=== PATIENT | male | born 1960 | race Caucasian/White ===

== ENCOUNTER 2021-02-18 05:58 | Day surgery (SDC) | payer OTHER, SELFPAY ==
--- NOTE | 2021-02-17 08:54 | P.CONAN_ITS ---
Documented by User: Veronica Mcclelland NP 02/17/21 08:55 HPI - Anesthesia Eval Consult details Narrative: 60yo M for Colonoscopy [facility] Past Medical History Medical History GERD (gastroesophageal reflux disease) HTN (hypertension) Hyperlipidemia Hypothyroidism Insulin dependent type 2 diabetes mellitus On beta abhishek at home MI on CPAP Personal history of COVID-19 Surgical History Surgical History History of arthroscopy of left knee History of bilateral carpal tunnel release History of esophagogastroduodenoscopy (EGD) History of surgery History of total left knee replacement Hx of colonoscopy Hx of eye surgery Hx of sinus surgery Social History Social History Patient Tobacco Use Status: Never used Tobacco Second Hand Smoke Exposure: No Use of substances other than those prescribed or required for medical reasons: No Are you DNR?: No Advance Directives: No Advance Directives Information Provided: Yes Advance Directives on File: No Meds Allergies Allergy/AdvReac Type Severity Reaction Status Date / Time No Known Allergies Allergy Unverified 02/11/21 15:45 Home Medications Medication Instructions Recorded Confirmed Last Taken Type Humalog U-100 Insulin 02/11/21 02/11/21 Unknown History aspirin 81 mg tablet,delayed 81 mg PO DAILY 02/11/21 02/11/21 02/11/21 History release felodipine 02/11/21 02/18/21 History fluoxetine 10 mg tablet 10 mg PO DAILY 02/11/21 02/11/21 Unknown History furosemide 20 mg tablet 20 mg PO DAILY 02/11/21 02/11/21 Unknown History levothyroxine 02/11/21 Unknown History meloxicam 02/11/21 02/11/21 02/11/21 History metoprolol succinate 25 mg 25 mg PO DAILY 02/11/21 02/11/21 02/18/21 History tablet,extended release 24 hr pantoprazole 40 mg tablet,delayed 40 mg PO DAILY 02/11/21 02/11/21 02/18/21 History release simvastatin 02/11/21 Unknown History Exam Exam Date and Time: February 17, 2021 0854 Assessment and Plan Assessment Anesthesia Assessment: Chart Reviewed Documented by User: Michelle Sosa MD 02/18/21 08:09 [facility] Past Medical History Medical History GERD (gastroesophageal reflux disease) HTN (hypertension) Hyperlipidemia Hypothyroidism Insulin dependent type 2 diabetes mellitus On beta abhishek at home MI on CPAP Personal history of COVID-19 Family History Family history of problems with anesthesia: Yes Surgical History Surgical History History of arthroscopy of left knee History of bilateral carpal tunnel release History of esophagogastroduodenoscopy (EGD) History of surgery History of total left knee replacement Hx of colonoscopy Hx of eye surgery Hx of sinus surgery History of Problems with Anesthesia: No Social History Social History Patient Tobacco Use Status: Never used Tobacco Second Hand Smoke Exposure: No Use of substances other than those prescribed or required for medical reasons: No Are you DNR?: No Advance Directives: No Advance Directives Information Provided: Yes Advance Directives on File: No Meds Allergies Allergy/AdvReac Type Severity Reaction Status Date / Time No Known Allergies Allergy Unverified 02/11/21 15:45 Home Medications Medication Instructions Recorded Confirmed Last Taken Type Humalog U-100 Insulin 02/11/21 02/11/21 Unknown History aspirin 81 mg tablet,delayed 81 mg PO DAILY 02/11/21 02/11/21 02/11/21 History release felodipine 02/11/21 02/18/21 History fluoxetine 10 mg tablet 10 mg PO DAILY 02/11/21 02/11/21 Unknown History furosemide 20 mg tablet 20 mg PO DAILY 02/11/21 02/11/21 Unknown History levothyroxine 02/11/21 Unknown History meloxicam 02/11/21 02/11/21 02/11/21 History metoprolol succinate 25 mg 25 mg PO DAILY 02/11/21 02/11/21 02/18/21 History tablet,extended release 24 hr pantoprazole 40 mg tablet,delayed 40 mg PO DAILY 02/11/21 02/11/21 02/18/21 History release simvastatin 02/11/21 Unknown History Exam Airway Mallampati Class: III TM Dist: >3cm Neck ROM: Full Loose/Missing/Broken Teeth: No Heart: RRR Lungs: CTA Assessment and Plan Assessment Anesthesia Assessment: Anesthesia Plan Discussed Final Anesthetic Review Family History of Problems with Anesthesia: Yes History of Problems with Anesthesia: No NPO: Yes ASA Class: III Final Preanesthetic Review: Meds/Allgs Chart Reviewed, Consent Obtained/Reviewed and Anes Risks/Benef Reviewed Patient Risk: Intermediate Procedure Risk: Low Anesthetic Plan Anesthetic Plan: MAC: Disposition: Standard PACU
[2021-02-18 06:10] VITALS: BMI 44.4
[2021-02-18] MEDS: Lactated Ringers 1,000 ML 100 ML IVCONT (06:35)
[2021-02-18] MEDS: Gentamicin Sulfate/NaCl 80 MG/100 ML PIGGYBACK 100 MG IV (06:36)
[2021-02-18 06:37] VITALS: BP 178/76; PULSE 79; RESP 18; TEMP 37.1; O2SAT 97
[2021-02-18 06:53] LABS: Glucose, Whole Blood 68 mg/dL (60-115)
[2021-02-18] MEDS: Ampicillin Sodium 2 GM in 0.9 % Sodium Chloride 100 ML IV (06:58)
[2021-02-18 08:43] VITALS: BP 133/56; PULSE 77; RESP 18; TEMP 36.6; O2SAT 99
--- NOTE | 2021-02-18 08:50 | P.BOP_ITS ---
Brief Operative Note Date of Service: 02/18/21 Pre-op diagnosis: Screening Post-op diagnosis: other (Colon polyp) Procedure: Colonoscopy to the cecum with hot snare polypectomy Surgeon: Dean Brown Anesthesia: MAC Was an Utility Worker Production used for this Procedure?: No Estimated blood loss (mL): 0 Pathology: other (A. Hepatic flexure polyp) Condition: stable Disposition: PACU
[2021-02-18 08:58] VITALS: BP 146/60; PULSE 78; RESP 18; TEMP 36.6; O2SAT 98
--- NOTE | 2021-02-18 10:18 | OP_ITS ---
SURGEON: Dean Brown MD INDICATIONS: The patient presents for evaluation of colorectal cancer screening and personal history of tubular adenoma of the colon. Full consent has been obtained from him for this, including risks of bleeding and perforation. PREOPERATIVE DIAGNOSIS: Colorectal cancer screening. POSTOPERATIVE DIAGNOSIS: PROCEDURE PERFORMED: Colonoscopy to the cecum with snare polypectomy. ESTIMATED BLOOD LOSS: COMPLICATIONS: ANESTHESIA: Monitored anesthesia care. ASSISTANTS: SPECIMENS: POSTOPERATIVE DIAGNOSES: Colorectal cancer screening, colon polyp, diverticulosis and internal hemorrhoids. DESCRIPTION OF PROCEDURE: The patient was placed in the left lateral decubitus position. The digital rectal exam revealed no abnormalities. The Olympus video pediatric colonoscope was entered into the rectum and advanced to the cecum. Once in the cecum, I did identify normal-appearing cecal pouch with appendiceal orifice and a normal-appearing ileocecal valve. The entire cecum was well visualized and appeared normal. Scope was slowly withdrawn assessing all mucosal surfaces carefully. Preparation was excellent. In the area of the hepatic flexure, was an approximately 12 mm relatively flat, but raised grossly adenomatous polyp, which was removed with the hot snare polypectomy and then recovered by suction. The polypectomy site appeared clean, without any sign of residual polyp nor bleeding. I did not visualize any other polyps, colitis, nor angiodysplasia. There was a mild amount of sigmoid diverticulosis. In the rectum, scope was retroflexed visualizing small internal hemorrhoids, but no other pathology. The rectal mucosa appeared normal. The scope was straightened out and withdrawn from the patient. He tolerated the procedure well and was returned to the recovery area in stable condition. IMPRESSION: 1. Colon polyp, status post hot snare polypectomy. 2. Diverticulosis. 3. Internal hemorrhoids. PLAN: The results of the pathology will be checked. I would recommend a repeat colonoscopy in 5 years for further screening. He was advised not to use any aspirin nor NSAIDs for 1 week. He did receive preprocedure antibiotics for prophylaxis in regard to his knee replacement and was given a prescription to use amoxicillin later today. He will see me on a p.r.n. basis. This has been discussed with his . MD TRES Neal/JEREMY / [id number]
== END 2021-02-18 09:20 | disposition home or self-care (01) ==
PROVIDERS: PCP Internal Medicine; Visit Provider Internal Medicine
PROC: 0DJD8ZZ Inspection of Lower Intestinal Tract, Via Natural or Artificial Opening Endoscopic (ICD-10-PCS; CPT 45378; principal; 2021-02-18 07:30)
DX: Z12.11 Encounter for screening for malignant neoplasm of colon (principal); Z86.010 Personal history of colon polyps; K63.5 Polyp of colon; K57.30 Diverticulosis of large intestine without perforation or abscess without bleeding; K64.8 Other hemorrhoids; K21.9 Gastro-esophageal reflux disease without esophagitis; I10 Essential (primary) hypertension; G47.33 Obstructive sleep apnea (adult) (pediatric); E11.9 Type 2 diabetes mellitus without complications; Z79.4 Long term (current) use of insulin; Z79.899 Other long term (current) drug therapy; Z79.82 Long term (current) use of aspirin; Z86.16 Personal history of COVID-19
CPT/HCPCS: 45385; 82947; 88305; J0290; J1580; J2250; J2405; J2765

== ENCOUNTER → 2022-03-30 07:59 | Outpatient (BNVA) | payer OTHER, SELFPAY | PROVIDERS: PCP Internal Medicine; Visit Provider Internal Medicine Endocrinology, Diabetes & Metabolism | DX: E10.65 Type 1 diabetes mellitus with hyperglycemia (principal); Z79.4 Long term (current) use of insulin | CPT/HCPCS: 82947 ==

== ENCOUNTER → 2022-08-31 09:01 | Outpatient (BNVA) | payer OTHER, SELFPAY | PROVIDERS: PCP Internal Medicine; Visit Provider Internal Medicine Endocrinology, Diabetes & Metabolism | DX: E10.65 Type 1 diabetes mellitus with hyperglycemia (principal) | CPT/HCPCS: 82947; 83036 ==

== ENCOUNTER 2022-12-21 08:45 | Outpatient (AMB) | payer OTHER, SELFPAY ==
[2022-12-21 08:47] VITALS: BP 170/90; PULSE 76; BMI 51.7
--- NOTE | 2022-12-21 08:47 | MHC.OFFVIS ---
Intake Vital Signs 12/21/22 08:47 Height 5 ft 8.78 in Weight 347 lb 14.231 oz BMI 51.7 BP 170/90 H Blood Pressure Location Rt brachial Position Sitting Pulse 76 Pulse Source Pulse Oximeter Intake Visit Reasons: f/u Type 1 DM/ Confirmed Intake Note: Patient present today to follow up on Type 1 Diabetes Mellitus. Patient receives DME supplies through: [facility] Last Diabetic Eye exam: Has upcoming appt on 12/26 Last Podiatry Visit: 11/2022 Random Glucose: 129 mg/dl HgA1C: 5.4% Wiener Packer Required: No Accompanied by: Self / Same As Patient Allergies No Known Allergies Allergy (Verified 12/21/22 08:55) Medication List - Last Reconciled 12/21/22 by Dean Diaz MD aspirin 81 mg PO DAILY cholecalciferol (vitamin D3) 25 mcg PO DAILY [felodipine ] fluoxetine 10 mg PO DAILY furosemide 20 mg PO DAILY glucagon 3 mg/actuation (Baqsimi) 3 mg intranasal ONCE insulin glargine (Lantus U-100 Insulin) 50 units subcut QPM insulin lispro (Humalog U-100 Insulin) 30 - 100 sliding scale doses subcutaneously 5 TIMES A DAY; levothyroxine 250 mcg PO DAILY lisinopril-hydrochlorothiazide 20-12.5 mg 1 tab PO DAILY [meloxicam ] metoprolol succinate ER 50 mg PO DAILY pantoprazole 40 mg PO DAILY pyridoxine (vitamin B6) 200 mg PO BID simvastatin 80 mg PO DAILY HPI HPI Comments History of Present Illness Details 61 YO M with is seen in consultation for T1DM at the request of PCP. Initially diagnosed with T1DM in 11 yrs ago when presented with polyuria .Saw Dr. Evan MD. Saw Dr. Marcano Was initially started on treatment with insulin . Current regimen: Lantus 50 units Humalog 6-8 units Per the CGM Dexcom CGMS is active 93 % of time . Avg glucose is 128 . Variability of 35 GMI of 6.4 The patient's blood sugars were in target 89% of the time, above target 8% of the time, and below target 3% of the time. Pattern shows hypoglycemia occurring late afternoon. Sensitive shows some hypoglycemia occurring predominantly late morning late afternoon Reports low sugars infrequently . Generally having after meals in afternoon Treats lows with sugar cANDIES OR oj . Does not Checks sugar after to ensure it is rising. Family history of autoimmunity in aunts and uncles Type 1 DM Has eyes checked yearly, last eye exam has appt next wk , has retinopathy. Has neuropathy, ses podiatry. Has nephropathy, on SEANIT/ARB. Has HLD, on statin. . Denies history of CAD. Had diabetes education but not recently . Diet/Carb counting: No Denies prior episodes of DKA. Denies prior severe episodes of hypoglycemia requiring help or hospitalization. Not recently Labs: [facility] Medical History (Updated 03/30/22 @ 08:11 by Dean Diaz MD) Uncontrolled type 1 diabetes mellitus with hyperglycemia, with long-term current use of insulin On beta abhishek at home Personal history of COVID-19 GERD (gastroesophageal reflux disease) Hypothyroidism Hyperlipidemia MI on CPAP HTN (hypertension) Insulin dependent type 2 diabetes mellitus Surgical History History of arthroscopy of left knee Hx of sinus surgery Hx of eye surgery History of surgery History of total left knee replacement History of bilateral carpal tunnel release History of esophagogastroduodenoscopy (EGD) Hx of colonoscopy Family History Father Congestive heart failure Diabetes Mother Lung cancer Social History Household Members: Spouse and Children Household Members Other:: , daughter Patient Tobacco Use Status: Never used Tobacco Second Hand Smoke Exposure: No Physical Exam Vital Signs: Last Vital Signs Pulse 76 12/21/22 08:47 BP 170/90 H 12/21/22 08:47 BMI result Body Mass Index 51.7 Absence of Cushingoid features. Absence of acromegalic features. Neck exam reveals nl size thyroid about 15 gms. No thyroid nodules palpable. No carotid bruits present. Lungs CTA. Heart S1 S2, Reg R/R. No M/R/ G. Skin exam reveals absence of vitiligo or acanthosis nigricans. Abdominal exam reveals Soft NT/ND with NA BS. No organomegaly present. Extrem Other: Visual exam of foot performed. No ulcerations or open lesions. No onchomycosis, no callouses.Pulses 2 + distally. Sensation intact to monofilament exam. Vibratory sensation sensed decreased bilaterally with 128 Hz tuning fork. There is 3+ edema present around the ankle Results AMB Hemoglobin A1c AMB Hemoglobin A1c 5.4 % Last Edit by Cari Gamble on 12/21/22 10:25 Results Reviewed Results Reviewed: 12/21/22 08:59 Glucose, Whole Blood Routine Laboratory Last Values Glucose (Clinic) 129 mg/dL (60-115) H 12/21/22 08:59 Assessment & Plan Assessment & Plan (1) Uncontrolled type 1 diabetes mellitus with hyperglycemia, with long-term current use of insulin: Code(s): E10.65 - Type 1 diabetes mellitus with hyperglycemia Plan: This is a 61-year-old white male with a history of type 1 diabetes with excellent glycemic control but afternoon hypoglycemia and 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 Plan is to send the patient to our concrete vibrator operator and health and safety technician. With decrease the Humalog by 1-2 units before l breakfast and lunch We did talk about carbohydrate counting he will meet with the health and safety technician discuss this. We also talked about potential use the Omnipod 5 pump but he somewhat reluctant to go on any pump. Orders: Orders AMB Hemoglobin A1c Today E10.65 - Type 1 diabetes mellitus with hyperglycemia Medications: Refilled glucagon 3 mg/actuation (Baqsimi) 3 mg intranasal ONCE 2 ea 5RF Coding Level of Care Code Est Pt Level 4 (76142) Diagnoses Uncontrolled type 1 diabetes mellitus with hyperglycemia, with long-term current use of insulin E10.65
[2022-12-21 09:04] LABS: Glucose, Whole Blood 129 mg/dL (60-115)
== END 2022-12-21 09:21 | disposition home or self-care (01) ==
PROVIDERS: PCP Internal Medicine; Visit Provider Internal Medicine Endocrinology, Diabetes & Metabolism
DX: E10.65 Type 1 diabetes mellitus with hyperglycemia (principal)
CPT/HCPCS: 99214

== ENCOUNTER → 2022-12-21 08:45 | Outpatient (BNVA) | payer OTHER, SELFPAY | PROVIDERS: Visit Provider Internal Medicine Endocrinology, Diabetes & Metabolism | DX: E10.65 Type 1 diabetes mellitus with hyperglycemia (principal); E10.40 Type 1 diabetes mellitus with diabetic neuropathy, unspecified; E10.319 Type 1 diabetes mellitus with unspecified diabetic retinopathy without macular edema | CPT/HCPCS: 82947; 83036 ==

== ENCOUNTER 2023-05-18 13:13 | Inpatient (IN) | payer OTHER, SELFPAY ==
--- NOTE | ~2023-05-18 | XR_ITS ---
EXAMINATION: XR CHEST CLINICAL INFORMATION: Shortness of breath COMPARISON: Chest radiograph from 12/05/2018 TECHNIQUE: 2 views of the chest were obtained. FINDINGS: Bilateral low lung volumes. Accentuation of pulmonary vasculature. Bibasilar atelectasis. No pneumothorax. Cardiac mediastinal silhouette is borderline enlarged. No large pleural effusion. Degenerative changes of the thoracolumbar spine. Soft tissues are unremarkable. XR/XR chest 2V IMPRESSION: 1. Bilateral low lung volumes. 2. Accentuation of pulmonary vasculature. 3. Bibasilar atelectasis.
--- NOTE | ~2023-05-18 | US_ITS ---
EXAMINATION: US VENOUS ULTRASOUND WITH DOPPLER LOWER EXTREMITY, LEFT CLINICAL INFORMATION: Pain COMPARISON: None available. TECHNIQUE: Ultrasound of the deep veins is performed from the hip to the calf with compression sonography and color and pulse Doppler assessment. Spectral analysis with color-flow imaging is performed. FINDINGS: There is normal venous compression and respiratory variation and augmented flow. The visualized common femoral vein, superficial femoral vein, profunda femoral vein, and popliteal vein shows no evidence of deep venous thrombosis. Calf veins not well visualized. There is no significant popliteal fossa cyst. If the patient's symptoms persist, followup ultrasound in 5 days 7 days might be of value to exclude proximal propagation from a non-visualized calf vein. US/US venous duplex LE LT IMPRESSION: No DVT demonstrated in the left lower extremity. Calf veins not well visualized.
--- NOTE | ~2023-05-18 | CT_ITS ---
EXAMINATION: CT cervical spine wo IV con, CT head/brain wo IV con INDICATION INFORMATION: Reason for Exam fall COMPARISON: None TECHNIQUE: Separate noncontrast CT examinations of the head and cervical spine were performed. Coronal and sagittal images were created for each examination at the technologist workstation. This CT examination was performed using dose optimization techniques as appropriate, variously including the following: *Automated exposure control *Adjustment of mA and/or kV according to patient size (this includes techniques or standardized protocols for targeted exams where dose is matched to indication/reason for exam; i.e. extremities or head) *Use of iterative reconstruction technique DLP: 1472 mGy-cm FINDINGS: Somewhat motion degraded examination. Evaluation of the cervical spine is also somewhat limited due to artifact related to patient body habitus. Head: No acute osseous or soft tissue abnormality. The mastoid air cells are clear. Mild ethmoid sinus mucosal thickening. There is no evidence of acute intracranial hemorrhage or territorial infarction. No abnormal mass effect or midline shift is seen. Butler to white matter differentiation is well preserved. No extra-axial fluid collections are identified. No hydrocephalus. Proportional prominence of the ventricles and sulcal spaces is consistent with mild volume loss. Patchy periventricular and deep white matter hypoattenuation is consistent with mild small vessel ischemic changes. Cervical spine: There is no evidence of acute cervical spine fracture. Vertebral bodies remain normal in height. Cervical straightening. No significant spondylolisthesis. Mild multilevel spondylosis. No pre- or paravertebral soft tissue abnormality is identified. Visualized portions of the lung apices are unremarkable. The thyroid gland is unremarkable. CT/CT cervical spine wo IV con IMPRESSION: 1. No acute intracranial abnormality. 2. No cervical spine fracture or traumatic malalignment.
[2023-05-18 13:34] VITALS: BP 168/50; PULSE 88; RESP 18; TEMP 37.2; O2SAT 94; BMI 48.8
--- NOTE | 2023-05-18 13:39 | ED_ITS ---
HPI - General Adult General Chief complaint: ETOH/Substance Use Stated complaint: Seeking Detox Falling Time Seen by Provider: 05/18/23 16:52 Source: patient, family and RN notes reviewed Mode of arrival: ambulatory Limitations: no limitations History of Present Illness HPI narrative: This is a 62-year-old male, with a history of alcohol abuse, diabetes, hypertension, hypothyroidism, GERD, hyperlipidemia, and MI on CPAP presenting to the emergency department seeking alcohol detox. Patient states that for the last 30-40 years he has been drinking 4 handles of vodka per week. He states that he is increased his intake, states that he has drank for handles of vodka since Tuesday. He has never been to detox or attempted to discontinue alcohol in the past and would like to pursue detox. He reports that he has had alcohol withdrawal tremors, denies hx of withdrawal seizures. He states that over the last week he has had 2 falls. He states that they have been mechanical, denies hitting his head or loss of consciousness. Denies any physical complaints after these falls. He states that over the last 2 weeks he has been unable to fully cleanse himself after using the restroom due to his weight. He states that he has had intermittent chest pain episodes which last several seconds and resolved on its own. He denies any current chest pain or shortness of breath. He denies any current headache, dizziness, chest pain, shortness of breath, abdominal pain, nausea, vomiting or diarrhea. He expresses increased depression and anxiety, denies SI or HI. He reports increased sleepiness throughout the week which is atypical of him. He admits to having a slight cough for the last 8 months. Denies any other complaints or concerns at this time. complaint: Etoh abuse Onset (ago): day(s) Radiation: non-radiation Relieving factors: none Exacerbating factors: none Associated symptoms: denies other symptoms Treatments prior to arrival: none Related Data Home Medications Medication Instructions Recorded Confirmed amlodipine 5 mg tablet 5 mg PO ONCE 05/18/23 05/18/23 aspirin 81 mg chewable tablet 81 mg PO ONCE 05/18/23 05/18/23 fluoxetine 10 mg tablet 10 mg PO DAILY 05/18/23 05/18/23 levothyroxine 25 mcg tablet 25 mcg PO ONCE 05/18/23 05/18/23 levothyroxine 300 mcg tablet 300 mcg PO ONCE 05/18/23 05/18/23 losartan 100 1 tab PO ONCE 05/18/23 05/18/23 mg-hydrochlorothiazide 25 mg tablet meloxicam 15 mg tablet 15 mg PO ONCE PRN Pain 05/18/23 05/18/23 metoprolol succinate 50 mg 50 mg PO ONCE 05/18/23 05/18/23 tablet,extended release 24 hr pantoprazole 40 mg tablet,delayed 40 mg PO ONCE 05/18/23 05/18/23 release simvastatin 80 mg tablet 80 mg PO BEDTIME 05/18/23 05/18/23 vitamin B6-vitamin E-magnesium 1 tab PO ONCE 05/18/23 05/18/23 Allergies Allergy/AdvReac Type Severity Reaction Status Date / Time No Known Allergies Allergy Verified 05/18/23 13:34 Review of Systems 2 Review of Systems: Yes all other systems are reviewed and are negative Constitutional: Constitutional: Reports as per [facility] Past Medical History Medical History (Updated 05/18/23 @ 19:53 by NICK Wick) Uncontrolled type 1 diabetes mellitus with hyperglycemia, with long-term current use of insulin On beta abhishek at home Personal history of COVID-19 GERD (gastroesophageal reflux disease) Hypothyroidism Hyperlipidemia MI on CPAP HTN (hypertension) Insulin dependent type 2 diabetes mellitus Surgical History History of arthroscopy of left knee Hx of sinus surgery Hx of eye surgery History of surgery History of total left knee replacement History of bilateral carpal tunnel release History of esophagogastroduodenoscopy (EGD) Hx of colonoscopy Family History Family History Father Congestive heart failure Diabetes Mother Lung cancer Social History Social History Household Members: Spouse and Children Household Members Other:: , daughter Alcohol intake: current Alcohol intake frequency: 3 or more drinks per day Patient Tobacco Use Status: Never used Tobacco Second Hand Smoke Exposure: No Advance Directives: No Advance Directives Information Provided: No Physical Exam ED Vital Signs: Vital Signs - 24 hr 05/18/23 13:34 05/18/23 17:04 Temperature 98.9 F Pulse Rate 88 84 Respiratory Rate 18 18 Blood Pressure 168/50 H 165/77 H Pulse Oximetry 94 95 Oxygen Delivery Method Room Air Room Air BMI result Body Mass Index 48.8 Const General: cooperative, comfortable and no acute distress Orientation/consciousness: patient oriented x3 Limitations: no limitations HENMT Head: Yes normal to inspection, Yes normocephalic and Yes atraumatic Ears: hearing grossly normal bilaterally General nose exam: Normal external nose present Face and sinus: Yes normal facial exam Mouth: Normal oral and palatal mucosa present, oropharynx normal and moist mucous membranes Throat: Yes posterior oropharynx normal Eyes General: appearance normal, both eyes and all related structures Eyelids: Yes eyelids normal Conjunctivae: conjunctivae normal Sclerae: sclerae normal Pupils: Equal, round and reactive pupils present EOM: EOMs intact bilaterally Neck Neck: Yes normal visual inspection, Yes full ROM and Yes no lymphadenopathy Lymphatic: no lymphadenopathy noted Chest Chest palpation & inspection: normal inspection of the chest Resp Effort & Inspection: normal respiratory effort and able to speak in complete sentences Auscultation: clear to auscultation bilaterally, no crackles, no rales, no rhonchi and no wheezes Cardio Rate: regular rate Rhythm: regular rhythm Heart sounds: S1 normal heart sound present and S2 normal heart sound present GI Other: Obese abdomen,, nontender. Inspection: Yes normal to inspection Skin General skin exam: no rashes or lesions noted Trauma: no lacerations or abrasions Wounds: no wounds Neuro General: patient oriented x3 and moves all extremities Cranial nerves: Yes Equal, round and reactive pupils present Extrem Other: Left calf is mildly edematous, tender to palpation along the calf General: Yes normal to inspection Right upper extremity: normal to inspection Left upper extremity: normal to inspection Right lower extremity: normal to inspection Left lower extremity: normal to inspection Course Course Course Narrative: Alcohol dependent patient is seeking detox, last drink was this morning Labs are ordered This is rapid medical exam in triage pending full evaluation and dispo by ER provider Reevaluation(s) Reevaluation #1: Chest x-ray shows bilateral low lung volumes, accentuation of pulmonary vasculature and by basilar atelectasis. Head CT unremarkable, C-spine unremarkable, no evidence of DVT. Time: 19:07 Reevaluation #2: Hypoglycemic at 48. Patient given D 50 as well as thiamine. Transfer of care initiated, accepted by Dr. White for etoh withdrawal. Time: 19:52 Medications Administered Generic Name Dose Route Start Last Admin Trade Name Bean PRN Reason Stop Dose Admin Thiamine HCl 200 mg/ Sodium 102 mls @ 204 mls/hr 05/18/23 19:35 05/18/23 19:45 Chloride IV 05/18/23 20:04 204 mls/hr ONCE ONE Administration Discontinued Medications Generic Name Dose Route Start Last Admin Trade Name Panfiloq PRN Reason Stop Dose Admin Diazepam 10 mg 05/18/23 16:42 05/18/23 16:53 Diazepam 2 Mg Tablet PO 05/18/23 16:43 10 mg ONCE ONE Administration Medical Decision Making Medical Decision Making [facility] Narrative: This is a 62-year-old male, with a history of alcohol abuse, diabetes, hypertension, hypothyroidism, GERD, hyperlipidemia, and MI on CPAP presenting to the emergency department seeking alcohol detox. On arrival, BP elevated at 168/50, all other vital signs within normal limits. Patient with mechanical fall as well as increased fatigue over the last week. He does have calf tenderness, and did have an episode of chest pain earlier today. Valium 10 mg p.o. was ordered prior to my assessment. He is alert and oriented x4. Plan: Labs, EKG, chest x-ray, CT head, CT neck, EKG, ultrasound LLE Differential Diagnosis Differential Diagnoses: The differential diagnosis associated with the presentation includes ETOH abuse, alcohol withdrawal, depression, anxiety, ACS, SDH Admission/Observation Consideration of admission/observation: Escalation of care including admission/observation considered Consult Healthcare Provider Management of the patient was discussed with: Hospitalist Lab Data [facility] Lab Attestation statement: I reviewed the patient's lab results. No leukocytosis, stable H&H, slight hyperkalemia at 5.4, BUN 38. AST/ALT elevated at 315/145. 05/18/23 16:08 05/18/23 16:08 Labs: Lab Results 05/18/23 05/18/23 05/18/23 Range/Units 16:08 19:19 19:29 WBC 5.7 (4.8-10.8) X10*3/uL RBC 4.18 L (4.60-5.80) X10*6/uL Hgb 14.3 (14.0-18.0) g/dl Hct 41.2 L (42.0-52.0) % MCV 98.6 H (80.0-98.0) fL MCH 34.2 H (27.0-33.0) pg MCHC 34.7 (31.0-36.0) g/dl RDW 13.4 (11.0-16.0) % Plt Count 242 (160-400) X10*3/uL MPV 9.0 L (9.4-12.4) fL Immature Gran % (Auto) 0.2 (0.0-0.4) % Neut % (Auto) 60.5 (45-73) % Lymph % (Auto) 30.1 (20-40) % [place] % (Auto) 5.8 (2-11) % Eos % (Auto) 2.3 (0-4) % Baso % (Auto) 1.1 (0-2) % Lymph # (Auto) 1.7 (1.2-4.9) X10*3/uL [place] # (Auto) 0.3 (0.1-1.2) X10*3/uL Eos # (Auto) 0.1 (0.0-0.4) X10*3/uL Baso # (Auto) 0.1 (0.0-0.2) X10*3/uL Abs Immat Gran (auto) 0.01 (0.00-0.03) X10*3/uL Absolute Neuts (auto) 3.4 (2.0-8.3) x10*3/uL Absolute Nucleated RBC 0.000 (0.0-0.012) X10*3/uL Nucleated RBC % (auto) 0.0 (0.0-0.2) /100WBC Sodium 141 (135-145) mmol/L Potassium 5.4 H (3.3-5.1) mmol/L Chloride 107 (96-108) mmol/L Carbon Dioxide 24 (22-29) mmol/L Anion Gap 15 (12-20) BUN 38 H (9-16) mg/dL Creatinine 1.15 (0.5-1.4) mg/dL Estim Creat Clear Calc 101.9 Estimated GFR > 60 POC Glucose 48 L* (60-115) mg/dL Random Glucose 90 (60-115) mg/dL Calcium 9.3 (8.4-10.2) mg/dL Magnesium 2.2 (1.6-2.6) mg/dL Total Bilirubin 0.6 (0.0-1.0) mg/dL Direct Bilirubin 0.1 (0.0-0.5) mg/dL AST 315 H (5-37) U/L ALT 145 H (0-40) U/L Alkaline Phosphatase 113 (39-117) U/L Troponin I High Sens < 2.7 (<3.5-35.0) ng/L B-Natriuretic Peptide 30 (<100) pg/mL Total Protein 7.6 (6.5-8.0) g/dL Albumin 3.9 (3.5-5.0) g/dL Lipase 27 (8-78) U/L Ethyl Alcohol 264 mg/dL COVID-19 ([facility]BERTINA) Negative (Negative) COVID-19 Clin Com See Note Influenza Type A ([facility]) Negative (Negative) Influenza Type B ([facility]HI) Negative (Negative) Influenza A & B Note See Note Independent Interpretation I performed an independent interpretation of an: EKG Interpretation: EKG normal sinus rhythm at a ventricular rate of 83 beats per minute, OK interval 184, QTC 444, no ST elevation or depression. Radiology Impression Discussion of test interpretation with radiology: I have reviewed the radiologist's reading. Radiologist Impression: EXAMINATION: US VENOUS ULTRASOUND WITH DOPPLER LOWER EXTREMITY, LEFT CLINICAL INFORMATION: Pain COMPARISON: None available. TECHNIQUE: Ultrasound of the deep veins is performed from the hip to the calf with compression sonography and color and pulse Doppler assessment. Spectral analysis with color-flow imaging is performed. FINDINGS: There is normal venous compression and respiratory variation and augmented flow. The visualized common femoral vein, superficial femoral vein, profunda femoral vein, and popliteal vein shows no evidence of deep venous thrombosis. Calf veins not well visualized. There is no significant popliteal fossa cyst. If the patient's symptoms persist, followup ultrasound in 5 days 7 days might be of value to exclude proximal propagation from a non-visualized calf vein. US/US venous duplex LE IMPRESSION: No DVT demonstrated in the left lower extremity. Calf veins not well visualized. Dictated By: Michelle Aguilar MD EXAMINATION: CT cervical spine wo IV con, CT head/brain wo IV con INDICATION INFORMATION: Reason for Exam fall COMPARISON: None TECHNIQUE: Separate noncontrast CT examinations of the head and cervical spine were performed. Coronal and sagittal images were created for each examination at the technologist workstation. This CT examination was performed using dose optimization techniques as appropriate, variously including the following: *Automated exposure control *Adjustment of mA and/or kV according to patient size (this includes techniques or standardized protocols for targeted exams where dose is matched to indication/reason for exam; i.e. extremities or head) *Use of iterative reconstruction technique DLP: 1472 mGy-cm FINDINGS: Somewhat motion degraded examination. Evaluation of the cervical spine is also somewhat limited due to artifact related to patient body habitus. Head: No acute osseous or soft tissue abnormality. The mastoid air cells are clear. Mild ethmoid sinus mucosal thickening. There is no evidence of acute intracranial hemorrhage or territorial infarction. No abnormal mass effect or midline shift is seen. Butler to white matter differentiation is well preserved. No extra-axial fluid collections are identified. No hydrocephalus. Proportional prominence of the ventricles and sulcal spaces is consistent with mild volume loss. Patchy periventricular and deep white matter hypoattenuation is consistent with mild small vessel ischemic changes. Cervical spine: There is no evidence of acute cervical spine fracture. Vertebral bodies remain normal in height. Cervical straightening. No significant spondylolisthesis. Mild multilevel spondylosis. No pre- or paravertebral soft tissue abnormality is identified. Visualized portions of the lung apices are unremarkable. The thyroid gland is unremarkable. CT/CT head/brain wo IV con IMPRESSION: 1. No acute intracranial abnormality. 2. No cervical spine fracture or traumatic malalignment. Dictated By: Matthew Cisneros Independent Historian Clinical information obtained from an independent historian. History obtained from or confirmed by: Spouse Social Determinants Patient?s care significantly limited by Social Determinants of Health including: Alcoholism and drug addiction in family Critical Care Time Critical Care Time Critical Care Time: Yes Total Critical Care Time: 45 Attestation: I have personally provided critical care time exclusive of time spent on separately billable procedures. Time includes review of lab data, radiology results, discussion with consultants, and monitoring for potential decompensation. Intervention performed as documented. Discharge Plan Discharge Clinical Impression: Alcohol withdrawal Patient Disposition: Admitted As Inpatient
[2023-05-18 16:12] LABS: MANUAL DIFF FLAG NO
[2023-05-18 16:15] LABS: Basophils Absolute Auto 0.1 X10*3/uL (0.0-0.2); Basophils Percent Auto 1.1 % (0-2); Eosinophils Absolute Auto 0.1 X10*3/uL (0.0-0.4); Eosinophils Percent Auto 2.3 % (0-4); Hematocrit 41.2 % (42.0-52.0); Hemoglobin 14.3 g/dl (14.0-18.0); Imm Gran Abs Auto 0.01 X10*3/uL (0.00-0.03); Imm Gran Pct Auto 0.2 % (0.0-0.4); Lymphocytes Absolute Auto 1.7 X10*3/uL (1.2-4.9); Lymphocytes Percent Auto 30.1 % (20-40); Mean Corpuscular HGB Conc 34.7 g/dl (31.0-36.0); Mean Corpuscular Hemoglobin 34.2 pg (27.0-33.0); Mean Corpuscular Volume 98.6 fL (80.0-98.0); Monocytes Absolute Auto 0.3 X10*3/uL (0.1-1.2); Monocytes Percent Auto 5.8 % (2-11); Neutrophils Absolute Auto 3.4 x10*3/uL (2.0-8.3); Neutrophils Percent Auto 60.5 % (45-73); Platelet Count 242 X10*3/uL (160-400); Red Blood Count 4.18 X10*6/uL (4.60-5.80); Red Cell Distribution Width 13.4 % (11.0-16.0); White Blood Count 5.7 X10*3/uL (4.8-10.8)
[2023-05-18 16:37] LABS: Alanine Aminotransferase 145 U/L (0-40); Albumin Level 3.9 g/dL (3.5-5.0); Alkaline Phosphatase 113 U/L (39-117); Anion Gap 15 (12-20); Aspartate Amino Transferase 315 U/L (5-37); Bilirubin Direct 0.1 mg/dL (0.0-0.5); Bilirubin Total 0.6 mg/dL (0.0-1.0); Blood Urea Nitrogen 38 mg/dL (9-16); Calcium 9.3 mg/dL (8.4-10.2); Carbon Dioxide 24 mmol/L (22-29); Chloride 107 mmol/L (96-108); Creatinine Clr Calc Pharmacy 101.9; Estimated Glomerular Filt Rate > 60; Ethanol 264 mg/dL; Glucose Random 90 mg/dL (60-115); Lipase 27 U/L (8-78); Potassium 5.4 mmol/L (3.3-5.1); Sodium 141 mmol/L (135-145); Total Protein 7.6 g/dL (6.5-8.0)
[2023-05-18] MEDS: diazePAM 2 MG TABLET 10 MG PO (16:53)
[2023-05-18 17:04] VITALS: BP 165/77; PULSE 84; RESP 18; O2SAT 95
[2023-05-18 17:09] LABS: Magnesium 2.2 mg/dL (1.6-2.6)
--- NOTE | 2023-05-18 17:13 | ECG_ITS ---
Test Reason : ETOH/SUBSTANCE Blood Pressure : / mmHG Vent. Rate : 083 BPM Atrial Rate : 083 BPM P-R Int : 184 ms QRS Dur : 092 ms QT Int : 378 ms P-R-T Axes : 052 -24 042 degrees QTc Int : 444 ms Normal sinus rhythm Septal infarct (cited on or before 05-OCT-2001) Abnormal ECG When compared with ECG of 05-DEC-2018 08:44, No significant change was found Referred By: Queenie Guerra Electronically Signed By:Omi Ramos
[2023-05-18 17:46] LABS: Troponin-I High Sensitivity < 2.7 ng/L (<3.5-35.0)
[2023-05-18 17:50] LABS: B Type Natriuretic Peptide 30 pg/mL (<100)
[2023-05-18 19:33] LABS: Glucose, Whole Blood 48 mg/dL (60-115)
[2023-05-18 19:41] LABS: COVID-19 Test Negative (Negative); IDNOW Serial# 08D9AD1C
[2023-05-18 19:42] LABS: IDNOW Serial# 9DB6401D; Influenza A Negative (Negative); Influenza B2 Negative (Negative)
--- NOTE | 2023-05-18 19:43 | P.HPHOSP_ITS ---
History of Present Illness Date of Service: 05/18/23 Chief Complaint: Alcohol withdrawal This is a 62-year-old male with pertinent history of type 1 diabetes mellitus, essential hypertension, hypothyroidism, MI on CPAP, alcohol use disorder, gastroesophageal reflux disease, mixed hyperlipidemia who presents to the emergency department for concerns of alcohol withdrawal. Patient does have a history of alcohol withdrawal and states his last drink was on the day of presentation. He did not eat or drink anything throughout the day. He has been having anxiety, tremors, nausea and nonbloody emesis. No history of alcohol withdrawal seizures or DTs. Does want to quit. He is compliant with his insulin regimen and states his A1c is 6. Patient took Lantus last night but did not eat anything throughout the day. No fever, chills, chest discomfort, palpitations, shortness of breath, abdominal pain, changes in urinary or bowel habits. In the emergency department, patient was initiated on phenobarb protocol. Blood glucose was found to be low. Review of Systems 2 Constitutional: Constitutional: Reports no additional constitutional complaints Cardiovascular: Cardiovascular: Reports no additional cardiovascular complaints Respiratory: Respiratory: Reports no additional respiratory complaints Gastrointestinal: Gastrointestinal: Reports nausea and Reports vomiting Neurologic: Reports tremor(s) Psychiatric: Psychiatric: Reports anxiety PMFSH Medical History Uncontrolled type 1 diabetes mellitus with hyperglycemia, with long-term current use of insulin On beta abhishek at home Personal history of COVID-19 GERD (gastroesophageal reflux disease) Hypothyroidism Hyperlipidemia MI on CPAP HTN (hypertension) Insulin dependent type 2 diabetes mellitus Family History Father Congestive heart failure Diabetes Mother Lung cancer Surgical History History of arthroscopy of left knee Hx of sinus surgery Hx of eye surgery History of surgery History of total left knee replacement History of bilateral carpal tunnel release History of esophagogastroduodenoscopy (EGD) Hx of colonoscopy Social History Household Members: Spouse and Children Household Members Other:: , daughter Alcohol intake: current Alcohol intake frequency: 3 or more drinks per day Patient Tobacco Use Status: Never used Tobacco Second Hand Smoke Exposure: No Advance Directives: No Advance Directives Information Provided: No Meds Allergies Allergy/AdvReac Type Severity Reaction Status Date / Time No Known Allergies Allergy Verified 05/18/23 13:34 Active Medications: Current Medications Thiamine HCl 200 mg/ Sodium (Chloride) 102 mls @ 204 mls/hr IV ONCE ONE Stop: 05/18/23 20:04 Pharmacy Consult (Consult Rx Etoh Phenob Im/Po) 1 each MISCELLANE ONCE PRN; Protocol PRN Reason: Consult order Phenobarbital (Phenobarbital 15 Mg Tablet) 45 mg PO BID ESTUARDO; Protocol Stop: 05/20/23 21:01 Phenobarbital (Phenobarbital 30 Mg Tablet) 30 mg PO BID ESTUARDO; Protocol Stop: 05/22/23 21:01 Phenobarbital (Phenobarbital 15 Mg Tablet) 15 mg PO DAILY [facility]; Protocol Stop: 05/24/23 09:01 Phenobarbital Sodium (Phenobarbital Sodium 130 Mg/Ml Im Once) 351 mg IM ONCE ONE; Protocol Stop: 05/18/23 20:01 Phenobarbital Sodium (Phenobarbital Sodium 130 Mg/Ml Vial Im Q3hx2) 260 mg IM Q3H ESTUARDO; Protocol Stop: 05/19/23 02:01 Home Medications Medication Instructions Recorded Confirmed Last Taken Type amlodipine 5 mg tablet 5 mg PO DAILY 05/18/23 05/18/23 05/18/23 08:00 History aspirin 81 mg chewable tablet 81 mg PO DAILY 05/18/23 05/18/23 05/18/23 08:00 History cholecalciferol (vitamin D3) 25 25 mcg PO DAILY 05/18/23 05/18/23 05/18/23 History mcg (1,000 unit) tablet cyanocobalamin (vitamin B-12) 1,000 mcg PO DAILY 05/18/23 05/18/23 05/18/23 History 1,000 mcg tablet fluoxetine 10 mg tablet 10 mg PO DAILY 05/18/23 05/18/23 05/18/23 08:00 History levothyroxine 25 mcg tablet 25 mcg PO DAILY 05/18/23 05/18/23 05/18/23 08:00 History levothyroxine 300 mcg tablet 300 mcg PO DAILY 05/18/23 05/18/23 05/18/23 08:00 History losartan 100 1 tab PO DAILY 05/18/23 05/18/23 05/18/23 08:00 History mg-hydrochlorothiazide 25 mg tablet meloxicam 15 mg tablet 15 mg PO DAILY Pain 05/18/23 05/18/23 05/18/23 08:00 History metoprolol succinate 50 mg 50 mg PO DAILY 05/18/23 05/18/23 05/18/23 08:00 History tablet,extended release 24 hr pantoprazole 40 mg tablet,delayed 40 mg PO DAILY 05/18/23 05/18/23 05/18/23 08:00 History release simvastatin 80 mg tablet 80 mg PO BEDTIME 05/18/23 05/18/23 05/17/23 History thiamine HCl (vitamin B1) 100 mg 200 mg PO DAILY 05/18/23 05/18/23 05/18/23 History tablet Physical Exam 2 Vital Signs and Narrative: Vital Signs: Last Vital Signs Temp 98.9 F 05/18/23 13:34 Pulse 84 05/18/23 17:04 Resp 18 05/18/23 17:04 BP 165/77 H 05/18/23 17:04 Pulse Ox 95 05/18/23 17:04 O2 Del Method Room Air 05/18/23 17:04 BMI result Body Mass Index 48.8 Middle-aged male lying in bed in no distress Neck supple, no JVD Regular rate and rhythm, S1-S2 heard Regular breath sounds bilaterally, no wheezing or crackles appreciated Abdomen soft nontender, no guarding, no rigidity Patient is awake, alert and oriented to self, place, time and person ; no focal motor deficit Psych: Normal mood bilateral nonpitting edema Results Labs 05/18/23 16:08 05/18/23 16:08 Labs: Laboratory Results - last 24 hr 05/18/23 05/18/23 05/18/23 16:08 19:19 19:29 MCV 98.6 H MCH 34.2 H MCHC 34.7 RDW 13.4 Plt Count 242 MPV 9.0 L Immature Gran % (Auto) 0.2 Neut % (Auto) 60.5 Lymph % (Auto) 30.1 [place] % (Auto) 5.8 Eos % (Auto) 2.3 Baso % (Auto) 1.1 Lymph # (Auto) 1.7 [place] # (Auto) 0.3 Eos # (Auto) 0.1 Baso # (Auto) 0.1 Abs Immat Gran (auto) 0.01 Absolute Neuts (auto) 3.4 Absolute Nucleated RBC 0.000 Nucleated RBC % (auto) 0.0 Anion Gap 15 Estim Creat Clear Calc 101.9 Estimated GFR > 60 POC Glucose 48 L* Random Glucose 90 Calcium 9.3 Magnesium 2.2 Total Bilirubin 0.6 Direct Bilirubin 0.1 AST 315 H ALT 145 H Alkaline Phosphatase 113 Troponin I High Sens < 2.7 B-Natriuretic Peptide 30 Total Protein 7.6 Albumin 3.9 Lipase 27 Ethyl Alcohol 264 COVID-19 ([facility]) Negative COVID-19 Clin Com See Note Influenza Type A ([facility]) Negative Influenza Type B ([facility]) Negative Influenza A & B Note See Note Imaging Radiologist's Impressions: Impressions Cervical Spine CT 05/18/23 17:44 IMPRESSION: 1. No acute intracranial abnormality. 2. No cervical spine fracture or traumatic malalignment. Head CT 05/18/23 17:44 IMPRESSION: 1. No acute intracranial abnormality. 2. No cervical spine fracture or traumatic malalignment. Chest X-Ray 05/18/23 18:02 IMPRESSION: 1. Bilateral low lung volumes. 2. Accentuation of pulmonary vasculature. 3. Bibasilar atelectasis. Venous Duplex 05/18/23 18:23 IMPRESSION: No DVT demonstrated in the left lower extremity. Calf veins not well visualized. Assessment and Plan (1) Alcohol withdrawal: Status: Acute (2) Hypoglycemia: Status: Acute Plan This is a 62-year-old male with pertinent history of type 1 diabetes mellitus, essential hypertension, hypothyroidism, MI on CPAP, alcohol use disorder, gastroesophageal reflux disease, mixed hyperlipidemia who presents to the emergency department for concerns of alcohol withdrawal. #. Alcohol use disorder: Initiated on phenobarb protocol in the ER. On thiamine. Consulted Addiction Medicine, appreciate assistance #. Hyperglycemia in a patient with type 1 diabetes: Patient states he did not eat all day and took his Lantus last night. D25 IV push and close monitoring of glucose. May need dextrose fluids if continues to be hypoglycemic #. Mood disorder: Continue home mood stabilizers #. Hypothyroidism: On Synthroid #. Essential hypertension: Continue home antihypertensives #. MI: Continue CPAP at bedtime DVT prophylaxis: Lovenox Full code Quality Stroke Does the patient have a stroke diagnosis?: No VTE Prior VTE?: No VTE Risk Level:: Medical - moderate - high VTE Device Contraindication: Treatment Not Indicated VTE Drug Contraindication: N/A - Med Ordered
[2023-05-18] MEDS: Thiamine HCL 200 MG in 0.9 % Sodium Chloride 100 ML 204 MG IV (19:45)
--- NOTE | 2023-05-18 20:09 | PHA.MEDREC ---
Pharmacy Consult ? Medication Reconciliation Pharmacy has completed the medication reconciliation. Patient had all AM pills in pill box. I was able to identify. Patient reports a cholesterol medications at night, said it was simvastatin but patient reports it was switch to another medications at a lower dose that was strong. I left has simvastatin as medication will be P&T to atorvastatin on admission. Ashtyn Sim, PharmD
[2023-05-18] MEDS: Sodium Zirconium Cyclosilicate 5 GM POWD.PACK PO (21:11)
[2023-05-18] MEDS: Enoxaparin Sodium 40 MG/0.4 ML SYRINGE SUBCUT (21:11)
[2023-05-18] MEDS: PHENobarbitaL sodium 130 MG/ML IM ONCE 351 MG IM (21:12)
[2023-05-18 21:21] LABS: Amphetamine Screen Urine Not Detected (Not Detect); Barbiturates, Urine Not Detected (Not Detect); Benzodiazepines Screen Urine Not Detected (Not Detect); Cannabinoid Screen Urine Not Detected (Not Detect); Cocaine Screen Urine Not Detected (Not Detect); Fentanyl, urine Not Detected (Not Detect); Opiate Screen Urine Not Detected (Not Detect); Phencyclidine Screen Urine Not Detected (Not Detect)
[2023-05-18 21:31] LABS: Glucose, Whole Blood 104 mg/dL (60-115)
[2023-05-18 22:00] VITALS: BP 166/70; PULSE 86; RESP 18; TEMP 36.7; O2SAT 94
[2023-05-18 23:24] LABS: Glucose, Whole Blood 222 mg/dL (60-115)
[2023-05-18] MEDS: ondansetron HCL 4 MG/2 ML VIAL IVPUSH (23:32)
[2023-05-19] VITALS (7 sets, daily range): BP systolic 140–176; BP diastolic 70–82; PULSE 80–97; RESP 16–20; TEMP 36–37.2; O2SAT 94–98
[2023-05-19] MEDS: PHENobarbitaL sodium 130 MG/ML VIAL IM Q3Hx2 260 MG IM ×2 (00:20→04:05)
[2023-05-19 01:31] LABS: Glucose, Whole Blood 213 mg/dL (60-115)
[2023-05-19] MEDS: Levothyroxine Sodium 150 MCG TABLET 300 MCG PO (05:42)
[2023-05-19] MEDS: Levothyroxine Sodium 25 MCG TABLET PO (05:42)
[2023-05-19] MEDS: ondansetron HCL 4 MG/2 ML VIAL IVPUSH (05:42)
[2023-05-19] MEDS: Omeprazole 20 MG CAPSULE.DR PO (05:42)
[2023-05-19 07:19] LABS: Glucose, Whole Blood 246 mg/dL (60-115)
[2023-05-19 07:26] LABS: MANUAL DIFF FLAG NO
[2023-05-19 07:35] LABS: Basophils Percent Auto 0.6 % (0-2); Eosinophils Absolute Auto 0.1 X10*3/uL (0.0-0.4); Eosinophils Percent Auto 0.7 % (0-4); Hematocrit 35.9 % (42.0-52.0); Hemoglobin 12.4 g/dl (14.0-18.0); Imm Gran Abs Auto 0.02 X10*3/uL (0.00-0.03); Imm Gran Pct Auto 0.3 % (0.0-0.4); Lymphocytes Absolute Auto 0.8 X10*3/uL (1.2-4.9); Lymphocytes Percent Auto 12.5 % (20-40); Mean Corpuscular HGB Conc 34.5 g/dl (31.0-36.0); Mean Corpuscular Hemoglobin 33.4 pg (27.0-33.0); Mean Corpuscular Volume 96.8 fL (80.0-98.0); Mean Platelet Volume 9.1 fL (9.4-12.4); Monocytes Absolute Auto 0.5 X10*3/uL (0.1-1.2); Neutrophils Absolute Auto 5.3 x10*3/uL (2.0-8.3); Neutrophils Percent Auto 78.9 % (45-73); Platelet Count 213 X10*3/uL (160-400); Red Blood Count 3.71 X10*6/uL (4.60-5.80); Red Cell Distribution Width 13.2 % (11.0-16.0); White Blood Count 6.7 X10*3/uL (4.8-10.8)
[2023-05-19 07:58] LABS: Sodium 135 mmol/L (135-145)
[2023-05-19 07:59] LABS: Anion Gap 14 (12-20); Blood Urea Nitrogen 34 mg/dL (9-16); Calcium 8.5 mg/dL (8.4-10.2); Carbon Dioxide 25 mmol/L (22-29); Chloride 100 mmol/L (96-108); Creatinine Clr Calc Pharmacy 107.5; Estimated Glomerular Filt Rate > 60; Glucose Random 247 mg/dL (60-115); Potassium 4.2 mmol/L (3.3-5.1)
[2023-05-19] MEDS: Insulin Lispro 100 UNIT/ML 3 ML VIAL SUBCUT ×5 (08:14→20:44)
[2023-05-19] MEDS: PHENobarbitaL 15 MG TABLET 45 MG PO ×2 (08:15→20:45)
[2023-05-19] MEDS: NaPROXEN 500 MG TABLET PO ×2 (08:15→20:46)
[2023-05-19] MEDS: FLUoxetine HCl 10 MG CAPSULE PO (08:15)
[2023-05-19] MEDS: Metoprolol Succinate ER 50 MG TAB.ER.24H PO (08:15)
[2023-05-19] MEDS: Cholecalciferol (Vitamin D3) 25 MCG TABLET PO (08:15)
[2023-05-19] MEDS: Thiamine HCL 100 MG TABLET 200 MG PO (08:15)
[2023-05-19] MEDS: Cyanocobalamin (Vitamin B-12) 1,000 MCG TABLET 1000 MCG PO (08:16)
[2023-05-19] MEDS: amLODIPine Besylate 5 MG TABLET PO (08:16)
[2023-05-19] MEDS: Atorvastatin Calcium 40 MG TABLET PO (08:16)
[2023-05-19] MEDS: Aspirin 81 MG TAB.CHEW PO (08:16)
[2023-05-19] MEDS: hydroCHLOROthiazide 25 MG TABLET PO (08:16)
[2023-05-19] MEDS: 0.9 % Sodium Chloride Flush 3 ML SYRINGE IVFLUSH ×3 (08:20→20:48)
[2023-05-19] MEDS: Losartan Potassium 50 MG TABLET 100 MG PO (08:20)
[2023-05-19] MEDS: Insulin Glargine,Hum.rec.anlog 100 UNIT/ML 10 ML VIAL 20 UNIT SUBCUT ×2 (09:26→21:04)
--- NOTE | 2023-05-19 09:36 | MHC.CM.PN ---
Patient from home w/ . At [facility] for ETOH W/D. Funtionally independent at baseline. Now using a walker for assistance. CPAP through [facility]. Has a Dexcom. PCP: Cam Pickett MD HCP: Patient completed HCP naming agents 1) Leni [phone], 2) daughter Marie [phone] DP: home self care vs recovery team intervention for ETOH. can transport. CM will continue to follow.
--- NOTE | 2023-05-19 10:43 | P.PNIM_ITS ---
Subjective Subjective Date of Service: 05/19/23 Interval History: f/u on alcohol withdrawal symptoms are much better today Physical Exam 2 Vital Signs: Vital Signs: Last Vital Signs Temp 97.2 F 05/19/23 07:28 Pulse 97 05/19/23 07:28 Resp 20 05/19/23 07:28 BP 157/80 H 05/19/23 07:28 Pulse Ox 94 05/19/23 07:28 O2 Del Method Room Air 05/19/23 07:28 BMI result Body Mass Index 48.8 Const: Other: General: AO X 3, no acute distress Resp: CTA bilateral CVS: S1,S2,RRR GI: +BS, NT, no distention Skin: No rash Neuro: motor grossly intact Psych: appropriate affect Objective Data Active Medications Acetaminophen (Acetaminophen 325 Mg Tablet) 650 mg PO Q6H PRN PRN Reason: Pain, Mild (Pain Scale 1-3) Amlodipine Besylate (Amlodipine Besylate 5 Mg Tablet) 5 mg PO DAILY [facility]; Protocol Last Admin: 05/19/23 08:16 Dose: 5 mg Documented By: KAYLYNN Aspirin (Aspirin 81 Mg Tab.Chew) 81 mg PO DAILY [facility] Last Admin: 05/19/23 08:16 Dose: 81 mg Documented By: KAYLYNN Atorvastatin Calcium (Atorvastatin Calcium 40 Mg Tablet) 40 mg PO DAILY [facility] Last Admin: 05/19/23 08:16 Dose: 40 mg Documented By: KAYLYNN Cyanocobalamin (Cyanocobalamin (Vitamin B-12) 1,000 Mcg Tablet) 1,000 mcg PO DAILY [facility] Last Admin: 05/19/23 08:16 Dose: 1,000 mcg Documented By: KAYLYNN Dextrose (Dextrose 50 % 25 Gm/50 Ml Syringe) 25 gm IVPUSH Q15M PRN; Protocol PRN Reason: per Hypoglycemia Standing Ord. Dextrose (Dextrose 50 % 25 Gm/50 Ml Syringe) 25 gm IVPUSH Q15M PRN; Protocol PRN Reason: per Hypoglycemia Standing Ord. Enoxaparin Sodium (Enoxaparin Sodium 40 Mg/0.4 Ml Syringe) 40 mg SUBCUT Q24H [facility] Last Admin: 05/18/23 21:11 Dose: 40 mg Documented By: KURT Fluoxetine HCl (Fluoxetine Hcl 10 Mg Capsule) 10 mg PO DAILY [facility] Last Admin: 05/19/23 08:15 Dose: 10 mg Documented By: KAYLYNN Glucose (Glucose Gel 15 Gm Gel..Gram.) 15 gm PO Q15M PRN; Protocol PRN Reason: per Hypoglycemia Standing Ord. Glucose (Glucose Gel 15 Gm Gel..Gram.) 15 gm PO Q15M PRN; Protocol PRN Reason: per Hypoglycemia Standing Ord. Hydrochlorothiazide (Hydrochlorothiazide 25 Mg Tablet) 25 mg PO DAILY [facility] Last Admin: 05/19/23 08:16 Dose: 25 mg Documented By: KAYLYNN Insulin Human Lispro (Insulin Lispro 100 Unit/Ml 3 Ml Vial) 0 unit SUBCUT QIDACHS [facility]; Protocol Last Admin: 05/19/23 08:14 Dose: 4 unit Documented By: KAYLYNN Levothyroxine Sodium (Levothyroxine Sodium 25 Mcg Tablet) 25 mcg PO DAILY@0600 [facility] Last Admin: 05/19/23 05:42 Dose: 25 mcg Documented By: JUAREZ Levothyroxine Sodium (Levothyroxine Sodium 150 Mcg Tablet) 300 mcg PO DAILY@0600 [facility] Last Admin: 05/19/23 05:42 Dose: 300 mcg Documented By: JUAREZ Losartan Potassium (Losartan Potassium 50 Mg Tablet) 100 mg PO DAILY [facility] Last Admin: 05/19/23 08:20 Dose: 100 mg Documented By: KAYLYNN Melatonin (Melatonin 3 Mg Tablet) 6 mg PO BEDTIME PRN PRN Reason: Insomnia Metoprolol Succinate (Metoprolol Succinate Er 50 Mg Tab.Er.24h) 50 mg PO DAILY [facility]; Protocol Last Admin: 05/19/23 08:15 Dose: 50 mg Documented By: KAYLYNN Naproxen (Naproxen 500 Mg Tablet) 500 mg PO BID [facility] Last Admin: 05/19/23 08:15 Dose: 500 mg Documented By: KAYLYNN Omeprazole (Omeprazole 20 Mg Luis Armando.) 20 mg PO DAILY@0630 [facility] Last Admin: 05/19/23 05:42 Dose: 20 mg Documented By: JUAREZ Ondansetron HCl (Ondansetron Hcl 4 Mg/2 Ml Vial) 4 mg IVPUSH Q8H PRN PRN Reason: Nausea and Vomiting Last Admin: 05/19/23 05:42 Dose: 4 mg Documented By: JUAREZ Comments: Dr. Christopher OK'd to give early Pharmacy Consult (Consult Rx Etoh Phenob Im/Po) 1 each MISCELLANE ONCE PRN; Protocol PRN Reason: Consult order Phenobarbital (Phenobarbital 15 Mg Tablet) 45 mg PO BID [facility]; Protocol Stop: 05/20/23 21:01 Last Admin: 05/19/23 08:15 Dose: 45 mg Documented By: KAYLYNN Phenobarbital (Phenobarbital 30 Mg Tablet) 30 mg PO BID [facility]; Protocol Stop: 05/22/23 21:01 Phenobarbital (Phenobarbital 15 Mg Tablet) 15 mg PO DAILY [facility]; Protocol Stop: 05/24/23 09:01 Sodium Chloride (0.9 % Sodium Chloride Flush 3 Ml Syringe) 3 ml IVFLUSH QSHIFT [facility] Last Admin: 05/19/23 08:20 Dose: 3 ml Documented By: KAYLYNN Thiamine HCl (Thiamine Hcl 100 Mg Tablet) 200 mg PO DAILY [facility] Last Admin: 05/19/23 08:15 Dose: 200 mg Documented By: KAYLYNN Vitamin D (Cholecalciferol (Vitamin D3) 25 Mcg Tablet) 25 mcg PO DAILY [facility] Last Admin: 05/19/23 08:15 Dose: 25 mcg Documented By: KAYLYNN Labs 05/19/23 07:05 05/19/23 07:05 Labs: Laboratory Results - last 24 hr 05/18/23 05/18/23 05/18/23 16:08 19:19 19:29 MCV 98.6 H MCH 34.2 H MCHC 34.7 RDW 13.4 Plt Count 242 MPV 9.0 L Immature Gran % (Auto) 0.2 Neut % (Auto) 60.5 Lymph % (Auto) 30.1 Chester % (Auto) 5.8 Eos % (Auto) 2.3 Baso % (Auto) 1.1 Lymph # (Auto) 1.7 Chester # (Auto) 0.3 Eos # (Auto) 0.1 Baso # (Auto) 0.1 Abs Immat Gran (auto) 0.01 Absolute Neuts (auto) 3.4 Absolute Nucleated RBC 0.000 Nucleated RBC % (auto) 0.0 Anion Gap 15 Estim Creat Clear Calc 101.9 Estimated GFR > 60 POC Glucose 48 L* Random Glucose 90 Calcium 9.3 Magnesium 2.2 Total Bilirubin 0.6 Direct Bilirubin 0.1 AST 315 H ALT 145 H Alkaline Phosphatase 113 Troponin I High Sens < 2.7 B-Natriuretic Peptide 30 Total Protein 7.6 Albumin 3.9 Lipase 27 Urine Opiates Screen Urine Fentanyl Screen Ur Barbiturates Screen Ur Phencyclidine Scrn Ur Amphetamines Screen U Benzodiazepines Scrn Urine Cocaine Screen U Marijuana (THC) Screen Ethyl Alcohol 264 COVID-19 (ALBERTINA) Negative COVID-19 Clin Com See Note Influenza Type A (RICHI) Negative Influenza Type B (RICHI) Negative Influenza A & B Note See Note 05/18/23 05/18/23 05/18/23 21:05 21:27 23:16 MCV MCH MCHC RDW Plt Count MPV Immature Gran % (Auto) Neut % (Auto) Lymph % (Auto) Chester % (Auto) Eos % (Auto) Baso % (Auto) Lymph # (Auto) Chester # (Auto) Eos # (Auto) Baso # (Auto) Abs Immat Gran (auto) Absolute Neuts (auto) Absolute Nucleated RBC Nucleated RBC % (auto) Anion Gap Estim Creat Clear Calc Estimated GFR POC Glucose 104 222 H Random Glucose Calcium Magnesium Total Bilirubin Direct Bilirubin AST ALT Alkaline Phosphatase Troponin I High Sens B-Natriuretic Peptide Total Protein Albumin Lipase Urine Opiates Screen Not Detected Urine Fentanyl Screen Not Detected Ur Barbiturates Screen Not Detected Ur Phencyclidine Scrn Not Detected Ur Amphetamines Screen Not Detected U Benzodiazepines Scrn Not Detected Urine Cocaine Screen Not Detected U Marijuana (THC) Screen Not Detected Ethyl Alcohol COVID-19 (ALBERTINA) COVID-19 Clin Com Influenza Type A (RICHI) Influenza Type B (RICHI) Influenza A & B Note 05/19/23 05/19/23 05/19/23 01:27 07:05 07:14 MCV 96.8 MCH 33.4 H MCHC 34.5 RDW 13.2 Plt Count 213 MPV 9.1 L Immature Gran % (Auto) 0.3 Neut % (Auto) 78.9 H Lymph % (Auto) 12.5 L Chester % (Auto) 7.0 Eos % (Auto) 0.7 Baso % (Auto) 0.6 Lymph # (Auto) 0.8 L Chester # (Auto) 0.5 Eos # (Auto) 0.1 Baso # (Auto) 0.0 Abs Immat Gran (auto) 0.02 Absolute Neuts (auto) 5.3 Absolute Nucleated RBC 0.000 Nucleated RBC % (auto) 0.0 Anion Gap 14 Estim Creat Clear Calc 107.5 Estimated GFR > 60 POC Glucose 213 H 246 H Random Glucose 247 H Calcium 8.5 D Magnesium Total Bilirubin Direct Bilirubin AST ALT Alkaline Phosphatase Troponin I High Sens B-Natriuretic Peptide Total Protein Albumin Lipase Urine Opiates Screen Urine Fentanyl Screen Ur Barbiturates Screen Ur Phencyclidine Scrn Ur Amphetamines Screen U Benzodiazepines Scrn Urine Cocaine Screen U Marijuana (THC) Screen Ethyl Alcohol COVID-19 (ALBERTINA) COVID-19 Clin Com Influenza Type A (RICHI) Influenza Type B (RICHI) Influenza A & B Note Assessment and Plan (1) Hypoglycemia: Status: Acute (2) Alcohol withdrawal: Status: Acute (3) Type 1 diabetes: Status: Acute Plan 62-year-old male with pertinent history of type 1 diabetes mellitus, essential hypertension, hypothyroidism, MI on CPAP, alcohol use disorder, gastroesophageal reflux disease, mixed hyperlipidemia who presents to the emergency department for concerns of alcohol withdrawal. Alcohol use disorder: Initiated on phenobarb protocol in the ER. symptoms controlled on phenobarb -continue phenobarb, folic and thiamine replacement, advised on abstinence, addition med consult T1 DM, take Lantus 50 at HS, didn't get it last night (not on med rec) Lantus 20 this morning and 20 to 30 at night depending range Sliding scale per his home scale, monitor glucose Mood disorder - fluoxetine Hypothyroidism -Synthroid HTN --BP high -Losartan, metoprolol, HCTZ, Norvasc and adjsut PRN morbid obesity--weight advised MI: Continue CPAP at bedtime DVT prophylaxis: Lovenox Full code at least 2 midnights stay for management of alcohol withdrawal with tappering dose of phenobarb and frequent symptoms Quality Stroke Does the patient have a stroke diagnosis?: No VTE Prior VTE?: No VTE Risk Level:: Medical - moderate - high VTE Device Contraindication: Treatment Not Indicated VTE Drug Contraindication: N/A - Med Ordered
[2023-05-19 11:28] LABS: Glucose, Whole Blood 165 mg/dL (60-115)
[2023-05-19] MEDS: hydrOXYzine HCL 25 MG TABLET PO ×2 (12:31→20:46)
[2023-05-19] MEDS: Acetaminophen 325 MG TABLET 650 MG PO ×2 (13:47→20:46)
--- NOTE | 2023-05-19 15:13 | MHC.RECOVRN ---
Met with pt in 372 after consult placed to Addiction Medicine for alcohol use. Pt had presented to the ED reporting alcohol use, increased falls, weakness, coughing, seeking ATS. Upon evaluation, pt admitted for treatment of alcohol withdrawal. Pt sitting in bed, awake, alert, easily engages in conversation, appears diaphoretic and anxious, reports feeling awful. Pts , Leni, present with pts permission. Pt reports alcohol use, 4-6 1.75 liter bottles vodka per week x 8 months. Pt reports alcohol use x 20 years, however, amount has increased over the past 8 months. Leni reports pt has had increased depression as well over the past 8 months. Pt reports one year in recovery in 1984. Pt reports hx cocaine use, IN and INH, has not used in years. 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 Pt reports having been prescribed acamprosate in the past but finds it difficult to manage 2 tabs TID. Pt reports he is unable to take naltrexone due to taking prn opioid pain medication for his knee. Pt unsure if campral has been helpful. Pts goal is abstinence, states I'm not drinking after this. I'm not going through this again. Leni would like pt to complete an inpatient program, pt unsure at this time. Discussed different resources/options, including inpatient and outpatient treatment. Provided pt with written resources as well. Pt to look over resources and t/w will follow up to further discuss. Pt and deny questions or concerns at this time. Discussed with Jolie Farrell APRN.
[2023-05-19 16:14] LABS: Glucose, Whole Blood 203 mg/dL (60-115)
--- NOTE | 2023-05-19 18:10 | PC.NURSE ---
1130 pt complained of extreme anxiety , noticeable tremors , sweating , irritable, pt having diarrhea . MD made aware , new order for 25mg PO atarax . 1500 md at bedside to see pt , pt still cont to be anxious , states atarax did not help much . 1800 new order for IM phenobarbital .
[2023-05-19] MEDS: PHENobarbitaL sodium 65 MG/ML VIAL 30 MG IM (18:21)
[2023-05-19 20:28] LABS: Glucose, Whole Blood 206 mg/dL (60-115)
[2023-05-19] MEDS: Melatonin 3 MG TABLET 6 MG PO (20:45)
[2023-05-20 03:45] VITALS: BP 168/70; PULSE 80; RESP 18; TEMP 36.1; O2SAT 97
--- NOTE | 2023-05-20 03:55 | PC.NURSE ---
pt refusing bed alarm, but has been ringing appropriately to use the bathroom.
[2023-05-20] MEDS: Omeprazole 20 MG CAPSULE.DR PO (06:30)
[2023-05-20] MEDS: Levothyroxine Sodium 150 MCG TABLET 300 MCG PO (06:30)
[2023-05-20] MEDS: Levothyroxine Sodium 25 MCG TABLET PO (06:30)
[2023-05-20 07:19] VITALS: BP 160/80; PULSE 69; RESP 18; TEMP 36.1; O2SAT 98
[2023-05-20 08:02] LABS: Glucose, Whole Blood 235 mg/dL (60-115)
[2023-05-20] MEDS: Insulin Lispro 100 UNIT/ML 3 ML VIAL SUBCUT ×4 (08:14→20:52)
[2023-05-20] MEDS: 0.9 % Sodium Chloride Flush 3 ML SYRINGE IVFLUSH ×3 (08:14→20:01)
[2023-05-20] MEDS: PHENobarbitaL 15 MG TABLET 45 MG PO ×2 (08:47→20:52)
[2023-05-20] MEDS: Aspirin 81 MG TAB.CHEW PO (08:48)
[2023-05-20] MEDS: NaPROXEN 500 MG TABLET PO (08:48)
[2023-05-20] MEDS: Atorvastatin Calcium 40 MG TABLET PO (08:48)
[2023-05-20] MEDS: amLODIPine Besylate 5 MG TABLET PO (08:48)
[2023-05-20] MEDS: Losartan Potassium 50 MG TABLET 100 MG PO (08:48)
[2023-05-20] MEDS: Thiamine HCL 100 MG TABLET 200 MG PO (08:48)
[2023-05-20] MEDS: Cholecalciferol (Vitamin D3) 25 MCG TABLET PO (08:48)
[2023-05-20] MEDS: hydroCHLOROthiazide 25 MG TABLET PO (08:48)
[2023-05-20] MEDS: FLUoxetine HCl 10 MG CAPSULE PO (08:49)
[2023-05-20] MEDS: Metoprolol Succinate ER 50 MG TAB.ER.24H PO (08:49)
[2023-05-20] MEDS: Cyanocobalamin (Vitamin B-12) 1,000 MCG TABLET 1000 MCG PO (08:49)
[2023-05-20] MEDS: ondansetron HCL 4 MG/2 ML VIAL IVPUSH ×2 (08:52→19:20)
--- NOTE | 2023-05-20 11:22 | MHC.CM.PN ---
EMR reviewed. Per MD rounds patient is not medically cleared at this time. CM will continue to follow.
[2023-05-20 11:49] LABS: Glucose, Whole Blood 245 mg/dL (60-115)
[2023-05-20] MEDS: hydrOXYzine HCL 25 MG TABLET PO ×2 (12:10→15:47)
--- NOTE | 2023-05-20 12:34 | HO.PM.IMPN ---
Subjective Subjective Date of Service: 05/20/23 Interval History: Complaining of persistent anxiety, to sleeping 8 last night, also noted to have elevated blood sugars, denies nausea vomiting, tolerating diet no other acute issues overnight. Review of Systems All other system reviewed and negative. Physical Exam Vital Signs: Vital Signs: Last Vital Signs Temp 97 F 05/20/23 07:19 Pulse 69 05/20/23 07:19 Resp 18 05/20/23 07:19 BP 160/80 H 05/20/23 07:19 Pulse Ox 98 05/20/23 07:19 O2 Del Method CPAP 05/20/23 07:19 BMI result Body Mass Index 48.8 Const: Other: General resting comfortably in no acute distress. Neck is supple no JVD. CVS regular rate rhythm, Respiratory lungs clear to auscultation, no respiratory distress, no wheeze, no rhonchi. Gastrointestinal abdomen soft, non tender, bowel sounds audible, no guarding , no rigidity. Extremities no edema. Neuro nonfocal , mild tremors Skin no rash Appropriate affect Objective Data Active Medications Acetaminophen (Acetaminophen 325 Mg Tablet) 650 mg PO Q6H PRN PRN Reason: Pain, Mild (Pain Scale 1-3) Last Admin: 05/19/23 20:46 Dose: 650 mg Documented By: JUAREZ Amlodipine Besylate (Amlodipine Besylate 5 Mg Tablet) 5 mg PO DAILY [facility]; Protocol Last Admin: 05/20/23 08:48 Dose: 5 mg Documented By: ANNIE Aspirin (Aspirin 81 Mg Tab.Chew) 81 mg PO DAILY [facility] Last Admin: 05/20/23 08:48 Dose: 81 mg Documented By: ANNIE Atorvastatin Calcium (Atorvastatin Calcium 40 Mg Tablet) 40 mg PO DAILY [facility] Last Admin: 05/20/23 08:48 Dose: 40 mg Documented By: ANNIE Cyanocobalamin (Cyanocobalamin (Vitamin B-12) 1,000 Mcg Tablet) 1,000 mcg PO DAILY [facility] Last Admin: 05/20/23 08:49 Dose: 1,000 mcg Documented By: ANNIE Dextrose (Dextrose 50 % 25 Gm/50 Ml Syringe) 25 gm IVPUSH Q15M PRN; Protocol PRN Reason: per Hypoglycemia Standing Ord. Dextrose (Dextrose 50 % 25 Gm/50 Ml Syringe) 25 gm IVPUSH Q15M PRN; Protocol PRN Reason: per Hypoglycemia Standing Ord. Enoxaparin Sodium (Enoxaparin Sodium 40 Mg/0.4 Ml Syringe) 40 mg SUBCUT Q24H [facility] Last Admin: 05/19/23 20:45 Dose: Not Given Documented By: JUAREZ Non-Admin Reason: Patient Refused Fluoxetine HCl (Fluoxetine Hcl 10 Mg Capsule) 10 mg PO DAILY [facility] Last Admin: 05/20/23 08:49 Dose: 10 mg Documented By: ANNIE Glucose (Glucose Gel 15 Gm Gel..Gram.) 15 gm PO Q15M PRN; Protocol PRN Reason: per Hypoglycemia Standing Ord. Glucose (Glucose Gel 15 Gm Gel..Gram.) 15 gm PO Q15M PRN; Protocol PRN Reason: per Hypoglycemia Standing Ord. Hydrochlorothiazide (Hydrochlorothiazide 25 Mg Tablet) 25 mg PO DAILY [facility] Last Admin: 05/20/23 08:48 Dose: 25 mg Documented By: ANNIE Hydroxyzine HCl (Hydroxyzine Hcl 25 Mg Tablet) 25 mg PO Q8H PRN PRN Reason: anxiety/restlessness Last Admin: 05/20/23 12:10 Dose: 25 mg Documented By: ANNIE Insulin Human Lispro (Insulin Lispro 100 Unit/Ml 3 Ml Vial) 0 unit SUBCUT QIDACHS [facility]; Protocol Last Admin: 05/20/23 11:59 Dose: 4 unit Documented By: ANNIE Levothyroxine Sodium (Levothyroxine Sodium 25 Mcg Tablet) 25 mcg PO DAILY@0600 [facility] Last Admin: 05/20/23 06:30 Dose: 25 mcg Documented By: JUAREZ Levothyroxine Sodium (Levothyroxine Sodium 150 Mcg Tablet) 300 mcg PO DAILY@0600 [facility] Last Admin: 05/20/23 06:30 Dose: 300 mcg Documented By: JUAREZ Losartan Potassium (Losartan Potassium 50 Mg Tablet) 100 mg PO DAILY [facility] Last Admin: 05/20/23 08:48 Dose: 100 mg Documented By: ANNIE Melatonin (Melatonin 3 Mg Tablet) 6 mg PO BEDTIME PRN PRN Reason: Insomnia Last Admin: 05/19/23 20:45 Dose: 6 mg Documented By: JUAREZ Metoprolol Succinate (Metoprolol Succinate Er 50 Mg Tab.Er.24h) 50 mg PO DAILY [facility]; Protocol Last Admin: 05/20/23 08:49 Dose: 50 mg Documented By: ANNIE Naproxen (Naproxen 500 Mg Tablet) 500 mg PO BID [facility] Last Admin: 05/20/23 08:48 Dose: 500 mg Documented By: ANNIE Omeprazole (Omeprazole 20 Mg Capsule.Dr) 20 mg PO DAILY@0630 [facility] Last Admin: 05/20/23 06:30 Dose: 20 mg Documented By: JUAREZ Ondansetron HCl (Ondansetron Hcl 4 Mg/2 Ml Vial) 4 mg IVPUSH Q8H PRN PRN Reason: Nausea and Vomiting Last Admin: 05/20/23 08:52 Dose: 4 mg Documented By: ANNIE Pharmacy Consult (Consult Rx Etoh Phenob Im/Po) 1 each MISCELLANE ONCE PRN; Protocol PRN Reason: Consult order Phenobarbital (Phenobarbital 15 Mg Tablet) 45 mg PO BID [facility]; Protocol Stop: 05/20/23 21:01 Last Admin: 05/20/23 08:47 Dose: 45 mg Documented By: ANNIE Phenobarbital (Phenobarbital 30 Mg Tablet) 30 mg PO BID [facility]; Protocol Stop: 05/22/23 21:01 Phenobarbital (Phenobarbital 15 Mg Tablet) 15 mg PO DAILY [facility]; Protocol Stop: 05/24/23 09:01 Sodium Chloride (0.9 % Sodium Chloride Flush 3 Ml Syringe) 3 ml IVFLUSH [facility] Last Admin: 05/20/23 08:14 Dose: 3 ml Documented By: DANIEL Thiamine HCl (Thiamine Hcl 100 Mg Tablet) 200 mg PO DAILY [facility] Last Admin: 05/20/23 08:48 Dose: 200 mg Documented By: ANNIE Vitamin D (Cholecalciferol (Vitamin D3) 25 Mcg Tablet) 25 mcg PO DAILY [facility] Last Admin: 05/20/23 08:48 Dose: 25 mcg Documented By: ANNIE Labs 05/19/23 07:05 05/19/23 07:05 Labs: Laboratory Results - last 24 hr 05/19/23 05/19/23 05/20/23 16:06 20:15 07:53 POC Glucose 203 H 206 H 235 H 05/20/23 11:38 POC Glucose 245 H Assessment and Plan (1) Hypoglycemia: Status: Acute (2) Alcohol withdrawal: Status: Acute (3) Type 1 diabetes: Status: Acute Plan 62-year-old male with pertinent history of type 1 diabetes mellitus, essential hypertension, hypothyroidism, MI on CPAP, alcohol use disorder, gastroesophageal reflux disease, mixed hyperlipidemia who presents to the emergency department for concerns of alcohol withdrawal. Alcohol use disorder: Initiated on phenobarb protocol in the ER. Persistent symptoms of anxiety and tremors Continue phenobarb, folic and thiamine replacement, advised on abstinence, will add hydroxyzine 50 mg as needed T1 DM, take Lantus 50 at HS, Elevated blood sugars Will give Lantus 20 units b.i.d. starting tonight, will give Lantus 15 units this morning Will adjust insulin sliding scale , monitor glucose Mood disorder -continue fluoxetine Hypothyroidism -on high-dose Synthroid, will check TSH HTN --BP high -Losartan, metoprolol, HCTZ, Norvasc and follow BP morbid obesity--weight loss advised MI: Continue CPAP at bedtime DVT prophylaxis: Lovenox Full code Patient need continued inpatient hospitalization for management of alcohol withdrawal with tapering dose of phenobarb and close clinical monitoring . Quality Stroke Does the patient have a stroke diagnosis?: No VTE Prior VTE?: No VTE Risk Level:: Medical - moderate - high VTE Device Contraindication: Treatment Not Indicated VTE Drug Contraindication: N/A - Med Ordered
[2023-05-20] MEDS: Insulin Glargine,Hum.rec.anlog 100 UNIT/ML 10 ML VIAL 15 UNIT SUBCUT (12:57)
[2023-05-20 14:58] VITALS: BP 184/81; PULSE 80; RESP 18; TEMP 36.6; O2SAT 99
[2023-05-20 16:36] LABS: Glucose, Whole Blood 323 mg/dL (60-115)
[2023-05-20 19:51] VITALS: BP 165/70; PULSE 71; RESP 19; TEMP 36.5; O2SAT 95
[2023-05-20] MEDS: hydrOXYzine HCL 50 MG TABLET PO (20:00)
[2023-05-20 20:34] LABS: Glucose, Whole Blood 251 mg/dL (60-115)
[2023-05-20] MEDS: Melatonin 3 MG TABLET 6 MG PO (20:52)
[2023-05-20] MEDS: Insulin Glargine,Hum.rec.anlog 100 UNIT/ML 10 ML VIAL 20 UNIT SUBCUT (20:53)
[2023-05-21 04:00] VITALS: BP 150/80; PULSE 66; RESP 20; TEMP 35.8; O2SAT 99
[2023-05-21] MEDS: Levothyroxine Sodium 150 MCG TABLET 300 MCG PO (05:53)
[2023-05-21] MEDS: Omeprazole 20 MG CAPSULE.DR PO (05:53)
[2023-05-21] MEDS: Levothyroxine Sodium 25 MCG TABLET PO (05:53)
[2023-05-21 07:06] VITALS: BP 140/65; PULSE 72; RESP 18; TEMP 35.7; O2SAT 98
[2023-05-21] MEDS: ondansetron HCL 4 MG/2 ML VIAL IVPUSH (07:21)
[2023-05-21 07:28] LABS: Glucose, Whole Blood 142 mg/dL (60-115)
[2023-05-21] MEDS: Insulin Glargine,Hum.rec.anlog 100 UNIT/ML 10 ML VIAL 20 UNIT SUBCUT ×2 (07:43→20:50)
[2023-05-21] MEDS: PHENobarbitaL 30 MG TABLET PO ×2 (07:43→20:48)
[2023-05-21] MEDS: Losartan Potassium 50 MG TABLET 100 MG PO (07:44)
[2023-05-21] MEDS: Aspirin 81 MG TAB.CHEW PO (07:44)
[2023-05-21] MEDS: Thiamine HCL 100 MG TABLET 200 MG PO (07:44)
[2023-05-21] MEDS: Loperamide HCl 2 MG CAPSULE 4 MG PO (07:44)
[2023-05-21] MEDS: Atorvastatin Calcium 40 MG TABLET PO (07:44)
[2023-05-21] MEDS: amLODIPine Besylate 5 MG TABLET PO (07:45)
[2023-05-21] MEDS: FLUoxetine HCl 10 MG CAPSULE PO (07:45)
[2023-05-21] MEDS: hydroCHLOROthiazide 25 MG TABLET PO (07:45)
[2023-05-21] MEDS: Cyanocobalamin (Vitamin B-12) 1,000 MCG TABLET 1000 MCG PO (07:45)
[2023-05-21] MEDS: Cholecalciferol (Vitamin D3) 25 MCG TABLET PO (07:45)
[2023-05-21] MEDS: Metoprolol Succinate ER 100 MG TAB.ER.24H PO (07:45)
[2023-05-21] MEDS: hydrOXYzine HCL 50 MG TABLET PO ×2 (07:45→16:53)
[2023-05-21] MEDS: 0.9 % Sodium Chloride Flush 3 ML SYRINGE IVFLUSH ×3 (07:48→21:37)
[2023-05-21 09:54] LABS: Thyroid Stimulating Hormone 1.15 uIU/mL (0.32-4.0)
[2023-05-21 11:17] LABS: Glucose, Whole Blood 216 mg/dL (60-115)
--- NOTE | 2023-05-21 11:22 | MHC.RECOVRN ---
Late entry: Met with pt to check in yesterday and discuss recovery plan after discharge. Pt is not interested in inpatient treatment, is interested in PHP/IOP. T/w spoke with [facility] as well as [facility], neither take pts insurance. [facility] take patients insurance. Pt continues to have anxiety, however, reports feeling better than the day prior. Pt to continue thinking/discussing with plans after dc. Will continue to follow.
[2023-05-21] MEDS: Insulin Lispro 100 UNIT/ML 3 ML VIAL SUBCUT ×3 (11:40→16:53)
--- NOTE | 2023-05-21 12:18 | P.PNIM_ITS ---
Subjective Subjective Date of Service: 05/21/23 Interval History: Being followed for alcohol withdrawal, still feel anxious, noted to have elevated blood pressure denies hand tremors, blood sugar better controlled this morning tolerating diet no nausea no vomiting no abdominal pain, no other acute issues overnight. Review of Systems All other system reviewed and negative. Physical Exam 2 Vital Signs: Vital Signs: Last Vital Signs Temp 96.3 F L 05/21/23 07:06 Pulse 72 05/21/23 07:06 Resp 18 05/21/23 07:06 BP 140/65 H 05/21/23 07:06 Pulse Ox 98 05/21/23 07:06 O2 Del Method Room Air 05/21/23 07:06 BMI result Body Mass Index 48.8 Const: Other: General resting comfortably in no acute distress. Neck supple, no JVD. CVS regular rate rhythm, Respiratory lungs clear to auscultation, no respiratory distress, no wheeze, no rhonchi. Gastrointestinal abdomen soft, non tender, bowel sounds audible, no guarding , no rigidity. Extremities no edema. Neuro nonfocal , no tremors Skin no rash Appropriate affect Objective Data Active Medications Acetaminophen (Acetaminophen 325 Mg Tablet) 650 mg PO Q6H PRN PRN Reason: Pain, Mild (Pain Scale 1-3) Last Admin: 05/19/23 20:46 Dose: 650 mg Documented By: JUAREZ Amlodipine Besylate (Amlodipine Besylate 5 Mg Tablet) 5 mg PO DAILY [facility]; Protocol Last Admin: 05/21/23 07:45 Dose: 5 mg Documented By: DIOMEDES Aspirin (Aspirin 81 Mg Tab.Chew) 81 mg PO DAILY [facility] Last Admin: 05/21/23 07:44 Dose: 81 mg Documented By: DIOMEDES Atorvastatin Calcium (Atorvastatin Calcium 40 Mg Tablet) 40 mg PO DAILY [facility] Last Admin: 05/21/23 07:44 Dose: 40 mg Documented By: DIOMEDES Cyanocobalamin (Cyanocobalamin (Vitamin B-12) 1,000 Mcg Tablet) 1,000 mcg PO DAILY [facility] Last Admin: 05/21/23 07:45 Dose: 1,000 mcg Documented By: DIOMEDES Dextrose (Dextrose 50 % 25 Gm/50 Ml Syringe) 25 gm IVPUSH Q15M PRN; Protocol PRN Reason: per Hypoglycemia Standing Ord. Dextrose (Dextrose 50 % 25 Gm/50 Ml Syringe) 25 gm IVPUSH Q15M PRN; Protocol PRN Reason: per Hypoglycemia Standing Ord. Enoxaparin Sodium (Enoxaparin Sodium 40 Mg/0.4 Ml Syringe) 40 mg SUBCUT Q24H [facility] Last Admin: 05/20/23 20:24 Dose: Not Given Documented By: PAULA Non-Admin Reason: Patient Refused Fluoxetine HCl (Fluoxetine Hcl 10 Mg Capsule) 10 mg PO DAILY [facility] Last Admin: 05/21/23 07:45 Dose: 10 mg Documented By: DIOMEDES Glucose (Glucose Gel 15 Gm Gel..Gram.) 15 gm PO Q15M PRN; Protocol PRN Reason: per Hypoglycemia Standing Ord. Glucose (Glucose Gel 15 Gm Gel..Gram.) 15 gm PO Q15M PRN; Protocol PRN Reason: per Hypoglycemia Standing Ord. Hydrochlorothiazide (Hydrochlorothiazide 25 Mg Tablet) 25 mg PO DAILY [facility] Last Admin: 05/21/23 07:45 Dose: 25 mg Documented By: DIOMEDES Hydroxyzine HCl (Hydroxyzine Hcl 50 Mg Tablet) 50 mg PO Q8H PRN PRN Reason: anxiety/restlessness Last Admin: 05/21/23 07:45 Dose: 50 mg Documented By: DIOMEDES Insulin Glargine (Insulin Glargine,Hum.Rec.Anlog 100 Unit/Ml 10 Ml Vial) 20 unit SUBCUT BEDTIME [facility] Insulin Glargine (Insulin Glargine,Hum.Rec.Anlog 100 Unit/Ml 10 Ml Vial) 20 unit SUBCUT DAILY [facility] Last Admin: 05/21/23 07:43 Dose: 20 unit Documented By: DIOMEDES Insulin Human Lispro (Insulin Lispro 100 Unit/Ml 3 Ml Vial) 0 unit SUBCUT QIDACHS [facility]; Protocol Last Admin: 05/21/23 11:40 Dose: 8 unit Documented By: DIOMEDES Levothyroxine Sodium (Levothyroxine Sodium 25 Mcg Tablet) 25 mcg PO DAILY@0600 [facility] Last Admin: 05/21/23 05:53 Dose: 25 mcg Documented By: PAULA Levothyroxine Sodium (Levothyroxine Sodium 150 Mcg Tablet) 300 mcg PO DAILY@0600 [facility] Last Admin: 05/21/23 05:53 Dose: 300 mcg Documented By: PAULA Losartan Potassium (Losartan Potassium 50 Mg Tablet) 100 mg PO DAILY [facility] Last Admin: 05/21/23 07:44 Dose: 100 mg Documented By: DIOMEDES Melatonin (Melatonin 3 Mg Tablet) 6 mg PO BEDTIME PRN PRN Reason: Insomnia Last Admin: 05/20/23 20:52 Dose: 6 mg Documented By: PAULA Metoprolol Succinate (Metoprolol Succinate Er 100 Mg Tab.Er.24h) 100 mg PO DAILY [facility]; Protocol Last Admin: 05/21/23 07:45 Dose: 100 mg Documented By: DIOMEDES Omeprazole (Omeprazole 20 Mg Capsule.Dr) 20 mg PO DAILY@0630 [facility] Last Admin: 05/21/23 05:53 Dose: 20 mg Documented By: PAULA Ondansetron HCl (Ondansetron Hcl 4 Mg/2 Ml Vial) 4 mg IVPUSH Q8H PRN PRN Reason: Nausea and Vomiting Last Admin: 05/21/23 07:21 Dose: 4 mg Documented By: DIOMEDES Pharmacy Consult (Consult Rx Etoh Phenob Im/Po) 1 each MISCELLANE ONCE PRN; Protocol PRN Reason: Consult order Phenobarbital (Phenobarbital 30 Mg Tablet) 30 mg PO BID [facility]; Protocol Stop: 05/22/23 21:01 Last Admin: 05/21/23 07:43 Dose: 30 mg Documented By: DIOMEDES Phenobarbital (Phenobarbital 15 Mg Tablet) 15 mg PO DAILY [facility]; Protocol Stop: 05/24/23 09:01 Sodium Chloride (0.9 % Sodium Chloride Flush 3 Ml Syringe) [facility] Last Admin: 05/21/23 07:48 Dose: 3 ml Documented By: DIOMEDES Thiamine HCl (Thiamine Hcl 100 Mg Tablet) 200 mg PO DAILY [facility] Last Admin: 05/21/23 07:44 Dose: 200 mg Documented By: DIOMEDES Vitamin D (Cholecalciferol (Vitamin D3) 25 Mcg Tablet) 25 mcg PO DAILY [facility] Last Admin: 05/21/23 07:45 Dose: 25 mcg Documented By: DIOMEDES Labs 05/19/23 07:05 05/19/23 07:05 Labs: Laboratory Results - last 24 hr 05/20/23 05/20/23 05/21/23 16:17 20:28 07:05 POC Glucose 323 H 251 H 142 H TSH 05/21/23 05/21/23 08:57 11:06 POC Glucose 216 H TSH 1.15 Assessment and Plan (1) Hypoglycemia: Status: Acute (2) Alcohol withdrawal: Status: Acute (3) Type 1 diabetes: Status: Acute Plan 62-year-old male with pertinent history of type 1 diabetes mellitus, essential hypertension, hypothyroidism, MI on CPAP, alcohol use disorder, gastroesophageal reflux disease, mixed hyperlipidemia who presents to the emergency department for concerns of alcohol withdrawal. Alcohol use disorder: Continue phenobarb protocol Persistent anxiety but improving, tremors resolved Continue phenobarb, folic and thiamine replacement, advised on abstinence, continue hydroxyzine 50 mg as needed for anxiety Seen by Addiction Team willing to quit alcohol T1 DM, take Lantus 50 at HS, blood sugars better controlled Continue Lantus 20 units b.i.d. diabetic diet Continue insulin sliding scale , monitor glucose Mood disorder -continue fluoxetine Hypothyroidism -on high-dose Synthroid, TSH normal HTN --BP high -on Losartan, metoprolol, HCTZ, Norvasc , will increase dose of metoprolol and follow BP morbid obesity--weight loss advised MI: Continue CPAP at bedtime DVT prophylaxis: Lovenox Full code Patient need continued inpatient hospitalization for management of alcohol withdrawal with tapering dose of phenobarb and close clinical monitoring . Quality Stroke Does the patient have a stroke diagnosis?: No VTE Prior VTE?: No VTE Risk Level:: Medical - moderate - high VTE Device Contraindication: Treatment Not Indicated VTE Drug Contraindication: N/A - Med Ordered
[2023-05-21 14:50] LABS: Glucose, Whole Blood 316 mg/dL (60-115)
[2023-05-21 15:03] VITALS: BP 158/78; PULSE 68; RESP 18; TEMP 36.1; O2SAT 98
[2023-05-21 16:14] LABS: Glucose, Whole Blood 294 mg/dL (60-115)
[2023-05-21 19:18] VITALS: BP 148/58; PULSE 64; RESP 18; TEMP 36.3; O2SAT 97
[2023-05-21 20:18] VITALS: RESP 18; O2SAT 97
[2023-05-21 20:23] LABS: Glucose, Whole Blood 94 mg/dL (60-115)
[2023-05-21] MEDS: Melatonin 3 MG TABLET 6 MG PO (20:49)
[2023-05-22 03:14] VITALS: BP 156/72; PULSE 75; RESP 18; TEMP 36.1; O2SAT 98
[2023-05-22] MEDS: ondansetron HCL 4 MG/2 ML VIAL IVPUSH (06:34)
[2023-05-22] MEDS: Levothyroxine Sodium 150 MCG TABLET 300 MCG PO (06:34)
[2023-05-22] MEDS: Levothyroxine Sodium 25 MCG TABLET PO (06:34)
[2023-05-22] MEDS: hydrOXYzine HCL 50 MG TABLET PO (06:34)
[2023-05-22] MEDS: Omeprazole 20 MG CAPSULE.DR PO (06:34)
[2023-05-22 07:26] VITALS: BP 154/80; PULSE 68; RESP 18; TEMP 36; O2SAT 99
[2023-05-22 07:50] LABS: Glucose, Whole Blood 222 mg/dL (60-115)
[2023-05-22] MEDS: Insulin Glargine,Hum.rec.anlog 100 UNIT/ML 10 ML VIAL 20 UNIT SUBCUT (08:12)
[2023-05-22] MEDS: Insulin Lispro 100 UNIT/ML 3 ML VIAL SUBCUT ×2 (08:12→11:50)
[2023-05-22] MEDS: Thiamine HCL 100 MG TABLET 200 MG PO (08:13)
[2023-05-22] MEDS: Losartan Potassium 50 MG TABLET 100 MG PO (08:13)
[2023-05-22] MEDS: Cholecalciferol (Vitamin D3) 25 MCG TABLET PO (08:13)
[2023-05-22] MEDS: amLODIPine Besylate 5 MG TABLET PO (08:13)
[2023-05-22] MEDS: Metoprolol Succinate ER 100 MG TAB.ER.24H PO (08:13)
[2023-05-22] MEDS: hydroCHLOROthiazide 25 MG TABLET PO (08:13)
[2023-05-22] MEDS: PHENobarbitaL 30 MG TABLET PO (08:13)
[2023-05-22] MEDS: Atorvastatin Calcium 40 MG TABLET PO (08:13)
[2023-05-22] MEDS: FLUoxetine HCl 10 MG CAPSULE PO (08:14)
[2023-05-22] MEDS: Aspirin 81 MG TAB.CHEW PO (08:14)
[2023-05-22] MEDS: 0.9 % Sodium Chloride Flush 3 ML SYRINGE IVFLUSH (08:18)
[2023-05-22] MEDS: Cyanocobalamin (Vitamin B-12) 1,000 MCG TABLET 1000 MCG PO (08:20)
--- NOTE | 2023-05-22 11:09 | MHC.RECOVRN ---
Met with pt to follow up and provide support, plan to dc today. Pt sitting in bed, awake, alert, easily engages in conversation, appears comfortable. Pt would like to follow up with [facility] on Tuesday (Tuesday holiday), provided with contact information. Pt would like to complete outpatient program as well as individual counseling. Pt denies questions or concerns for t/w. Provided with t/w contact information if needed.
[2023-05-22 11:15] LABS: Glucose, Whole Blood 235 mg/dL (60-115)
--- NOTE | 2023-05-22 12:08 | P.DS_ITS ---
DS: Providers Provider Date of Service: 05/22/23 Date of admission: 05/18/23 19:41 Primary care physician: Cam Pickett MD Consults: 05/18/23 19:45 Addiction Medicine Routine Consulting Provider: Phani Caal Reason for consultation: alcohol use disorder DS: Diagnosis Discharge Diagnosis (1) Hypoglycemia: Status: Acute (2) Alcohol withdrawal: Status: Acute (3) Type 1 diabetes: Status: Acute DS: Summary Hospital Course Hospital Course: History of presenting illness: Date of Service: 05/18/23 Chief Complaint: Alcohol withdrawal This is a 62-year-old male with pertinent history of type 1 diabetes mellitus, essential hypertension, hypothyroidism, MI on CPAP, alcohol use disorder, gastroesophageal reflux disease, mixed hyperlipidemia who presents to the emergency department for concerns of alcohol withdrawal. Patient does have a history of alcohol withdrawal and states his last drink was on the day of presentation. He did not eat or drink anything throughout the day. He has been having anxiety, tremors, nausea and nonbloody emesis. No history of alcohol withdrawal seizures or DTs. Does want to quit. He is compliant with his insulin regimen and states his A1c is 6. Patient took Lantus last night but did not eat anything throughout the day. No fever, chills, chest discomfort, palpi tations, shortness of breath, abdominal pain, changes in urinary or bowel habits. In the emergency department, patient was initiated on phenobarb protocol. Blood glucose was found to be low. Hospital course: Alcohol use disorder and withdrawal 62-year-old male with pertinent history of type 1 diabetes mellitus, essential hypertension, hypothyroidism, MI on CPAP, alcohol use disorder, gastroes ophageal reflux disease, mixed hyperlipidemia who presents to the emergency department for concerns of alcohol withdrawal, admitted to medical floor treated with phenobarb protocol, folic acid and thiamine, and hydroxyzine as needed for breakthrough anxiety, he was evaluated by Addiction Team , patient agreed to follow-up with [facility] outpatient services, patient agreed to complete outpatient program as well as individual counseling, since patient is feeling significantly better, is hemodynamically stable and ambulating unsteady gait therefore he is being discharged home today with strong recommendation for abstain from alcohol use. In regard to type 1 diabetes mellitus patient initially was noted to have hypoglycemia likely due to skipping meal subsequently noted to have elevated blo od sugars therefore treated with Lantus diabetic diet and insulin sliding scale recommend to continue home dose of Lantus 50 units at bedtime and follow low- calorie diabetic diet. Mood disorder -continue fluoxetine Hypothyroidism -on high-dose Synthroid, TSH normal HTN -recommend to continue all home medications including losartan, metoprolol, hydrochlorothiazide and Norvasc noted to have few high blood pressure readings likely due to alcohol withdrawal recommend close outpatient blood pressure monitoring with PCP. morbid obesity--weight loss advised. MI: Continue CPAP at bedtime. Time Attestation Discharge coordination time: Greater than 30 minutes Quality: Safe Use of Opioids Does Pt have an Active Cancer Diagnosis on the Problem List?: No Quality: Stroke Does the patient have a stroke diagnosis?: No Physical Exam Vital Signs: Vital Signs: Last Vital Signs Temp 96.8 F 05/22/23 07:26 Pulse 68 05/22/23 07:26 Resp 18 05/22/23 07:26 BP 154/80 H 05/22/23 07:26 Pulse Ox 99 05/22/23 07:26 O2 Del Method CPAP 05/22/23 07:26 BMI result Body Mass Index 48.8 Const: Other: General resting comfortably in no acute distress. Neck supple, no JVD. CVS regular rate rhythm, Respiratory lungs clear to auscultation, no respiratory distress, no wheeze, no rhonchi. Gastrointestinal abdomen soft, non tender, bowel sounds audible, no guarding , no rigidity. Extremities no edema. Neuro non focal , no tremors, awake alert x3, moving all 4 extremities Skin no rash Appropriate affect DS: Data Data Completed and Pending Labs on day of discharge: Laboratory Results - last 24 hr 05/21/23 05/21/23 05/21/23 14:46 16:08 20:19 POC Glucose 316 H 294 H 94 05/22/23 05/22/23 07:24 11:10 POC Glucose 222 H 235 H Discharge Plan Discharge Anticipated Discharge Date/Time: 05/22/23 11:53 Patient Disposition: Home, Self-Care Discharge Diagnosis: Alcohol use disorder/withdrawal Referrals: Cam Pickett MD [Primary Care Provider] - 1 Week Discharge Medications: New hydroxyzine HCl 50 mg Tablet 50 mg PO Q8H PRN (Reason: Anxiety/Restlessness) Qty: 30 0RF Continued levothyroxine 300 mcg Tablet 300 mcg PO DAILY metoprolol succinate 50 mg Tablet Extended Release 24 Hr 50 mg PO DAILY meloxicam 15 mg Tablet 15 mg PO DAILY fluoxetine 10 mg Tablet 10 mg PO DAILY amlodipine 5 mg Tablet 5 mg PO DAILY levothyroxine 25 mcg Tablet 25 mcg PO DAILY losartan-hydrochlorothiazide 100-25 mg Tablet 1 tab PO DAILY pantoprazole 40 mg Tablet,Delayed Release (Dr/Ec) 40 mg PO DAILY aspirin 81 mg Tablet,Chewable 81 mg PO DAILY cyanocobalamin (vitamin B-12) 1,000 mcg Tablet 1,000 mcg PO DAILY thiamine HCl (vitamin B1) 100 mg Tablet 200 mg PO DAILY cholecalciferol (vitamin D3) 25 mcg (1,000 unit) Tablet 25 mcg PO DAILY simvastatin 80 mg Tablet 80 mg PO BEDTIME Discharge Orders: Discharge Order (Routine); Ordered 05/22/23 Ordered By: Heena Pruett Diet: Diabetic diet Activity on Discharge: As tolerated Stand Alone Forms: Patient Portal Discharge page Care Plan Goals: Alcohol use disorder/withdrawal strongly recommend to abstain from alcohol Followed Maryvista/take hydroxyzine 1 tablet as needed for anxiety and restlessness every 8 hours Continue home dose of Lantus and follow diabetic diet Strongly recommend low-calorie diet/low-carbohydrate Health Concerns: Diabetes mellitus Hypertension Plan of Treatment: Outpatient follow-up with primary care physician call for appointment Assessment: As above
--- NOTE | 2023-05-22 12:43 | MHC.CM.PN ---
PT WILL DC HOME TODAY WITH NO SERVICES VIA PRIVATE TRANSPORT
== END 2023-05-22 12:57 | disposition home or self-care (01) | DRG 775 ==
LOC: HO.ED 19:53 → HO.S3 05-19 04:31 → HO.EDOVER 05-19 08:56
PROVIDERS: Internal Medicine; Physician Assistant Medical; Admitting Provider Student in an Organized Health Care Education/Training Program; Emergency Provider Emergency Medicine; PCP Internal Medicine; Visit Provider Hospitalist
DX: F10.139 Alcohol abuse with withdrawal, unspecified (principal); E10.649 Type 1 diabetes mellitus with hypoglycemia without coma; E03.9 Hypothyroidism, unspecified; E10.65 Type 1 diabetes mellitus with hyperglycemia; E66.01 Morbid (severe) obesity due to excess calories; K21.9 Gastro-esophageal reflux disease without esophagitis; I10 Essential (primary) hypertension; F39 Unspecified mood [affective] disorder; Y90.8 Blood alcohol level of 240 mg/100 ml or more; E78.2 Mixed hyperlipidemia; G47.33 Obstructive sleep apnea (adult) (pediatric); Z20.822 Contact with and (suspected) exposure to COVID-19; Z68.42 Body mass index [BMI] 45.0-49.9, adult; Z71.3 Dietary counseling and surveillance; Z71.41 Alcohol abuse counseling and surveillance of alcoholic; Z79.82 Long term (current) use of aspirin; Z79.890 Hormone replacement therapy; Z79.899 Other long term (current) drug therapy
CPT/HCPCS: 36415; 70450; 71046; 72125; 80048; 80076; 80307; 82947; 83690; 83735; 83880; 84443; 84484; 85025; 87502; 87635; 93005; 93971; 99285; J1650; J2405; J2560; J2704; J3010; J3411

== ENCOUNTER → 2023-05-18 16:03 | Outpatient (BNV) | payer OTHER, SELFPAY | PROVIDERS: Emergency Provider Emergency Medicine; PCP Internal Medicine; Visit Provider Student in an Organized Health Care Education/Training Program | DX: F10.939 Alcohol use, unspecified with withdrawal, unspecified (principal); E10.65 Type 1 diabetes mellitus with hyperglycemia | CPT/HCPCS: 99222; 99232; 99233; 99238 ==

== ENCOUNTER → 2023-05-18 17:13 | Outpatient (BNV) | payer OTHER, SELFPAY | PROVIDERS: Admitting Provider Student in an Organized Health Care Education/Training Program; Emergency Provider Emergency Medicine; PCP Internal Medicine; Visit Provider Internal Medicine Cardiovascular Disease | DX: R94.31 Abnormal electrocardiogram [ECG] [EKG] (principal) | CPT/HCPCS: 93010 ==

== ENCOUNTER 2023-08-22 08:14 | Outpatient (REF) | payer OTHER, SELFPAY ==
[2023-08-22 11:00] LABS: Creatinine Urine 89.31 mg/dL; Microalbum/Creatinine Ratio Ur 192.5 ug/mg cr (<30)
[2023-08-22 11:16] LABS: Cholesterol 163 mg/dL (<200); HDL Cholesterol 42 mg/dL (>40); Triglycerides 570 mg/dL (<150)
== END 2023-08-22 08:15 | disposition home or self-care (01) ==
LOC: HO.HMGCLDS 08:14
PROVIDERS: PCP Internal Medicine; Visit Provider Internal Medicine Endocrinology, Diabetes & Metabolism
DX: E10.65 Type 1 diabetes mellitus with hyperglycemia (principal); Z13.9 Encounter for screening, unspecified
CPT/HCPCS: 36415; 80061; 82043; 82570; 82947; 83036

== ENCOUNTER 2023-08-22 09:12 | Outpatient (AMB) | payer OTHER, SELFPAY ==
[2023-08-22 09:15] VITALS: BP 144/70; PULSE 87; BMI 49.4
--- NOTE | 2023-08-22 09:15 | A.OFFVIS_ITS ---
Vital Signs 08/22/23 09:15 Height 5 ft 10 in Weight 344 lb 4.029 oz BMI 49.4 BP 144/70 H Blood Pressure Location Lt brachial Position Sitting Pulse 87 Pulse Source Pulse Oximeter Intake Visit Reasons: f/u Type 1 DM/LVM Intake Note: Patient present today to follow up on Type 1 Diabetes Mellitus. Last Diabetic Eye exam: 09/2022 Last Podiatry Visit: 07/2023 Random Glucose: 148 mg/dl HgA1C: 5.5% Manufacturing Specialist Required: No Accompanied by: Self / Same As Patient Allergies No Known Allergies Allergy (Verified 08/22/23 09:20) Medication List - Last Reconciled 08/22/23 by Dean Diaz MD amlodipine 5 mg PO DAILY aspirin 81 mg PO DAILY cholecalciferol (vitamin D3) 25 mcg PO DAILY cyanocobalamin (vitamin B-12) 1,000 mcg PO DAILY fluoxetine 10 mg PO DAILY hydroxyzine HCl 50 mg PO Q8H PRN levothyroxine 300 mcg PO DAILY levothyroxine 25 mcg PO DAILY losartan-hydrochlorothiazide 100-25 mg 1 tab PO DAILY meloxicam 15 mg PO DAILY metoprolol succinate ER 50 mg PO DAILY pantoprazole 40 mg PO DAILY simvastatin 80 mg PO BEDTIME thiamine HCl (vitamin B1) 200 mg PO DAILY HPI Comments Details: 62 YO M with is seen in consultation for T1DM at the request of PCP. Initially diagnosed with T1DM in 11 yrs ago when presented with polyuria .Saw Dr. Evan MD. Saw Dr. Marcano Was initially started on treatment with insulin . Current regimen: Lantus 50 units Humalog 10-20 units Per the CGM Dexcom CGMS is active 93 % of time . Avg glucose is 130 . Variability of 44 GMI of 6.4 The patient's blood sugars were in target 81% of the time, above target 15% of the time, and below target 3% of the time. Pattern shows hypoglycemia occurring late afternoon. Sensitive shows some hypoglycemia occurring predominantly late morning late afternoon Reports low sugars infrequently . Generally having after meals in afternoon Treats lows with sugar cANDIES OR oj . Does not Checks sugar after to ensure it is rising. Family history of autoimmunity in aunts and uncles Type 1 DM Has eyes checked yearly, last eye exam needs to make appt , has retinop athy. Has neuropathy, ses podiatry. Has nephropathy, on SENAIT/ARB. Has HLD, on statin. . Denies history of CAD. Had diabetes education but not recently . Diet/Carb counting: No Denies prior episodes of DKA. Denies prior severe episodes of hypoglycemia requiring help or hospitalization. Not recently Labs: [facility] Medical History Uncontrolled type 1 diabetes mellitus with hyperglycemia, with long-term current use of insulin On beta abhishek at home Personal history of COVID-19 GERD (gastroesophageal reflux disease) Hypothyroidism Hyperlipidemia MI on CPAP HTN (hypertension) Insulin dependent type 2 diabetes mellitus Surgical History History of arthroscopy of left knee Hx of sinus surgery Hx of eye surgery History of surgery History of total left knee replacement History of bilateral carpal tunnel release History of esophagogastroduodenoscopy (EGD) Hx of colonoscopy Family History Father Congestive heart failure Diabetes Mother Lung cancer Social History Household Members: Family Household Members Other:: , daughter Housing: House Do you presently have visiting nurse or other home services: No Alcohol intake: current Alcohol intake frequency: 3 or more drinks per day Comment: refused alarm Patient Tobacco Use Status: Never used Tobacco Second Hand Smoke Exposure: No service: No Physical Exam Vital Signs: Last Vital Signs Pulse 87 08/22/23 09:15 BP 144/70 H 08/22/23 09:15 BMI result Body Mass Index 49.4 Absence of Cushingoid features. Absence of acromegalic features. Neck exam reveals nl size thyroid about 15 gms. No thyroid nodules palpable. No carotid bruits present. Lungs CTA. Heart S1 S2, Reg R/R. No M/R/ G. Skin exam reveals absence of vitiligo or acanthosis nigricans. Abdominal exam reveals Soft NT/ND with NA BS. No organomegaly present. Extrem Other: Visual exam of foot performed. No ulcerations or open lesions. No onchomycosis, no callouses.Pulses 2 + distally. Sensation intact to monofilament exam. Vibratory sensation sensed decreased bilaterally with 128 Hz tuning fork. There is 3+ edema present around the ankle Results AMB Hemoglobin A1c AMB Hemoglobin A1c 5.5 % Last Edit by SHREYA Liang on 08/22/23 09:41 Results Reviewed Results Reviewed: Laboratory Last Values Glucose (Clinic) 149 mg/dL (60-115) H 08/22/23 09:23 Assessment & Plan Assessment & Plan (1) Uncontrolled type 1 diabetes mellitus with hyperglycemia, with long-term current use of insulin: Code(s): E10.65 - Type 1 diabetes mellitus with hyperglycemia Category: Medical Plan: This is a 62-year-old white male with a history of type 1 diabetes with excellent glycemic control but afternoon hypoglycemia and 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 Plan is to send the patient to our nutrition educator and roastmaster. We did talk about carbohydrate counting he will meet with the roastmaster discuss this. We also talked about potential use the pump but he somewhat reluctant to go on any pump. For now, told him to reduce the amount of Humalog before dinner by 2 or 3 units Orders: Orders AMB Hemoglobin A1c Today E10.65 - Type 1 diabetes mellitus with hyperglycemia, Z13.9 - Encounter for screening, unspecified Medications: New insulin glargine (Lantus U-100 Insulin) 50 units (0.5 mL) subcut DAILY 30 mL 0RF Coding Level of Care Code Est Pt Level 4 (72131) Diagnoses Uncontrolled type 1 diabetes mellitus with hyperglycemia, with long-term current use of insulin E10.65
[2023-08-22 09:27] LABS: Glucose, Whole Blood 149 mg/dL (60-115)
== END 2023-08-22 09:43 | disposition home or self-care (01) ==
PROVIDERS: PCP Internal Medicine; Visit Provider Internal Medicine Endocrinology, Diabetes & Metabolism
DX: Z13.9 Encounter for screening, unspecified (principal); E10.65 Type 1 diabetes mellitus with hyperglycemia
CPT/HCPCS: 99214

== ENCOUNTER 2023-08-23 07:58 | Outpatient (REF) | payer OTHER, SELFPAY ==
[2023-08-23 11:00] LABS: Cholesterol 185 mg/dL (<200); HDL Cholesterol 33 mg/dL (>40); Triglycerides 780 mg/dL (<150)
== END 2023-08-23 07:59 | disposition home or self-care (01) ==
LOC: HO.HMGCLDS 07:58
PROVIDERS: Visit Provider Internal Medicine Endocrinology, Diabetes & Metabolism
DX: E10.65 Type 1 diabetes mellitus with hyperglycemia (principal)
CPT/HCPCS: 36415; 80061

== ENCOUNTER 2023-09-28 18:05 | Inpatient (IN) | payer OTHER, SELFPAY ==
--- NOTE | ~2023-09-28 | US_ITS ---
EXAMINATION: US ABDOMEN LIMITED CLINICAL INFORMATION: Elevated LFTs. COMPARISON: None available. TECHNIQUE: Real-time imaging of the right upper quadrant abdominal viscera. FINDINGS: PANCREAS: Normal. LIVER: Liver is enlarged measuring over 20 cm in greatest length and demonstrates increased echogenicity of hepatic steatosis. The liver contour is normal. No focal hepatic lesion. There is no intrahepatic biliary duct dilatation seen. GALLBLADDER: The gallbladder is physiologically distended without evidence of stones, sludge, polyps, wall thickening or pericholecystic fluid. COMMON BILE DUCT: Normal in caliber measuring 0.5 cm in diameter. RIGHT KIDNEY: No hydronephrosis. No renal calculi or focal parenchymal lesions. The kidney measures 10.7 cm in maximum dimension. FREE FLUID: None. US/US abdomen limited IMPRESSION: Enlarged fatty liver.
[2023-09-28 18:08] VITALS: BP 205/105; PULSE 73
--- NOTE | 2023-09-28 18:12 | ED_ITS ---
HPI - General Adult General Chief complaint: General Medical Stated complaint: DIZZINESS HTN Time Seen by Provider: 09/28/23 18:11 Source: patient Mode of arrival: ambulatory Limitations: no limitations History of Present Illness ED Provider: oneal HO narrative: 62-year-old male, with a history of alcohol abuse, diabetes, hypertension, hypothyroidism, GERD, hyperlipidemia, and MI on CPAP presenting to the emergency department for dizziness last drink was last midnight patient's feeling dizzy nauseated vomited several times feeling dizzy and weak last time patient was here was 05/28 admitted for alcohol withdrawal stayed sober for 60 days would like to go for inpatient phenobarb again Related Data Home Medications ?Medication ?Instructions ?Recorded ?Confirmed amlodipine 5 mg tablet 5 mg PO DAILY 05/18/23 09/28/23 aspirin 81 mg chewable tablet 81 mg PO DAILY 05/18/23 09/28/23 cholecalciferol (vitamin D3) 25 25 mcg PO DAILY 05/18/23 09/28/23 mcg (1,000 unit) tablet cyanocobalamin (vitamin B-12) 1,000 mcg PO DAILY PRN as needed 05/18/23 09/28/23 1,000 mcg tablet levothyroxine 25 mcg tablet 25 mcg PO DAILY@30 05/18/23 09/28/23 levothyroxine 300 mcg tablet 300 mcg PO DAILY@30 05/18/23 09/28/23 losartan 100 1 tab PO DAILY 05/18/23 09/28/23 mg-hydrochlorothiazide 25 mg tablet meloxicam 15 mg tablet 15 mg PO DAILY Pain 05/18/23 09/28/23 metoprolol succinate 50 mg 50 mg PO DAILY 05/18/23 09/28/23 tablet,extended release 24 hr pantoprazole 40 mg tablet,delayed 40 mg PO DAILY 05/18/23 09/28/23 release simvastatin 80 mg tablet 80 mg PO BEDTIME 05/18/23 09/28/23 thiamine HCl (vitamin B1) 100 mg 200 mg PO DAILY PRN as needed 05/18/23 09/28/23 tablet insulin glargine 100 unit/mL 60 unit subcut BEDTIME 09/28/23 09/28/23 subcutaneous solution (Lantus U-100 Insulin) insulin lispro 100 unit/mL 1 sliding scale dose subcut 09/28/23 09/28/23 subcutaneous pen (Humalog KwikPen USEASDIRECTD (U-100) Insulin) Previous Rx's ?Medication ?Instructions ?Recorded hydroxyzine HCl 50 mg tablet 50 mg PO Q8H PRN 05/22/23 Anxiety/Restlessness #30 tabs Allergies Allergy/AdvReac Type Severity Reaction Status Date / Time No Known Allergies Allergy Verified 09/28/23 18:19 Review of Systems 2 Review of Systems: Yes all other systems are reviewed and are negative [facility] Past Medical History Medical History Type 1 diabetes Hypoglycemia Uncontrolled type 1 diabetes mellitus with hyperglycemia, with long-term current use of insulin On beta abhishek at home Personal history of COVID-19 GERD (gastroesophageal reflux disease) Hypothyroidism Hyperlipidemia MI on CPAP HTN (hypertension) Insulin dependent type 2 diabetes mellitus Surgical History History of arthroscopy of left knee Hx of sinus surgery Hx of eye surgery History of surgery History of total left knee replacement History of bilateral carpal tunnel release History of esophagogastroduodenoscopy (EGD) Hx of colonoscopy Family History Family History Father Congestive heart failure Diabetes Mother Lung cancer Social History Social History Household Members: Spouse Household Members Other:: , daughter Housing: House Do you presently have visiting nurse or other home services: No Alcohol intake: current Alcohol intake frequency: 3 or more drinks per day Comment: refused alarm Patient Tobacco Use Status: Former Tobacco user Tobacco use type: Cigarette Smoked in Last 30 Days: No Patient Interested in Nicotine Replacement: No Patient Given Instructions on How to Stop Smoking: No Second Hand Smoke Exposure: No Use of substances other than those prescribed or required for medical reasons: No Currently Displaying Signs/Symptoms of Drug Intoxication Withdrawal: No Any prior treatment program specific to substance use: No Have you been hit, kicked, punched, or otherwise hurt by someone within the past year? If so, by whom?: No Do you feel safe in your current relationship?: Yes Is there a partner from a previous relationship who is making you feel unsafe now?: No Are you made to feel afraid or neglected: No Advance Directives: Yes Advance Directives on File: Yes Advance Directives Date on File: 05/24/23 Do you have a plan to hurt others: No Plan Recently lost weight without trying: No Eating poorly because of decreased appetite: No Nutrition Risks: No Nutritional Risk Poor oral hygiene: No service: No Physical Exam ED Vital Signs: Vital Signs - 24 hr 09/28/23 18:15 Pulse Rate 66 Respiratory Rate 18 Blood Pressure 175/64 H Pulse Oximetry 98 Oxygen Delivery Method Room Air BMI result Body Mass Index 49.1 Appearance: Alert. Oriented X3. No acute distress. Obese Eyes: PERRLA, No Nystagmus ENT: Pharynx normal. Oral Mucosa moist Neck: Normal inspection. Neck supple. CVS: Normal heart rate and rhythm. Pulses normal. Respiratory: No respiratory distress. Equal air entry bilateral, no wheezing/rales/rhonchi Abdomen: Soft and nontender. Bowel sounds are present, no mass palpable, no CVA tenderness Skin: Skin warm and dry. Normal skin color. Normal skin turgor. Extremities: No lower extremity edema. No calf tenderness Neuro: Oriented X 3. No motor deficit. No sensory deficit.No cerebellar signs , cranial nerves II-XII intact Medications Administered Generic Name Dose Route Start Last Admin Trade Name Freq PRN Reason Stop Dose Admin Enoxaparin Sodium 40 mg 09/28/23 21:00 09/28/23 22:03 Enoxaparin Sodium 40 Mg/0.4 Ml Syringe SUBCUT 40 mg Q24H ESTUARDO Administration Thiamine HCl 100 mg/ Sodium 101 mls @ 202 mls/hr 09/28/23 21:05 09/28/23 22:03 Chloride IV 202 mls/hr BID ESTUARDO Administration Insulin Glargine 45 unit 09/28/23 22:15 09/28/23 22:37 Insulin Glargine,Hum.Rec.Anlog 100 Unit/Ml 10 Ml Vial SUBCUT 45 unit BEDTIME ESTUARDO Administration Melatonin 6 mg 09/28/23 20:56 09/29/23 00:23 Melatonin 3 Mg Tablet PO 6 mg BEDTIME PRN Administration Insomnia Discontinued Medications Generic Name Dose Route Start Last Admin Trade Name Freq PRN Reason Stop Dose Admin Famotidine 20 mg 09/28/23 18:45 09/28/23 18:55 Famotidine/Pf 20 Mg/2 Ml Vial IVPUSH 09/28/23 18:46 20 mg ONCE ONE Administration Sodium Chloride 1,000 mls @ 999 mls/hr 09/28/23 18:38 09/28/23 19:03 Ns IV 09/28/23 19:38 999 mls/hr .Q1H1M ONE Administration Magnesium Sulfate 2 gm in 50 mls @ 25 mls/hr 09/28/23 21:22 09/29/23 00:03 Magnesium Sulfate/H2o IV 09/28/23 23:21 Infused ONCE ONE Infusion Lorazepam 2 mg 09/28/23 18:45 09/28/23 18:57 Lorazepam 2 Mg/Ml Vial IVPUSH 09/28/23 18:46 2 mg ONCE ONE Administration Ondansetron HCl 4 mg 09/28/23 18:45 09/28/23 18:55 Ondansetron Hcl 4 Mg/2 Ml Vial IVPUSH 09/28/23 18:46 4 mg ONCE ONE Administration Phenobarbital Sodium 175 mg 09/28/23 21:30 09/28/23 22:03 Phenobarbital Sodium 130 Mg/Ml Im Once IM 09/28/23 21:31 175 mg ONCE ONE Administration Medical Decision Making Medical Decision Making [facility] Narrative: Patient alcoholic workup showed elevated LFTs significantly higher than last time AST was 786 with ALT 544 will not be giving phenobarb because of abnormal liver functions will give Ativan every 4 hours as needed for withdrawal Differential Diagnosis Differential Diagnoses: The differential diagnosis associated with the presentation includes Alcohol withdrawal/depression/alcoholic hepatitis Admission/Observation Consideration of admission/observation: Escalation of care including admission/observation considered Consult Healthcare Provider Management of the patient was discussed with: Hospitalist Lab Data [facility] Lab Attestation statement: I reviewed the patient's lab results. 09/28/23 18:51 09/28/23 18:51 Labs: Lab Results 09/28/23 09/28/23 Range/Units 18:51 20:51 WBC 4.7 L (4.8-10.8) X10*3/uL RBC 4.27 L (4.60-5.80) X10*6/uL Hgb 13.7 L (14.0-18.0) g/dl Hct 39.8 L (42.0-52.0) % MCV 93.2 (80.0-98.0) fL MCH 32.1 (27.0-33.0) pg MCHC 34.4 (31.0-36.0) g/dl RDW 14.2 (11.0-16.0) % Plt Count 219 (160-400) X10*3/uL MPV 9.6 (9.4-12.4) fL Immature Gran % (Auto) 0.2 (0.0-0.4) % Neut % (Auto) 57.2 (45-73) % Lymph % (Auto) 29.7 (20-40) % [place] % (Auto) 10.7 (2-11) % Eos % (Auto) 1.3 (0-4) % Baso % (Auto) 0.9 (0-2) % Lymph # (Auto) 1.4 (1.2-4.9) X10*3/uL [place] # (Auto) 0.5 (0.1-1.2) X10*3/uL Eos # (Auto) 0.1 (0.0-0.4) X10*3/uL Baso # (Auto) 0.0 (0.0-0.2) X10*3/uL Abs Immat Gran (auto) 0.01 (0.00-0.03) X10*3/uL Absolute Neuts (auto) 2.7 (2.0-8.3) x10*3/uL Absolute Nucleated RBC 0.000 (0.0-0.012) X10*3/uL Nucleated RBC % (auto) 0.0 (0.0-0.2) /100WBC PT 11.6 (11.1-13.3) SEC INR 1.0 (0.9-1.1) Sodium 139 (135-145) mmol/L Potassium 4.1 (3.3-5.1) mmol/L Chloride 109 H (96-108) mmol/L Carbon Dioxide 22 (22-29) mmol/L Anion Gap 12 (12-20) BUN 39 H (9-16) mg/dL Creatinine 0.95 (0.5-1.4) mg/dL Estim Creat Clear Calc 123.8 Estimated GFR > 60 Random Glucose 117 H (60-115) mg/dL Calcium 8.0 L (8.4-10.2) mg/dL Magnesium 1.5 L (1.6-2.6) mg/dL Total Bilirubin 1.3 H (0.0-1.0) mg/dL AST 786 H (5-37) U/L ALT 544 H (0-40) U/L Alkaline Phosphatase 187 H (39-117) U/L Total Protein 5.6 L (6.5-8.0) g/dL Albumin 3.0 L (3.5-5.0) g/dL Lipase 9 (8-78) U/L Ethyl Alcohol < 10 mg/dL Independent Interpretation I performed an independent interpretation of an: Ultrasound Radiology Impression Discussion of test interpretation with radiology: I have reviewed the radiologist's reading. Radiologist Impression: Fatty liver Critical Care Time Critical Care Time Critical Care Time: Yes Total Critical Care Time: 40 Attestation: The patient was critically ill with a high probability of imminent or life threatening deterioration. I spent greater than ?45??minutes of discontinuous time evaluating the patient,delivering critical care at the bedside, discussing and evaluating pertinent data with consultants. Critical care time does not include time spent performing separately billable procedures or teaching. Total time spent performing critical care was 40???minutes. Discharge Plan Discharge Clinical Impression: Alcohol dependence, Acute on chronic alcoholic liver disease Patient Disposition: Admitted As Inpatient Interventions: Admission Worksheet (ED) Last Done: 09/28/23 22:55
[2023-09-28 18:15] VITALS: BP 175/64; PULSE 66; RESP 18; O2SAT 98; BMI 49.1
[2023-09-28] MEDS: ondansetron HCL 4 MG/2 ML VIAL IVPUSH (18:55)
[2023-09-28] MEDS: Famotidine/PF 20 MG/2 ML VIAL IVPUSH (18:55)
[2023-09-28] MEDS: LORazepam 2 MG/ML VIAL IVPUSH (18:57)
[2023-09-28] MEDS: 0.9 % Sodium Chloride 1,000 ML 999 ML IV (19:03)
[2023-09-28 19:08] LABS: MANUAL DIFF FLAG NO
[2023-09-28 19:09] LABS: Basophils Percent Auto 0.9 % (0-2); Eosinophils Absolute Auto 0.1 X10*3/uL (0.0-0.4); Eosinophils Percent Auto 1.3 % (0-4); Hematocrit 39.8 % (42.0-52.0); Hemoglobin 13.7 g/dl (14.0-18.0); Imm Gran Abs Auto 0.01 X10*3/uL (0.00-0.03); Imm Gran Pct Auto 0.2 % (0.0-0.4); Lymphocytes Absolute Auto 1.4 X10*3/uL (1.2-4.9); Lymphocytes Percent Auto 29.7 % (20-40); Mean Corpuscular HGB Conc 34.4 g/dl (31.0-36.0); Mean Corpuscular Hemoglobin 32.1 pg (27.0-33.0); Mean Corpuscular Volume 93.2 fL (80.0-98.0); Mean Platelet Volume 9.6 fL (9.4-12.4); Monocytes Absolute Auto 0.5 X10*3/uL (0.1-1.2); Monocytes Percent Auto 10.7 % (2-11); Neutrophils Absolute Auto 2.7 x10*3/uL (2.0-8.3); Neutrophils Percent Auto 57.2 % (45-73); Platelet Count 219 X10*3/uL (160-400); Red Blood Count 4.27 X10*6/uL (4.60-5.80); Red Cell Distribution Width 14.2 % (11.0-16.0); White Blood Count 4.7 X10*3/uL (4.8-10.8)
[2023-09-28 19:28] LABS: Alanine Aminotransferase 544 U/L (0-40); Alkaline Phosphatase 187 U/L (39-117); Anion Gap 12 (12-20); Aspartate Amino Transferase 786 U/L (5-37); Bilirubin Total 1.3 mg/dL (0.0-1.0); Blood Urea Nitrogen 39 mg/dL (9-16); Carbon Dioxide 22 mmol/L (22-29); Chloride 109 mmol/L (96-108); Creatinine Clr Calc Pharmacy 123.8; Estimated Glomerular Filt Rate > 60; Ethanol < 10 mg/dL; Glucose Random 117 mg/dL (60-115); Lipase 9 U/L (8-78); Magnesium 1.5 mg/dL (1.6-2.6); Potassium 4.1 mmol/L (3.3-5.1); Sodium 139 mmol/L (135-145); Total Protein 5.6 g/dL (6.5-8.0)
--- NOTE | 2023-09-28 21:07 | PM.IMHP ---
History of Present Illness Date of Service: 09/28/23 Attending physician on admission: Lyn Medley Chief Complaint: Dizziness, N/V Pt is a 62-year-old male with a PMH significant for?HTN, HLD, hypothyroidism, type 1 diabetes mellitus, MI on CPAP, alcohol use disorder with hx of withdrawal, and GERD who presents to the ED with?dizziness, lightheadedness, nausea, and vomiting since this morning. Patient history of heavy alcohol use. Previously admitted to the hospital on 05/18-05/22 for alcohol withdrawal. Patient states initially after discharge was sober 60 days before he started drinking again thinking that he could keep it under control with only drinking on the weekends. However has been drinking 7 days a week for the past 6 days, though states he has been drinking significantly less than before as he now by his pt rather than handles of vodka. States normally drinks 1.5 pints daily, though yesterday had less around a half pint. Last drink around midnight last night. This morning patient experienced lightheadedness and dizziness upon waking, stating it felt like the room was spinning. Has subsequently unable to walk in a straight line and been using crutches for ambulation. Also experienced nausea and vomiting x5 times, as well as increased anxiety. No history of withdrawal seizures. Denies auditory or visual hallucinations. No chest pain/pressure, palpitations. Denies abdominal pain. In the ED pt was hypertensive to 175/64, vitals otherwise stable and WNL. Labs were significant for BUN 39, calcium 8.0, magnesium 1.5, bilirubin 1.3, AST 786, ALT 544, alk-phos 187, total protein 5.6, and albumin 3.0. Ethyl alcohol levels undetectable. Pt was treated with IVF, ondansetron, famotidine, and lorazepam. Pt will be admitted to the hospital for treatment and further evaluation of acute alcohol withdrawal. Review of Systems Review of Systems: Dizziness Ataxia Nausea, vomiting Increased anxiety Denies abdominal pain No fever, chills Denies chest pain/pressure, palpitations No shortness a breath [facility] Medical History Type 1 diabetes Hypoglycemia Uncontrolled type 1 diabetes mellitus with hyperglycemia, with long-term current use of insulin On beta abhishek at home Personal history of COVID-19 GERD (gastroesophageal reflux disease) Hypothyroidism Hyperlipidemia MI on CPAP HTN (hypertension) Insulin dependent type 2 diabetes mellitus Family History Father Congestive heart failure Diabetes Mother Lung cancer Surgical History History of arthroscopy of left knee Hx of sinus surgery Hx of eye surgery History of surgery History of total left knee replacement History of bilateral carpal tunnel release History of esophagogastroduodenoscopy (EGD) Hx of colonoscopy Social History Household Members: Family Household Members Other:: , daughter Housing: House Do you presently have visiting nurse or other home services: No Alcohol intake: current Alcohol intake frequency: 3 or more drinks per day Comment: refused alarm Patient Tobacco Use Status: Never used Tobacco Smoked in Last 30 Days: No Second Hand Smoke Exposure: No Use of substances other than those prescribed or required for medical reasons: No Advance Directives: Yes Advance Directives on File: Yes Advance Directives Date on File: 05/24/23 service: No Meds Allergies Allergy/AdvReac Type Severity Reaction Status Date / Time No Known Allergies Allergy Verified 09/28/23 18:19 Active Medications: Current Medications Acetaminophen (Acetaminophen 325 Mg Tablet) 650 mg PO Q6H PRN PRN Reason: Pain, Mild (Pain Scale 1-3), fever or headache Benzonatate (Benzonatate 100 Mg Capsule) 100 mg PO TID PRN PRN Reason: Cough Calcium Carbonate (Calcium Carbonate 750 Mg Tab.Chew) 750 mg PO Q4H PRN PRN Reason: Heartburn Enoxaparin Sodium (Enoxaparin Sodium 40 Mg/0.4 Ml Syringe) 40 mg SUBCUT Q24H ESTUARDO Folic Acid (Folic Acid 1 Mg Tablet) 1 mg PO DAILY ESTUARDO Stop: 10/02/23 08:59 Thiamine HCl 100 mg/ Sodium (Chloride) 101 mls @ 202 mls/hr IV BID ESTUARDO Lorazepam (Lorazepam 1 Mg Tablet) 2 mg PO RQ4H WHILE AWAKE PRN PRN Reason: Alcohol Withdrawal Melatonin (Melatonin 3 Mg Tablet) 6 mg PO BEDTIME PRN PRN Reason: Insomnia Multivitamins/Vitamin C (Multivitamin Tablet) 1 tab PO DAILY ESTUARDO Stop: 10/02/23 08:59 Ondansetron HCl (Ondansetron Hcl 4 Mg/2 Ml Vial) 4 mg IVPUSH Q8H PRN PRN Reason: Nausea and Vomiting Polyethylene Glycol (Polyethylene Glycol 3350 17 Gm Powd.Pack) 17 gm PO DAILY PRN PRN Reason: Constipation Sodium Chloride (0.9 % Sodium Chloride Flush 3 Ml Syringe) 3 ml IVFLUSH QSHIFT [facility] Home Medications ?Medication ?Instructions ?Recorded ?Confirmed ?Last Taken ?Type amlodipine 5 mg tablet 5 mg PO DAILY 05/18/23 08/22/23 05/18/23 08:00 History aspirin 81 mg chewable tablet 81 mg PO DAILY 05/18/23 08/22/23 05/18/23 08:00 History cholecalciferol (vitamin D3) 25 25 mcg PO DAILY 05/18/23 08/22/23 05/18/23 History mcg (1,000 unit) tablet cyanocobalamin (vitamin B-12) 1,000 mcg PO DAILY 05/18/23 08/22/23 05/18/23 History 1,000 mcg tablet fluoxetine 10 mg tablet 10 mg PO DAILY 05/18/23 08/22/23 05/18/23 08:00 History levothyroxine 25 mcg tablet 25 mcg PO DAILY 05/18/23 08/22/23 05/18/23 08:00 History levothyroxine 300 mcg tablet 300 mcg PO DAILY 05/18/23 08/22/23 05/18/23 08:00 History losartan 100 1 tab PO DAILY 05/18/23 08/22/23 05/18/23 08:00 History mg-hydrochlorothiazide 25 mg tablet meloxicam 15 mg tablet 15 mg PO DAILY Pain 05/18/23 08/22/23 05/18/23 08:00 History metoprolol succinate 50 mg 50 mg PO DAILY 05/18/23 08/22/23 05/18/23 08:00 History tablet,extended release 24 hr pantoprazole 40 mg tablet,delayed 40 mg PO DAILY 05/18/23 08/22/23 05/18/23 08:00 History release simvastatin 80 mg tablet 80 mg PO BEDTIME 05/18/23 08/22/23 05/17/23 History thiamine HCl (vitamin B1) 100 mg 200 mg PO DAILY 05/18/23 08/22/23 05/18/23 History tablet Physical Exam Vital Signs and Narrative: Vital Signs: Last Vital Signs Pulse 66 09/28/23 18:15 Resp 18 09/28/23 18:15 BP 175/64 H 09/28/23 18:15 Pulse Ox 98 09/28/23 18:15 O2 Del Method Room Air 09/28/23 18:15 BMI result Body Mass Index 49.1 Constitutional: Alert, in no acute distress. Mental Status: Oriented to person, place and time. Eyes: Pupils are equal, round, and reactive to light. Ear, Nose, and Throat: Oropharynx clear, mucous membranes moist. Ears and nose without deformities. Trachea midline. Respiratory: Clear to auscultation bilaterally. No wheezing, rales, or rhonchi. Cardiovascular: S1, S2 regular. No murmurs, rubs, or gallops. Gastrointestinal: Abdomen soft, non-tender, obese. Normal bowel sounds. Neurologic: Cranial nerves II-XII are grossly intact bilaterally. No focal neurological deficits. Moves all extremities spontaneously. No tremors noted. Skin: Warm, dry. Extremities: No edema. Psychiatric: Normal mood and affect. Results Labs 09/28/23 18:51 09/28/23 18:51 Labs: Laboratory Results - last 24 hr 09/28/23 18:51 MCV 93.2 MCH 32.1 MCHC 34.4 RDW 14.2 Plt Count 219 MPV 9.6 Immature Gran % (Auto) 0.2 Neut % (Auto) 57.2 Lymph % (Auto) 29.7 [place] % (Auto) 10.7 Eos % (Auto) 1.3 Baso % (Auto) 0.9 Lymph # (Auto) 1.4 [place] # (Auto) 0.5 Eos # (Auto) 0.1 Baso # (Auto) 0.0 Abs Immat Gran (auto) 0.01 Absolute Neuts (auto) 2.7 Absolute Nucleated RBC 0.000 Nucleated RBC % (auto) 0.0 Anion Gap 12 Estim Creat Clear Calc 123.8 Estimated GFR > 60 Random Glucose 117 H Calcium 8.0 L Magnesium 1.5 L Total Bilirubin 1.3 H AST 786 H ALT 544 H Alkaline Phosphatase 187 H Total Protein 5.6 L Albumin 3.0 L Lipase 9 Ethyl Alcohol < 10 Assessment and Plan (1) Alcohol withdrawal: Status: Resolved Plan Pt is a 62-year-old male with a PMH significant for?HTN, HLD, hypothyroidism, type 1 diabetes mellitus, MI on CPAP, alcohol use disorder with hx of withdrawal, and GERD who presents to the ED with?dizziness, lightheadedness, nausea, and vomiting since this morning. Pt will be admitted to the hospital for treatment and further evaluation of acute alcohol withdrawal. Acute alcohol withdrawal Pt with lightheadedness/dizziness, increased anxiety, nausea and vomiting Patient has been drinking 1.5 pts x6 weeks, less yesterday; ethyl alcohol levels undetectable in the ED The patient given Ativan in the ED Will start phenobarb protocol at reduced rate of 6 mg/kg due to elevated LFTs Daily multivitamin, folic acid, thiamine Continue PPI Follow lytes, Mag, BNP CIWA scale Addiction medicine consult Monitor on telemetry Hypomagnesemia Magnesium 1.5 at time of presentation Will give magnesium 2 g IV Follow Mag, supplement as necessary Elevated LFTs AST 786, ALT 544, alk-phos 187, significantly elevated over previous Bilirubin 1.3, PT and INR WNL Patient asymptomatic: Denies abdominal pain Check abdominal ultrasound Type 1 diabetes mellitus Sliding-scale insulin, Lantus Diabetic diet HTN Continue amlodipine, losartan hydrochlorothiazide, metoprolol HLD Continue statin Hypothyroidism Continue levothyroxine Mood disorder Continue fluoxetine, hydroxyzine Full Code Attending:?Dr. Christianson DVT Prophylaxis: Lovenox Pt will require a hospitalization of at least two nights for treatment of?acute alcohol withdrawal with phenobarb protocol as well as close monitoring of labs and cardiac function. Quality Stroke Does the patient have a stroke diagnosis?: No VTE Prior VTE?: No VTE Risk Level:: Medical - moderate - high VTE Device Contraindication: Treatment Not Indicated VTE Drug Contraindication: N/A - Med Ordered
[2023-09-28 21:08] VITALS: BP 160/46; PULSE 62; RESP 16; TEMP 36.8; O2SAT 98
[2023-09-28 21:15] LABS: Prothrombin Time 11.6 SEC (11.1-13.3)
[2023-09-28] MEDS: Thiamine HCL 100 MG in 0.9 % Sodium Chloride 100 ML 202 MG IV (22:03)
[2023-09-28] MEDS: Magnesium Sulfate/H2O 2 GM/50 ML PIGGYBACK IV (22:03)
[2023-09-28] MEDS: PHENobarbitaL sodium 130 MG/ML IM ONCE 175 MG IM (22:03)
[2023-09-28] MEDS: Enoxaparin Sodium 40 MG/0.4 ML SYRINGE SUBCUT (22:03)
--- NOTE | 2023-09-28 22:04 | PHA.MEDREC ---
Pharmacy Consult ? Medication Reconciliation Pharmacy has completed the medication reconciliation. Confirmed medications with patient and list he had provided. He states he is taking Humalog on a sliding scale three times a day before meals and he last took that this morning. Patient also taking Lantus and he does 60 units at night and he took took his last dose last night.
[2023-09-28 22:21] LABS: Glucose, Whole Blood 185 mg/dL (60-115)
[2023-09-28] MEDS: Insulin Glargine,Hum.rec.anlog 100 UNIT/ML 10 ML VIAL 45 UNIT SUBCUT (22:37)
[2023-09-29] VITALS (10 sets, daily range): BP systolic 140–183; BP diastolic 66–80; PULSE 57–72; RESP 16–20; TEMP 35.8–36.7; O2SAT 96–98
[2023-09-29] MEDS: Melatonin 3 MG TABLET 6 MG PO ×2 (00:23→23:33)
[2023-09-29] MEDS: PHENobarbitaL sodium 130 MG/ML VIAL IM Q3Hx2 IM ×2 (00:56→06:08)
[2023-09-29] MEDS: Levothyroxine Sodium 25 MCG TABLET PO (06:06)
[2023-09-29] MEDS: Omeprazole 20 MG CAPSULE.DR PO (06:06)
[2023-09-29] MEDS: Levothyroxine Sodium 150 MCG TABLET 300 MCG PO (06:06)
[2023-09-29 07:30] LABS: Anion Gap 15 (12-20); Blood Urea Nitrogen 35 mg/dL (9-16); Calcium 8.6 mg/dL (8.4-10.2); Carbon Dioxide 24 mmol/L (22-29); Chloride 104 mmol/L (96-108); Creatinine Clr Calc Pharmacy 107.9; Estimated Glomerular Filt Rate > 60; Glucose Random 261 mg/dL (60-115); Magnesium 1.8 mg/dL (1.6-2.6); Potassium 4.2 mmol/L (3.3-5.1); Sodium 139 mmol/L (135-145)
[2023-09-29] MEDS: PHENobarbitaL 15 MG TABLET 45 MG PO ×2 (07:49→20:51)
[2023-09-29] MEDS: Insulin Lispro 100 UNIT/ML 3 ML VIAL SUBCUT ×4 (07:49→20:50)
[2023-09-29] MEDS: Losartan Potassium 50 MG TABLET 100 MG PO (07:50)
[2023-09-29] MEDS: hydroCHLOROthiazide 25 MG TABLET PO (07:51)
[2023-09-29] MEDS: Folic Acid 1 MG TABLET PO (07:51)
[2023-09-29] MEDS: Aspirin 81 MG TAB.CHEW PO (07:51)
[2023-09-29] MEDS: Metoprolol Succinate ER 50 MG TAB.ER.24H PO (07:52)
[2023-09-29] MEDS: amLODIPine Besylate 5 MG TABLET PO (07:52)
[2023-09-29] MEDS: 0.9 % Sodium Chloride Flush 3 ML SYRINGE IVFLUSH ×3 (07:53→23:36)
[2023-09-29] MEDS: Thiamine HCL 100 MG in 0.9 % Sodium Chloride 100 ML 202 MG IV ×2 (07:53→20:52)
[2023-09-29] MEDS: Multivitamin TABLET 1 TAB PO (07:53)
[2023-09-29] MEDS: Cholecalciferol (Vitamin D3) 25 MCG TABLET PO (07:53)
--- NOTE | 2023-09-29 07:55 | P.PNIM_ITS ---
Subjective Subjective Date of Service: 09/29/23 Interval History: Being followed for alcohol withdrawal Feeling better this morning denies tremors but continued to have unsteady gait,, denies nausea, no vomiting, no abdominal pain, no acute issues overnight tolerated CPAP at night. Review of Systems All other system reviewed and are negative. Physical Exam 2 Vital Signs: Vital Signs: Last Vital Signs Temp 96.8 F 09/29/23 04:00 Pulse 62 09/29/23 04:00 Resp 16 09/29/23 04:00 BP 150/66 H 09/29/23 04:00 Pulse Ox 98 09/29/23 04:00 O2 Del Method Room Air 09/29/23 04:00 BMI result Body Mass Index 49.1 Const: Other: General awake alert x3, sitting comfortably in no acute distress. Neck supple, no JVD. CVS regular rate rhythm, Respiratory lungs clear to auscultation, no respiratory distress, no wheeze, no rhonchi. Gastrointestinal abdomen soft, non tender, bowel sounds audible, no guarding , no rigidity. Extremities no edema. Neuro non focal , no tremors Skin no rash Appropriate affect Objective Data Active Medications Amlodipine Besylate (Amlodipine Besylate 5 Mg Tablet) 5 mg PO DAILY [facility]; Protocol Aspirin (Aspirin 81 Mg Tab.Chew) 81 mg PO DAILY [facility] Atorvastatin Calcium (Atorvastatin Calcium 40 Mg Tablet) 40 mg PO BEDTIME [facility] Benzonatate (Benzonatate 100 Mg Capsule) 100 mg PO TID PRN PRN Reason: Cough Calcium Carbonate (Calcium Carbonate 750 Mg Tab.Chew) 750 mg PO Q4H PRN PRN Reason: Heartburn Cyanocobalamin (Cyanocobalamin (Vitamin B-12) 1,000 Mcg Tablet) 1,000 mcg PO DAILY PRN PRN Reason: as needed Enoxaparin Sodium (Enoxaparin Sodium 40 Mg/0.4 Ml Syringe) 40 mg SUBCUT Q24H [facility] Last Admin: 09/28/23 22:03 Dose: 40 mg Documented By: JUANA Folic Acid (Folic Acid 1 Mg Tablet) 1 mg PO DAILY [facility] Stop: 10/02/23 08:59 Glucose (Glucose Gel 15 Gm Gel..Gram.) 15 gm PO Q15M PRN; Protocol PRN Reason: per Hypoglycemia Standing Ord. Hydrochlorothiazide (Hydrochlorothiazide 25 Mg Tablet) 25 mg PO DAILY [facility] Hydroxyzine HCl (Hydroxyzine Hcl 50 Mg Tablet) 50 mg PO Q8H PRN PRN Reason: Anxiety/Restlessness Thiamine HCl 100 mg/ Sodium (Chloride) 101 mls @ 202 mls/hr IV BID [facility] Last Admin: 09/28/23 22:03 Dose: 202 mls/hr Documented By: JUANA Dextrose (D10) 250 mls @ 750 mls/hr IV Q15M PRN; Protocol PRN Reason: per Hypoglycemia Standing Ord. Insulin Glargine (Insulin Glargine,Hum.Rec.Anlog 100 Unit/Ml 10 Ml Vial) 45 unit SUBCUT BEDTIME [facility] Last Admin: 09/28/23 22:37 Dose: 45 unit Documented By: JUANA Insulin Human Lispro (Insulin Lispro 100 Unit/Ml 3 Ml Vial) 0 unit SUBCUT QIDACHS [facility]; Protocol Levothyroxine Sodium (Levothyroxine Sodium 150 Mcg Tablet) 300 mcg PO DAILY@629 [facility] Last Admin: 09/29/23 06:06 Dose: 300 mcg Documented By: LUCAS Levothyroxine Sodium (Levothyroxine Sodium 25 Mcg Tablet) 25 mcg PO DAILY@629 [facility] Last Admin: 09/29/23 06:06 Dose: 25 mcg Documented By: LUCAS Losartan Potassium (Losartan Potassium 50 Mg Tablet) 100 mg PO DAILY [facility] Melatonin (Melatonin 3 Mg Tablet) 6 mg PO BEDTIME PRN PRN Reason: Insomnia Last Admin: 09/29/23 00:23 Dose: 6 mg Documented By: LUCAS Metoprolol Succinate (Metoprolol Succinate Er 50 Mg Tab.Er.24h) 50 mg PO DAILY [facility]; Protocol Multivitamins/Vitamin C (Multivitamin Tablet) 1 tab PO DAILY [facility] Stop: 10/02/23 08:59 Omeprazole (Omeprazole 20 Mg Capsule.Dr) 20 mg PO DAILY@629 [facility] Last Admin: 09/29/23 06:06 Dose: 20 mg Documented By: LUCAS Ondansetron HCl (Ondansetron Hcl 4 Mg/2 Ml Vial) 4 mg IVPUSH Q8H PRN PRN Reason: Nausea and Vomiting Pharmacy Consult (Consult Rx Etoh Phenob Im/Po) 1 each MISCELLANE ONCE PRN; Protocol PRN Reason: Consult order Phenobarbital (Phenobarbital 15 Mg Tablet) 45 mg PO BID [facility] Stop: 09/30/23 21:01 Phenobarbital (Phenobarbital 30 Mg Tablet) 30 mg PO BID [facility] Stop: 10/02/23 21:01 Phenobarbital (Phenobarbital 15 Mg Tablet) 15 mg PO DAILY [facility] Stop: 10/04/23 09:01 Polyethylene Glycol (Polyethylene Glycol 3350 17 Gm Powd.Pack) 17 gm PO DAILY PRN PRN Reason: Constipation Sodium Chloride (0.9 % Sodium Chloride Flush 3 Ml Syringe) 3 ml IVFLUSH QSHIFT [facility] Last Admin: 09/29/23 06:10 Dose: Not Given Documented By: LUCAS Non-Admin Reason: Patient Asleep Vitamin D (Cholecalciferol (Vitamin D3) 25 Mcg Tablet) 25 mcg PO DAILY [facility] Labs 09/28/23 18:51 09/29/23 06:38 Labs: Laboratory Results - last 24 hr 09/28/23 09/28/23 09/28/23 18:51 20:51 22:17 MCV 93.2 MCH 32.1 MCHC 34.4 RDW 14.2 Plt Count 219 MPV 9.6 Immature Gran % (Auto) 0.2 Neut % (Auto) 57.2 Lymph % (Auto) 29.7 [place] % (Auto) 10.7 Eos % (Auto) 1.3 Baso % (Auto) 0.9 Lymph # (Auto) 1.4 [place] # (Auto) 0.5 Eos # (Auto) 0.1 Baso # (Auto) 0.0 Abs Immat Gran (auto) 0.01 Absolute Neuts (auto) 2.7 Absolute Nucleated RBC 0.000 Nucleated RBC % (auto) 0.0 PT 11.6 INR 1.0 Anion Gap 12 Estim Creat Clear Calc 123.8 Estimated GFR > 60 POC Glucose 185 H Random Glucose 117 H Calcium 8.0 L Magnesium 1.5 L Total Bilirubin 1.3 H AST 786 H ALT 544 H Alkaline Phosphatase 187 H Total Protein 5.6 L Albumin 3.0 L Lipase 9 Ethyl Alcohol < 10 09/29/23 06:38 MCV MCH MCHC RDW Plt Count MPV Immature Gran % (Auto) Neut % (Auto) Lymph % (Auto) [place] % (Auto) Eos % (Auto) Baso % (Auto) Lymph # (Auto) [place] # (Auto) Eos # (Auto) Baso # (Auto) Abs Immat Gran (auto) Absolute Neuts (auto) Absolute Nucleated RBC Nucleated RBC % (auto) PT INR Anion Gap 15 Estim Creat Clear Calc 107.9 Estimated GFR > 60 POC Glucose Random Glucose 261 H Calcium 8.6 D Magnesium 1.8 Total Bilirubin AST ALT Alkaline Phosphatase Total Protein Albumin Lipase Ethyl Alcohol Assessment and Plan (1) Acute on chronic alcoholic liver disease: Status: Acute (2) Alcohol dependence: Status: Acute (3) Uncontrolled type 1 diabetes mellitus with hyperglycemia, with long-term current use of insulin: Status: Acute Plan 62-year-old male with a PMH significant for?HTN, HLD, hypothyroidism, type 1 diabetes mellitus, MI on CPAP, alcohol use disorder with hx of withdrawal, and GERD who presents to the ED with?dizziness, lightheadedness, nausea, and vomiting since this morning. Pt will be admitted to the hospital for treatment and further evaluation of acute alcohol withdrawal. Acute alcohol withdrawal No further episodes of nausea vomiting, feels lightheaded and unsteady with ambulation Patient has been drinking 1.5 pts x6 weeks, less yesterday; ethyl alcohol levels undetectable in the ED Continue phenobarb protocol at reduced rate of 6 mg/kg due to elevated LFTs Continue multivitamin, folic acid, thiamine Continue PPI Follow lytes, Mag, BNP CIWA scale Addiction medicine consult Acute Hypomagnesemia Magnesium 1.5 at time of presentation, treated with 2 g of IV magnesium repeat magnesium 1.[address] on by mouth magnesium supplements Will give magnesium 2 g IV Follow Mag, supplement as necessary Elevated LFTs likely due to fatty liver/alcohol AST 786, ALT 544, alk-phos 187, significantly elevated over previous Bilirubin 1.3, PT and INR WNL no abdominal pain, follow LFTs abdominal ultrasound showed enlarged fatty liver Type 1 diabetes mellitus with hyperglycemia Elevated blood sugars will adjust Sliding-scale insulin, continue Lantus, hemoglobin A1c 5.5 Diabetic diet HTN Elevated blood pressure likely due to alcohol withdrawal, continue amlodipine, losartan hydrochlorothiazide, metoprolol and follow BP HLD Hold statin due to elevated LFTs Hypothyroidism Continue levothyroxine Mood disorder Continue fluoxetine, hydroxyzine Class 3 obesity recommend low-calorie diet, and weight loss for better blood sugar, blood pressure and heart disease prevention Full Code DVT Prophylaxis: Lovenox Pt will require continued inpatient hospitalization for treatment of?acute alcohol withdrawal with phenobarb protocol as well as close monitoring of labs and electrolyte monitoring. Quality Stroke Does the patient have a stroke diagnosis?: No VTE Prior VTE?: No VTE Risk Level:: Medical - moderate - high VTE Device Contraindication: Treatment Not Indicated VTE Drug Contraindication: N/A - Med Ordered
--- NOTE | 2023-09-29 08:51 | MHC.CM.PN ---
CM met with Patient at bedside. Patient lives in a house with his /HCP/Leni and his adult Daughter. Patient uses crutches at times, if he feels unsteady and he had no in home services [employer]. Home/self care is the goal and CM has initiated and will follow for dc planning. PCP is Dr. Cam Pickett.
[2023-09-29 08:56] LABS: Glucose, Whole Blood 261 mg/dL (60-115)
[2023-09-29 11:18] LABS: Glucose, Whole Blood 371 mg/dL (60-115)
[2023-09-29 16:23] LABS: Glucose, Whole Blood 348 mg/dL (60-115)
[2023-09-29] MEDS: Magnesium Oxide 400 MG TABLET PO (16:30)
[2023-09-29] MEDS: hydrOXYzine HCL 50 MG TABLET PO (16:40)
[2023-09-29] MEDS: Butalb/Acetamin/Caff 50/325/40 TABLET 1 TAB PO (17:29)
[2023-09-29 20:34] LABS: Glucose, Whole Blood 438 mg/dL (60-115)
[2023-09-29] MEDS: Insulin Glargine,Hum.rec.anlog 100 UNIT/ML 10 ML VIAL 55 UNIT SUBCUT (20:49)
[2023-09-29] MEDS: Enoxaparin Sodium 40 MG/0.4 ML SYRINGE SUBCUT (20:51)
[2023-09-29 22:47] LABS: Glucose, Whole Blood 418 mg/dL (60-115)
[2023-09-29] MEDS: Insulin Lispro 100 UNIT/ML 3 ML VIAL 10 UNIT SUBCUT (23:35)
[2023-09-30] VITALS (9 sets, daily range): BP systolic 124–169; BP diastolic 63–79; PULSE 58–62; RESP 18; TEMP 36.1–36.8; O2SAT 96–100
[2023-09-30] MEDS: Levothyroxine Sodium 25 MCG TABLET PO (05:37)
[2023-09-30] MEDS: Omeprazole 20 MG CAPSULE.DR PO (05:37)
[2023-09-30] MEDS: Levothyroxine Sodium 150 MCG TABLET 300 MCG PO (05:37)
[2023-09-30 07:52] LABS: Glucose, Whole Blood 154 mg/dL (60-115)
[2023-09-30] MEDS: Insulin Lispro 100 UNIT/ML 3 ML VIAL SUBCUT ×4 (08:06→20:55)
[2023-09-30] MEDS: 0.9 % Sodium Chloride Flush 3 ML SYRINGE IVFLUSH ×3 (08:07→20:25)
[2023-09-30] MEDS: Thiamine HCL 100 MG in 0.9 % Sodium Chloride 100 ML 202 MG IV (08:07)
[2023-09-30] MEDS: Losartan Potassium 50 MG TABLET 100 MG PO (08:08)
[2023-09-30] MEDS: Magnesium Oxide 400 MG TABLET PO ×2 (08:08→17:24)
[2023-09-30] MEDS: Multivitamin TABLET 1 TAB PO (08:08)
[2023-09-30] MEDS: Folic Acid 1 MG TABLET PO (08:08)
[2023-09-30] MEDS: PHENobarbitaL 15 MG TABLET 45 MG PO ×2 (08:08→20:25)
[2023-09-30] MEDS: Aspirin 81 MG TAB.CHEW PO (08:09)
[2023-09-30] MEDS: Metoprolol Succinate ER 50 MG TAB.ER.24H PO (08:09)
[2023-09-30] MEDS: hydroCHLOROthiazide 25 MG TABLET PO (08:09)
[2023-09-30] MEDS: Cholecalciferol (Vitamin D3) 25 MCG TABLET PO (08:10)
[2023-09-30] MEDS: amLODIPine Besylate 5 MG TABLET PO (08:10)
[2023-09-30 10:57] LABS: Alanine Aminotransferase 328 U/L (0-40); Albumin Level 3.2 g/dL (3.5-5.0); Alkaline Phosphatase 179 U/L (39-117); Anion Gap 13 (12-20); Aspartate Amino Transferase 215 U/L (5-37); Bilirubin Direct 1.2 mg/dL (0.0-0.5); Bilirubin Total 2.2 mg/dL (0.0-1.0); Blood Urea Nitrogen 30 mg/dL (9-16); Calcium 8.8 mg/dL (8.4-10.2); Carbon Dioxide 26 mmol/L (22-29); Chloride 102 mmol/L (96-108); Creatinine Clr Calc Pharmacy 85.8; Estimated Glomerular Filt Rate 53; Glucose Random 294 mg/dL (60-115); Potassium 4.8 mmol/L (3.3-5.1); Sodium 136 mmol/L (135-145); Total Protein 5.9 g/dL (6.5-8.0)
--- NOTE | 2023-09-30 11:04 | MHC.RECOVRN ---
Addendum entered by Edith Dominique 09/30/23 13:21: Pt has [facility] intake appt 10/31/23 at 2:30PM. Original Note: Met with pt in 467 after consult placed to Addiction Medicine for alcohol use. Pt had presented to the ED reporting dizziness and alcohol use. Upon evaluation, pt admitted for treatment of alcohol withdrawal. Currently on phenobarbital protocol. Pt sitting in bed, awake, alert, easily engages in conversation. Pt reports after last admission he was in recovery x 63 days. He did attend [facility] x 6 days but did not find it helpful. Pt also initiated naltrexone with [facility] outpatient but did not take it daily after returning to use. Pt reports naltrexone did not decrease cravings like anticipated. Pt reports he has been drinking approx 1-1.5 pints vodka daily x 2 weeks. 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 Pt reports he does not think he will return to that job. Pt reports his continues to be supportive. In regards to recovery resources/supports, pt would like to initiate care with the [facility] and begin disulfiram. Briefly educated pt on medication. Pt provided with written resources as well as t/w contact information if needed. Pt denies questions or concerns at this time. Plan to make [facility] appt prior to dc. Discussed with Jolie Farrell APRN.
[2023-09-30 11:44] LABS: Glucose, Whole Blood 325 mg/dL (60-115)
--- NOTE | 2023-09-30 13:04 | P.PNIM_ITS ---
Subjective Subjective Date of Service: 09/30/23 Interval History: Admitted for nausea vomiting dizziness diagnosed with alcohol withdrawal. Patient complaining of persistent unsteady gait, x1 month duration, nausea vomiting resolved, intermittent lightheadedness, as per patient has been drinking significantly less than before, denies tremors or shakiness. Tolerating diet, no other acute issues overnight. Review of Systems All other system reviewed and are negative Physical Exam 2 Vital Signs: Vital Signs: Last Vital Signs Temp 97.2 F 09/30/23 11:01 Pulse 62 09/30/23 11:01 Resp 18 09/30/23 11:01 BP 169/77 H 09/30/23 11:01 Pulse Ox 99 09/30/23 11:01 O2 Del Method Room Air 09/30/23 11:01 BMI result Body Mass Index 49.1 Const: Other: General awake alert x3, sitting comfortably in no acute distress. No nystagmus Neck supple, no JVD. CVS regular rate rhythm, Respiratory lungs clear to auscultation, no respiratory distress, no wheeze, no rhonchi. Gastrointestinal abdomen soft, non tender, bowel sounds audible, no guarding , no rigidity. Extremities no edema. Neuro non focal , normal finger-nose, speech clear, normal sensations both lower extremities, no tremors Skin no rash Appropriate affect Objective Data Active Medications Acetaminophen/Butalbital/Caffeine (Butalb/Acetamin/Caff 50/325/40 Tablet) 1 tab PO Q6H PRN PRN Reason: headache Last Admin: 09/29/23 17:29 Dose: 1 tab Documented By: MELISSA Amlodipine Besylate (Amlodipine Besylate 5 Mg Tablet) 5 mg PO DAILY [facility]; Protocol Last Admin: 09/30/23 08:10 Dose: 5 mg Documented By: TRACY Aspirin (Aspirin 81 Mg Tab.Chew) 81 mg PO DAILY [facility] Last Admin: 09/30/23 08:09 Dose: 81 mg Documented By: TRACY Benzonatate (Benzonatate 100 Mg Capsule) 100 mg PO TID PRN PRN Reason: Cough Calcium Carbonate (Calcium Carbonate 750 Mg Tab.Chew) 750 mg PO Q4H PRN PRN Reason: Heartburn Cyanocobalamin (Cyanocobalamin (Vitamin B-12) 1,000 Mcg Tablet) 1,000 mcg PO DAILY PRN PRN Reason: as needed Enoxaparin Sodium (Enoxaparin Sodium 40 Mg/0.4 Ml Syringe) 40 mg SUBCUT Q24H [facility] Last Admin: 09/29/23 20:51 Dose: 40 mg Documented By: MELISSA Folic Acid (Folic Acid 1 Mg Tablet) 1 mg PO DAILY [facility] Stop: 10/02/23 08:59 Last Admin: 09/30/23 08:08 Dose: 1 mg Documented By: TRACY Glucose (Glucose Gel 15 Gm Gel..Gram.) 15 gm PO Q15M PRN; Protocol PRN Reason: per Hypoglycemia Standing Ord. Hydrochlorothiazide (Hydrochlorothiazide 25 Mg Tablet) 25 mg PO DAILY [facility] Last Admin: 09/30/23 08:09 Dose: 25 mg Documented By: TRACY Hydroxyzine HCl (Hydroxyzine Hcl 50 Mg Tablet) 50 mg PO Q8H PRN PRN Reason: Anxiety/Restlessness Last Admin: 09/29/23 16:40 Dose: 50 mg Documented By: MELISSA Thiamine HCl 100 mg/ Sodium (Chloride) 101 mls @ 202 mls/hr IV BID [facility] Last Infusion: 09/30/23 09:46 Dose: Infused Documented By: TRACY Dextrose (D10) 250 mls @ 750 mls/hr IV Q15M PRN; Protocol PRN Reason: per Hypoglycemia Standing Ord. Insulin Glargine (Insulin Glargine,Hum.Rec.Anlog 100 Unit/Ml 10 Ml Vial) 55 unit SUBCUT BEDTIME [facility] Last Admin: 09/29/23 20:49 Dose: 55 unit Documented By: MELISSA Insulin Human Lispro (Insulin Lispro 100 Unit/Ml 3 Ml Vial) 0 unit SUBCUT QIDACHS [facility]; Protocol Last Admin: 09/30/23 12:03 Dose: 14 unit Documented By: TRACY Levothyroxine Sodium (Levothyroxine Sodium 150 Mcg Tablet) 300 mcg PO DAILY@629 [facility] Last Admin: 09/30/23 05:37 Dose: 300 mcg Documented By: KRISTIAN Levothyroxine Sodium (Levothyroxine Sodium 25 Mcg Tablet) 25 mcg PO DAILY@629 [facility] Last Admin: 09/30/23 05:37 Dose: 25 mcg Documented By: KRISTIAN Losartan Potassium (Losartan Potassium 50 Mg Tablet) 100 mg PO DAILY [facility] Last Admin: 09/30/23 08:08 Dose: 100 mg Documented By: TRACY Magnesium Oxide (Magnesium Oxide 400 Mg Tablet) 400 mg PO BIDPC [facility] Last Admin: 09/30/23 08:08 Dose: 400 mg Documented By: TRACY Melatonin (Melatonin 3 Mg Tablet) 6 mg PO BEDTIME PRN PRN Reason: Insomnia Last Admin: 09/29/23 23:33 Dose: 6 mg Documented By: KRISTIAN Metoprolol Succinate (Metoprolol Succinate Er 50 Mg Tab.Er.24h) 50 mg PO DAILY [facility]; Protocol Last Admin: 09/30/23 08:09 Dose: 50 mg Documented By: TRACY Multivitamins/Vitamin C (Multivitamin Tablet) 1 tab PO DAILY [facility] Stop: 10/02/23 08:59 Last Admin: 09/30/23 08:08 Dose: 1 tab Documented By: TRACY Omeprazole (Omeprazole 20 Mg Capsule.Dr) 20 mg PO DAILY@0630 [facility] Last Admin: 09/30/23 05:37 Dose: 20 mg Documented By: KRISTIAN Ondansetron HCl (Ondansetron Hcl 4 Mg/2 Ml Vial) 4 mg IVPUSH Q8H PRN PRN Reason: Nausea and Vomiting Pharmacy Consult (Consult Rx Etoh Phenob Im/Po) 1 each MISCELLANE ONCE PRN; Protocol PRN Reason: Consult order Phenobarbital (Phenobarbital 15 Mg Tablet) 45 mg PO BID [facility] Stop: 09/30/23 21:01 Last Admin: 09/30/23 08:08 Dose: 45 mg Documented By: TRACY Phenobarbital (Phenobarbital 30 Mg Tablet) 30 mg PO BID [facility] Stop: 10/02/23 21:01 Phenobarbital (Phenobarbital 15 Mg Tablet) 15 mg PO DAILY [facility] Stop: 10/04/23 09:01 Polyethylene Glycol (Polyethylene Glycol 3350 17 Gm Powd.Pack) 17 gm PO DAILY PRN PRN Reason: Constipation Sodium Chloride (0.9 % Sodium Chloride Flush 3 Ml Syringe) 3 ml IVFLUSH QSHIFT [facility] Last Admin: 09/30/23 08:07 Dose: 3 ml Documented By: TRACY Vitamin D (Cholecalciferol (Vitamin D3) 25 Mcg Tablet) 25 mcg PO DAILY [facility] Last Admin: 09/30/23 08:10 Dose: 25 mcg Documented By: TRACY Labs 09/28/23 18:51 09/30/23 10:11 Labs: Laboratory Results - last 24 hr 09/29/23 09/29/23 09/29/23 16:20 20:29 22:43 Hold Purple Top Anion Gap Estim Creat Clear Calc Estimated GFR POC Glucose 348 H 438 H* 418 H* Random Glucose Calcium Total Bilirubin Direct Bilirubin AST ALT Alkaline Phosphatase Total Protein Albumin 09/30/23 09/30/23 09/30/23 07:43 10:11 11:35 Hold Purple Top SEE NOTE Anion Gap 13 Estim Creat Clear Calc 85.8 Estimated GFR 53 POC Glucose 154 H 325 H Random Glucose 294 H Calcium 8.8 Total Bilirubin 2.2 H Direct Bilirubin 1.2 H AST 215 H ALT 328 H Alkaline Phosphatase 179 H Total Protein 5.9 L Albumin 3.2 L Assessment and Plan (1) Acute on chronic alcoholic liver disease: Status: Acute (2) Alcohol dependence: Status: Acute (3) Uncontrolled type 1 diabetes mellitus with hyperglycemia, with long-term current use of insulin: Status: Acute Plan 62-year-old male with a PMH significant for?HTN, HLD, hypothyroidism, type 1 diabetes mellitus, MI on CPAP, alcohol use disorder with hx of withdrawal, and GERD who presents to the ED with?dizziness, lightheadedness, nausea, and vomiting since this morning. Pt will be admitted to the hospital for treatment and further evaluation of acute alcohol withdrawal. Acute alcohol withdrawal No tremors, shakiness Persistent unsteady gait and intermittent lightheadedness . Continue phenobarb protocol , multivitamin, folic acid, thiamine Continue PPI Seen by Addiction Team recovery resources and support provided patient would like to initiate care with [facility] and begin disulfiram, appointment to be made prior to discharge by Addiction Team Unsteady gait/intermittent lightheadedness Likely due to alcohol, diabetic neuropathy, will check B12 folate and TSH/doubt posterior CVA, normal cerebellar testing. Patient unable to tolerate MRI without anesthesia due to severe claustrophobia Will obtain PT eval, neuro consult Acute Hypomagnesemia Magnesium 1.5 at time of presentation, treated with 2 g of IV magnesium repeat magnesium 1.8 , continue by mouth magnesium supplements Follow Mag, supplement as necessary Elevated LFTs likely due to fatty liver/alcohol LFTs trending down elevated bili likely due to cholestasis, normal INR, abdominal ultrasound showed enlarged fatty liver , strongly recommend to avoid alcohol. Type 1 diabetes mellitus with hyperglycemia Elevated blood sugars , adjusted Sliding-scale insulin, continue Lantus, hemoglobin A1c 5.5 Diabetic diet HTN Elevated blood pressure likely due to alcohol withdrawal, continue amlodipine, losartan hydrochlorothiazide, metoprolol and follow BP HLD Hold statin due to elevated LFTs Hypothyroidism Continue levothyroxine Mood disorder Continue fluoxetine, hydroxyzine Class 3 obesity recommend low-calorie diet, and weight loss for better blood sugar, blood pressure and heart disease prevention. Full Code DVT Prophylaxis: Lovenox Pt will require continued inpatient hospitalization for treatment of?acute alcohol withdrawal with phenobarb protocol as well further workup for unsteady gait dizziness expert consultation and close monitoring of labs and electrolyte monitoring. Quality Stroke Does the patient have a stroke diagnosis?: No VTE Prior VTE?: No VTE Risk Level:: Medical - moderate - high VTE Device Contraindication: Treatment Not Indicated VTE Drug Contraindication: N/A - Med Ordered
--- NOTE | 2023-09-30 13:08 | MHC.CM.PN ---
Patient is not yet medically cleared for dc (ETOH Withdrawal); home is the goal with Recovery Team intervention. CM will follow.
--- NOTE | 2023-09-30 13:35 | HO.ADDICT_ITS ---
History of Present Illness Date of Service: 09/30/2023 Chief Complaint: Alcohol withdrawal Reason for Consult: AUD Sources of Information: patient interviewed and chart reviewed HPI Narrative: Patient is a 62 year old male medically admitted with alcohol withdrawal. Seen by conche loader and unloader earlier in admission and expressed strong desire to start Disulfiram. Substance use history obtained by conche loader and unloader--notes reviewed. Patient seen in room 467. Awake, alert, engaged in interview. Long history of alcohol use. 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 Discussed Disulfiram at length. Provided written and verbal explanation of how medication works and serious reactions that may occur if he chooses to drink while taking the medication. Reviewed risks associated with current comorbid conditions. Patient verbalized understanding and states he feels he needs to do this to change his drinking. He is also inquiring about additional recovery supports that are not AA. Discussed another addiction focused IOP in the community and provided patient with information. At time of interview he did not appear to be displaying any s/s of withdrawal and reported feeling great compared to when I got here . He is concerned about his gait as this is a newer development. Review of Systems Constitutional: Reports as per HPI Diagnostics Vital Signs (24Hr): Vital Signs - 24 hr 09/29/23 16:00 09/29/23 18:06 09/29/23 19:43 Temperature 96.4 F L 97.3 F 97.1 F Pulse Rate 57 62 Respiratory Rate 18 20 Blood Pressure 183/76 H 175/77 H Pulse Oximetry 98 98 Oxygen Delivery Method Room Air Room Air 09/30/23 00:00 09/30/23 04:00 09/30/23 07:57 Temperature 97.0 F 97.8 F Pulse Rate 58 Respiratory Rate 18 18 18 Blood Pressure 156/70 H 124/66 166/79 H Pulse Oximetry 96 100 99 Oxygen Delivery Method Room Air Room Air CPAP 09/30/23 08:08 09/30/23 08:09 09/30/23 11:01 Temperature 97.2 F Pulse Rate 62 Respiratory Rate 18 Blood Pressure 166/79 H 166/79 H 169/77 H Pulse Oximetry 99 Oxygen Delivery Method Room Air BMI result Body Mass Index 49.1 Labs 09/28/23 18:51 10/01/23 06:36 Labs: Laboratory Results - last 48 hr 09/28/23 09/28/23 09/28/23 18:51 20:51 22:17 WBC 4.7 L RBC 4.27 L Hgb 13.7 L Hct 39.8 L MCV 93.2 MCH 32.1 MCHC 34.4 RDW 14.2 Plt Count 219 MPV 9.6 Immature Gran % (Auto) 0.2 Neut % (Auto) 57.2 Lymph % (Auto) 29.7 [place] % (Auto) 10.7 Eos % (Auto) 1.3 Baso % (Auto) 0.9 Lymph # (Auto) 1.4 [place] # (Auto) 0.5 Eos # (Auto) 0.1 Baso # (Auto) 0.0 Abs Immat Gran (auto) 0.01 Absolute Neuts (auto) 2.7 Absolute Nucleated RBC 0.000 Nucleated RBC % (auto) 0.0 Hold Purple Top PT 11.6 INR 1.0 Sodium 139 Potassium 4.1 Chloride 109 H Carbon Dioxide 22 Anion Gap 12 BUN 39 H Creatinine 0.95 Estim Creat Clear Calc 123.8 Estimated GFR > 60 POC Glucose 185 H Random Glucose 117 H Calcium 8.0 L Magnesium 1.5 L Total Bilirubin 1.3 H Direct Bilirubin AST 786 H ALT 544 H Alkaline Phosphatase 187 H Total Protein 5.6 L Albumin 3.0 L Lipase 9 Ethyl Alcohol < 10 09/29/23 09/29/23 09/29/23 06:38 07:06 11:10 WBC RBC Hgb Hct MCV MCH MCHC RDW Plt Count MPV Immature Gran % (Auto) Neut % (Auto) Lymph % (Auto) [place] % (Auto) Eos % (Auto) Baso % (Auto) Lymph # (Auto) [place] # (Auto) Eos # (Auto) Baso # (Auto) Abs Immat Gran (auto) Absolute Neuts (auto) Absolute Nucleated RBC Nucleated RBC % (auto) Hold Purple Top PT INR Sodium 139 Potassium 4.2 Chloride 104 Carbon Dioxide 24 Anion Gap 15 BUN 35 H Creatinine 1.09 Estim Creat Clear Calc 107.9 Estimated GFR > 60 POC Glucose 261 H 371 H* Random Glucose 261 H Calcium 8.6 D Magnesium 1.8 Total Bilirubin Direct Bilirubin AST ALT Alkaline Phosphatase Total Protein Albumin Lipase Ethyl Alcohol 09/29/23 09/29/23 09/29/23 16:20 20:29 22:43 WBC RBC Hgb Hct MCV MCH MCHC RDW Plt Count MPV Immature Gran % (Auto) Neut % (Auto) Lymph % (Auto) [place] % (Auto) Eos % (Auto) Baso % (Auto) Lymph # (Auto) [place] # (Auto) Eos # (Auto) Baso # (Auto) Abs Immat Gran (auto) Absolute Neuts (auto) Absolute Nucleated RBC Nucleated RBC % (auto) Hold Purple Top PT INR Sodium Potassium Chloride Carbon Dioxide Anion Gap BUN Creatinine Estim Creat Clear Calc Estimated GFR POC Glucose 348 H 438 H* 418 H* Random Glucose Calcium Magnesium Total Bilirubin Direct Bilirubin AST ALT Alkaline Phosphatase Total Protein Albumin Lipase Ethyl Alcohol 09/30/23 09/30/23 09/30/23 07:43 10:11 11:35 WBC RBC Hgb Hct MCV MCH MCHC RDW Plt Count MPV Immature Gran % (Auto) Neut % (Auto) Lymph % (Auto) [place] % (Auto) Eos % (Auto) Baso % (Auto) Lymph # (Auto) [place] # (Auto) Eos # (Auto) Baso # (Auto) Abs Immat Gran (auto) Absolute Neuts (auto) Absolute Nucleated RBC Nucleated RBC % (auto) Hold Purple Top SEE NOTE PT INR Sodium 136 Potassium 4.8 Chloride 102 Carbon Dioxide 26 Anion Gap 13 BUN 30 H Creatinine 1.37 Estim Creat Clear Calc 85.8 Estimated GFR 53 POC Glucose 154 H 325 H Random Glucose 294 H Calcium 8.8 Magnesium Total Bilirubin 2.2 H Direct Bilirubin 1.2 H AST 215 H ALT 328 H Alkaline Phosphatase 179 H Total Protein 5.9 L Albumin 3.2 L Lipase Ethyl Alcohol Imaging Radiology Impressions: ITS Impressions Abdomen Ultrasound 09/28/23 21:12 IMPRESSION: Enlarged fatty liver. Mental Status Exam Mental Status Exam Patient Appearance: Appropriate Level of Consciousness: Awake, Appropriate and Alert Patient Behavior: Appropriate and Talkative Mood Description: Calm Affect Description: Calm Speech Pattern: Clear Medications Medications Current Medications Acetaminophen/Butalbital/Caffeine (Butalb/Acetamin/Caff 50/325/40 Tablet) 1 tab PO Q6H PRN PRN Reason: headache Last Admin: 09/29/23 17:29 Dose: 1 tab Amlodipine Besylate (Amlodipine Besylate 5 Mg Tablet) 5 mg PO DAILY [facility]; Protocol Last Admin: 09/30/23 08:10 Dose: 5 mg Aspirin (Aspirin 81 Mg Tab.Chew) 81 mg PO DAILY [facility] Last Admin: 09/30/23 08:09 Dose: 81 mg Benzonatate (Benzonatate 100 Mg Capsule) 100 mg PO TID PRN PRN Reason: Cough Calcium Carbonate (Calcium Carbonate 750 Mg Tab.Chew) 750 mg PO Q4H PRN PRN Reason: Heartburn Cyanocobalamin (Cyanocobalamin (Vitamin B-12) 1,000 Mcg Tablet) 1,000 mcg PO DAILY PRN PRN Reason: as needed Enoxaparin Sodium (Enoxaparin Sodium 40 Mg/0.4 Ml Syringe) 40 mg SUBCUT Q24H [facility] Last Admin: 09/29/23 20:51 Dose: 40 mg Folic Acid (Folic Acid 1 Mg Tablet) 1 mg PO DAILY [facility] Stop: 10/02/23 08:59 Last Admin: 09/30/23 08:08 Dose: 1 mg Glucose (Glucose Gel 15 Gm Gel..Gram.) 15 gm PO Q15M PRN; Protocol PRN Reason: per Hypoglycemia Standing Ord. Hydrochlorothiazide (Hydrochlorothiazide 25 Mg Tablet) 25 mg PO DAILY [facility] Last Admin: 09/30/23 08:09 Dose: 25 mg Hydroxyzine HCl (Hydroxyzine Hcl 50 Mg Tablet) 50 mg PO Q8H PRN PRN Reason: Anxiety/Restlessness Last Admin: 09/29/23 16:40 Dose: 50 mg Dextrose (D10) 250 mls @ 750 mls/hr IV Q15M PRN; Protocol PRN Reason: per Hypoglycemia Standing Ord. Insulin Glargine (Insulin Glargine,Hum.Rec.Anlog 100 Unit/Ml 10 Ml Vial) 55 unit SUBCUT BEDTIME [facility] Last Admin: 09/29/23 20:49 Dose: 55 unit Insulin Human Lispro (Insulin Lispro 100 Unit/Ml 3 Ml Vial) 0 unit SUBCUT QIDACHS [facility]; Protocol Last Admin: 09/30/23 12:03 Dose: 14 unit Levothyroxine Sodium (Levothyroxine Sodium 150 Mcg Tablet) 300 mcg PO DAILY@0630 [facility] Last Admin: 09/30/23 05:37 Dose: 300 mcg Levothyroxine Sodium (Levothyroxine Sodium 25 Mcg Tablet) 25 mcg PO DAILY@629 [facility] Last Admin: 09/30/23 05:37 Dose: 25 mcg Losartan Potassium (Losartan Potassium 50 Mg Tablet) 100 mg PO DAILY [facility] Last Admin: 09/30/23 08:08 Dose: 100 mg Magnesium Oxide (Magnesium Oxide 400 Mg Tablet) 400 mg PO BIDPC [facility] Last Admin: 09/30/23 08:08 Dose: 400 mg Melatonin (Melatonin 3 Mg Tablet) 6 mg PO BEDTIME PRN PRN Reason: Insomnia Last Admin: 09/29/23 23:33 Dose: 6 mg Metoprolol Succinate (Metoprolol Succinate Er 50 Mg Tab.Er.24h) 50 mg PO DAILY [facility]; Protocol Last Admin: 09/30/23 08:09 Dose: 50 mg Multivitamins/Vitamin C (Multivitamin Tablet) 1 tab PO DAILY [facility] Stop: 10/02/23 08:59 Last Admin: 09/30/23 08:08 Dose: 1 tab Omeprazole (Omeprazole 20 Mg Capsule.Dr) 20 mg PO DAILY@629 [facility] Last Admin: 09/30/23 05:37 Dose: 20 mg Ondansetron HCl (Ondansetron Hcl 4 Mg/2 Ml Vial) 4 mg IVPUSH Q8H PRN PRN Reason: Nausea and Vomiting Pharmacy Consult (Consult Rx Etoh Phenob Im/Po) 1 each MISCELLANE ONCE PRN; Protocol PRN Reason: Consult order Phenobarbital (Phenobarbital 15 Mg Tablet) 45 mg PO BID [facility] Stop: 09/30/23 21:01 Last Admin: 09/30/23 08:08 Dose: 45 mg Phenobarbital (Phenobarbital 30 Mg Tablet) 30 mg PO BID [facility] Stop: 10/02/23 21:01 Phenobarbital (Phenobarbital 15 Mg Tablet) 15 mg PO DAILY [facility] Stop: 10/04/23 09:01 Polyethylene Glycol (Polyethylene Glycol 3350 17 Gm Powd.Pack) 17 gm PO DAILY PRN PRN Reason: Constipation Sodium Chloride (0.9 % Sodium Chloride Flush 3 Ml Syringe) 3 ml IVFLUSH QSHIFT [facility] Last Admin: 09/30/23 08:07 Dose: 3 ml Thiamine HCl (Thiamine Hcl 100 Mg Tablet) 100 mg PO DAILY [facility] Vitamin D (Cholecalciferol (Vitamin D3) 25 Mcg Tablet) 25 mcg PO DAILY [facility] Last Admin: 09/30/23 08:10 Dose: 25 mcg Allergies Allergies Allergy/AdvReac Type Severity Reaction Status Date / Time No Known Allergies Allergy Verified 09/28/23 18:19 Assessment & Plan Assessment & Plan (1) Alcohol use disorder, severe, dependence: Status: Acute Code(s): F10.20 - Alcohol dependence, uncomplicated Assessment and Plan: * would like to restart Naltrexone PO, with goal of transitioning to AGUILERA * discussed Disulfiram (antabuse) -indications, potential and serious side effects, dosing. At discharge would like to move forward with this medication as well. present for medication education as well and aware of risks * provided information on IOP to support recovery once home * [facility] intake appt scheduled for 10/30 @2:30pm --patient aware of appt Total time managing care of this patient today __45__ minutes. PMFSH Past Medical History Medical History Type 1 diabetes Hypoglycemia Uncontrolled type 1 diabetes mellitus with hyperglycemia, with long-term current use of insulin On beta abhishek at home Personal history of COVID-19 GERD (gastroesophageal reflux disease) Hypothyroidism Hyperlipidemia MI on CPAP HTN (hypertension) Insulin dependent type 2 diabetes mellitus Family History Family History Father Congestive heart failure Diabetes Mother Lung cancer Surgical History Surgical History History of arthroscopy of left knee Hx of sinus surgery Hx of eye surgery History of surgery History of total left knee replacement History of bilateral carpal tunnel release History of esophagogastroduodenoscopy (EGD) Hx of colonoscopy Social History Social History Household Members: Spouse Household Members Other:: , daughter Housing: House Do you presently have visiting nurse or other home services: No Alcohol intake: current Alcohol intake frequency: 3 or more drinks per day Comment: patient refuses all alarms Patient Tobacco Use Status: Former Tobacco user Tobacco use type: Cigarette Second Hand Smoke Exposure: No Advance Directives Date on File: 05/24/23 service: No
[2023-09-30 13:59] LABS: Thyroid Stimulating Hormone 0.03 uIU/mL (0.32-4.0)
[2023-09-30 16:14] LABS: Glucose, Whole Blood 406 mg/dL (60-115)
[2023-09-30] MEDS: Insulin Glargine,Hum.rec.anlog 100 UNIT/ML 10 ML VIAL 55 UNIT SUBCUT (20:25)
[2023-09-30] MEDS: Enoxaparin Sodium 40 MG/0.4 ML SYRINGE SUBCUT (20:26)
[2023-09-30] MEDS: Melatonin 3 MG TABLET 6 MG PO (20:37)
[2023-09-30 20:50] LABS: Glucose, Whole Blood 286 mg/dL (60-115)
[2023-10-01] VITALS: BP 129/59; PULSE 59; RESP 18; TEMP 36.3; O2SAT 99
[2023-10-01 04:00] VITALS: BP 171/75; PULSE 55; RESP 18; TEMP 36.3; O2SAT 99
--- NOTE | 2023-10-01 04:57 | PC.NURSE ---
Pt AOx3, able to make his needs known, uses walker in room to ambulate to bathroom. Pt has declined bed and chair alarms and camera in room. He does use the call goodwin at times. He is pleasant and cooperative. He has had no c/o pain but did c/o feeling lightheaded at beginning of this RNs shift. Pt using his CPAP at HS. Pt has been NSR to izzy zuniga on tele. Call goodwin within reach. Safety maintained throughout shift.
[2023-10-01] MEDS: Levothyroxine Sodium 150 MCG TABLET 300 MCG PO (05:51)
[2023-10-01] MEDS: Levothyroxine Sodium 25 MCG TABLET PO (05:51)
[2023-10-01] MEDS: Omeprazole 20 MG CAPSULE.DR PO (05:51)
[2023-10-01 07:22] LABS: Glucose, Whole Blood 99 mg/dL (60-115)
[2023-10-01 07:45] LABS: Alanine Aminotransferase 241 U/L (0-40); Albumin Level 3.1 g/dL (3.5-5.0); Alkaline Phosphatase 148 U/L (39-117); Anion Gap 13 (12-20); Aspartate Amino Transferase 109 U/L (5-37); Bilirubin Direct 0.7 mg/dL (0.0-0.5); Bilirubin Total 1.5 mg/dL (0.0-1.0); Blood Urea Nitrogen 35 mg/dL (9-16); Calcium 8.7 mg/dL (8.4-10.2); Carbon Dioxide 24 mmol/L (22-29); Chloride 102 mmol/L (96-108); Creatinine Clr Calc Pharmacy 94.8; Estimated Glomerular Filt Rate 59; Glucose Random 103 mg/dL (60-115); Potassium 4.3 mmol/L (3.3-5.1); Sodium 135 mmol/L (135-145); Total Protein 5.9 g/dL (6.5-8.0)
[2023-10-01 08:00] VITALS: BP 165/75; PULSE 59; RESP 20; TEMP 36.8; O2SAT 99
[2023-10-01] MEDS: Aspirin 81 MG TAB.CHEW PO (09:07)
[2023-10-01] MEDS: amLODIPine Besylate 5 MG TABLET PO (09:07)
[2023-10-01] MEDS: Metoprolol Succinate ER 50 MG TAB.ER.24H PO (09:07)
[2023-10-01] MEDS: Folic Acid 1 MG TABLET PO (09:07)
[2023-10-01] MEDS: hydroCHLOROthiazide 25 MG TABLET PO (09:07)
[2023-10-01] MEDS: Losartan Potassium 50 MG TABLET 100 MG PO (09:07)
[2023-10-01] MEDS: Magnesium Oxide 400 MG TABLET PO (09:07)
[2023-10-01] MEDS: Cholecalciferol (Vitamin D3) 25 MCG TABLET PO (09:08)
[2023-10-01] MEDS: 0.9 % Sodium Chloride Flush 3 ML SYRINGE IVFLUSH (09:08)
[2023-10-01] MEDS: PHENobarbitaL 30 MG TABLET PO (09:08)
[2023-10-01] MEDS: Multivitamin TABLET 1 TAB PO (09:08)
[2023-10-01] MEDS: Thiamine HCL 100 MG TABLET PO (09:08)
[2023-10-01 10:31] LABS: Free T4 (Free Thyroxine) 1.67 ng/dL (0.71-1.85)
[2023-10-01 10:42] LABS: Folate 8.6 ng/mL (> or = 4.0); Vitamin B12 1953 pg/mL (200-900)
--- NOTE | 2023-10-01 11:12 | W.MHC.F2F ---
Service Date Service Date: 10/01/23 Encounter Date of encounter: 10/01/23 Reasons for Services Signs and symptoms assessed: LH /unsteady gait Reason for intermediate: diabetic teaching and medication management Reason for physical therapy: home safety and mobility and gait/transfer training Homebound: Leaving the home is medically contraindicated at this time without the asist of a device and/or another person due th the listed conditions above and below. Reason homebound: poor balance / fall risk Certification: Based on the above findings, I certify that this patient is confined to the home and needs intermittent intermediate care, physical therapy and/or speech therapy, or continues to need occupational therapy. The patient is under my care, and I have initiated the establishment of the plan of care. The patient will be followed by a physician who will periodically review the plan of care. Time Spent With Patient Time: Total time managing care of this patient today ____ minutes.
--- NOTE | 2023-10-01 11:13 | PM.DS ---
DS: Providers Provider Date of Service: 10/01/23 Date of admission: 09/28/23 20:56 Primary care physician: Cam Pickett MD Consults: 09/28/23 21:05 Addiction Medicine Routine Consulting Provider: Addiction Covering Reason for consultation: Alcohol withdrawal DS: Diagnosis Discharge Diagnosis (1) Alcohol use disorder, severe, dependence: Status: Acute DS: Summary Hospital Course Hospital Course: History of present illness: Date of Service: 09/28/23 Attending physician on admission: Lyn Medley Chief Complaint: Dizziness, N/V Pt is a 62-year-old male with a PMH significant for?HTN, HLD, hypothyroidism, type 1 diabetes mellitus, MI on CPAP, alcohol use disorder with hx of withdrawal, and GERD who presents to the ED with?dizziness, lightheadedness, nausea, and vomiting since this morning. Patient history of heavy alcohol use. Previously admitted to the hospital on 05/18-05/22 for alcohol withdrawal. Patient states initially after discharge was sober 60 days before he started drinking again thinking that he could keep it under control with only drinking on the weekends. However has been drinking 7 days a week for the past 6 days, though states he has been drinking significantly less than before as he now by his pt rather than handles of vodka. States normally drinks 1.5 pints daily, though yesterday had less around a half pint. Last drink around midnight last night. This morning patient experienced lightheadedness and dizziness upon waking, stating it felt like the room was spinning. Has subsequently unable to walk in a straight line and been using crutches for ambulation. Also experienced nausea and vomiting x5 times, as well as increased anxiety. No history of withdrawal seizures. Denies auditory or visual hallucinations. No chest pain/pressure, palpitations. Denies abdominal pain. In the ED pt was hypertensive to 175/64, vitals otherwise stable and WNL. Labs were significant for BUN 39, calcium 8.0, magnesium 1.5, bilirubin 1.3, AST 786, ALT 544, alk-phos 187, total protein 5.6, and albumin 3.0. Ethyl alcohol levels undetectable. Pt was treated with IVF, ondansetron, famotidine, and lorazepam. Pt will be admitted to the hospital for treatment and further evaluation of acute alcohol withdrawal. Hospital course: 62-year-old male with a PMH significant for?HTN, HLD, hypothyroidism, type 1 diabetes mellitus, MI on CPAP, alcohol use disorder with hx of withdrawal, and GERD presented to emergency room with?dizziness, lightheadedness, nausea, and vomiting , Pt . admitted to the hospital for treatment and further evaluation of acute alcohol withdrawal, placed on phenobarb protocol, multivitamin, thiamine, folic acid and Prilosec ,patient responded to above treatment, tremors, lightheadedness and dizziness resolved ,patient continued to have unsteady gait likely due to alcohol, he was evaluated by Physical therapy and they recommend home PT and wheeled walker, B12 and folic acid are within normal range, TSH was noted to be low at 0.03 therefore dose of Synthroid has been reduced to 300 mcg, patient was evaluated by Addiction Team and outpatient follow-up for for [facility] has been given, patient has been strongly advised to abstain from alcohol. Patient has been advised to follow up with primary care physician if noted to have persistent unsteady gait, patient declined MRI study due to severe claustrophobia. Acute Hypomagnesemia repleted In regard to hyperlipidemia recommend to hold statins due to elevated LFTs recommend repeat LFTs in 4-6 weeks Hypothyroidism noted to have low TSH 0.03 recommend to reduce dose and repeat TSH Alcoholic hepatitis LFTs are trending down abdominal ultrasound showed fatty liver strongly recommend to abstain from alcohol. Type 1 diabetes mellitus with hyperglycemia continue home medications and diabetic diet Mood disorder Continue fluoxetine, hydroxyzine Class 3 obesity recommend low-calorie diet, and weight loss for better blood sugar, blood pressure and heart disease prevention. Time Attestation Discharge Coordination Time (in mins): 38 Quality: Safe Use of Opioids Does Pt have an Active Cancer Diagnosis on the Problem List?: No Quality: Stroke Does the patient have a stroke diagnosis?: No Physical Exam Vital Signs: Vital Signs: Last Vital Signs Temp 98.3 F 10/01/23 08:00 Pulse 59 10/01/23 08:00 Resp 20 10/01/23 08:00 BP 165/75 H 10/01/23 08:00 Pulse Ox 99 10/01/23 08:00 O2 Del Method CPAP 10/01/23 08:00 BMI result Body Mass Index 49.1 Const: Other: General awake alert x3, sitting comfortably in no acute distress. No nystagmus Neck supple, no JVD. CVS regular rate rhythm, Respiratory lungs clear to auscultation, no respiratory distress, no wheeze, no rhonchi. Gastrointestinal abdomen soft, non tender, bowel sounds audible, no guarding , no rigidity. Extremities no edema. Neuro non focal , normal finger-nose, speech clear, normal sensations both lower extremities, no tremors, unsteady gait Skin no rash Appropriate affect DS: Data Data Completed and Pending Completed studies during hospitalization [Text1]: Procedures Detoxification Services for Substance Abuse Treatment (05/18/23) Labs on day of discharge: Laboratory Results - last 24 hr 09/30/23 09/30/23 09/30/23 10:11 11:35 16:06 Sodium Potassium Chloride Carbon Dioxide Anion Gap BUN Creatinine Estim Creat Clear Calc Estimated GFR POC Glucose 325 H 406 H* Random Glucose Calcium Magnesium Total Bilirubin Direct Bilirubin AST ALT Alkaline Phosphatase Total Protein Albumin Vitamin B12 Folate TSH 0.03 L Free T4 09/30/23 10/01/23 10/01/23 20:45 06:36 07:16 Sodium 135 Potassium 4.3 Chloride 102 Carbon Dioxide 24 Anion Gap 13 BUN 35 H Creatinine 1.24 Estim Creat Clear Calc 94.8 Estimated GFR 59 POC Glucose 286 H 99 Random Glucose 103 Calcium 8.7 Magnesium 2.0 Total Bilirubin 1.5 H Direct Bilirubin 0.7 H AST 109 H ALT 241 H Alkaline Phosphatase 148 H Total Protein 5.9 L Albumin 3.1 L Vitamin B12 Folate TSH Free T4 10/01/23 09:08 Sodium Potassium Chloride Carbon Dioxide Anion Gap BUN Creatinine Estim Creat Clear Calc Estimated GFR POC Glucose Random Glucose Calcium Magnesium Total Bilirubin Direct Bilirubin AST ALT Alkaline Phosphatase Total Protein Albumin Vitamin B12 1953 H Folate 8.6 TSH Free T4 1.67 Discharge Plan Discharge Anticipated Discharge Date/Time: 10/01/23 11:02 Patient Disposition: Home Health Service Discharge Diagnosis: Acute alcohol withdrawal and dependence Unsteady gait Acute hypo magnesemia Alcoholic hepatitis Type 1 diabetes with hyperglycemia Referrals: Cam Pickett MD [Primary Care Provider] - 1 Week Discharge Medications: Continued levothyroxine 300 mcg Tablet 300 mcg PO DAILY@0630 metoprolol succinate 50 mg Tablet Extended Release 24 Hr 50 mg PO DAILY meloxicam 15 mg Tablet 15 mg PO DAILY amlodipine 5 mg Tablet 5 mg PO DAILY losartan-hydrochlorothiazide 100-25 mg Tablet 1 tab PO DAILY pantoprazole 40 mg Tablet,Delayed Release (Dr/Ec) 40 mg PO DAILY aspirin 81 mg Tablet,Chewable 81 mg PO DAILY cyanocobalamin (vitamin B-12) 1,000 mcg Tablet 1,000 mcg PO DAILY PRN (Reason: as needed) thiamine HCl (vitamin B1) 100 mg Tablet 200 mg PO DAILY PRN (Reason: as needed) cholecalciferol (vitamin D3) 25 mcg (1,000 unit) Tablet 25 mcg PO DAILY hydroxyzine HCl 50 mg Tablet 50 mg PO Q8H PRN (Reason: Anxiety/Restlessness) Qty: 30 0RF insulin lispro [Humalog KwikPen Insulin] 100 unit/mL Insulin Pen 1 sliding scale dose SUBCUT USEASDIRECTD Rx Instructions: Per sliding scale, TID Before Meals insulin glargine [Lantus U-100 Insulin] 100 unit/mL solution 60 unit subcut BEDTIME Discontinued levothyroxine 25 mcg Tablet 25 mcg PO DAILY@0630 simvastatin 80 mg Tablet 80 mg PO BEDTIME Discharge Orders: Discharge Order (Routine); Ordered 10/01/23 Ordered By: Heena Pruett Diet: Diabetic diet Activity on Discharge: Use cane or walker Stand Alone Forms: Patient Portal Discharge page Print Language: Mauritian Care Plan Goals: Appointment at [facility] on October 30 at 14:30 Strongly recommend to abstain from alcohol Ambulate with wheeled walker Home PT Dose of Synthroid reduced to 300 mcg daily repeat TSH in 6 weeks Hold statins due to elevated LFTs resumes once LFTs improved Health Concerns: Diabetes mellitus recommend to follow diabetic diet Plan of Treatment: Outpatient follow-up with primary care physician. Assessment: As above
--- NOTE | 2023-10-01 12:30 | MHC.CM.PN ---
Pt is medically cleared for discharge home with [facility] services, pt has arranged his own transport home.
[2023-10-02 09:14] LABS: Triiodothyronine T3 Free 2.3 pg/mL (2.3-4.2)
== END 2023-10-01 12:00 | disposition home health service (06) | DRG 775 ==
LOC: HO.ED 18:27 → HO.EDOVER 21:12 → HO.IMC 22:25
PROVIDERS: Internal Medicine; Admitting Provider Student in an Organized Health Care Education/Training Program; Emergency Provider Internal Medicine; PCP Internal Medicine; Visit Provider Hospitalist
DX: F10.239 Alcohol dependence with withdrawal, unspecified (principal); K70.10 Alcoholic hepatitis without ascites; F39 Unspecified mood [affective] disorder; K70.0 Alcoholic fatty liver; E03.9 Hypothyroidism, unspecified; E83.42 Hypomagnesemia; I10 Essential (primary) hypertension; E66.01 Morbid (severe) obesity due to excess calories; E10.65 Type 1 diabetes mellitus with hyperglycemia; E78.5 Hyperlipidemia, unspecified; K21.9 Gastro-esophageal reflux disease without esophagitis; G47.33 Obstructive sleep apnea (adult) (pediatric); Z68.42 Body mass index [BMI] 45.0-49.9, adult; Z79.82 Long term (current) use of aspirin; Z87.891 Personal history of nicotine dependence; Z79.890 Hormone replacement therapy; Z79.899 Other long term (current) drug therapy
CPT/HCPCS: 36415; 76705; 80048; 80053; 80076; 80307; 82607; 82746; 82947; 83690; 83735; 84439; 84443; 84481; 85025; 85610; 97162; 99285; J1650; J2060; J2405; J2560; J3411; J3475

== ENCOUNTER → 2023-09-28 20:56 | Outpatient (BNV) | payer OTHER, SELFPAY | PROVIDERS: Admitting Provider Student in an Organized Health Care Education/Training Program; Emergency Provider Internal Medicine; PCP Internal Medicine; Visit Provider Nurse Practitioner Psychiatric/Mental Health | DX: F10.20 Alcohol dependence, uncomplicated (principal) | CPT/HCPCS: 99232 ==

== ENCOUNTER → 2023-09-28 20:56 | Outpatient (BNV) | payer OTHER, SELFPAY | PROVIDERS: Admitting Provider Student in an Organized Health Care Education/Training Program; Emergency Provider Internal Medicine; PCP Internal Medicine; Visit Provider Hospitalist | DX: F10.239 Alcohol dependence with withdrawal, unspecified (principal); K70.9 Alcoholic liver disease, unspecified; E10.65 Type 1 diabetes mellitus with hyperglycemia; E83.42 Hypomagnesemia; R26.81 Unsteadiness on feet | CPT/HCPCS: 99223; 99233; 99239; G0180 ==

== ENCOUNTER 2023-10-31 14:16 | Outpatient (AMB) | payer OTHER, SELFPAY ==
[2023-10-31 14:42] VITALS: BP 174/74; O2SAT 97
--- NOTE | 2023-10-31 14:42 | MHC.AM.SUB ---
Vital Signs 10/31/23 14:42 BP 174/74 H Blood Pressure Location Lt brachial Position Sitting Pulse Source Pulse Oximeter Pulse Oximetry (%) 97 Oxygen Delivery Method Room Air Intake Visit Reasons: Intake Allergies No Known Allergies Allergy (Verified 09/28/23 18:19) HPI HPI Intake: Details: Patient presents for AUD intake and evaluation Seen by this consumer loan underwriter during medical admission for falls and alcohol withdrawal Full history reviewed in that note Disulfiram ordered at that time, patient has notben taking it Reports he has been taking naltrexone and Hydroxyzine at 6pm -and it helps with irritability and anxiety as this is the time he would usually start drinking 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 Has been at home since hospital discharge issues with ambulation--does not wish to use cane or walker melanoma removal - next week follow up [facility] Medical History Type 1 diabetes Hypoglycemia Uncontrolled type 1 diabetes mellitus with hyperglycemia, with long-term current use of insulin On beta abhishek at home Personal history of COVID-19 GERD (gastroesophageal reflux disease) Hypothyroidism Hyperlipidemia MI on CPAP HTN (hypertension) Insulin dependent type 2 diabetes mellitus Surgical History History of arthroscopy of left knee Hx of sinus surgery Hx of eye surgery History of surgery History of total left knee replacement History of bilateral carpal tunnel release History of esophagogastroduodenoscopy (EGD) Hx of colonoscopy Family History Father Congestive heart failure Diabetes Mother Lung cancer Social History Household Members: Spouse Household Members Other:: , daughter Housing: House Do you presently have visiting nurse or other home services: No Alcohol intake: current Alcohol intake frequency: 3 or more drinks per day Comment: patient refuses all alarms Patient Tobacco Use Status: Former Tobacco user Tobacco use type: Cigarette Second Hand Smoke Exposure: No Advance Directives Date on File: 05/24/23 service: No Review of Systems Const Reports as per HPI Physical Exam Vital Signs: Last Vital Signs BP 174/74 H 10/31/23 14:42 Pulse Ox 97 10/31/23 14:42 Oxygen Delivery Method Room Air 10/31/23 14:42 Const General: cooperative and well groomed Nutritional Appearance: overweight Orientation/consciousness: patient oriented x3 Limitations: physical limitations (unsteady gait) Neuro General: patient oriented x3 Assessment & Plan Assessment & Plan (1) Alcohol use disorder, severe, dependence: Code(s): F10.20 - Alcohol dependence, uncomplicated Category: Medical Plan: relapse prevention discussion agreeable to following up in a few weeks with RN --copay for visits is high Medications: New naltrexone 50 mg PO DAILY 30 tabs 3RF Discontinued disulfiram Discontinued Reason: Patient no longer taking 125 mg (1/2 x 250 mg) PO DAILY 30 tabs 0RF
== END 2023-10-31 15:41 | disposition home or self-care (01) ==
PROVIDERS: PCP Internal Medicine; Visit Provider Nurse Practitioner Psychiatric/Mental Health
DX: F10.20 Alcohol dependence, uncomplicated (principal)
CPT/HCPCS: 99214

== ENCOUNTER → 2023-10-31 14:16 | Outpatient (BNVA) | payer OTHER, SELFPAY | PROVIDERS: PCP Internal Medicine; Visit Provider Nurse Practitioner Psychiatric/Mental Health ==

== ENCOUNTER → 2023-11-22 09:25 | Outpatient (BNVA) | payer OTHER, SELFPAY | PROVIDERS: PCP Internal Medicine ==

== ENCOUNTER 2023-12-02 13:18 | Outpatient (AMB) | payer OTHER, SELFPAY ==
--- NOTE | 2023-12-02 13:28 | A.OFFVIS_ITS ---
Vital Signs 12/02/23 13:32 Height 5 ft 10 in Weight 346 lb 12.594 oz BMI 49.8 BP 148/68 H Blood Pressure Location Rt radial Position Sitting Pulse 60 Pulse Source Pulse Oximeter Intake Visit Reasons: T1DM/LVM Intake Note: Patient presents today to re-establish treatment for Type 1 Diabetes Mellitus: Patient receives DME supplies through: [email or web address] Last Diabetic eye exam was on: DUE Last Podiatry exam was on: Does not see a Tire And Tube Repairer Most recent HbA1c: 6.3% Random Glucose- 66 mg/dL 1:32 pm, RE-CHECK 59 mg/dL 14:10 pm, RE-CHECK 75 mg/dL 14:28 pm Special Needs Nanny Required: No Accompanied by: Self / Same As Patient Allergies No Known Allergies Allergy (Verified 12/02/23 13:36) HPI Comments Details: 62 YO M with with type 1 diabetes since age 32 presents for follow up. He was last seen by Dr. Diaz 08/25. His most recent hemoglobin A1c was 6.3% today in the office. Current regimen: Lantus 50 units Humalog 10-20 units Dexcom : 10 day continous glucose sensor report reviewed Glucose Management indicator [7%] TIme in range: Four % very high (above 250) 24 % high (181-250) 70 % in range (70-180] 2 % low (69-55) 1 % very low (below 54) 50 Standard Deviation details [well controlled pattern ] Reports low sugars infrequently, he does have hypoglycemia awareness. In the office today his blood sugar was 56 in 60 and was treated with 3 glucose tablets in his small can of urbano ellie. Treats lows with sugar candies or juice. Family history of autoimmunity in aunts and uncles Type 1 DM Has eyes checked yearly, he needs to make an appt, h/o retinopathy. Has neuropathy, sees podiatry. Has nephropathy, on SENAIT-inhibitor Has HLD, on statin. Denies history of CAD. Fibrosis-4 (Fib-4) Index for liver fibrosis (calculated on most recent lab work done: 09/25) [ 1.96] points Advanced fibrosis [ ] Approximate Fibrosis stage Stacey [2-3 ] *Use with caution in patients <35 or >65 years old, as the score has been shown to be less reliable in these patients. Had diabetes education but not recently . Patient: Mickey Ward 64 Date of Service: 09/28/23 Procedure(s): US abdomen limited EXAMINATION: US ABDOMEN LIMITED CLINICAL INFORMATION: Elevated LFTs. COMPARISON: None available. TECHNIQUE: Real-time imaging of the right upper quadrant abdominal viscera. FINDINGS: PANCREAS: Normal. LIVER: Liver is enlarged measuring over 20 cm in greatest length and demonstrates increased echogenicity of hepatic steatosis. The liver contour is normal. No focal hepatic lesion. There is no intrahepatic biliary duct dilatation seen. GALLBLADDER: The gallbladder is physiologically distended without evidence of stones, sludge, polyps, wall thickening or pericholecystic fluid. COMMON BILE DUCT: Normal in caliber measuring 0.5 cm in diameter. RIGHT KIDNEY: No hydronephrosis. No renal calculi or focal parenchymal lesions. The kidney measures 10.7 cm in maximum dimension. FREE FLUID: None. IMPRESSION: Enlarged fatty liver. Diet/Carb counting: No Denies prior episodes of DKA. Denies prior severe episodes of hypoglycemia requiring help or hospitalization. Not recently [facility] Medical History Type 1 diabetes Hypoglycemia Uncontrolled type 1 diabetes mellitus with hyperglycemia, with long-term current use of insulin On beta abhishek at home Personal history of COVID-19 GERD (gastroesophageal reflux disease) Hypothyroidism Hyperlipidemia MI on CPAP HTN (hypertension) Insulin dependent type 2 diabetes mellitus Surgical History History of arthroscopy of left knee Hx of sinus surgery Hx of eye surgery History of surgery History of total left knee replacement History of bilateral carpal tunnel release History of esophagogastroduodenoscopy (EGD) Hx of colonoscopy Family History Father Congestive heart failure Diabetes Mother Lung cancer Social History Household Members: Spouse Household Members Other:: , daughter Housing: House Do you presently have visiting nurse or other home services: No Alcohol intake: current Alcohol intake frequency: 3 or more drinks per day Comment: patient refuses all alarms Patient Tobacco Use Status: Former Tobacco user Tobacco use type: Cigarette Second Hand Smoke Exposure: No Advance Directives Date on File: 05/24/23 service: No Physical Exam Vital Signs: Last Vital Signs Pulse 60 12/02/23 13:32 BP 148/68 H 12/02/23 13:32 BMI result Body Mass Index 49.8 Const Other: Absence of Cushingoid features. Absence of acromegalic features. Neck exam reveals nl size thyroid about 15 gms. No thyroid nodules palpable. Lungs CTA. Heart S1 S2, Reg R/R. No M/R G. Skin exam reveals absence of vitiligo or acanthosis nigricans. Visual exam of foot performed. No ulcerations or open lesions. No onchomycosis, no callouses.Pulses 2 + distally. Sensation intact to monofilament exam. Vibratory sensation sensed decreased bilaterally with 128 Hz tuning fork. There is 1+ edema present around the ankle Results AMB Hemoglobin A1c AMB Hemoglobin A1c 6.3 % Last Edit by SHREYA Romero on 12/02/23 13:54 Results Reviewed Results Reviewed: Laboratory Last Values Glucose (Clinic) 75 mg/dL (60-115) 12/02/23 14:28 Hgb A1c (Clinic) 6.3 % (4.0-6.0) H 12/02/23 13:53 Laboratory Tests 09/28/23 10/01/23 10/01/23 18:51 06:36 09:08 Plt Count 219 Potassium 4.3 Creatinine 1.24 Estim Creat Clear Calc 94.8 Estimated GFR 59 Hgb A1c (Clinic) AST 109 H ALT 241 H Alkaline Phosphatase 148 H Free T4 1.67 Free T3 2.3 12/02/23 13:53 Plt Count Potassium Creatinine Estim Creat Clear Calc Estimated GFR Hgb A1c (Clinic) 6.3 H AST ALT Alkaline Phosphatase Free T4 Free T3 Assessment & Plan Assessment & Plan (1) Uncontrolled type 1 diabetes mellitus with hyperglycemia, with long-term current use of insulin: Code(s): E10.65 - Type 1 diabetes mellitus with hyperglycemia Category: Medical Plan: Type 1 diabetic on basal bolus insulin well-controlled. He has complications of nephropathy, hypoglycemia unawareness and retinopathy currently followed by specialist annually. No changes were made in insulin therapy today. Continue glucose sensing. We will refer to GI medicine for hepatic steatosis. Has had ultrasound previously ordered and fib 4 screen Stacey Stage 2-3 Orders: Orders AMB Hemoglobin A1c Today E10.65 - Type 1 diabetes mellitus with hyperglycemia Referrals Gastroenterology Referral K76.0 - Fatty (change of) liver, not elsewhere classified Patient Instructions: The patient was counseled to always carry a source of sugar and on the rule of 15's: Take 3 glucose tablets and repeat again in 15 minutes if blood sugar is not in normal range. Continue to repeat every 15 minutes until blood sugar is normal. The patient was counseled to achieve a target A1C of 7% (154 avg). Fasting blood sugars should be 90-130 in the morning and less than 180 two hours after meals. Reviewed the relationship between poor diabetic control and the developement of complications Coding Level of Care Code Tele Est Pt Level 4 (90448) Complex EM visit Add On G2211 Diagnoses Uncontrolled type 1 diabetes mellitus with hyperglycemia, with long-term current use of insulin E10.65 Time Spent (min) 30 Comment Time spent reviewing labs/provider notes, glucose,sensor reports, face to face, chart doc
[2023-12-02 13:32] VITALS: BP 148/68; PULSE 60; BMI 49.8
[2023-12-02 13:47] LABS: Glucose, Whole Blood 66 mg/dL (60-115)
[2023-12-02 14:14] LABS: Glucose, Whole Blood 59 mg/dL (60-115)
[2023-12-02 14:31] LABS: Glucose, Whole Blood 75 mg/dL (60-115)
== END 2023-12-02 14:29 | disposition home or self-care (01) ==
PROVIDERS: PCP Internal Medicine; Visit Provider Nurse Practitioner Adult Health
DX: E10.65 Type 1 diabetes mellitus with hyperglycemia (principal)
CPT/HCPCS: 99214

== ENCOUNTER → 2023-12-02 13:18 | Outpatient (BNVA) | payer OTHER, SELFPAY | PROVIDERS: PCP Internal Medicine; Visit Provider Nurse Practitioner Adult Health | DX: E10.65 Type 1 diabetes mellitus with hyperglycemia (principal); E10.21 Type 1 diabetes mellitus with diabetic nephropathy; E10.319 Type 1 diabetes mellitus with unspecified diabetic retinopathy without macular edema | CPT/HCPCS: 82947; 83036 ==

== ENCOUNTER 2023-12-14 11:53 | Outpatient (AMB) | payer OTHER, SELFPAY ==
--- NOTE | 2023-12-14 09:17 | A.OFFVISCC_ITS ---
Intake Visit Reasons: MAT Tele Allergies No Known Allergies Allergy (Verified 12/02/23 13:36) [facility] MAT Tele: Details: Patient presents for follow up via telehealth Reports no alcohol since September 24 Has been keeping busy and still taking hydroxyzone in the evenings not taking naltrexone --feels he is taking so many medications Denies any cravings PT for vertigo Does not have any concerns related to AUD at this time [facility] Medical History (Updated 12/02/23 @ 16:13 by Maryanne Phillips NP) Fatty liver Type 1 diabetes Hypoglycemia Uncontrolled type 1 diabetes mellitus with hyperglycemia, with long-term current use of insulin On beta abhishek at home Personal history of COVID-19 GERD (gastroesophageal reflux disease) Hypothyroidism Hyperlipidemia MI on CPAP HTN (hypertension) Insulin dependent type 2 diabetes mellitus Surgical History History of arthroscopy of left knee Hx of sinus surgery Hx of eye surgery History of surgery History of total left knee replacement History of bilateral carpal tunnel release History of esophagogastroduodenoscopy (EGD) Hx of colonoscopy Family History Father Congestive heart failure Diabetes Mother Lung cancer Social History Household Members: Spouse Household Members Other:: , daughter Housing: House Do you presently have visiting nurse or other home services: No Alcohol intake: current Alcohol intake frequency: 3 or more drinks per day Comment: patient refuses all alarms Patient Tobacco Use Status: Former Tobacco user Tobacco use type: Cigarette Second Hand Smoke Exposure: No Advance Directives Date on File: 05/24/23 service: No Review of Systems Const Reports as per [facility] Telehealth Telehealth Telehealth Platform: Telephone Location of provider rendering services: practice address Location of patient: address on file Patient Identification confirmed using: Name, : Yes Telehealth method: voice only Patient verbally consented to treatment: Yes Patient verbally consented to billing insurance company: Yes Minutes spent on Phone/Video with Pt.: 15 Assessment & Plan Assessment & Plan (1) Alcohol use disorder, severe, dependence: Code(s): F10.20 - Alcohol dependence, uncomplicated Category: Medical Plan: * continue hydroxyzine in the afternoon as it is helping with anxiety * follow up 3 months
== END 2023-12-14 13:14 | disposition home or self-care (01) ==
LOC: HO.HCC 11:53
PROVIDERS: PCP Internal Medicine; Visit Provider Nurse Practitioner Psychiatric/Mental Health
DX: F10.20 Alcohol dependence, uncomplicated (principal)
CPT/HCPCS: 99213

== ENCOUNTER → 2023-12-14 11:53 | Outpatient (BNVA) | payer OTHER, SELFPAY | PROVIDERS: PCP Internal Medicine; Visit Provider Nurse Practitioner Psychiatric/Mental Health ==

== ENCOUNTER 2024-02-29 21:33 | Emergency (ER) | payer OTHER, SELFPAY ==
[2024-02-29 21:35] VITALS: BP 127/80; BP 138/48; PULSE 70; PULSE 74; RESP 18; TEMP 36.6; O2SAT 96; O2SAT 99; BMI 49.9
--- NOTE | 2024-02-29 21:48 | PC.NURSE ---
pt biba from home for fall in bathroom, pt denies loc and head strike, denies pain at this time. pt noted to have laceration to middle toe, bleeding controlled. pt reports etoh use since this am, reports drinking vodka. pt is a&ox4, respirations even and unlabored, no acute distress noted at this time. pt changed into hospital gown at this time.
--- NOTE | 2024-02-29 22:11 | MHC.EDTECH ---
Patient BIBA,changed into hospital attire,EKG taken per order and signed by provider,vital taken,labs drawn and sent to lab.
[2024-02-29 22:13] LABS: MANUAL DIFF FLAG NO
[2024-02-29 22:15] LABS: Basophils Absolute Auto 0.1 X10*3/uL (0.0-0.2); Basophils Percent Auto 0.9 % (0-2); Eosinophils Absolute Auto 0.1 X10*3/uL (0.0-0.4); Eosinophils Percent Auto 0.6 % (0-4); Hematocrit 43.1 % (42.0-52.0); Hemoglobin 14.6 g/dl (14.0-18.0); Imm Gran Abs Auto 0.01 X10*3/uL (0.00-0.03); Imm Gran Pct Auto 0.1 % (0.0-0.4); Lymphocytes Absolute Auto 2.4 X10*3/uL (1.2-4.9); Lymphocytes Percent Auto 30.8 % (20-40); Mean Corpuscular HGB Conc 33.9 g/dl (31.0-36.0); Mean Corpuscular Hemoglobin 30.6 pg (27.0-33.0); Mean Corpuscular Volume 90.4 fL (80.0-98.0); Mean Platelet Volume 9.7 fL (9.4-12.4); Monocytes Absolute Auto 0.6 X10*3/uL (0.1-1.2); Monocytes Percent Auto 7.1 % (2-11); Neutrophils Absolute Auto 4.8 x10*3/uL (2.0-8.3); Neutrophils Percent Auto 60.5 % (45-73); Platelet Count 292 X10*3/uL (160-400); Red Blood Count 4.77 X10*6/uL (4.60-5.80); Red Cell Distribution Width 14.9 % (11.0-16.0); White Blood Count 7.9 X10*3/uL (4.8-10.8)
[2024-02-29 22:31] LABS: Alanine Aminotransferase 559 U/L (0-40); Albumin Level 3.4 g/dL (3.5-5.0); Alkaline Phosphatase 285 U/L (39-117); Anion Gap 23 (12-20); Aspartate Amino Transferase 376 U/L (5-37); Bilirubin Total 1.6 mg/dL (0.0-1.0); Blood Urea Nitrogen 62 mg/dL (9-16); Carbon Dioxide 20 mmol/L (22-29); Chloride 102 mmol/L (96-108); Creatinine Clr Calc Pharmacy 53.3; Estimated Glomerular Filt Rate 31; Ethanol 336 mg/dL; Glucose Random 222 mg/dL (60-115); Potassium 5.3 mmol/L (3.3-5.1); Sodium 140 mmol/L (135-145); Total Protein 6.2 g/dL (6.5-8.0)
[2024-02-29 22:37] LABS: Troponin-I High Sensitivity < 2.7 ng/L (<3.5-35.0)
[2024-02-29] MEDS: Insulin Lispro 100 UNIT/ML 3 ML VIAL SUBCUT (23:08)
[2024-02-29] MEDS: 0.9 % Sodium Chloride 1,000 ML 999 ML IV (23:09)
[2024-02-29 23:14] LABS: Magnesium 2.4 mg/dL (1.6-2.6)
--- NOTE | 2024-03-01 00:26 | ED_ITS ---
HPI - Fall General Chief Complaint: Fall Stated Complaint: ETOH, fall w/ HS. neck and back pain, collared Time Seen by Provider: 02/29/24 22:52 Source: patient Mode of arrival: ambulatory Limitations: no limitations History of Present Illness ED Provider: oneal HO Narrative: Patient alcoholic , diabetes, apparently had few drinks earlier today was going to bathroom and slumped down without hitting his head no significant injuries on baby aspirin no loss of consciousness Related Data Home Medications ?Medication ?Instructions ?Recorded ?Confirmed amlodipine 5 mg tablet 5 mg PO DAILY 05/18/23 09/28/23 aspirin 81 mg chewable tablet 81 mg PO DAILY 05/18/23 09/28/23 cholecalciferol (vitamin D3) 25 25 mcg PO DAILY 05/18/23 09/28/23 mcg (1,000 unit) tablet cyanocobalamin (vitamin B-12) 1,000 mcg PO DAILY PRN as needed 05/18/23 09/28/23 1,000 mcg tablet levothyroxine 300 mcg tablet 300 mcg PO DAILY@0630 05/18/23 09/28/23 losartan 100 1 tab PO DAILY 05/18/23 09/28/23 mg-hydrochlorothiazide 25 mg tablet meloxicam 15 mg tablet 15 mg PO DAILY Pain 05/18/23 09/28/23 metoprolol succinate 50 mg 50 mg PO DAILY 05/18/23 09/28/23 tablet,extended release 24 hr pantoprazole 40 mg tablet,delayed 40 mg PO DAILY 05/18/23 09/28/23 release thiamine HCl (vitamin B1) 100 mg 200 mg PO DAILY PRN as needed 05/18/23 09/28/23 tablet insulin lispro 100 unit/mL 1 sliding scale dose subcut 09/28/23 09/28/23 subcutaneous pen (Humalog KwikPen USEASDIRECTD (U-100) Insulin) allopurinol 200 mg tablet 200 mg PO DAILY 10/31/23 10/31/23 atorvastatin 40 mg tablet 40 mg PO BEDTIME 10/31/23 10/31/23 fluoxetine 10 mg capsule 10 mg PO DAILY 10/31/23 10/31/23 insulin glargine 100 unit/mL 50 unit subcut BEDTIME 12/02/23 subcutaneous solution (Lantus U-100 Insulin) Previous Rx's ?Medication ?Instructions ?Recorded naltrexone 50 mg tablet 50 mg PO DAILY #30 tabs 10/31/23 hydroxyzine HCl 50 mg tablet 50 mg PO DAILY PRN 02/16/24 Anxiety/Restlessness #90 tabs Allergies Allergy/AdvReac Type Severity Reaction Status Date / Time No Known Allergies Allergy Verified 02/29/24 21:42 Review of Systems 2 Review of Systems: Yes all other systems are reviewed and are negative PMFSH Past Medical History Medical History Fatty liver Type 1 diabetes Hypoglycemia Uncontrolled type 1 diabetes mellitus with hyperglycemia, with long-term current use of insulin On beta abhishek at home Personal history of COVID-19 GERD (gastroesophageal reflux disease) Hypothyroidism Hyperlipidemia MI on CPAP HTN (hypertension) Insulin dependent type 2 diabetes mellitus Surgical History History of arthroscopy of left knee Hx of sinus surgery Hx of eye surgery History of surgery History of total left knee replacement History of bilateral carpal tunnel release History of esophagogastroduodenoscopy (EGD) Hx of colonoscopy Family History Family History Father Congestive heart failure Diabetes Mother Lung cancer Social History Social History Household Members: Spouse Household Members Other:: , daughter Housing: House Do you presently have visiting nurse or other home services: No Alcohol intake: current Alcohol intake frequency: 3 or more drinks per day Comment: patient refuses all alarms Patient Tobacco Use Status: Former Tobacco user Tobacco use type: Cigarette Smoked in Last 30 Days: No Second Hand Smoke Exposure: No Use of substances other than those prescribed or required for medical reasons: No Advance Directives: Yes Advance Directives on File: Yes Advance Directives Date on File: 05/24/23 Do you have a plan to hurt others: No Plan service: No Physical Exam 2 Vital Signs: Vital Signs: Last Vital Signs Temp 98.5 F 03/01/24 05:53 Pulse 90 03/01/24 05:53 Resp 18 03/01/24 05:53 BP 114/56 L 03/01/24 05:53 Pulse Ox 95 03/01/24 05:53 O2 Del Method Room Air 03/01/24 05:53 BMI result Body Mass Index 49.9 Appearance: Alert. Oriented X3. No acute distress. Obese ETOH++ Eyes: PERRLA, No Nystagmus ENT: Pharynx normal. Oral Mucosa moist atraumatic normocephalic Neck: Normal inspection. Neck supple. No midline tenderness CVS: Normal heart rate and rhythm. Pulses normal. Respiratory: No respiratory distress. Equal air entry bilateral, no wheezing/rales/rhonchi Abdomen: Soft and nontender. Bowel sounds are present, no mass palpable, no CVA tenderness Skin: Skin warm and dry. Normal skin color. Normal skin turgor. Extremities: No lower extremity edema. No calf tenderness Neuro: Oriented X 3. No motor deficit. No sensory deficit.No cerebellar signs , cranial nerves II-XII intact Medications Administered Discontinued Medications Generic Name Dose Route Start Last Admin Trade Name Freq PRN Reason Stop Dose Admin Sodium Chloride 1,000 mls @ 999 mls/hr 02/29/24 22:54 02/29/24 23:59 Ns IV 02/29/24 23:54 Infused .Q1H1M ONE Infusion Sodium Chloride 1,000 mls @ 999 mls/hr 03/01/24 00:32 03/01/24 02:14 Ns IV 03/01/24 01:32 Infused .Q1H1M ONE Infusion Lactated Ringer's 1,000 mls @ 999 mls/hr 03/01/24 05:15 03/01/24 06:18 Lr IV 03/01/24 06:15 Infused .Q1H1M ESTUARDO Infusion Insulin Human Lispro 4 unit 02/29/24 22:54 02/29/24 23:08 Insulin Lispro 100 Unit/Ml 3 Ml Vial SUBCUT 02/29/24 22:55 4 unit ONCE ONE Administration Lorazepam 2 mg 03/01/24 05:00 03/01/24 05:14 Lorazepam 2 Mg/Ml Vial IVPUSH 03/01/24 05:01 2 mg ONCE ONE Administration Ondansetron HCl 4 mg 03/01/24 03:01 03/01/24 03:02 Ondansetron Hcl 4 Mg/2 Ml Vial IVPUSH 03/01/24 03:02 4 mg ONCE ONE Administration Ondansetron HCl 4 mg 03/01/24 05:00 03/01/24 05:14 Ondansetron Hcl 4 Mg/2 Ml Vial IVPUSH 03/01/24 05:01 4 mg ONCE ONE Administration Medical Decision Making Medical Decision Making [facility] Narrative: Patient is diabetic intoxicated with WOODY creatinine of 2.2 from baseline of 1.2 will give p.o. and IV fluids likely prerenal patient does not want to go to detox at this time Lab Data [facility] Lab Attestation statement: I reviewed the patient's lab results. 02/29/24 22:10 03/01/24 02:41 Labs: Lab Results 02/29/24 03/01/24 Range/Units 22:10 02:41 WBC 7.9 (4.8-10.8) X10*3/uL RBC 4.77 (4.60-5.80) X10*6/uL Hgb 14.6 (14.0-18.0) g/dl Hct 43.1 (42.0-52.0) % MCV 90.4 (80.0-98.0) fL MCH 30.6 (27.0-33.0) pg MCHC 33.9 (31.0-36.0) g/dl RDW 14.9 (11.0-16.0) % Plt Count 292 D (160-400) X10*3/uL MPV 9.7 (9.4-12.4) fL Immature Gran % (Auto) 0.1 (0.0-0.4) % Neut % (Auto) 60.5 (45-73) % Lymph % (Auto) 30.8 (20-40) % [place] % (Auto) 7.1 (2-11) % Eos % (Auto) 0.6 (0-4) % Baso % (Auto) 0.9 (0-2) % Lymph # (Auto) 2.4 (1.2-4.9) X10*3/uL [place] # (Auto) 0.6 (0.1-1.2) X10*3/uL Eos # (Auto) 0.1 (0.0-0.4) X10*3/uL Baso # (Auto) 0.1 (0.0-0.2) X10*3/uL Abs Immat Gran (auto) 0.01 (0.00-0.03) X10*3/uL Absolute Neuts (auto) 4.8 (2.0-8.3) x10*3/uL Absolute Nucleated RBC 0.000 (0.0-0.012) X10*3/uL Nucleated RBC % (auto) 0.0 (0.0-0.2) /100WBC Sodium 140 139 (135-145) mmol/L Potassium 5.3 H D 5.1 (3.3-5.1) mmol/L Chloride 102 108 (96-108) mmol/L Carbon Dioxide 20 L 20 L (22-29) mmol/L Anion Gap 23 H 16 (12-20) BUN 62 H 64 H (9-16) mg/dL Creatinine 2.20 H 2.11 H (0.5-1.4) mg/dL Estim Creat Clear Calc 53.3 55.5 Estimated GFR 31 32 Random Glucose 222 H 161 H (60-115) mg/dL Calcium 8.0 L D 7.6 L (8.4-10.2) mg/dL Magnesium 2.4 (1.6-2.6) mg/dL Total Bilirubin 1.6 H 1.4 H (0.0-1.0) mg/dL AST 376 H 337 H (5-37) U/L ALT 559 H 472 H (0-40) U/L Alkaline Phosphatase 285 H 253 H (39-117) U/L Troponin I High Sens < 2.7 (<3.5-35.0) ng/L Total Protein 6.2 L 5.2 L (6.5-8.0) g/dL Albumin 3.4 L 2.9 L (3.5-5.0) g/dL Ethyl Alcohol 336 H* mg/dL Discharge Plan Discharge Clinical Impression: Alcohol dependence, CKD (chronic kidney disease) Patient Disposition: Home, Self-Care Instructions: Chronic Kidney Disease (ED), Abuse of Alcohol (ED) Additional Instructions: Stop drinking alcohol Drink plenty of fluids Follow up with your horticultural services supervisor as your creatinine level is slightly elevated than before Prescriptions: No Action hydroxyzine HCl 50 mg tablet 50 mg PO DAILY PRN (Reason: Anxiety/Restlessness) Qty: 90 0RF levothyroxine 300 mcg Tablet 300 mcg PO DAILY@0630 metoprolol succinate 50 mg Tablet Extended Release 24 Hr 50 mg PO DAILY meloxicam 15 mg Tablet 15 mg PO DAILY amlodipine 5 mg Tablet 5 mg PO DAILY losartan-hydrochlorothiazide 100-25 mg Tablet 1 tab PO DAILY pantoprazole 40 mg Tablet,Delayed Release (Dr/Ec) 40 mg PO DAILY aspirin 81 mg Tablet,Chewable 81 mg PO DAILY cyanocobalamin (vitamin B-12) 1,000 mcg Tablet 1,000 mcg PO DAILY PRN (Reason: as needed) thiamine HCl (vitamin B1) 100 mg Tablet 200 mg PO DAILY PRN (Reason: as needed) cholecalciferol (vitamin D3) 25 mcg (1,000 unit) Tablet 25 mcg PO DAILY insulin lispro [Humalog KwikPen Insulin] 100 unit/mL Insulin Pen 1 sliding scale dose SUBCUT USEASDIRECTD Rx Instructions: Per sliding scale, TID Before Meals insulin glargine [Lantus U-100 Insulin] 100 unit/mL solution 50 unit subcut BEDTIME fluoxetine 10 mg capsule 10 mg PO DAILY atorvastatin 40 mg tablet 40 mg PO BEDTIME allopurinol 200 mg tablet 200 mg PO DAILY naltrexone 50 mg tablet 50 mg PO DAILY Qty: 30 3RF Print Language: Swedish
[2024-03-01] MEDS: 0.9 % Sodium Chloride 1,000 ML 999 ML IV (00:45)
[2024-03-01 00:48] VITALS: BP 113/51; PULSE 78; RESP 18; TEMP 36.6; O2SAT 97
--- NOTE | 2024-03-01 01:56 | MHC.EDTECH ---
Patient ambulated with a 2/assist to the bathroom patient was unsteady on his feet
--- NOTE | 2024-03-01 02:42 | MHC.EDTECH ---
Repeat labs drawn and sent to lab
--- NOTE | 2024-03-01 02:55 | PC.NURSE ---
pt sitting up at edge of bed at this time, pt reports being light headed and nauseous. provider aware.
[2024-03-01 02:58] LABS: Alanine Aminotransferase 472 U/L (0-40); Albumin Level 2.9 g/dL (3.5-5.0); Alkaline Phosphatase 253 U/L (39-117); Anion Gap 16 (12-20); Aspartate Amino Transferase 337 U/L (5-37); Bilirubin Total 1.4 mg/dL (0.0-1.0); Blood Urea Nitrogen 64 mg/dL (9-16); Calcium 7.6 mg/dL (8.4-10.2); Carbon Dioxide 20 mmol/L (22-29); Chloride 108 mmol/L (96-108); Creatinine Clr Calc Pharmacy 55.5; Estimated Glomerular Filt Rate 32; Glucose Random 161 mg/dL (60-115); Potassium 5.1 mmol/L (3.3-5.1); Sodium 139 mmol/L (135-145); Total Protein 5.2 g/dL (6.5-8.0)
[2024-03-01] MEDS: ondansetron HCL 4 MG/2 ML VIAL IVPUSH ×2 (03:02→05:14)
--- NOTE | 2024-03-01 04:28 | PC.NURSE ---
pt assisted to bathroom with wheelchair at this time, pt 1A at this time.
[2024-03-01] MEDS: Lactated Ringers 1,000 ML 999 ML IV (05:14)
[2024-03-01] MEDS: LORazepam 2 MG/ML VIAL IVPUSH (05:14)
[2024-03-01 05:53] VITALS: BP 114/56; PULSE 90; RESP 18; TEMP 36.9; O2SAT 95
--- NOTE | 2024-03-01 06:21 | PC.NURSE ---
pt health care proxy called at this time, Leni coming to black pickler pt at this time.
[2024-03-01 07:32] VITALS: BP 114/56; PULSE 90; RESP 18; TEMP 36.9; O2SAT 95
== END 2024-03-01 07:37 | disposition home or self-care (01) ==
PROVIDERS: Emergency Provider Internal Medicine; PCP Internal Medicine
DX: F10.20 Alcohol dependence, uncomplicated (principal); Y90.8 Blood alcohol level of 240 mg/100 ml or more; E10.22 Type 1 diabetes mellitus with diabetic chronic kidney disease; I12.9 Hypertensive chronic kidney disease with stage 1 through stage 4 chronic kidney disease, or unspecified chronic kidney disease; N18.9 Chronic kidney disease, unspecified; Z79.4 Long term (current) use of insulin; Z79.82 Long term (current) use of aspirin; Z79.02 Long term (current) use of antithrombotics/antiplatelets
CPT/HCPCS: 36415; 80053; 80307; 83735; 84484; 85025; 96361; 96374; 96375; 96376; 99285; J2060; J2405; J7120

== ENCOUNTER 2024-03-07 09:07 | Outpatient (AMB) | payer OTHER, SELFPAY ==
--- NOTE | 2024-03-07 09:08 | A.OFFVISCC_ITS ---
Intake Visit Reasons: MAT Tele Allergies No Known Allergies Allergy (Verified 02/29/24 21:42) HPI HPI MAT Tele: Details: Patient presents for follow up via telehealth Reports he went to rehab the day after Thanksgiving for 4 days RCA and left treatment Got home yesterday (03/07/24) States he had been drinking for a couple of months--started off gradually then increased daily Reports last drink was on Thanksgiving --he presented to ED after a fall while intoxicated Contemplative stage regarding additional recovery supports Discussed naltrexone--open to restarting that Review of Systems Const Reports as per HPI, Reports difficulty sleeping, Reports lethargy and Reports weakness Neuro Reports weakness Psych Reports anxiety and Reports depression Telehealth Telehealth Telehealth Platform: Telephone Location of provider rendering services: practice address Location of patient: address on file Patient Identification confirmed using: Name, : Yes Telehealth method: voice only Patient verbally consented to treatment: Yes Patient verbally consented to billing insurance company: Yes Minutes spent on Phone/Video with Pt.: 15 Assessment & Plan Assessment & Plan (1) Alcohol use disorder, severe, dependence: Code(s): F10.20 - Alcohol dependence, uncomplicated Category: Medical Plan: * naltrexone 50mg QD * encouraged to consider additional recovery supports * follow up 4 weeks telehealth Medications: Refilled naltrexone 50 mg PO DAILY 90 tabs 3RF PFSH Medical History Fatty liver Type 1 diabetes Hypoglycemia Uncontrolled type 1 diabetes mellitus with hyperglycemia, with long-term current use of insulin On beta abhishek at home Personal history of COVID-19 GERD (gastroesophageal reflux disease) Hypothyroidism Hyperlipidemia MI on CPAP HTN (hypertension) Insulin dependent type 2 diabetes mellitus Surgical History History of arthroscopy of left knee Hx of sinus surgery Hx of eye surgery History of surgery History of total left knee replacement History of bilateral carpal tunnel release History of esophagogastroduodenoscopy (EGD) Hx of colonoscopy Family History Father Congestive heart failure Diabetes Mother Lung cancer Social History Household Members: Spouse Household Members Other:: , daughter Housing: House Do you presently have visiting nurse or other home services: No Alcohol intake: current Alcohol intake frequency: 3 or more drinks per day Comment: patient refuses all alarms Patient Tobacco Use Status: Former Tobacco user Tobacco use type: Cigarette Second Hand Smoke Exposure: No Advance Directives Date on File: 05/24/23 service: No
== END 2024-03-07 09:47 | disposition home or self-care (01) ==
PROVIDERS: PCP Internal Medicine; Visit Provider Nurse Practitioner Psychiatric/Mental Health
DX: F10.20 Alcohol dependence, uncomplicated (principal)
CPT/HCPCS: 99214

== ENCOUNTER → 2024-03-07 09:07 | Outpatient (BNVA) | payer OTHER, SELFPAY | PROVIDERS: PCP Internal Medicine; Visit Provider Nurse Practitioner Psychiatric/Mental Health ==

== ENCOUNTER 2024-03-08 15:27 | Outpatient (AMB) | payer OTHER, SELFPAY ==
--- NOTE | 2024-03-08 15:43 | AM.OFFWIN_ITS ---
Intake Vital Signs 03/08/24 15:45 Height 5 ft 10 in Weight 348 lb BMI 49.9 BP 118/78 Blood Pressure Location Lt brachial Position Sitting Pulse 67 Pulse Source Pulse Oximeter Pulse Oximetry (%) 98 Oxygen Delivery Method Room Air Intake Visit Reasons: EP fall, severe RT arm,elblow, rib, back pain Intake Note: Patient here because on Tuesday he fell into the basement and fell and landed on right side and is now having right sided rib area pain and lower right side back pain. Patient Tobacco Use Status: Former Tobacco user Allergies No Known Allergies Allergy (Verified 03/08/24 15:46) Do you need a note to return to daycare/school/sports/work: No HPI HPI Comments History of Present Illness Details History - The patient is a 63-year-old male pres enting with possible rib fracture following a fall. - The fall occurred on a concrete stoop 5 days ago, catching his right pant leg and landing on his right side. - He experiences significant pain when g etting out of a chair and when attempting to lift his right arm, indicating possible rib fracture. - The patient denies any loss of conscio usness or significant head injury; only a minor scrape was sustained on the head. The patient is on daily baby aspirin for thromboprophylaxis but denies being on a blood thinner. - The patient reported pain primarily on the right side of his ribcage, exacerbated by deep breathing. - He reported experiencing severe pain w hen attempting certain movements of the right shoulder, although rotator cuff injury was ruled out. - He has a history of extreme vertigo fo r which he underwent physical therapy, reporting resolution of dizziness prior to the fall. - He has previously taken NSAIDs, despit e a recommendation against them due to renal considerations, without notable relief from current pain. - Type 1 Diabetes Mellitus is well-contr olled with an HbA1c of 6.0. - The patient reports difficulty with sl eep related to rib pain when moving or attempting to get out of bed, yet no issues remaining asleep otherwise. Physical Exam General: Cooperative, healthy appearing, comfortable, no acute distress and well developed Orientation: Patient oriented x3 Limitations: Limited movement, using cane Head: Normal to inspection, no significant injury noted Ears: Hearing grossly normal bilaterally Nose: Normal external nose present Face and sinus: Normal facial exam Eyes: Appearance normal, both eyes and all related structures Neck: Normal visual inspection and Yes full ROM Chest: TTP on right side 5-7 ribs Respiratory: Normal respiratory effort, slight pain on deep breath, able to speak in complete sentences. Clear to auscultation bilaterally Cardiovascular: Regular rate and rhythm. Normal S1 and S2 Skin: No rashes or lesions noted Neuro: Patient oriented x3 Extremities: Normal to inspection, cannot abduct or flex right shoulder fully, positive belly test, positive lift off test and external rotation. Negative empty can test; wrist and hand have full ROM, [facility] Medical History Fatty liver Type 1 diabetes Hypoglycemia Uncontrolled type 1 diabetes mellitus with hyperglycemia, with long-term current use of insulin On beta abhishek at home Personal history of COVID-19 GERD (gastroesophageal reflux disease) Hypothyroidism Hyperlipidemia MI on CPAP HTN (hypertension) Insulin dependent type 2 diabetes mellitus Surgical History History of arthroscopy of left knee Hx of sinus surgery Hx of eye surgery History of surgery History of total left knee replacement History of bilateral carpal tunnel release History of esophagogastroduodenoscopy (EGD) Hx of colonoscopy Family History Father Congestive heart failure Diabetes Mother Lung cancer Social History Household Members: Spouse Household Members Other:: , daughter Housing: House Do you presently have visiting nurse or other home services: No Alcohol intake: current Alcohol intake frequency: 3 or more drinks per day Comment: patient refuses all alarms Patient Tobacco Use Status: Former Tobacco user Tobacco use type: Cigarette Second Hand Smoke Exposure: No Advance Directives Date on File: 05/24/23 service: No Review of Systems Const All systems reviewed & are unremarkable except as noted in HPI and below Physical Exam Vital Signs: Last Vital Signs Pulse 67 03/08/24 15:45 BP 118/78 03/08/24 15:45 Pulse Ox 98 03/08/24 15:45 Oxygen Delivery Method Room Air 03/08/24 15:45 BMI result Body Mass Index 49.9 Assessment & Plan Assessment & Plan (1) Fall: Code(s): W19.XXXA - Unspecified fall, initial encounter Qualifiers: Encounter type: initial encounter Qualified Code(s): W19.XXXA - Unspecified fall, initial encounter Plan: Plan - Order rib and chest X-ray to confirm suspected rib fracture and confirm no lung involvement. Upon my view on xrays, appears to be rib fx around 5-6, no lung involvement. Will wait for final rads read to call pt. - If rib fracture is confirmed, recommend conservative treatment, as rib fractures typically self-resolve. [id number] options discussed included acetaminophen Tylenol due to renal concerns with NSAIDs. NSAIDs, such as Aleve, to be avoided considering patient?s renal status. - Will prescribe short-term prednisone burst if inflammation significantly impairs breathing or daily function; patient advised of potential effects on blood glucose. - Patient advised on the use of lidocaine patches or heating pads for symptomatic relief. Advised use of his walker while recovering from this injury, then going back to his cane once feeling back to baseline. - Review Type 1 Diabetes management, acknowledging good control and A1c levels. He is aware the prednisone will increase his blood sugars so he will need to adjust his regimen. - Continue ongoing management of vertigo through physical therapy as previously prescribed. - Follow up with immediate care for any new symptoms or if rib fracture symptoms significantly worsen. Patient was informed and verbally consented to the use of an ambient scribe for clinic note documentation during this visit. (2) Rib pain on right side: Code(s): R07.81 - Pleurodynia Plan: as above (3) Shoulder pain, right: Code(s): M25.511 - Pain in right shoulder Qualifiers: Chronicity: acute Qualified Code(s): M25.511 - Pain in right shoulder Plan: Possible rotator cuff injury, recommended rest, ice and pred taper. Follow up wiht PCP if no improvement in pain. Orders: Orders XR ribs RT min 3V w CXR1V Today R07.81 - Pleurodynia, W19.XXXA - Unspecified fall, initial encounter Medications: New prednisone On days 1-3, take 2 tablets with breakfast. On days 4-6 take 1 tablet with breakfast, on days 7-10 take 0.5 tablet with breakfast 20 mg PO DAILY 11 tabs 0RF Coding Level of Care Code Est Pt Level 4 (80289) Diagnoses Fall, initial encounter W19.XXXA Encounter type: initial encounter Rib pain on right side R07.81 Acute pain of right shoulder M25.511 Chronicity: acute
[2024-03-08 15:45] VITALS: BP 118/78; PULSE 67; O2SAT 98; BMI 49.9
== END 2024-03-08 16:18 | disposition home or self-care (01) ==
PROVIDERS: PCP Internal Medicine; Visit Provider Physician Assistant
DX: M25.511 Pain in right shoulder (principal); W19.XXXA Unspecified fall, initial encounter; R07.81 Pleurodynia

== ENCOUNTER 2024-03-08 15:27 | Outpatient (REF) | payer OTHER, SELFPAY ==
--- NOTE | ~2024-03-08 | XR_ITS ---
EXAMINATION: XR RIBS, RIGHT CLINICAL INFORMATION: Fall. COMPARISON: Chest radiograph dated 05/18/2023. TECHNIQUE: PA view of the chest as well as 3 views of the right ribs. FINDINGS: Lungs are clear. No consolidation, pneumothorax, or pleural effusion. The cardiomediastinal silhouette and pulmonary vasculature are normal. Osseous structures are unremarkable. Ribs are intact. No fractures are identified. XR/XR ribs RT min 3V w CXR1V IMPRESSION: No displaced fracture. Electronically signed by: Waldemar Duran MD 03/09/2024 11:12 AM [facility]
== END 2024-03-08 15:28 | disposition home or self-care (01) ==
LOC: HO.HMGCX 15:27
PROVIDERS: PCP Internal Medicine; Visit Provider Physician Assistant
DX: R07.81 Pleurodynia (principal); Z91.81 History of falling
CPT/HCPCS: 71101

== ENCOUNTER 2024-04-03 08:44 | Outpatient (AMB) | payer OTHER, SELFPAY ==
--- NOTE | 2024-04-03 08:48 | MHC.OFFVIS ---
Vital Signs 04/03/24 08:52 Height 5 ft 10 in Weight 339 lb 8.19 oz BMI 48.7 BP 146/72 H Blood Pressure Location Rt brachial Position Sitting Pulse 65 Pulse Source Pulse Oximeter Intake Visit Reasons: T1DM Intake Note: Patient present today to follow up on Type 1 Diabetes Mellitus. Last Diabetic Eye exam: Dec 2023 Last Podiatry Visit: 2-3 weeks ago Random Glucose: 170 mg/dl HgA1C: 6.6% 04/03/2024 Director Of Preclinical Research Required: No Accompanied by: Self / Same As Patient Allergies No Known Allergies Allergy (Verified 04/03/24 08:53) HPI Comments Details: 63 YO M with is seen in consultation for T1DM at the request of PCP. Initially diagnosed with T1DM in 11 yrs ago when presented with polyuria .Saw Dr. Evan MD. Saw Dr. Marcano Was initially started on treatment with insulin . Current regimen: Lantus 50 units Humalog 10-20 units, 2-3 units before dinner Per the CGM Dexcom CGMS is active % of time . Avg glucose is 149 . Variability of 39.3 GMI of 6.9 The patient's blood sugars were in target 66 % of the time, above target 29 % of the time, and below target 5% of the time. Pattern shows hypoglycemia occurring late afternoon. Sensitive shows some hypoglycemia occurring predominantly late morning late afternoon States that he has hyperglycemia overnight after eating a snack and dinner and then corrects the hyperglycemia for taking Humalog but then developed hypoglycemia Treats lows with sugar cANDIES OR oj . Does not Checks sugar after to ensure it is rising. Family history of autoimmunity in aunts and uncles Type 1 DM Has eyes checked yearly, last eye exam 12/2023 , has retinopathy. Has neuropathy, ses podiatry. Has nephropathy, on SENAIT/ARB. Has HLD, on statin. . Denies history of CAD. Had diabetes education but not recently . Diet/Carb counting: No Denies prior episodes of DKA. Denies prior severe episodes of hypoglycemia requiring help or hospitalization. Not recently Labs: [facility] Medical History (Updated 03/08/24 @ 16:19 by Cherie Macdonald PA-C) Fatty liver Type 1 diabetes Hypoglycemia Uncontrolled type 1 diabetes mellitus with hyperglycemia, with long-term current use of insulin On beta abhishek at home Personal history of COVID-19 GERD (gastroesophageal reflux disease) Hypothyroidism Hyperlipidemia MI on CPAP HTN (hypertension) Insulin dependent type 2 diabetes mellitus Surgical History History of arthroscopy of left knee Hx of sinus surgery Hx of eye surgery History of surgery History of total left knee replacement History of bilateral carpal tunnel release History of esophagogastroduodenoscopy (EGD) Hx of colonoscopy Family History Father Congestive heart failure Diabetes Mother Lung cancer Social History Household Members: Spouse Household Members Other:: , daughter Housing: House Do you presently have visiting nurse or other home services: No Alcohol intake: current Alcohol intake frequency: 3 or more drinks per day Comment: patient refuses all alarms Patient Tobacco Use Status: Former Tobacco user Tobacco use type: Cigarette Second Hand Smoke Exposure: No Advance Directives Date on File: 05/24/23 service: No Physical Exam Vital Signs: Last Vital Signs Pulse 65 04/03/24 08:52 BP 146/72 H 04/03/24 08:52 BMI result Body Mass Index 48.7 Absence of Cushingoid features. Absence of acromegalic features. Neck exam reveals nl size thyroid about 15 gms. No thyroid nodules palpable. No carotid bruits present. Lungs CTA. Heart S1 S2, Reg R/R. No M/R/ G. Skin exam reveals absence of vitiligo or acanthosis nigricans. Abdominal exam reveals Soft NT/ND with NA BS. No organomegaly present. Extrem Other: Visual exam of foot performed. No ulcerations or open lesions. No onchomycosis, no callouses.Pulses 2 + distally. Sensation intact to monofilament exam. Vibratory sensation sensed decreased bilaterally with 128 Hz tuning fork. There is 3+ edema present around the ankle Results AMB Hemoglobin A1c AMB Hemoglobin A1c 6.6 % Last Edit by SHREYA Romero on 04/03/24 09:11 Results Reviewed Results Reviewed: Laboratory Last Values Glucose (Clinic) 170 mg/dL (60-115) H 04/03/24 09:02 Assessment & Plan Assessment & Plan (1) Uncontrolled type 1 diabetes mellitus with hyperglycemia, with long-term current use of insulin: Code(s): E10.65 - Type 1 diabetes mellitus with hyperglycemia Category: Medical Plan: This is a 62-year-old white male with a history of type 1 diabetes with excellent glycemic control but afternoon hypoglycemia and 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 Plan is to have the patient take 2-3 units extra of Humalog insulin before supper to avoid overnight hyperglycemia. Hopefully by avoiding the hyperglycemia overnight and the correction, this will avoid the morning hypoglycemia. If this does not work, consideration could be given to switching the patient from Lantus to Tresiba which might have a flatter affect. Lastly, we talked about possible use of iLet pump which the patient seems to be a little more receptive to currently. He will follow up with Maryanne Shi NP in 4 weeks to further discuss. He also has a lipid profile ordered by his primary care provider which she will go for. We also spent some time talking about avoidance of alcohol relation to his chronic liver and kidney disease Orders: Orders AMB Hemoglobin A1c Today E10.65 - Type 1 diabetes mellitus with hyperglycemia Coding Level of Care Code Est Pt Level 4 (72274) Complex EM visit Add On G2211 Diagnoses Uncontrolled type 1 diabetes mellitus with hyperglycemia, with long-term current use of insulin E10.65
[2024-04-03 08:52] VITALS: BP 146/72; PULSE 65; BMI 48.7
[2024-04-03 09:06] LABS: Glucose, Whole Blood 170 mg/dL (60-115)
== END 2024-04-03 09:28 | disposition home or self-care (01) ==
PROVIDERS: PCP Internal Medicine; Visit Provider Internal Medicine Endocrinology, Diabetes & Metabolism
DX: E10.65 Type 1 diabetes mellitus with hyperglycemia (principal)
CPT/HCPCS: 99214

== ENCOUNTER → 2024-04-03 08:44 | Outpatient (BNVA) | payer OTHER, SELFPAY | PROVIDERS: PCP Internal Medicine; Visit Provider Internal Medicine Endocrinology, Diabetes & Metabolism | DX: E10.65 Type 1 diabetes mellitus with hyperglycemia (principal); E10.319 Type 1 diabetes mellitus with unspecified diabetic retinopathy without macular edema; E10.40 Type 1 diabetes mellitus with diabetic neuropathy, unspecified; E10.21 Type 1 diabetes mellitus with diabetic nephropathy; E78.5 Hyperlipidemia, unspecified; Z79.4 Long term (current) use of insulin | CPT/HCPCS: 82947; 83036 ==

== ENCOUNTER 2024-04-06 09:02 | Outpatient (AMB) | payer OTHER, SELFPAY ==
--- NOTE | 2024-04-06 09:03 | MHC.AM.SUB ---
Intake Visit Reasons: MAT Tele Allergies No Known Allergies Allergy (Verified 04/03/24 08:53) [facility] HPI MAT Tele: Details: Patient presents for follow up via teleheath for AUD No alcohol since 02/27 Reports he has been tolerating naltrexone, finds it helpful with cravings for alcohol Has also been taking hydroxyzne PRN for anxiety Reporting that he ready to take the next step adn seek additional supports --- I can't do this alone Reviewed [facility] contact information Discussed how patient has been practicing relapse prevention at home and he states that he has been leaving his ID and and money at home as a way to decrease the chances he will stop and buy alcohol when he goes out. Review of Systems Const Reports as per [facility] Telehealth Telehealth Telehealth Platform: Telephone Location of provider rendering services: practice address Location of patient: address on file Patient Identification confirmed using: Name, : Yes Telehealth method: voice only Patient verbally consented to treatment: Yes Patient verbally consented to billing insurance company: Yes Minutes spent on Phone/Video with Pt.: 20 Assessment & Plan Assessment & Plan (1) Alcohol use disorder, severe, dependence: Code(s): F10.20 - Alcohol dependence, uncomplicated Category: Medical Plan: continue naltrexone patient to call [facility] and schedule intake follow up one month--he will reschedule if he is attending [facility] Medical History (Updated 03/08/24 @ 16:19 by Cherie Macdonald PA-C) Fatty liver Type 1 diabetes Hypoglycemia Uncontrolled type 1 diabetes mellitus with hyperglycemia, with long-term current use of insulin On beta abhishek at home Personal history of COVID-19 GERD (gastroesophageal reflux disease) Hypothyroidism Hyperlipidemia MI on CPAP HTN (hypertension) Insulin dependent type 2 diabetes mellitus Surgical History History of arthroscopy of left knee Hx of sinus surgery Hx of eye surgery History of surgery History of total left knee replacement History of bilateral carpal tunnel release History of esophagogastroduodenoscopy (EGD) Hx of colonoscopy Family History Father Congestive heart failure Diabetes Mother Lung cancer Social History Household Members: Spouse Household Members Other:: , daughter Housing: House Do you presently have visiting nurse or other home services: No Alcohol intake: current Alcohol intake frequency: 3 or more drinks per day Comment: patient refuses all alarms Patient Tobacco Use Status: Former Tobacco user Tobacco use type: Cigarette Second Hand Smoke Exposure: No Advance Directives Date on File: 05/24/23 service: No
== END 2024-04-06 09:18 | disposition home or self-care (01) ==
PROVIDERS: PCP Internal Medicine; Visit Provider Nurse Practitioner Psychiatric/Mental Health
DX: F10.20 Alcohol dependence, uncomplicated (principal)
CPT/HCPCS: 98967

== ENCOUNTER → 2024-04-06 09:02 | Outpatient (BNVA) | payer OTHER, SELFPAY | PROVIDERS: PCP Internal Medicine; Visit Provider Nurse Practitioner Psychiatric/Mental Health | DX: F10.20 Alcohol dependence, uncomplicated (principal) ==

== ENCOUNTER 2024-05-04 09:07 | Outpatient (AMB) | payer OTHER, SELFPAY ==
--- NOTE | 2024-05-04 08:45 | MHC.AM.SUB ---
Intake Visit Reasons: MAT Tele Allergies No Known Allergies Allergy (Verified 04/03/24 08:53) HPI HPI MAT Tele: Details: Patient presents for AUD treatment follow up via telehealth Has been attending [facility] 3 days per week and attending [facility] 2 months no alcohol Tolerating Naltrexone --taking it consistently QD in the morning Hydroxyzine PRN for anxiety Discussed 2nd dose of Naltrexone as needed for urges Review of Systems Const Reports as per HPI and Reports no additional complaints Telehealth Telehealth Telehealth Platform: Telephone Location of provider rendering services: practice address Location of patient: address on file Patient Identification confirmed using: Name, : Yes Telehealth method: voice only Patient verbally consented to treatment: Yes Patient verbally consented to billing insurance company: Yes Minutes spent on Phone/Video with Pt.: 20 PFSH Medical History (Updated 03/08/24 @ 16:19 by Cherie Macdonald PA-C) Fatty liver Type 1 diabetes Hypoglycemia Uncontrolled type 1 diabetes mellitus with hyperglycemia, with long-term current use of insulin On beta abhishek at home Personal history of COVID-19 GERD (gastroesophageal reflux disease) Hypothyroidism Hyperlipidemia MI on CPAP HTN (hypertension) Insulin dependent type 2 diabetes mellitus Surgical History History of arthroscopy of left knee Hx of sinus surgery Hx of eye surgery History of surgery History of total left knee replacement History of bilateral carpal tunnel release History of esophagogastroduodenoscopy (EGD) Hx of colonoscopy Family History Father Congestive heart failure Diabetes Mother Lung cancer Social History Household Members: Spouse Household Members Other:: , daughter Housing: House Do you presently have visiting nurse or other home services: No Alcohol intake: current Alcohol intake frequency: 3 or more drinks per day Comment: patient refuses all alarms Patient Tobacco Use Status: Former Tobacco user Tobacco use type: Cigarette Second Hand Smoke Exposure: No Advance Directives Date on File: 05/24/23 service: No Assessment & Plan Assessment & Plan (1) Alcohol use disorder, severe, dependence: Code(s): F10.20 - Alcohol dependence, uncomplicated Category: Medical Plan: continue naltrexone follow up 4 weeks agreeable to referral to [facility] for ongoing therapy after [facility] complete
--- OUTSIDE RECORDS SUMMARY | 2024-05-04 09:31 | XMS_ITS | Encounter Summary ---
Author Organization [facility], Address [address] [place] [address] Phone Care Team Providers Care Pencils Washer Name Role Phone Cam Pickett MD Primary Care Provider [phone] Encounter Details Date Type Department Care Team (Late st Contact Info) Description 01/10/2024 Documentation Only [facility], - Becky Sierra [address] [place] [id number] Jaqui Amanda [address] [place] [address] Social History Tobacco Use Types Packs/Day Years Used Date Smoking Tobacco: Former Alcohol Use Standard Drinks/Week Comments Never 0 (1 standard drink = 0.6 oz pur e alcohol) Sex and Gender Information Value Date Recorded Sex Assigned at Not on file Legal Sex Male 4:53 PM EST Gender Identity Not on file Sexual Orientation Not on file documented as of this encounter Plan of Treatment Upcoming Encounters Date Type Department Care Team (Late st Contact Info) Description 01/15/2025 1:45 PM EDT Office Visit [facility] [place] [address] [place] [address] Jorge Luis Sebastian MD [address] [place] [address] [place] [address] documented as of this encounter Visit Diagnoses Not on filedocumented in this encounter Care Teams Pencils Washer Relationship Specialty Start Date End Date Cam Pickett MD [facility] [place] ID PCP - General Internal Medicine 05/21/21 documented as of this encounter
--- OUTSIDE RECORDS SUMMARY | 2024-05-04 09:31 | XMS_ITS | Clinical Summary ---
Author Organization [facility], Address [address] [place] [address] Phone Care Team Providers Care Black Leather Trimmer Name Role Phone Cam Pickett MD Primary Care Provider [phone] Allergies No known active allergies Medications aspirin 81 MG chewable tablet Chew 81 mg 0 Active cyanocobalamin (VITAMIN B-12) 1000 MCG tablet Take 1,000 mcg by mouth 9 Active HYDROcodone-ac etaminophen (NORCO) 7.5-325 MG per tablet Take 1 tablet by mouth 2 Active insulin glargine (LANTUS) 100 UNIT/ML injection See Instructions, INJECT SUBCUTANEOUSLY 50 UNITS AT BEDTIME, # 50 mL, 3 Refills, 02/09/21 11:52:00 EST, [facility], 174.7, cm, 02/06/21 13:52:00 EDT, Height 1 Active insulin lispro (HumaLOG) 100 UNIT/ML injection Inject under the skin 1 Active meloxicam (MOBIC) 15 MG tablet See Instructions, TAKE 1 TABLET BY MOUTH DAILY, # 90 tablet, 3 Refills, Maintenance, [facility], 174.7, cm, 11/11/20 9:13:00 EDT, Height 1 Active pantoprazole (PROTONIX) 40 MG EC tablet Take 1 tablet by mouth 1 Active pyridoxine (B-6) 100 MG tablet Take 200 mg by mouth 9 Active simvastatin (ZOCOR) 80 MG tablet See Instructions, TAKE 1 TABLET BY MOUTH DAILY AT BEDTIME, # 90 tablet, 1 Refills, [facility], 174.7, cm, 11/11/20 9:13:00 EDT, Height Active metoprolol succinate XL (TOPROL XL) 25 MG 24 hr tablet Take 25 mg by mouth 1 (one) time each day Do not crush or chew. Active FLUoxetine (PROzac) 10 MG tablet Take 10 mg by mouth 1 (one) time each day Active levothyroxine (SYNTHROID, LEVOTHROID) 300 MCG tablet Take 300 mcg by mouth 1 (one) time each day Active lisinopril (PRINIVIL,ZEST RIL) 30 MG tablet Take 30 mg by mouth 1 (one) time each day Active ferrous sulfate 325 (65 Fe) MG tablet Take 325 mg by mouth 1 (one) time each day with breakfast Active Ergocalciferol (Vitamin D2) 50 MCG (1999 UT) tablet Take by mouth Activ e furosemide (Lasix) 20 MG tablet Take 1 tablet (20 mg total) by mouth 1 (one) time each day 90 tablet 3 4 Active Active Problems Problem Noted Date Diagnosed Date Proteinuria 07/28/2021 Renal disorder due to type 1 diabetes mellitus 0 07/28/2021 Obesity 07/28/2021 Hypertensive disorder 07/27/2021 Diabetes mellitus 07/27/2021 Immunizations Name Administration Dates Next Due Influenza (IM) Preservative Free 021,01/10/2019,01/11/2018,12/31/2016 ,02/03/2016,01/20/2015 Influenza, Unspecified 03/23/2022,02/21/2019,04/2017 Pfizer SARS-COV-2 03/24/2021,03/05/2021,05/13/19 21,04/22/2020 Pneumococcal Conjugate 10/25/2015 Pneumococcal Polysaccharide 04/04/2016 Shingrix 06/01/2019,03/31/2019 Td, Unspecified 05/13/2017 Tdap 04/04/2016 Family History Medical History Relation Comments Diabetes Father Heart disease Father Hypertension Father Cancer Mother Hypertension Mother Relation Status Comments Father Mother Social History Tobacco Use Types Packs/Day Years Used Date Smoking Tobacco: Former Alcohol Use Standard Drinks/Week Comments Never 0 (1 standard drink = 0.6 oz pur e alcohol) Sex and Gender Information Value Date Recorded Sex Assigned at Not on file Legal Sex Male 4:53 PM EST Gender Identity Not on file Sexual Orientation Not on file Plan of Treatment Upcoming Encounters Date Type Department Care Team (Late st Contact Info) Description 01/15/2025 1:45 PM EDT Office Visit [facility] [address] [place] [address] Jorge Luis Sebastian MD [address] [place] [address] Health Maintenance Due Date Last Done Comments Colorectal Cancer Screening: Annual FOBT 12/23/2011 Colorectal Cancer Screening: Colonoscopy 12/23/2011 Colorectal Cancer Screening: Sigmoidoscopy 12/23/2011 Pneumococcal Vaccine: Pediatrics (0 to 5 Years) and At-Risk Patients (6 to 64 Years) (2 of 2 - PCV) 04/04/2017 04/04/2016, 10/25/2015 Diabetes: Ophthalmology Exam 05/22/2021 Diabetes: Pedal Pulse Checked 05/22/2021 Diabetes: Sensory Foot Exam 05/22/2021 Diabetes: Visual Foot Exam 05/22/2021 Diabetes: Hemoglobin A1C 10/25/2023 07/26/2023, 03/04 Influenza Vaccine (#1) 2023 2, 12/12/2020, 02/21/2019, Additional history exists Hepatitis B Vaccine Aged Out No longe r eligible based on patient's age to complete this topic Procedures Procedure Name Priority Date/Time Associated Diagnosis Comments HEMOGLOBIN A1C Routine 07/26/2023 2:45 PM EDT Proteinuria, not otherwise specified Stage 3a chronic kidney disease (HCC) from Last 3 Months or Most Recently Relevant to Health Maintenance Results * (ABNORMAL) Hemoglobin A1c (07/26/2023 2:45 PM EDT) Hemoglobin A1C 6.0(H) 4.8 - 5.6 % See order comments Comment: ? Prediabetes: 5.7 - 6.4 ? Diabetes: >6.4 ? Glycemic control for adults with diabetes: <7.0 Blood (Blood, Venous) 07/26/2023 2:45 PM EDT 07/26/2023 Narrative [facility] - 07/27/2023 4:08 PM EDT Performed at: ??01 - [facility] [address] ??[id number] Appointment Specialist: Laura Aviles MD, Phone: ??[phone] us Jorge Luis Seabstian MD LAB BLOOD ORDERABLES Final Resul t [facility] See order comments [place] [address] from Last 3 Months or Most Recently Relevant to Health Maintenance Insurance [facility] Care Teams Black Leather Trimmer Relationship Specialty Start Date End Date Cam Pickett MD [facility] [place] PCP - General Internal Medicine 05/21/21
== END 2024-05-04 09:07 | disposition home or self-care (01) ==
LOC: HO.HCC 09:07
PROVIDERS: PCP Internal Medicine; Visit Provider Nurse Practitioner Psychiatric/Mental Health
DX: F10.20 Alcohol dependence, uncomplicated (principal)
CPT/HCPCS: 98013

== ENCOUNTER 2024-06-21 10:07 | Outpatient (AMB) | payer OTHER, SELFPAY ==
--- NOTE | 2024-06-21 07:28 | A.OFFVIS_ITS ---
Vital Signs 06/21/24 10:25 06/21/24 11:05 Height 5 ft 10 in Weight 354 lb 15.108 oz BMI 50.9 BP 160/90 H 140/62 H Blood Pressure Location Rt brachial Lt brachial Position Sitting Sitting Pulse 62 Pulse Source Pulse Oximeter Pulse Oximetry (%) 98 Oxygen Delivery Method Room Air Intake Visit Reasons: T1DM Intake Note: Patient presents today for a follow-up on Type 1 Diabetes Mellitus: Last Diabetic eye exam was on: 12/2023 Last Podiatry exam was on: 2023 Most recent HbA1c: 5.3%, 06/21/2024 Random Glucose- 116 mg/dL, Today Technology Director Required: No Accompanied by: Self / Same As Patient Allergies No Known Allergies Allergy (Verified 04/03/24 08:53) HPI Comments Details: 63 YO M with is seen in f/u for T1DM at the request of PCP. He was last seen by Dr. Diaz 04/03/24.discussed. Hemoglobin A1c 06/21/2024 5.3%, 04/03/2024 6.6%. Initially diagnosed with T1DM in 11 yrs ago when presented with polyuria .Saw Dr. Evan MD. Saw Dr. Marcano He recently had a 2 week stay for rehab at [facility] for detox. He has not had anything to drink since May 26. He is using prior and meditation. Has attended some groups. Was initially started on treatment with insulin. Current regimen: Lantus 50 units Humalog 10-20 units tid with meals Dexcom average glucose: 151 14 day continuous glucose monitor report reviewed Glucose Managment indicator % Days with CGM data 82 % TIme in ranges: 5 % very high (above 250) 23 % high ?(181-250) 70 % in range ?(70-180] 2 % low (69-55) 0 % ?very low (below 54) 36.8 Standard Deviation Interpretation: Well-controlled Treats lows with sugar candies/jelly beans. Family history of autoimmunity in aunts and uncles Type 1 DM Has retinopathy: Has eyes checked yearly, last eye exam 12/2023 eyes have been stable Has neuropathy, sees podiatry regularly. Has symptoms of numbness and tingling does walk barefooted in the house Has nephropathy, on SENAIT/ARB. 08/22/2023 microalbumin 172 03/01/24 EGFR 32 Has HLD, on statin. . Denies history of CAD. Denies symptoms of chest pain, dyspnea or claudication. Had diabetes education but not recently . Diet/Carb counting: Tries to balanced food Denies prior episodes of DKA. Denies prior severe episodes of hypoglycemia requiring help or hospitalization. Not recently [facility] Medical History (Updated 06/21/24 @ 07:40 by Maryanne Phillips NP) Neuropathy Retinopathy Chronic kidney disease (CKD) stage G3b/A2, moderately decreased glomerular filtration rate (GFR) between 30-44 mL/min/1.73 square meter and albuminuria creatinine ratio between 30-299 mg/g Fatty liver Hypoglycemia Uncontrolled type 1 diabetes mellitus with hyperglycemia, with long-term current use of insulin On beta abhishek at home Personal history of COVID-19 GERD (gastroesophageal reflux disease) Hypothyroidism Hyperlipidemia MI on CPAP HTN (hypertension) Insulin dependent type 2 diabetes mellitus Surgical History History of arthroscopy of left knee Hx of sinus surgery Hx of eye surgery History of surgery History of total left knee replacement History of bilateral carpal tunnel release History of esophagogastroduodenoscopy (EGD) Hx of colonoscopy Family History Father Congestive heart failure Diabetes Mother Lung cancer Social History Household Members: Spouse Household Members Other:: , daughter Housing: House Do you presently have visiting nurse or other home services: No Alcohol intake: current Alcohol intake frequency: 3 or more drinks per day Comment: patient refuses all alarms Patient Tobacco Use Status: Former Tobacco user Tobacco use type: Cigarette Second Hand Smoke Exposure: No Advance Directives Date on File: 05/24/23 service: No Physical Exam Vital Signs: Last Vital Signs Pulse 62 06/21/24 10:25 BP 160/90 H 06/21/24 10:25 Pulse Ox 98 06/21/24 10:25 Oxygen Delivery Method Room Air 06/21/24 10:25 BMI result Body Mass Index 50.9 Const Other: Absence of Cushingoid features. Absence of acromegalic features. Neck exam reveals nl size thyroid about 15 gms. No thyroid nodules palpable. Heart S1 S2, Reg R/R. No M/R G. Skin exam reveals absence of vitiligo or acanthosis nigricans. Visual exam of foot performed. No ulcerations or open lesions. No inter digit maceration or fissuring. some onychomycosis, mild. Sensation intact to monofilament exam. Vibratory sensation is diminished with 128 Hz tuning fork. Office Procedures Glucose Monitoring Details Details: see [facility] [address] - Glucose monitoring, continuous-physician I&R Procedure code (CPT) selection complete Results AMB Hemoglobin A1c AMB Hemoglobin A1c 5.3 % Last Edit by SHREYA Melchor on 06/21/24 10:43 Results Reviewed Results Reviewed: Laboratory Last Values Glucose (Clinic) 116 mg/dL (60-115) H 06/21/24 10:35 Hgb A1c (Clinic) 5.3 % (4.0-6.0) 06/21/24 10:37 Assessment & Plan Assessment & Plan (1) Type 1 diabetes: Code(s): E10.9 - Type 1 diabetes mellitus without complications Plan: This is a 63-year-old white male with a history of type 1 diabetes with excellent glycemic control with known microvascular complications namely ckd with diminished eGFR 32, macro albuminuria and retinopathy as well as neuropathy. He reports retinopathy is stable. Continue current dose of insulin. He is not interested in a pump and I do not believe he would be a good candidate. The patient had an opportunity to ask questions regarding treatment plan. The patient expressed understanding and agreement with the above treatment plan. The patient is aware they should contact our office by phone for worsening glucose readings or for any low blood sugars which may warrant a change in diabetes medication. Compliance is encouraged with medications and any followup testing/consults which may have been ordered. Avoidance of alcohol in regards to fatty liver and elevated LFT's discussed. He declined referral to GI despite recommendation. Orders: Orders AMB Hemoglobin A1c Today E10.65 - Type 1 diabetes mellitus with hyperglycemia AMB Glucose Monitoring Today E10.65 - Type 1 diabetes mellitus with hyperglycemia Patient Instructions: Symptoms of DKA (diabetic ketoacidosis): early: frequent urination, dry mouth, fatigue, feeling ill, severe symptoms: ketones in the urine, abdominal pain, nausea, vomiting and weakness. It is important to hydrate with sugar free liquids every 15-30 minutes and bring the sugars down to normal levels. If you are moderate or severe with ketones or unable to bring glucose to less than 200, go to the emergency room. Sick day management reviewed with the patient. Check your feet daily looking for any signs of infection, drainage, redness, ulceration and seek medical attention if this occurs. Break in shoes gradually and do not wear open-toed shoes or walk stocking footed or barefooted. Take 15 carb carbohydrate grams to treat a low sugar (3-4 glucose tablets, half a glass of juice or 15 carbohydrate grams of soft candy such as gummie snacks). Recheck your sugar in 15 minutes and re-treat again with 15 carbohydrate grams if low or still with symptoms. Do not drive a car or operate machinery if you do not know what your blood sugar is, if it is low or in excess of 300. Coding Level of Care Code Est Pt Level 4 (95626) Complex EM visit Add On G2211 Diagnoses Type 1 diabetes E10.9 CPT Codes Details - CPT: 92137 - Glucose monitoring, continuous-physician I&R ([id number]) Time Spent (min) 30 Comment Time spent reviewing labs/provider notes, face to face, chart doc,
[2024-06-21 10:25] VITALS: BP 160/90; PULSE 62; O2SAT 98; BMI 50.9
[2024-06-21 10:38] LABS: Glucose, Whole Blood 116 mg/dL (60-115)
[2024-06-21 11:05] VITALS: BP 140/62
--- OUTSIDE RECORDS SUMMARY | 2024-06-21 11:26 | XMS_ITS ---
Author Organization [facility] Address [address] [place] [address] Care Team Providers Care Tobacco Prizer Name Role Phone Cam Pickett Primary Care Provider Edith Armijo [phone] Encounters Encounter Location Date Provider Diagnosis [address] [address] 05/29/2024 Edith Salter Plan Of Treatment Next Appt Details Provider Name:Edith patel, 07/24/2024 01:30:00 PM, [address] [place] [address], [address], Progress Notes * Mickey WARDDOB: 3 (63 yo M)Acc No.[id number]:05/29/2024 Progress Note Patient:?Mickey WARD Provider:?Edith Salter DPM :1960???Age:63 Y???Sex:Male Bruce e:05/29/2024 Address: [address] Dolly [place]an [id number] Pcp:Cam Pickett Subjective: * Chief Complaints: * ??? * Medical History:? Objective: * Vitals:? Assessment: Plan: * Treatment: * Images: * The named appointment provid er may or may not be the originator of this progress note, and it is not deemed complete until electronically signed by the appointment provider. Sign off status: Pending * Provider:?Edith Salter DPM Date:? Generated for Christos more/Daly/Jeannie on:?06/21/2024 11:25 AM EDT
--- OUTSIDE RECORDS SUMMARY | 2024-06-21 11:26 | XMS_ITS | Patient Health Record ---
Author Organization [facility] Address [address] [place] [address] Care Team Providers Care Rail Car Operator Name Role Phone Cam Pikcett MD Primary Care Provider UnavailDean Walker Unavailable [phone] Allergies No Known Allergies Reason For Referral No Information Medications Medication SIG (Take, Route, Frequency, Duration) Notes Start Date End Date Status Felodipine Active HumaLOG Active FLUoxetine HCl 10 MG 1 capsule Orally On ce a day for 30 day(s) Active Metoprolol Succinate 25 MG 1 capsule Ora lly Once a day for 30 day(s) Active Meloxicam Active Pantoprazole Sodium 40 MG 1 tablet Orall y Once a day Active Aspir-81 Active Simvastatin Active Levothyroxine Sodium Active Furosemide Active Immunizations Vaccine Route Administration Date Status Comme nts Flu vaccine no Preserv 3 and > Unknown 11/02/2014 Admin istered Influenza Unknown 01/08/2020 Administered Problems Problem Type SNOMED Code ICD Code Onset Dates Problem Status W/U Status Risk Notes Problem 821299081 Encounter for screening for malignant neoplasm of colon (Z12.11) Active confirmed Problem 782312520 History of adenomatous polyp of colon (Z86.010) Active confirmed Problem Screening for malignant neoplasm of rectum (899413745) Encounter for screening for malignant neoplasm of rectum (Z12.12) Active confirmed Problem 888808297 Gastroesophageal reflux disease without esophagitis (K21.9) Active confirmed Problem 204832886437724 Preprocedural examination (Z01.818) Active confirmed Problem 298911219 Long-term use of aspirin therapy (Z79.82) Active confirmed Problem Diverticulosis of colon (272533916) Diverticulosis of colon (K57.30) Active confirmed Plan Of Treatment Pending Test Test Name Order Date Pathology 02/18/2021 Future Test Test Name Order Date UPPER GI ENDOSCOPY 02/13/2015 COLONOSCOPY 02/13/2015 COLONOSCOPY 01/07/2021 Insurance Providers Payer Name Payer Address Payer Phone Subscriber Number Group Number Insured Name Patient Relationship to Insured Coverage Start Date Coverage End Date [facility] [address] [place] [address] [phone] [id number] HORACIO WARD Self - patient is the insured Medical (General) History Medical History History ICD Code IDDM HTN Sleep apnea--uses a CPAP Hyperlipidemia Hypothyroidism GERD--EGD 03/2015 minimal HH, no esophag itis Denies [place],CVA,Lung disease,renal disease COVID 01/2020 Screening colonoscopy 03/2015 with 2 sma ll tubular adenomas removed Surgical History Surgery Date(Month/Year) CARPAL TUNNEL-bilateral LEFT KNEE LASER SURGERY BOTH EYES Surgery on left lower leg for a compart ment syndrome Left knee replacement
--- OUTSIDE RECORDS SUMMARY | 2024-06-21 11:26 | XMS_ITS | Clinical Summary ---
Author Organization [facility], Address [address] [place] [address] Phone Care Team Providers Care Janitor Helper Name Role Phone Cam Pickett MD Primary Care Provider [phone] Allergies No known active allergies Medications aspirin [...] Office Visit [facility] [address] [place] [address] Jorge Luis Sebastian MD [address] [place] [address] Health Maintenance Due Date Last [...] PM EDT Performed at: ??01 - [facility] [address] ??[id number] Dope House Operator Helper: Laura Aviles MD, Phone: ??[phone] us Jorge Luis Sebastian MD LAB BLOOD ORDERABLES Final Resul t [facility] See order comments [place] [address] from Last 3 Months or Most Recently Relevant to Health Maintenance Insurance [facility] Care Teams Janitor Helper Relationship Specialty Start Date End Date Cam Pickett MD [facility] [place] PCP - General Internal Medicine 05/21/21
--- OUTSIDE RECORDS SUMMARY | 2024-06-21 11:26 | XMS_ITS ---
Author Organization [facility] Address [address] [place] [place] [address] Care Team Providers Care Customer Facilities Supervisor Name Role Phone Cam Pickett Primary Care Provider Edith Armijo Unavailable [phone] Allergies No Known Allergies REASON FOR VISIT At Risk Footcare, Skin problem(s) Medications Medication SIG (Take, Route, Frequency, Duration) Notes Start Date End Date Status Levoxyl Not-Taking AFO-fixed . 1 . Wear daily for . Not-Taking Felodipine Not-Takin g Extra Depth Diabetic Shoes with 3 Pair Custom heat-molded multi-density innersoles for 1 year Dx: 01/10/2019 Not-Taking Simvastatin Not-Taki ng Furosemide 1 tab Oral 01/03/2014 Not-Chivo ing Lisinopril Not-Takin g Insulin Not-Taking Lipitor 10 MG 1 tablet Orally Once a day for 30 day(s) Not-Taking Protonix Not-Taking Extra Depth Diabetic Shoes with 3 Pair Custom heat-molded multi-density innersoles for 1 year Dx: 04/15/2021 Active Meloxicam Active Metoprolol & Diet Manage Prod Active Pantoprazole Sodium 40 MG as directed Orally Active Vicodin ES PRN Not-Takin g Fluoxetine Active HumaLOG Active Lantus Active Levothyroxine Sodium .300mcg 1 a day, .250 2 a day Active Lisinopril-hydroCHLOROthia zide 20-12.5 MG 1 tablet Orally Once a day Active Motrin IB Not-Taking hydroCHLOROthiazide Not-Taking AFO-fixed . 1 . Wear daily for . Active Enalapril Maleate No t-Taking Extra Depth Diabetic Shoes with 3 Pair Custom heat-molded multi-density innersoles for 1 year Dx: Active Social History Tobacco Use: Social History Observation Description Date Details (start date - stop date) Former Smoker NA - NA Tobacco Use/Smoking Question Answer Notes Are you a: former smoker Additional Findings: Tobacco Non-User Current no n-smoker Tobacco use other than smoking: Question Answer Notes Are you an other tobacco user? No AUDIT-C (Standard) Question Answer Notes Did you have a drink containing alcohol in the p ast year? No Points 0 Interpretation Negative Problems Problem Type SNOMED Code ICD Code Onset Dates Problem Status W/U Status Risk Notes Problem Polyneuropathy due to type 2 diabetes mellitus (168237646) Type 2 diabetes mellitus with diabetic polyneuropathy (E11.42) Active confirmed Vital Signs Height 5ft 10in in 03/13/2024 Weight 320 lbs 03/13/2024 BMI 45.91 kg/m2 03/13/2024 Blood pressure systolic 183 mm Hg 03/13/20 24 Blood pressure diastolic 97 mm Hg 024 Heart Rate 74 /min 03/13/2024 Encounters Encounter Location Date Provider Diagnosis [facility] [address] [address] 03/13/2024 Edith Salter Type 2 diabetes mellitus with diabetic polyneuropathy E11.42 ; Tinea unguium B35.1 and Xerosis of skin L85.3 Assessments Encounter Date Diagnosis (ICD Code) Assessment Notes Treatment Notes Treatment Clinical Notes Section Notes 03/13/2024 Type 2 diabetes mellitus with diabetic polyneuropathy (ICD-10 - E11.42) 03/13/2024 Tinea unguium (ICD-10 - B35.1) 03/13/2024 Xerosis of skin (ICD-10 - L85.3) Plan Of Treatment Next Appt Details Follow Up: 2 Months, Reason: Provider Name:Edith patel, 07/24/2024 01:30:00 PM, [address] [place] [address], [phone], Procedure Notes * Category Sub-Category Detail Notes Debride Nail 6-10 Nail debridement Due to the cl inical pathology outlined in the exam findings, performance of this nail treatment is medically necessary as its management by an unskilled/untrained nonprofessional would put this patients foot and overall health at risk. Therefore, debridement to affected nail(s), as described in exam, was performed extensively to reduce/remove overall nail length, girth, thickness, subungual debris, and necrotic tissue, by manual and/or electrical means through the use of a nail nipper and/or dremel-type bark grinder, to a more viable healthy nail plate or bed tissue 6-10 nails in total. Silver nitrate was used for any petechial bleeding as necessary. Definitive antifungal treatment options, both pharmaceutical and surgical, have been reviewed and discussed with the patient. The patient solely prefers the use of intermittent/as needed professional debridement services for their nail condition and understands the need for additional periodic treatments to maintain effectiveness in symptomatic relief - 08706 Keratoma Treatment Parring or Cutting o f Benign Hyperkeratotic Lesion(s) (-57) More than 4 Lesions - Due to the at risk nature of the patients medical condition as documented in the exam findings, performance of this keratoderma treatment is medically necessary as its management by an unskilled/untrained nonprofessional would put this patients foot and overall health at risk. Therefore, the benign hyperkeratotic lesions, ( 6 ) in total, locations as stated and described in the exam were pared, and/or cut utilizing a sterile 15 blade, tissue nippers, and/or power dremel instrumentation - 17778 Progress Notes * Mickey WARDDOB: 3 (63 yo M)Acc No.[id number]:03/13/2024 Progress Note Patient:?Mickey WARD Provider:?Edith Salter DPM :1960???Age:63 Y???Sex:Male Bruce e:03/13/2024 Address:[address] [place] [address], [id number] Pcp:Cam Pickett Subjective: * Chief Complaints: * ???At Risk FootcareSkin prob lupillo(s) * HPI: ???At Risk footcare:?Pt States Last PCP Visit:?Date?01/17/2024 ???Skin problems:?Nature:?dryness , scaling.?Location:?B/L .?Duration:?several days.?Course:?worse.? * ROS:?General/Constitutional:?Nausea?denies.?Vomiting?denies.?Hunger Thirst?denies.?Loss appetite?denies.?Chills?denies.?Fatigue?denies.?Fever?denies.?Night Sweats?denies.?Unexplained weight loss?denies.?Unexplained weight gain?denies.?HEENTM:?Dentures?denies.?Dizziness?denies.?Glasses/contacts?denies.?Retinopathy?de nies.?Blurred/double vision?denies.?TMJ?denies.?Discharge/drainage?denies.?Implants?admits- crowns.?Sore throat?denies.?Dental implants?denies.?Hard of hearing ?denies.?Difficulty chewing/swallowing/speaking?denies.?Nose bleeds?denies.?Sore mouth?denies.?Respiratory:?On Oxygen?denies.?Pneumonia/pleurisy?denies.?Bronchitis?denies.?Emphysema?denies.?C oughing?denies.?Cough blood?denies.?Shortness of breath?denies.?Wheezing?denies.?Cardiovascular:?Pacemaker?denies.?MVP?denies.?WPW?denies.?CHF?denies.?Heart attack?denies.?Septal defect?denies.?Rapid beat?denies.?Chest pain ?denies.?Atrial Fib.?denies.?Murmur/Palpitations?denies.?Gastrointestinal:?Hemorrhoids?denies.?Stomach/Abdominal pain?denies.?Dark blood stool?denies.?Irritable bowel ?denies.?Constipation?denies.?Diarrhea?denies.?Hematology:?Swelling?denies.?Clots?denies.?Varicose Veins?denies.?Bruising?denies.?Bleeding problem?denies.?Genitourinary:?Blood urine?denies.?Frequent/Painfu/urination/bladder control?denies.?Kidney stones?denies.?Infection (UTI)?denies.?Nephropathy?denies.?sex trans dis (STD)?denies.?Prostate?denies.?Musculoskeletal:?Hammertoes?denies.?Bunions?denies.?Back Pain?admits.?Muscle Cramps/ Resting?denies.?Muscle cramps / walking?denies.?Generalized aches and pains?denies.?Weakness?denies.?Integ.:?Pierce?denies.?Scars?denies.?Corns/calluses?denies.?Ingrown nails?denies.?Painful nails?denies.?Open Sores?denies.?Rashes?denies.?Neurologic:?Difficulty sleeping?denies.?Brain disorder?denies.?Numbness?admits.?Balance trouble?denies.?Confusion?denies.?Fainting/blackouts?denies.?Tingling?admits.?Tr emors?denies.? * Medical History:? * Surgical History:?carpal abdulaziz reynold surgery 2002left knee arthroscopic left leg surgery 3 laser eye surgerys right eye surgery colonoscopy knee surgery 2019skin cancer surgery inner left thigh and arm 11/2023 * Hospitalization/Major Diagno stic Procedure:?Patient had to call 911 today because his blood sugar was 18. He refused to go to the hospital. 10/07/11Covid 2019 * Family History:?Mother: dece ased, diagnosed with Unspecified cerebral artery occlusion with cerebral infarction.?Father: , foot problems, diagnosed with Diabetic - NIDDM, Unspecified essential hypertension, Unspecified heart disease.?Daughter(s): alive.?Son(s): alive.?Spouse: alive.?1 son(s) , 1 daughter(s) . .? * Social History:?Tobacco Use:?Tobacco Use/Smoking?Are you a:?former smoker ?Additional Findings: Tobacco Non-User?Current non-smoker ?Tobacco use other than smoking?Are you an other tobacco user??No ???Drugs/Alcohol:?Drugs?Have you used drugs other than those for medical reasons in the past 12 months??No ???Miscellaneous:?Caffeine: yes, frequency:, 1-2 cups per day. ?Children: yes, 2. ?Exercise: yes, walking. ?Marital status: . ?Occupation: restauant recruitment officer. ???Drug/Alcohol:?AUDIT-C (Standard)?Did you have a drink containing alcohol in the past year??No ?Points?0 ?Interpretation?Negative * Medications:?TakingAFO-fixed . Ankle-Foot Orthotic 1 . Wear daily Extra Depth Diabetic Shoes with 3 Pair Custom heat-molded multi-density innersoles for 1 year Dx: Fluoxetine HumaLOG Lantus Levothyroxine Sodium , Notes to Pharmacist: .300mcg 1 a day, .250 2 a dayLisinopril-hydroCHLOROthiazide 20-12.5 MG Tablet 1 tablet Orally Once a day Meloxicam Metoprolol & Diet Manage Prod Pantoprazole Sodium 40 MG Tablet Delayed Release as directed Orally Extra Depth Diabetic Shoes with 3 Pair Custom heat-molded multi-density innersoles for 1 year Dx: Taking AFO-fixed . Ankle- Foot Orthotic 1 . Wear daily Taking Extra Depth Diabetic Shoes with 3 Pair Custom heat-molded multi-density innersoles for 1 year Dx: Taking Fluoxetine Taking HumaLOG Taking Lantus Taking Levothyroxine Sodium , Notes to Pharmacist: .300mcg 1 a day, .250 2 a dayTaking Lisinopril-hydroCHLOROthiazide 20-12.5 MG Tablet 1 tablet Orally Once a day Taking Meloxicam Taking Metoprolol & Diet Manage Prod Taking Pantoprazole Sodium 40 MG Tablet Delayed Release as directed Orally Taking Extra Depth Diabetic Shoes with 3 Pair Custom heat-molded multi-density innersoles for 1 year Dx: Not-Taking/PRNVicodin ES , Notes to Pharmacist: PRNLisinopril Furosemide 1 tab Oral Insulin Lipitor 10 MG Tablet 1 tablet Orally Once a day Protonix Simvastatin Levoxyl AFO-fixed . Ankle-Foot Orthotic 1 . Wear daily Felodipine Extra Depth Diabetic Shoes with 3 Pair Custom heat-molded multi-density innersoles for 1 year Dx: Enalapril Maleate Motrin IB hydroCHLOROthiazide Medication List reviewed and reconciled with the patientNot-Taking/PRN Vicodin ES , Notes to Pharmacist: PRNNot-Taking/PRN Lisinopril Not-Taking/PRN Furosemide 1 tab Oral Not-Taking/PRN Insulin Not- Taking/PRN Lipitor 10 MG Tablet 1 tablet Orally Once a day Not-Taking/PRN Protonix Not-Taking/PRN Simvastatin Not-Taking/PRN Levoxyl Not-Taking/PRN AFO-fixed . Ankle-Foot Orthotic 1 . Wear daily Not-Taking/PRN Felodipine Not-Taking/PRN Extra Depth Diabetic Shoes with 3 Pair Custom heat-molded multi-density innersoles for 1 year Dx: Not-Taking/PRN Enalapril Maleate Not-Taking/PRN Motrin IB Not- Taking/PRN hydroCHLOROthiazide Medication List reviewed and reconciled with the patient * Allergies:?N.K.D.A.yes[Aller gies Verified] Objective: * Vitals:?Ht: 5ft 10in, Wt:320 , BMI:45.91, Shoe size: 10.5W, BP:183/97mm Hg, HR:74/min, BS: 150, Ht-cm: 177.8 cm, Wt-k.15 kg. * ???Past Orders: ???Lab:HEMOGLOBIN A1C (GLYCO HEMOGLOBIN) (Order Date - 01/03/2024) (Collection Date & Time - 01/03/2024 08:58 AM) ? Value Reference Range ?HEMOGLOBIN A1C % (HH) 6.2 * Examination: ???Neurological: ?SENSORY:? Neurological exam demonstrates, reduced light touch sensation, reduced sharp/dull pin prick discrimination , B/L, 5.07 monofilament test performed at plantar aspects of 5 varied sites per foot shows sensation, reduced , B/L.?Nails: ?NAILS are:?Elongated, overgrown, dystrophic, lytic, greater than 3mm thick, discolored and friable with crumbly malodorous subungual debris, 1-5 B/L.?Dermatologic: ?SKIN FINDINGS:?Skin exam reveals Keratotic lesion(s) located at ,TA, T5, Heels B/L, Sub 5th B/L,??Skin shows sign(s) of, dryness, scaling, in a stocking fashion, no fissure(s) present, B/L.?Orthopedic: ?MUSCLE STRENGTH:?5/5 all groups in a symmetrical fashion, B/L.?General Examination: ?GENERAL APPEARANCE:?Reveals a pleasant, alert, well nourished, well- developed, well hydrated individual, who demonstrates proper attention to hygiene/body habitus, and is in no acute distress, Pt serves as own historian for office visit today.?ORIENTED:?person, place, and time.?Vascular: ?DP PULSES(B):? 1/4, B/L.?PT PULSES(B):? 1/4, B/L.?EDEMA(C):? 4/4, non-pitting, B/L, Ankle(s), Leg(s).? Assessment: * Assessment: 1.?Type 2 diabetes mellitus with diabetic polyneuropathy - E11.42 (Primary)???2.?Tinea unguium - B35.1???3.?Xerosis of skin - L85.3???Specify :Acute problem, Uncomplicated (3),Rx Management (4)??? Plan: * Treatment: * Procedures:?Debride Nail 6-10:?Nail debridement?Due to the clinical pathology outlined in the exam findings, performance of this nail treatment is medically necessary as its management by an unskilled/untrained nonprofessional would put this patients foot and overall health at risk. Therefore, debridement to affected nail(s), as described in exam, was performed extensively to reduce/remove overall nail length, girth, thickness, subungual debris, and necrotic tissue, by manual and/or electrical means through the use of a nail nipper and/or dremel-type bark grinder, to a more viable healthy nail plate or bed tissue 6-10 nails in total. Silver nitrate was used for any petechial bleeding as necessary. Definitive antifungal treatment options, both pharmaceutical and surgical, have been reviewed and discussed with the patient. The patient solely prefers the use of intermittent/as needed professional debridement services for their nail condition and understands the need for additional periodic treatments to maintain effectiveness in symptomatic relief - 20100.?Keratoma Treatment:?Parring or Cutting of Benign Hyperkeratotic Lesion(s)?(-57) More than 4 Lesions - Due to the at risk nature of the patients medical condition as documented in the exam findings, performance of this keratoderma treatment is medically necessary as its management by an unskilled/untrained nonprofessional would put this patients foot and overall health at risk. Therefore, the benign hyperkeratotic lesions, ( 6 ) in total, locations as stated and described in the exam were pared, and/or cut utilizing a sterile 15 blade, tissue nippers, and/or power dremel instrumentation - 23182.? * Procedure Codes:?12885 DEBRI DE NAIL, 6 OR MORE, Modifiers: XS 75205 TRIM SKIN LESIONS, OVER 4, Modifiers: XS * Preventive Medicine:? ??Counseling:?Discussion:?-13: Office or other outpatient visit for the evaluation and management of an established patient, which required a medically appropriate history and/or examination and LOW level of DECISION MAKING for: 1 STABLE ACUTE UNCOMPLICATED PROBLEM, 2 OR MORE MINOR PROBLEMS, OR 1 STABLE CHRONIC PROBLEM, THAT POSE(S) A LOW RISK FOR MORBIDITY/MORTALITY. The visit on the day of the encounter encompassed interpreting the data and educating the patient as to the nature of their condition, treatment options available according to their individual PMH, meds, allergies, and overall health/living conditions, as well as any potential risks or complications that may occur from a failure to adhere to, and participate in, the recommended course of therapy. The discussion included a complete verbal, and/or written explanation of the examination results, any x-rays taken, the proposed diagnosis, and outline of the treatment plan. A schedule for future care needs was also explained. The patient verbalized an understanding of the instructions at this time and agreed to be an active participant in their treatment. If the patient should think of any questions or concerns after the visit, I have encouraged the patient to call the office.?Xerosis:?The patient was counseled on the diagnosis, potential etiologies, and treatment options for their skin condition. We discussed the risks and benefits of each option from performing no treatment, to utilizing OTC topical skin creams/ointments, to utilizing prescription topical creams/ointments, to utilizing customized compounded topical medications and use of nocturnal occlusion with any/all previously detailed therapies. We discussed the advantages and disadvantages of each possible treatment and importance for adherence to all the recommended therapies for optimum success and avoid potential complications such as open sore/infection/possible hospitalization. We discussed the potential effectiveness of each topical preparation as well as each ones possible side effects and/or patient medication interactions. Patient questions re: use, dosage, successful outcomes, and application consistency were reviewed and the patient verbalized that all answers were clearly understood, Recom. Gold Bonds for Diabetics.? * Follow Up:?2 Months * Images: * Sign off status: Completed true * Provider:?Edith Salter DPM Date:?01/2024 Generated for Christos more/Daly/Jeannie on:?06/21/2024 11:25 AM EDT History and Physical Notes * HPI (History of Present Illness) Category Sub-Category Detail Notes Category Not es Skin problems Nature: dryness , scaling Location: B/L Duration: several days Course: worse At Risk footcare Pt States Last PCP Visit: Date: 4 Examination Category Sub-Category Detail Notes Category Not es Neurological SENSORY: Neurological exa m demonstrates, reduced light touch sensation, reduced sharp/dull pin prick discrimination , B/L, 5.07 monofilament test performed at plantar aspects of 5 varied sites per foot shows sensation, reduced , B/L Dermatologic SKIN FINDINGS: Skin exam reveal s Keratotic lesion(s) located at ,TA, T5, Heels B/L, Sub 5th B/L, Skin shows sign(s) of, dryness, scaling, in a stocking fashion, no fissure(s) present, B/L Orthopedic MUSCLE STRENGTH: 5/5 all groups in a symmetrical fashion, B/L General Examination GENERAL APPEARANCE: Reveals a pleasant, alert, well nourished, well-developed, well hydrated individual, who demonstrates proper attention to hygiene/body habitus, and is in no acute distress, Pt serves as own historian for office visit today ORIENTED: person, place, and t otis Vascular DP PULSES (B): /, B/L PT PULSES (B): 04/07, B/L EDEMA (C): /, non-pitting, B/ L, Ankle(s), Leg(s) Nails NAILS are: Elongated, overg rown, dystrophic, lytic, greater than 3mm thick, discolored and friable with crumbly malodorous subungual debris, 1-5 B/L
--- OUTSIDE RECORDS SUMMARY | 2024-06-21 11:26 | XMS_ITS ---
Author Organization [facility] Address [address] [place] [address] Care Team Providers Care Engineering And Development Director Name Role Phone Cam Pickett Primary Care Provider Edith Armijo [phone] REASON FOR VISIT rs from 05/29/24 Encounters Encounter Location Date Provider Diagnosis [address] [address] 05/28/2024 Edith Salter Plan Of Treatment Next Appt Details Provider Name:Edith patel, 07/24/2024 01:30:00 PM, [address] [place] [address], [phone], Progress Notes * Mickey WARDDOB: 3 (63 yo M)Acc No.[id number]:05/28/2024 Patient:?Mickey WARD :1960???Age:63 Y???Sex:Male Address:[address] [place], [address] * true * Date:? Generated for Neili argenis/Daly/eTransmitting on:?06/21/2024 11:26 AM EDT
--- OUTSIDE RECORDS SUMMARY | 2024-06-21 11:26 | XMS_ITS | Encounter Summary ---
Author Organization [facility], Address [address] [place] [address] Phone Care Team Providers Care Frame Pulley Mortising Machine Operator Name Role Phone Cam Pickett MD Primary Care Provider [phone] Encounter Details Date Type Department Care Team (Late st Contact Info) Description 01/10/2024 Documentation Only [facility], - Becky Sierra [address] [place] [id number] Jaqui Amanda [address] [place] [address] Social History Tobacco Use Types [...] Visit [facility] - [place] [address] [place] [address] Jorge Luis Sebastian MD [address] [place] [address] [place] [address] documented as of this encounter Visit Diagnoses Not on filedocumented in this encounter Care Teams Frame Pulley Mortising Machine Operator Relationship Specialty Start Date End Date Cam Pickett MD [facility] [place] PCP - General Internal Medicine 05/21/21 documented as of this encounter
== END 2024-06-21 11:00 | disposition home or self-care (01) ==
LOC: HO.ENCR 10:08
PROVIDERS: PCP Internal Medicine; Visit Provider Nurse Practitioner Adult Health
DX: E10.65 Type 1 diabetes mellitus with hyperglycemia (principal); E10.9 Type 1 diabetes mellitus without complications
CPT/HCPCS: 95251; 99214

== ENCOUNTER → 2024-06-21 10:07 | Outpatient (BNVA) | payer OTHER, SELFPAY | PROVIDERS: PCP Internal Medicine; Visit Provider Nurse Practitioner Adult Health | DX: E10.65 Type 1 diabetes mellitus with hyperglycemia (principal) | CPT/HCPCS: 82947; 83036 ==

== ENCOUNTER 2024-09-21 10:36 | Outpatient (AMB) | payer OTHER, SELFPAY ==
--- OUTSIDE RECORDS SUMMARY | 2024-05-29 05:00 | XMS_ITS ---
Author Organization [facility] Address [address] [place] [address] Care Team Providers Care Wood Getter Name Role Phone Cam Pickett Primary Care Provider Edith Armijo [phone] Encounters Encounter Location Date Provider Diagnosis [address] [address] 05/29/2024 Edith Salter Plan Of Treatment Next Appt Details Provider Name:Edith patel, 10/03/2024 11:30:00 AM, [address] [place], [address], Progress Notes * Mickey WARDDOB: [birth year] (63 yo M)Acc No.[id number]:05/29/2024 Progress Note Patient: Mickey PADILLA Provider: Henny Salter DPM :1960 A ge:63 Y S ex:Male Date:05/29/2024 Address:[address] [place] [address] Dolly chapo [id number] Pcp:Cam Pickett Subjective: * Chief Complaints: * [...] 0 05/29/2024 Generated for Christos more/Daly/Jeannie on: 0 09/21/2024 11:01 AM EDT
--- NOTE | 2024-09-21 08:32 | A.OFFVIS_ITS ---
Vital Signs 09/21/24 10:51 Height 5 ft 10 in Weight 368 lb 2.751 oz BMI 52.8 BP 130/80 Blood Pressure Location Rt brachial Position Sitting Pulse 78 Pulse Source Pulse Oximeter Pulse Oximetry (%) 99 Oxygen Delivery Method Room Air Intake Visit Reasons: T1DM Intake Note: Patient presents today for a follow-up on Type 1 Diabetes Mellitus: Last Diabetic eye exam was on: 12/2023 Last Podiatry exam was on: 2023 Most recent HbA1c: 5.8%, 09/21/2024 Random Glucose- 120 mg/dL, Today Supply Room Clerk Required: No Accompanied by: Self / Same As Patient Allergies No Known Allergies Allergy (Verified 04/03/24 08:53) HPI Comments Details: 63 YO M seen in f/u for T1DM. He was last seen 06/21/24. Hemoglobin A1c 09/21/24 06/21/2024 5.3%, 04/03/2024 6.6%. Initially diagnosed with T1DM approx 2010 when he presented with polyuria. He had a 2 week stay for rehab at [facility] for detox in May 2024. He has had one relapse since then when he drank several pints of liquor over two day and was readmitted to [facility]. He has been alcohol free since then. He is using meditation. Has attended some groups. Was initially started on treatment with insulin. Current regimen: Lantus 50 units Humalog 10-20 units tid with meals Treats lows with sugar candies/jelly beans. Family history of autoimmunity in aunts and uncles Type 1 DM Has retinopathy: Has eyes checked yearly, last eye exam 12/2023 eyes have been stable Has neuropathy, sees podiatry regularly. Has symptoms of numbness and tingling does walk barefooted in the house Has nephropathy, on SENAIT/ARB. 08/22/2023 microalbumin 172 03/01/24 EGFR 32 He has orders to have blood work through his PCP whom he will be seeing next week. Has HLD, on statin. . Denies history of CAD. Denies symptoms of chest pain, dyspnea or claudication. Had diabetes education but not recently . Diet/Carb counting: Tries to balanced food Denies prior episodes of DKA. Denies prior severe episodes of hypoglycemia requiring help or hospitalization. [facility] Medical History (Updated 09/21/24 @ 15:03 by Maryanne Phillips NP) Type 1 diabetes mellitus maturity onset Neuropathy Retinopathy Chronic kidney disease (CKD) stage G3b/A2, moderately decreased glomerular filtration rate (GFR) between 30-44 mL/min/1.73 square meter and albuminuria creatinine ratio between 30-299 mg/g Fatty liver Hypoglycemia On beta abhishek at home Personal history of COVID-19 GERD (gastroesophageal reflux disease) Hypothyroidism Hyperlipidemia MI on CPAP HTN (hypertension) Insulin dependent type 2 diabetes mellitus Surgical History History of arthroscopy of left knee Hx of sinus surgery Hx of eye surgery History of surgery History of total left knee replacement History of bilateral carpal tunnel release History of esophagogastroduodenoscopy (EGD) Hx of colonoscopy Family History Father Congestive heart failure Diabetes Mother Lung cancer Social History Household Members: Spouse Household Members Other:: , daughter Housing: House Do you presently have visiting nurse or other home services: No Alcohol intake: current Alcohol intake frequency: 3 or more drinks per day Comment: patient refuses all alarms Patient Tobacco Use Status: Former Tobacco user Tobacco use type: Cigarette Second Hand Smoke Exposure: No Advance Directives Date on File: 05/24/23 service: No Physical Exam Vital Signs: Last Vital Signs Pulse 78 09/21/24 10:51 BP 130/80 09/21/24 10:51 Pulse Ox 99 09/21/24 10:51 Oxygen Delivery Method Room Air 09/21/24 10:51 BMI result Body Mass Index 52.8 Const Other: Absence of Cushingoid features. Absence of acromegalic features. Neck exam reve als nl size thyroid about 15 gms. No thyroid nodules palpable. Heart S1 S2, Reg R/R. No M/R G. Skin exam reveals absence of vitiligo or acanthosis nigricans. No edema Foot exam deferred patient declined. States there is no problem with my feet and I do not want to take my shoes off. Results AMB Hemoglobin A1c AMB Hemoglobin A1c 5.8 % Last Edit by SHREYA Melchor on 09/21/24 11:06 Results Reviewed Results Reviewed: Laboratory Last Values Glucose (Clinic) 120 mg/dL (60-115) H 09/21/24 10:58 Hgb A1c (Clinic) 5.8 % (4.0-6.0) 09/21/24 11:03 Assessment & Plan Assessment & Plan (1) Type 1 diabetes mellitus maturity onset: Code(s): E10.9 - Type 1 diabetes mellitus without complications Category: Medical Plan: 63-year-old type 1 diabetic with nephropathy, retinopathy and neuropathy with well-controlled diabetes. A1c 6.2%. We will continue MDI but he was asked to be less aggressive with his dosing of Humalog. The patient had an opportunity to ask questions regarding treatment plan. The patient expressed understanding and agreement with the above treatment plan. The patient is aware they should contact our office by phone for worsening glucose readings or for any low blood sugars which may warrant a change in diabetes medication. Compliance is encouraged with medications and any followup testing/consults which may have been ordered. He will follow up with Dr. Diaz in 3 months Orders: Orders AMB Hemoglobin A1c Today E10.65 - Type 1 diabetes mellitus with hyperglycemia Coding Level of Care Code Est Pt Level 4 (77084) Complex EM visit Add On G2211 Diagnoses Type 1 diabetes mellitus maturity onset E10.9 Time Spent (min) 30 Comment Time spent reviewing labs/provider notes, face to face, chart doc
[2024-09-21 10:51] VITALS: BP 130/80; PULSE 78; O2SAT 99; BMI 52.8
[2024-09-21 11:02] LABS: Glucose, Whole Blood 120 mg/dL (60-115)
== END 2024-09-21 11:20 | disposition home or self-care (01) ==
LOC: HO.ENCR 10:37
PROVIDERS: PCP Internal Medicine; Visit Provider Nurse Practitioner Adult Health
DX: E10.65 Type 1 diabetes mellitus with hyperglycemia (principal); E10.9 Type 1 diabetes mellitus without complications
CPT/HCPCS: 99214; G2211

== ENCOUNTER → 2024-09-21 10:36 | Outpatient (BNVA) | payer OTHER, SELFPAY | PROVIDERS: PCP Internal Medicine; Visit Provider Nurse Practitioner Adult Health | DX: E10.65 Type 1 diabetes mellitus with hyperglycemia (principal) | CPT/HCPCS: 82947; 83036 ==

== ENCOUNTER 2024-12-25 10:18 | Outpatient (AMB) | payer OTHER, SELFPAY ==
--- OUTSIDE RECORDS SUMMARY | 2024-05-29 05:00 | XMS_ITS ---
Author Organization [facility] Address [address] [place] [address] Care Team Providers Care Infrastructure Engineer Name Role Phone Cam Pickett Primary Care Provider Edith Armijo [phone] Encounters Encounter Location Date Provider Diagnosis [address] [address] 05/29/2024 Edith Salter Plan Of Treatment Next Appt Details Provider Name:Edith patel, 12/25/2024 03:15:00 PM, [address] [place] [address], [address], Progress Notes * Mickey WARDDOB: [birth year] (64 yo M)Acc No.[id number]:05/29/2024 Progress Note Patient: Mickey PADILLA Provider: Henny Salter DPM :1960 A ge:63 Y S ex:Male Date:05/29/2024 Address:[address] [place] [address] Dolly chapo [id number] Pcp:Cam Pickett Subjective: * Chief Complaints: * [...] 05/29/2024 Generated for Christos more/Daly/Jeannie on: 0 12/25/2024 12:31 PM EDT
[2024-12-25 10:20] VITALS: BP 152/68; PULSE 84; O2SAT 98; BMI 51.8
--- NOTE | 2024-12-25 10:20 | A.OFFVIS_ITS ---
Vital Signs 3 12/25/24 10:20 Height 5 ft 10 in Weight 361 lb 5.402 oz BMI 51.8 BP 152/68 H Blood Pressure Location Lt brachial Position Sitting Pulse 84 Pulse Source Pulse Oximeter Pulse Oximetry (%) 98 Oxygen Delivery Method Room Air Intake Visit Reasons: T1DM Intake Note: Patient present today for Type 1 Diabetes Mellitus Last Diabetic eye exam: 04/2023 and has upcoming appt this year Last Podiatry Visit: 12/25/34 Random Glucose: 71 mg/dl @ 10:35 am, 59 mg/dl @ 10:50 am 70 mg/dl @ 11:05 HgA1C: 5.4% Door Builder Required: No Accompanied by: Self / Same As Patient Allergies No Known Allergies Allergy (Verified 12/25/24 10:25) HPI Comments Details: 64 YO M seen in f/u for T1DM. He was last seen by Maryanne Shi APRN September 2024 71 mg/dl @ 10:35 am, given 15 g of carbohydrate be a or in juice, 59 mg/dl @ 10:50 am, given 4 glucose tablets plus 4 oz of orange juice, 70 mg/dl @ 11:05, patient refusing to stay further, says has 2 weeks candies in his car and is going to go and eat them plus crackers. Understands the risk of hypoglycemia. Hemoglobin A1c 12/25/24: 5 .4% POC 09/21/24 5.8% 06/21/2024 5.3%, 04/03/2024 6.6%. Initially diagnosed with T1DM approx 2010 when he presented with polyuria. on G7 Dexcom g7data downloaded from December 12 to 12/25/2024 Average glucose 129 mg/dL G FL 6.4% The coefficient of variation 36% Time CGM active 96% Within target range 78% High 12% Very high 1% Low 7% Very low 2% Interpretation: lows both overnight and after post prandial hyperglycemia He had a 2 week stay for rehab at [facility] for detox in May 2024. He has had one relapse since then when he drank several pints of liquor over two day and was readmitted to [facility]. He has been alcohol free since then. He is using meditation. Has attended some groups. Was initially started on treatment with insulin. Current regimen: Lantus 45 units at bedtime Humalog 10 to 20 units tid with meals depending on awareness in 80s. He is not interested in pump Treats lows with sugar candies/jelly beans. Family history of autoimmunity in aunts and uncles Type 1 DM Has retinopathy: Has eyes checked yearly, last eye exam 12/2023 eyes have been stable Has neuropathy, sees podiatry regularly. Has symptoms of numbness and tingling does walk barefooted in the house Has nephropathy, on SENAIT/ARB. 08/22/2023 microalbumin 172 03/01/24 EGFR 32 He has orders to have blood work through his PCP whom he will be seeing next week. Has HLD, on statin. . No recent lipid panel in the chart Denies history of CAD. Denies symptoms of chest pain, dyspnea or claudication. Had diabetes education but not recently . Diet/Carb counting: Tries to balanced food Denies prior episodes of DKA. Denies any recent severe episodes of hypoglycemia requiring help or hospitalization. Physical exam General: sitting comfortably in no acute distress HEENT: normocephalic/atraumatic, Neck: supple, Cardiac: normal heart sounds Pulm: normal breath sounds B/L, no added breath sounds Abd: not distended, no tenderness Extremities: no edema, no signs of myxedema Neuro: AAO x3, Speech: normal, no facial droop, moving all 4 extremities Laboratory Tests 12/05/18 08/22/23 03/01/24 08:36 08:29 02:41 Creatinine 2.11 H Estim Creat Clear Calc 55.5 Estimated GFR 32 Glucose (Clinic) Hgb A1c (Clinic) AST 337 H ALT 472 H LDL Cholesterol, Calc 94 Urine Creatinine 89.31 Urine Microalbumin 172.0 Microalb/Creat Ratio 192.5 H 09/21/24 12/25/24 12/25/24 11:03 10:29 10:31 Creatinine Estim Creat Clear Calc Estimated GFR Glucose (Clinic) 71 Hgb A1c (Clinic) 5.8 5.4 AST ALT LDL Cholesterol, Calc Urine Creatinine Urine Microalbumin Microalb/Creat Ratio [facility] Medical History (Updated 09/21/24 @ 15:03 by Maryanne Phillips NP) Type 1 diabetes mellitus maturity onset Neuropathy Retinopathy Chronic kidney disease (CKD) stage G3b/A2, moderately decreased glomerular filtration rate (GFR) between 30-44 mL/min/1.73 square meter and albuminuria creatinine ratio between 30-299 mg/g Fatty liver Hypoglycemia On beta abhishek at home Personal history of COVID-19 GERD (gastroesophageal reflux disease) Hypothyroidism Hyperlipidemia MI on CPAP HTN (hypertension) Insulin dependent type 2 diabetes mellitus Surgical History History of arthroscopy of left knee Hx of sinus surgery Hx of eye surgery History of surgery History of total left knee replacement History of bilateral carpal tunnel release History of esophagogastroduodenoscopy (EGD) Hx of colonoscopy Family History Father Congestive heart failure Diabetes Mother Lung cancer Social History Household Members: Spouse Household Members Other:: , daughter Housing: House Do you presently have visiting nurse or other home services: No Alcohol intake: current Alcohol intake frequency: 3 or more drinks per day Comment: patient refuses all alarms Patient Tobacco Use Status: Former Tobacco user Tobacco use type: Cigarette Second Hand Smoke Exposure: No Advance Directives Date on File: 05/24/23 service: No Physical Exam Vital Signs: Last Vital Signs Pulse 84 12/25/24 10:20 BP 152/68 H 12/25/24 10:20 Pulse Ox 98 12/25/24 10:20 Oxygen Delivery Method Room Air 12/25/24 10:20 BMI result Body Mass Index 51.8 Office Procedures Glucose Monitoring Details Details: see [facility] [address] - Glucose monitoring, continuous-physician I&R Procedure code (CPT) selection complete Results AMB Hemoglobin A1c 2 AMB Hemoglobin A1c 5.4 % Last Edit by SHREYA Liang on 12/25/24 10:38 Results Reviewed Results Reviewed: Laboratory Last Values Glucose (Clinic) 59 mg/dL (60-115) L* 12/25/24 10:49 Hgb A1c (Clinic) 5.4 % (4.0-6.0) 12/25/24 10:31 Assessment & Plan Assessment & Plan (1) Type 1 diabetes mellitus maturity onset: Code(s): E10.9 - Type 1 diabetes mellitus without complications Category: Medical Plan: 64-year-old with type 1 diabetes mellitus with nephropathy, retinopathy and neuropathy with well-controlled diabetes. A1c 5.4% POC 12/25/2024 which is down from 6.2%. September 2024 We will continue MDI but he was asked to be less aggressive with his dosing of Humalog. He does not follow on exact scale so it is hard for me to adjust exact doses. We will at this time I will titrate down both his basal and bolus insulin. Reduce Lantus to 38 units at bedtime Reduce humalog to 10 to 15 units premeals The patient had an opportunity to ask questions regarding treatment plan. The patient expressed understanding and agreement with the above treatment plan. The patient is aware they should contact our office by phone for worsening glucose readings or for any low blood sugars which may warrant a change in diabetes medication. Compliance is encouraged with medications and any followup testing/consults which may have been ordered. Plan I spent 30 minutes in reviewing the record, seeing the patient and documenting in the medical record. Orders: Orders 2 AMB Hemoglobin A1c Today E10.9 - Type 1 diabetes mellitus without complications, Z13.9 - Encounter for screening, unspecified Lipid Panel Today E10.9 - Type 1 diabetes mellitus without complications Aspartate Amino Transferase Today E10.9 - Type 1 diabetes mellitus without complications Complete Blood Count no Diff Today E10.9 - Type 1 diabetes mellitus without complications AMB Glucose Monitoring Today E10.9 - Type 1 diabetes mellitus without complications Microalbumin, Random (w Creat) Today E10.9 - Type 1 diabetes mellitus without complications Creatinine Today E10.9 - Type 1 diabetes mellitus without complications Alanine Aminotransferase Today E10.9 - Type 1 diabetes mellitus without complications Medications: New 2 insulin glargine (Lantus U-100 Insulin) 38 units (0.38 mL) subcut DAILY 50 mL 4RF insulin lispro (Humalog U-100 Insulin) max up to 80 units per day 50 mL 4RF Patient Instructions: Reduce Lantus to 38 units at bedtime Reduce humalog to 10 to 15 units premeals Do fasting blood work and urine test prior to next appointment Coding Level of Care Code Est Pt Level 4 (76167) Diagnoses Type 1 diabetes mellitus maturity onset E10.9 CPT Codes Details - CPT: 90580 - Glucose monitoring, continuous-physician I&R ([id number]) Time Spent (min) 30
--- OUTSIDE RECORDS SUMMARY | 2024-12-25 12:31 | XMS_ITS | Patient Health Record ---
Author Organization [facility] Address [address] [place] [address] Care Team Providers Care Dust Box Tender Name Role Phone Cam Pickett MD Primary Care Provider UnavailDean Walker Unavailable [phone] Allergies No Known Allergies Reason For Referral [...] Problem Status W/U Status Risk Notes Problem [id number] Encounter for screening for malignant neoplasm of colon (Z12.11) Active confirmed Problem 924296582 History of adenomatous polyp of colon (Z86.010) Active confirmed Problem Screening for malignant neoplasm of rectum (699377671) Encounter for screening for malignant neoplasm of rectum (Z12.12) Active confirmed Problem 793927584 Gastroesophageal reflux disease without esophagitis (K21.9) Active confirmed Problem [id number] Preprocedural examination (Z01.818) Active confirmed Problem 977460431 Long-term use of aspirin therapy (Z79.82) Active confirmed Problem Diverticulosis of colon (597858454) Diverticulosis of colon (K57.30) Active confirmed Plan Of Treatment Pending Test Test Name Order Date Pathology 02/18/2021 Future Test Test Name Order Date UPPER GI ENDOSCOPY 02/13/2015 COLONOSCOPY 02/13/2015 COLONOSCOPY 01/07/2021 Insurance Providers Payer Name Payer Address Payer Phone Subscriber Number Group Number Insured Name Patient Relationship to Insured Coverage Start Date Coverage End Date [facility] [address] [place] [phone] [id number] HORACIO WARD Self - patient is the insured Medical (General) History Medical History History ICD Code IDDM HTN Sleep apnea--uses a CPAP Hyperlipidemia Hypothyroidism GERD--EGD 03/2015 minimal HH, no esophag itis Denies NC,CVA,Lung disease,renal disease COVID 01/2020 Screening colonoscopy 03/2015 with 2 sma ll tubular adenomas removed Surgical History Surgery Date(Month/Year) CARPAL TUNNEL-bilateral LEFT KNEE LASER SURGERY BOTH EYES Surgery on left lower leg for a compart ment syndrome Left knee replacement
--- OUTSIDE RECORDS SUMMARY | 2024-12-25 12:31 | XMS_ITS | Clinical Summary ---
Author Organization [facility] Address [address] [place] [address] Phone Care Team Providers Care Upsetter Name Role Phone Cam Pickett MD Primary Care Provider + Social History Tobacco Use Types Packs/Day Years Used Date Smoking Tobacco: Never Assessed Education Answer Date Recorded Are you interested in more education? Not on easton e 10/01/2023 Are you concerned about learning? Not on file 10/01/2023 No 10/01/2023 No 10/01/2023 Digital Access Answer Date Recorded No 10/01/2023 No 10/01/2023 Reliable internet access at home? Not on file 10/01/2023 Device with a working camera? Not on file Sex and Gender Information Value Date Recorded Sex Assigned at Not on file Legal Sex Male 10:17 AM EDT Gender Identity Not on file Sexual Orientation Not on file Plan of Treatment Not on file Medical Devices Not on file Insurance [facility] [address] [place], [place] [address] [place], [place] [address] [place] [address] [place], [place] [address] [facility] Care Teams Upsetter Relationship Specialty Start Date End Date Cam Pickett MD PCP - General Internal Medicine 10/01/23 Additional Source Comments The information contained in this document represents components of the legal health record. It is not the complete legal health record.[facility]
--- OUTSIDE RECORDS SUMMARY | 2024-12-25 12:31 | XMS_ITS | Encounter Summary ---
Author Organization [facility], Address [address] [place] [address] Phone Care Team Providers Care Web Master Name Role Phone Cam Pickett MD Primary Care Provider Encounter Details Date Type Department Care Team (Late st Contact Info) Description 01/10/2024 Documentation Only [facility], - Becky Sierra [address] [place] [id number] Jaqui Amanda [address] [place] [address] Social History Tobacco Use Types [...] Visit [facility] - [place] [address] [place] [address] Jorge Luis Sebastian MD [address] [place] [address] [place] [address] documented as of this encounter Visit Diagnoses Not on filedocumented in this encounter Care Teams Web Master Relationship Specialty Start Date End Date Cam Pickett MD [facility] PCP - General Internal Medicine 05/21/21 documented as of this encounter
--- OUTSIDE RECORDS SUMMARY | 2024-12-25 12:31 | XMS_ITS | Patient Health Record ---
[facility] Address [address] [place] [address] Care Team Providers Care Bilingual Teacher Aide Name Role Phone Cam Pickett Primary Care Provider Edith Armijo Unavailable [phone] Allergies No Known Allergies Results Component Value Reference Range Notes HEMOGLOBIN A1C (GLYCOHEMOGLO BIN) Reviewed date:03/13/2024 08:59:20 AM Interpretation: Performing Lab: Notes/Report: HEMOGLOBIN A1C % (HH) 6.2 HEMOGLOBIN A1C (GLYCOHEMOGLO BIN) Reviewed date:07/24/2024 01:18:04 PM Interpretation: Performing Lab: Notes/Report: HEMOGLOBIN A1C % (HH) 5.8 Reason For Referral No Information Medications Medication SIG (Take, Route, Frequency, Duration) Notes Start Date End Date Status Protonix Not-Taking Lipitor 10 MG 1 tablet Orally Once a day; Duration: 30 day(s) Not-Taking Insulin Not-Taking Felodipine Not-Takin g AFO-fixed . 1 . Wear daily; Duration: . Not-Taking Levoxyl Not-Taking Simvastatin Not-Taki ng Fluoxetine Active Extra Depth Diabetic Shoes with 3 Pair Custom heat-molded multi-density innersoles for 1 year Dx: Active Motrin IB Not-Taking AFO-fixed . 1 . Wear daily; Duration: . Active Enalapril Maleate No t-Taking Extra Depth Diabetic Shoes with 3 Pair Custom heat-molded multi-density innersoles for 1 year Dx: 01/10/2019 Not-Taking HumaLOG Active Levothyroxine Sodium .300mcg 1 a day, .250 2 a day Active Lantus Active hydroCHLOROthiazide Not-Taking Pantoprazole Sodium 40 MG as directed Orally Active Metoprolol & Diet Manage Prod Active Meloxicam Active Lisinopril-hydroCHLOROthi azide 20-12.5 MG 1 tablet Orally Once a day Active Furosemide 1 tab Oral 01/03/2014 Not-Chivo ing Lisinopril Not-Takin g Extra Depth Orthopedic Shoes (1 Pair) with Customized Heat Molded Multidensity Innersoles (3 Pair) as directed Dx: IDDM/Polyneuropathy (E10.42), Hammertoe Foot Deformity (M20.41,M20.42), Preulcerative Skin Lesion(s) (L85.1) Active Vicodin ES PRN Not-Takin g Extra Depth Diabetic Shoes with 3 Pair Custom heat-molded multi-density innersoles for 1 year Dx: 04/15/2021 Active Immunizations Vaccine Route Administration Date Status Comme nts Influenza Unknown 01/20/2015 Administered Influenza Unknown 02/03/2016 Administered Influenza Unknown 12/31/2016 Administered Influenza Unknown 01/11/2018 Administered Influenza Unknown 01/10/2019 Administered Influenza Unknown 01/10/2019 Refused Influenza Unknown 12/12/2021 Administered Influenza Unknown 01/03/2024 Administered COVID-19 Pfizer BioNTech Vaccine Unknown 03/24/2021 Administered 1st 04/22/20 2nd 05/13/20 Social History Tobacco Use: Social History Observation Description Date Details (start date - stop date) Never Smoker NA - NA Tobacco use other than smoking: Question Answer Notes Are you an other tobacco user? No Tobacco Control (Standard) Question Answer Notes Tobacco use: Nonsmoker AUDIT-C (Standard) Question Answer Notes Did you have a drink containing alcohol in the p ast year? No Points 0 Interpretation Negative Section Notes: A1C 6.2 05/2015 Flu Shot 01/2015 Pneumonia Shot not done as of 07/28/2015 Eye Exam 06/2015 A1C 6.2 Flu Shot 01/2015 Pneumonia Shot None Eye Exam 04/2014 A1C 6.2 Flu Shot 01/2015 Pneumonia Shot None Eye Exam 04/2014 A1C 6.2 05/2015 Flu Shot 01/2015 Pneumonia Shot not done as of 07/28/2015 Eye Exam 06/2015 A1C 6.1 Flu Shot 01/20/2015 Pneumonia Shot not done as of 07/28/2015 Eye Exam 06/2015 A1C 6.1 Flu Shot 01/20/2015 Pneumonia Shot not done as of 07/28/2015 Eye Exam 06/2015 A1C 6.1 Flu Shot 01/20/2015 Pneumonia Shot not done as of 07/28/2015 Eye Exam 06/2015 A1C 6.1 Flu Shot 01/20/2015 Pneumonia Shot not done as of 07/28/2015 Eye Exam 06/2015 A1C 6.1 Flu Shot 01/20/2015 Pneumonia Shot not done as of 07/28/2015 Eye Exam 06/2015 A1C 6.1 Flu Shot 01/20/2015 Pneumonia Shot not done as of 07/28/2015 Eye Exam 06/2015 A1C 6.1 Flu Shot 01/20/2015 Pneumonia Shot not done as of 07/28/2015 Eye Exam 06/2015 A1C 6.1 Flu Shot 01/20/2015 Pneumonia Shot not done as of 07/28/2015 Eye Exam 06/2015 A1C 6.1 Flu Shot 01/20/2015 Pneumonia Shot not done as of 07/28/2015 Eye Exam 06/2015 A1C 6.1 Flu Shot 01/20/2015 Pneumonia Shot not done as of 07/28/2015 Eye Exam 06/2015 Problems Problem Type SNOMED Code ICD Code Onset Dates Problem Status W/U Status Risk Notes Problem Acquired hammer toe of right foot (9044593440115257 ) Other hammer toe(s) (acquired), right foot (M20.41) Active confirmed Problem Acquired hammer toe of left foot (4652858356489078 ) Other hammer toe(s) (acquired), left foot (M20.42) Active confirmed Problem Localized, primary osteoarthritis of the ankle and/or foot (492376837) Primary osteoarthritis, right ankle and foot (M19.071) Active confirmed Problem Localized, primary osteoarthritis of the ankle and/or foot (273817149) Primary osteoarthritis, left ankle and foot (M19.072) Active confirmed Problem Polyneuropathy due to diabetes mellitus type I (252244373) Type 1 diabetes mellitus with diabetic polyneuropathy (E10.42) Active confirmed Problem Bilateral lower limb edema (101307410) Lymphedema (I89.0) Active confirmed Vital Signs Heart Rate 74 /min 03/13/2024 Blood pressure diastolic 70 mm Hg 10/03/2024 Height 9bo14pp in 10/03/2024 Blood pressure systolic 154 mm Hg 10/03/2024 Weight 320 lbs 10/03/2024 BMI 45.91 kg/m2 10/03/2024 Encounters Encounter Location Date Provider Diagnosis [address] [address] 03/13/2024 Edith Salter Type 2 diabetes mellitus with diabetic polyneuropathy E11.42 ; Tinea unguium B35.1 and Xerosis of skin L85.[address] [address] 07/24/2024 Edith Salter Type 2 diabetes mellitus with diabetic polyneuropathy E11.42 ; Plantar fasciitis of left foot M72.2 ; Tinea unguium B35.1 ; Calcaneal spur, left foot M77.32 ; Interstitial myositis of left foot M60.172 ; Bursitis of left foot M77.52 ; Other hammer toe(s) (acquired), right foot M20.41 ; Other hammer toe(s) (acquired), left foot M20.42 and Primary osteoarthritis, left ankle and foot M19.[address] [address] 10/03/2024 Edith Salter Plantar fasciitis of left foot M72.2 ; Other hammer toe(s) (acquired), right foot M20.41 ; Tinea unguium B35.1 ; Calcaneal spur, left foot M77.32 ; Interstitial myositis of left foot M60.172 ; Bursitis of left foot M77.52 ; Other hammer toe(s) (acquired), left foot M20.42 and Type 1 diabetes mellitus with diabetic polyneuropathy E10.[address] [address] 05/28/2024 Edith Salter Assessments Encounter Date Diagnosis (ICD Code) Assessment Notes Treatment Notes Treatment Clinical Notes Section Notes 03/13/2024 Type 2 diabetes mellitus with diabetic polyneuropathy (ICD-10 - E11.42) 03/13/2024 Tinea unguium (ICD-10 - B35.1) 07/24/2024 Type 2 diabetes mellitus with diabetic polyneuropathy (ICD-10 - E11.42) 07/24/2024 Plantar fasciitis of left foot (ICD-10 - M72.2) Patient Educated with: HEEL CORD STRETCHES.pdf (HEEL CORD STRETCHES.pdf ) Patient Educated with: RICE THERAPY.pdf (RICE THERAPY.pdf) 10/03/2024 Other hammer toe(s) (acquired), right foot (ICD-10 - M20.41) Patient Educated with: DIABETIC FOOT CARE INSTRUCTIONS. pdf (DIABETIC FOOT CARE INSTRUCTIONS. pdf) 10/03/2024 Plantar fasciitis of left foot (ICD-10 - M72.2) 10/03/2024 Tinea unguium (ICD-10 - B35.1) 07/24/2024 Tinea unguium (ICD-10 - B35.1) 03/13/2024 Xerosis of skin (ICD-10 - L85.3) 07/24/2024 Calcaneal spur, left foot (ICD-10 - M77.32) 10/03/2024 Calcaneal spur, left foot (ICD-10 - M77.32) 07/24/2024 Interstitial myositis of left foot (ICD-10 - M60.172) 10/03/2024 Interstitial myositis of left foot (ICD-10 - M60.172) 10/03/2024 Bursitis of left foot (ICD-10 - M77.52) 07/24/2024 Bursitis of left foot (ICD-10 - M77.52) 10/03/2024 Other hammer toe(s) (acquired), left foot (ICD-10 - M20.42) 07/24/2024 Other hammer toe(s) (acquired), right foot (ICD-10 - M20.41) Patient Educated with: DIABETIC FOOT CARE INSTRUCTIONS. pdf (DIABETIC FOOT CARE INSTRUCTIONS. pdf) 07/24/2024 Other hammer toe(s) (acquired), left foot (ICD-10 - M20.42) 10/03/2024 Type 1 diabetes mellitus with diabetic polyneuropathy (ICD-10 - E10.42) 07/24/2024 Primary osteoarthritis, left ankle and foot (ICD-10 - M19.072) Plan Of Treatment Pending Test Test Name Order Date X ray : Foot, left 3V 08/14/2012 X ray : Foot, left 3V 06/03/2015 X ray : Foot, left 3V 07/28/2015 X ray : Foot, left 3V 03/30/2021 X ray : Foot, left 3V 07/24/2024 X ray : Foot, right 3V 08/14/2012 82187-ANCNUGP NAIL, 6 OR MORE 03/08/2013 36873-FOINPZD NAIL, 6 OR MORE 10/19/2012 28018-TXIBTGH NAIL, 6 OR MORE 01/04/2013 75032-BYTZRTX NAIL, 6 OR MORE 08/14/2012 57351-ESTEUSZ NAIL, 6 OR MORE 06/01/2012 14383-CPZVYEN NAIL, 6 OR MORE 01/07/2011 49984-CSENDJO NAIL, 6 OR MORE 03/11/2011 84724-DRVETRL NAIL, 6 OR MORE 05/20/2011 81113-RGUWWCI NAIL, 6 OR MORE 07/29/2011 53089-JDGRHPZ NAIL, 6 OR MORE 10/07/2011 30647-XGJDWEI NAIL, 6 OR MORE 12/16/2011 13500-ZIIDJHT NAIL, 6 OR MORE 03/02/2012 32512-DAIWEGY NAIL, 6 OR MORE 09/24/2015 07932-EGICMUY NAIL, 6 OR MORE 07/09/2015 50094-VRMQJFE NAIL, 6 OR MORE 02/06/2015 33697-TBSQNBS NAIL, 6 OR MORE 04/16/2015 41947-ODTNREE NAIL, 6 OR MORE 12/04/2015 66392-IJPURTQ NAIL, 6 OR MORE 02/12/2016 25439-THKMJGO NAIL, 6 OR MORE 04/15/2016 33711-USERVFT NAIL, 6 OR MORE 05/17/2013 03522-LWFHCXB NAIL, 6 OR MORE 07/30/2013 85972-NRXSFXZ NAIL, 6 OR MORE 11/01/2013 61631-DEYFOZH NAIL, 6 OR MORE 01/03/2014 18191-RZAOTMW NAIL, 6 OR MORE 04/17/2014 69294-SVNOQNV NAIL, 6 OR MORE 06/27/2014 51777-VPTKILL NAIL, 6 OR MORE 09/12/2014 86071-QZPEUTQ NAIL, 6 OR MORE 11/28/2014 13406-NYGVZMS NAIL, 6 OR MORE 10/31/2017 97805-YQRSVFX NAIL, 6 OR MORE 01/11/2018 75275-ADTABSJ NAIL, 6 OR MORE 06/10/2016 32403-PFTNXPY NAIL, 6 OR MORE 11/03/2016 61060-FYLEQMY NAIL, 6 OR MORE 01/12/2017 60803-RBOKIAX NAIL, 6 OR MORE 03/21/2017 81086-OJFPOHQ NAIL, 6 OR MORE 06/13/2017 58149-OFUSPHR NAIL, 6 OR MORE 08/22/2017 28647-Qyplewlw Plate 01/11/2018 44109-Mkknkoji Plate 06/27/2023 24727-Hrnonmdi Plate 11/28/2014 96603-Frgzbkdv Plate 09/12/2014 76848-Yxllkdbc Plate 06/27/2014 41374-Xqycagsn Plate 04/17/2014 26791-Lueqlrdf Plate 01/03/2014 83118-Ocrsxbec Plate 09/24/2015 23377-Stethyph Plate 02/06/2015 62670-Smugkndd Plate 12/16/2011 41969-Tfezqnvq Plate 10/07/2011 94358-Jtwjkbki Plate 07/29/2011 99625-Ytomkgij Plate 05/20/2011 35003-Djtqidvj Plate 01/07/2011 35817-Zcusmqqq Plate 03/11/2011 85054-Rgyxfnzg Plate 06/01/2012 21137-Cpxiqswc Plate 08/14/2012 58919-Byexhxcy Plate 03/08/2013 13476-Ncumyxne Plate 01/04/2013 25835, J0702- INJECT TENDON ORIGIN/INSER T 01/09/2016 54064-TVEP SKIN LESIONS, OVER 4 06/14/19 18 96402-ZUVD SKIN LESIONS, OVER 4 11/01/19 18 64206-FQRO SKIN LESIONS, OVER 4 03/21/20 17 00805-RIMA SKIN LESIONS, OVER 4 01/13/20 17 04538-YSHX SKIN LESIONS, OVER 4 06/11/19 17 43439-ETLJ SKIN LESIONS, OVER 4 08/13/19 17 64214-PRNH SKIN LESIONS, OVER 4 11/04/19 17 96894-TDEM SKIN LESIONS, OVER 4 08/23/19 18 31651-XFKD SKIN LESIONS, OVER 4 06/18/19 22 82081-KWGV SKIN LESIONS, OVER 4 04/12/19 19 17925-OVNT SKIN LESIONS, OVER 4 07/13/19 19 94158-XMSK SKIN LESIONS, OVER 4 10/19/19 19 91569-IPFM SKIN LESIONS, OVER 4 01/11/20 19 94305-HXJA SKIN LESIONS, OVER 4 04/18/19 20 68165-MKIQ SKIN LESIONS, OVER 4 08/01/19 20 86959-GVDB SKIN LESIONS, OVER 4 10/10/19 20 91510-CLWP SKIN LESIONS, OVER 4 12/26/19 20 72523-JAKI SKIN LESIONS, OVER 4 03/12/20 20 08334-XYML SKIN LESIONS, OVER 4 06/05/19 21 87495-CUKW SKIN LESIONS, OVER 4 09/30/19 21 86625-HBAG SKIN LESIONS, OVER 4 01/08/20 21 22950-EVST SKIN LESIONS, OVER 4 03/30/20 21 12424-NMTF SKIN LESIONS, OVER 4 03/08/20 13 41749-VIQS SKIN LESIONS, OVER 4 01/05/20 13 14153-LSPO SKIN LESIONS, OVER 4 10/20/19 13 44038-AGTM SKIN LESIONS, OVER 4 08/15/19 13 16686-CTKD SKIN LESIONS, OVER 4 06/01/19 13 16616-ZXFP SKIN LESIONS, OVER 4 01/08/20 11 64159-VFCI SKIN LESIONS, OVER 4 05/20/19 12 34097-WIVB SKIN LESIONS, OVER 4 03/11/20 11 62695-JDDG SKIN LESIONS, OVER 4 07/29/19 12 19594-TVQI SKIN LESIONS, OVER 4 10/07/19 12 35434-YUBA SKIN LESIONS, OVER 4 12/16/19 12 62071-BZXP SKIN LESIONS, OVER 4 03/02/20 12 74460-SNUS SKIN LESIONS, OVER 4 02/07/20 15 18376-DIKE SKIN LESIONS, OVER 4 04/16/19 16 43530-GLGI SKIN LESIONS, OVER 4 07/09/19 16 04421-TNPI SKIN LESIONS, OVER 4 09/24/19 16 29686-QJFT SKIN LESIONS, OVER 4 12/04/19 16 00916-WJSG SKIN LESIONS, OVER 4 04/15/19 17 58372-VYUV SKIN LESIONS, OVER 4 02/12/20 16 25143-TFVX SKIN LESIONS, OVER 4 04/17/19 15 13630-LAXH SKIN LESIONS, OVER 4 06/28/19 15 98998-ZTPQ SKIN LESIONS, OVER 4 09/13/19 15 07396-LSLR SKIN LESIONS, OVER 4 11/29/19 15 01856-VOHN SKIN LESIONS, OVER 4 01/04/20 14 04637-GLFF SKIN LESIONS, OVER 4 11/02/19 14 05984-WUYV SKIN LESIONS, OVER 4 07/31/19 14 15067-LGHO SKIN LESIONS, OVER 4 05/17/19 14 87860-GKIU SKIN LESIONS, 2 TO 4 01/12/20 18 91676, B9331-BHIDD/INJECT, JOINT/BURSA 1 05/31/2020 82524-YWRPKSAB OF HEMATOMA/FLUID 023 93722-NHEFXTFO OF HEMATOMA/FLUID 018 46284-RZMVSTST OF HEMATOMA/FLUID 017 Next Appt Details Provider Name:Edith patel, 12/25/2024 03:15:00 PM, [address] [place], [address], Insurance Providers Payer Name Payer Address Payer Phone Subscriber Number Group Number Insured Name Patient Relationship to Insured Coverage Start Date Coverage End Date [facility] [address] [place] [address] [id number] Leni Ward Spouse - patient is the spouse of the insured Medical (General) History Medical History History ICD Code reflux thyroid disorder hypertension chicken pox covid 19 type I diabetes Surgical History Surgery Date(Month/Year) carpal tunnel surgery 2001 left knee arthroscopic left leg surgery 3 laser eye surgerys right eye surgery colonoscopy knee surgery 2019 skin cancer surgery inner left thigh and arm 11/2023 Hospitalization History Reason Date(Month/Year) Covid 19 2019 Patient had to call 911 toda y because his blood sugar was 18. He refused to go to the hospital. 10/07/11
--- OUTSIDE RECORDS SUMMARY | 2024-12-25 12:31 | XMS_ITS | Clinical Summary ---
Author Organization [facility], Address [address] [place] [address] Phone Care Team Providers Care Rooter Operator Name Role Phone Cam Pickett MD Primary Care Provider [phone] Allergies No known active allergies Medications aspirin [...] Hypertensive disorder 07/27/2021 Diabetes mellitus 07/27/2021 Immunizations Immunization Administration Dates Next Due Influenza (IM) Preservative [...] [address] [place] [address] Jorge Luis Sebastian MD [address] [place] [place] [address] Health Maintenance Due Date Last Done Comments Colorectal Cancer Screening: Annual FOBT 12/23/2011 Colorectal Cancer Screening: Colonoscopy 12/23/2011 Colorectal Cancer Screening: Sigmoidoscopy 12/23/2011 Pneumococcal Vaccine: 50+ Years (2 of 2 - PCV) 04/04/2017 04/04/2016, 10/25/2015 Diabetes: Ophthalmology Exam 05/22/2021 Diabetes: Pedal Pulse Checked 05/22/2021 Diabetes: Sensory Foot Exam 05/22/2021 Diabetes: Visual Foot Exam 05/22/2021 Diabetes: Hemoglobin A1C 10/25/2023 07/26/2023, 03/04 Influenza Vaccine (#1) 2024 2, 12/12/2020, 02/21/2019, Additional history exists Pneumococcal Vaccine: Peds (0 to 5 Years) and At-Risk Patients (6 to 49 Years) Discontinued 04/04/2016, 10/25/2015 Hepatitis B Vaccine Aged Out No longe [...] - 5.6 % See order comments Comment: Prediabetes: 5.7 - 6.4 Diabetes: >6.4 Glycemic control for adults with diabetes: <7.0 Blood specimen (specimen) Venous blood / Unknown 07/26/2023 2:45 PM EDT 07/26/2023 Narrative [facility] - 07/27/2023 4:08 PM EDT Performed at: - [facility] [address] [id number] Study Director: Laura Aviles MD, Phone: [phone] us Jorge Luis Sebastian MD LAB BLOOD ORDERABLES Final Resul t [facility] See order comments [place] [address] from Last 3 Months or Most Recently Relevant to Health Maintenance Insurance [facility] Care Teams Rooter Operator Relationship Specialty Start Date End Date Cam Pickett MD [facility] [place] PCP - General Internal Medicine 05/21/21
== END 2024-12-25 11:10 | disposition home or self-care (01) ==
LOC: HO.ENCR 10:18
PROVIDERS: PCP Internal Medicine; Visit Provider Student in an Organized Health Care Education/Training Program
DX: Z13.9 Encounter for screening, unspecified (principal); E10.9 Type 1 diabetes mellitus without complications
CPT/HCPCS: 95251; 99214

== ENCOUNTER → 2024-12-25 10:18 | Outpatient (BNVA) | payer OTHER, SELFPAY | PROVIDERS: PCP Internal Medicine; Visit Provider Student in an Organized Health Care Education/Training Program | DX: E10.9 Type 1 diabetes mellitus without complications (principal); Z79.4 Long term (current) use of insulin | CPT/HCPCS: 82947; 83036 ==

== ENCOUNTER 2025-01-28 10:03 | Outpatient (REF) | payer OTHER, SELFPAY ==
--- OUTSIDE RECORDS SUMMARY | 2023-09-05 05:00 | XMS_ITS ---
Author Organization [facility] Address [address] [place] [address] Care Team Providers Care Center Mgr Name Role Phone Cam Pickett Primary Care Provider Edith Armijo Unavailable [phone] Tae Ascencio Unavailable [phone] Encounters Encounter Location Date Provider Diagnosis [address] [id number] 09/05/2023 Tae Ascencio Plan Of Treatment Next Appt Details Provider Name:Edith patel, 03/05/2025 01:45:00 PM, [address] [place] [address], [id number], Progress Notes * Mickey WARDDOB: 3 (64 yo M)Acc No.[id number]:09/05/2023 Progress Note Patient: Mickey PADILLA Provider: Rebecca Sung DPM :1960 A ge:62 Y S ex:Male Date:09/05/2023 Address: [address] [id number] Pcp:Cam Pickett Subjective: * Chief Complaints: * * Medical History: Objective: * Vitals: Assessment: Plan: * Treatment: * Images: * The named appointment provid er may or may not be the originator of this progress note, and it is not deemed complete until electronically signed by the appointment provider. Sign off status: Pending * Provider: Rebecca Sung DPM Date: 0 09/05/2023 Generated for Christos more/Daly/Jeannie on: 1 11:54 AM EDT
--- OUTSIDE RECORDS SUMMARY | 2024-05-29 05:00 | XMS_ITS ---
Author Organization [facility] Address [address] [place] [address] Care Team Providers Care Desktop Support Technician Name Role Phone Cam Pickett Primary Care Provider Edith Armijo [phone] Encounters Encounter Location Date Provider Diagnosis [address] [address] 05/29/2024 Edith Salter Plan Of Treatment Next Appt Details Provider Name:Edith patel, 03/05/2025 01:45:00 PM, [address] [place] [address], [address], Progress Notes * Mickey WARDDOB: [birth year] (64 yo M)Acc No.[id number]:05/29/2024 Progress Note Patient: Mickey PADILLA Provider: Henny Salter DPM :1960 A ge:63 Y S ex:Male Date:05/29/2024 Address:[address] [place] [address] Dolly chapo [id number] Pcp:Cam Pickett Subjective: * Chief Complaints: * [...] 05/29/2024 Generated for Christos more/Daly/Jeannie on: 1 11:54 AM EDT
--- OUTSIDE RECORDS SUMMARY | 2025-01-28 11:54 | XMS_ITS | Encounter Summary ---
Author Organization [facility], Address [address] [place] [address] Phone Care Team Providers Care Child Care Assistant Name Role Phone Cam Pickett MD Primary Care Provider [phone] Encounter Details Date Type Department Care Team (Late st Contact Info) Description 01/10/2024 Documentation Only [facility], - Becky Sierra [address] [place] [id number] Amanda Nails [address] [place] [address] Social History Tobacco Use Types [...] as of this encounter Plan of Treatment Not on file documented as of this encounter Visit Diagnoses Not on filedocumented in this encounter Care Teams Child Care Assistant Relationship Specialty Start Date End Date Cam Pickett MD [facility] [place] PCP - General Internal Medicine 05/21/21 documented as of this encounter
--- OUTSIDE RECORDS SUMMARY | 2025-01-28 11:54 | XMS_ITS | Patient Health Record ---
Author Organization [facility] Address [address] [place] [address] Care Team Providers Care Pattern Chart Writer Name Role Phone Cam Pickett MD Primary Care Provider UnavailDean Walker Unavailable [phone] Allergies No Known Allergies Reason For Referral No Information Medications Medication SIG (Take, Route, Frequency, Duration) Notes Start Date End Date Status Felodipine Active HumaLOG Active FLUoxetine HCl 10 MG 1 capsule Orally On ce a day; Duration: 30 day(s) Active Metoprolol Succinate 25 MG 1 capsule Ora lly Once a day; Duration: 30 day(s) Active Meloxicam Active Pantoprazole Sodium [...] Problem Status W/U Status Risk Notes Problem Screening for malignant neoplasm of colon (129185324) Encounter for screening for malignant neoplasm of colon (Z12.11) Active confirmed Problem History of adenomatous polyp of colon (864461637) History of adenomatous polyp of colon (Z86.010) Active confirmed Problem Screening for malignant neoplasm of rectum (617420839) Encounter for screening for malignant neoplasm of rectum (Z12.12) Active confirmed Problem Gastroesophageal reflux disease without esophagitis (330367221) Gastroesophageal reflux disease without esophagitis (K21.9) Active confirmed Problem Preprocedural examination (076884415679512) Preprocedural examination (Z01.818) Active confirmed Problem Long-term current use of antiplatelet drug (887098615483611) Long-term use of aspirin therapy (Z79.82) Active confirmed Problem Diverticulosis of colon (717446882) Diverticulosis of colon (K57.30) Active confirmed Plan Of Treatment Pending Test Test Name Order Date Pathology 02/18/2021 Future Test Test Name Order Date UPPER GI ENDOSCOPY 02/13/2015 COLONOSCOPY 02/13/2015 COLONOSCOPY 01/07/2021 Insurance Providers Payer Name Payer Address Payer Phone Subscriber Number Group Number Insured Name Patient Relationship to Insured Coverage Start Date Coverage End Date [facility] [address] [place] [address] [id number] HORACIO WARD Self - patient is the insured Medical (General) History Medical History History ICD Code IDDM HTN Sleep apnea--uses a CPAP Hyperlipidemia Hypothyroidism GERD--EGD 03/2015 minimal HH, no esophag itis Denies CO,CVA,Lung disease,renal disease COVID 01/2020 Screening colonoscopy 03/2015 with 2 sma ll tubular adenomas removed Surgical History Surgery Date(Month/Year) CARPAL TUNNEL-bilateral LEFT KNEE LASER SURGERY BOTH EYES Surgery on left lower leg for a compart ment syndrome Left knee replacement
--- OUTSIDE RECORDS SUMMARY | 2025-01-28 11:54 | XMS_ITS | Clinical Summary ---
Author Organization [facility] Address [address] [place] [address] Phone Care Team Providers Care Sweeper Operator Highways Name Role Phone Cam Pickett MD Primary [...] Not on file Insurance [facility] [place] [address] [place] [address] [place] [address] [place] [address] [place] [address] [facility] [employer] Care Teams Sweeper Operator Highways Relationship Specialty Start Date End Date Cam Pickett MD PCP - General Internal Medicine 10/01/23 Additional Source Comments The information contained in this document represents components of the legal health record. It is not the complete legal health record.[facility]
--- OUTSIDE RECORDS SUMMARY | 2025-01-28 11:54 | XMS_ITS | Clinical Summary ---
Author Organization [facility], Address [address] [place] [address] Phone Care Team Providers Care Router Tender Name Role Phone Cam Pickett MD Primary Care Provider [phone] Allergies No known active allergies Medications aspirin [...] cm, 11/11/20 9:13:00 EDT, Height 1 Active metoprolol succinate XL (TOPROL XL) 25 [...] breakfast Active Ergocalciferol (Vitamin D2) 50 MCG (2000 UT) tablet Take by mouth Activ e furosemide (Lasix) 20 MG tablet Take 1 tablet (20 mg total) by mouth 1 (one) time each day 90 tablet 3 4 Active allopurinol (ZYLOPRIM) 100 MG tablet 5 Active atorvastatin (LIPITOR) 40 MG tablet 5 Active Active Problems Problem Noted Date Diagnosed Date Proteinuria 07/28/2021 Renal disorder due to type 1 diabetes mellitus 0 07/28/2021 Obesity 07/28/2021 Hypertensive disorder 07/27/2021 Diabetes mellitus 07/27/2021 Encounters Date Type Department Care Team Description 01/14/2025 Documentation Only [facility] [address] [place] [address] Amanda Nails from Last 3 Months Immunizations Immunization Administration Dates Next Due Influenza [...] Orientation Not on file Plan of Treatment Health Maintenance Due Date Last Done Comments [...] - 07/27/2023 4:08 PM EDT Performed at: 01 - [facility] [address] [id number] Dosimetrist: Laura Aviles MD, Phone: [phone] us Jorge Luis Sebastian MD LAB BLOOD ORDERABLES Final Resul t [facility] See order comments [place] [address] from Last 3 Months or Most Recently Relevant to Health Maintenance Insurance [facility] Care Teams Router Tender Relationship Specialty Start Date End Date Cam Pickett MD [facility] [place] PCP - General Internal Medicine 05/21/21
--- OUTSIDE RECORDS SUMMARY | 2025-01-28 11:55 | XMS_ITS | Patient Health Record ---
Author Organization [facility] Address [address] [place] [address] Care Team Providers Care Palletiser Operator Name Role Phone Cam Pickett Primary Care Provider Edith Armijo Unavailable [phone] Allergies No Known Allergies Results Component Value Reference Range Notes HEMOGLOBIN A1C (GLYCOHEMOGLO BIN) Reviewed date:07/24/2024 01:18:04 PM Interpretation: Performing Lab: Notes/Report: HEMOGLOBIN A1C % (HH) 5.8 HEMOGLOBIN A1C (GLYCOHEMOGLO BIN) Reviewed date:12/25/2024 03:14:49 PM Interpretation: Performing Lab: Notes/Report: HEMOGLOBIN A1C % (HH) 5.5 Reason For Referral No Information Medications Medication SIG (Take, Route, Frequency, Duration) Notes Start Date End Date Status Extra Depth Orthopedic Shoes (1 Pair) with Customized Heat Molded Multidensity Innersoles (3 Pair) as directed Dx: IDDM/Polyneuropathy (E10.42), Hammertoe Foot Deformity (M20.41,M20.42), Preulcerative Skin Lesion(s) (L85.1) Active Vicodin ES PRN Not-Takin g Pantoprazole Sodium 40 MG as directed Orally Active Extra Depth Diabetic Shoes with 3 Pair Custom heat-molded multi-density innersoles for 1 year Dx: 04/15/2021 Active Meloxicam Active Metoprolol & Diet Manage Prod Active Lisinopril-hydroCHLOROthi azide 20-12.5 MG 1 tablet Orally Once a day Active Lantus Active Levothyroxine Sodium .300mcg 1 a day, .250 2 a day Active Fluoxetine Active Motrin IB Not-Taking HumaLOG Active hydroCHLOROthiazide Not-Taking AFO-fixed . 1 . Wear daily; Duration: . Active Extra Depth Diabetic Shoes with 3 Pair Custom heat-molded multi-density innersoles for 1 year Dx: 01/10/2019 Not-Taking Extra Depth Diabetic Shoes with 3 Pair Custom heat-molded multi-density innersoles for 1 year Dx: Active Enalapril Maleate No t-Taking AFO-fixed . 1 . Wear daily; Duration: . Not-Taking Felodipine Not-Takin g Simvastatin Not-Taki ng Levoxyl Not-Taking Lipitor 10 MG 1 tablet Orally Once a day; Duration: 30 day(s) Not-Taking Protonix Not-Taking Insulin Not-Taking Lisinopril Not-Takin g Furosemide 1 tab Oral 01/03/2014 Not-Chivo ing Immunizations Vaccine Route Administration Date Status Comme [...] (Standard) Question Answer Notes Tobacco use: Nonsmoker Additional Findings: Tobacco non-user Current no nsmoker AUDIT-C (Standard) Question Answer Notes Did you [...] Status Risk Notes Problem Polyneuropathy due to diabetes mellitus type I (550250252) Type 1 diabetes mellitus with diabetic polyneuropathy (E10.42) Active confirmed Vital Signs Heart Rate 74 /min 03/13/2024 Blood pressure diastolic 68 mm Hg 12/25/2024 Height 5ft 10in in 12/25/2024 Blood pressure systolic 153 mm Hg 12/25/2024 Weight 360 lbs 12/25/2024 BMI 51.65 kg/m2 12/25/2024 Encounters Encounter [facility] Date [facility] [address] [facility] Edith Salter Type 2 diabetes mellitus with diabetic polyneuropathy E11.42 ; Tinea unguium B35.1 and Xerosis of skin L85.3 [facility] [address] 07/24/2024 Edith Salter Type 2 diabetes mellitus [...] Primary osteoarthritis, left ankle and foot M19.[address] [address] 10/03/2024 Edith Salter Plantar fasciitis of left foot M72.2 ; Other hammer toe(s) (acquired), right foot M20.41 ; Tinea unguium B35.1 ; Calcaneal spur, left foot M77.32 ; Interstitial myositis of left foot M60.172 ; Bursitis of left foot M77.52 ; Other hammer toe(s) (acquired), left foot M20.42 and Type 1 diabetes mellitus with diabetic polyneuropathy E10.[address] [address] 12/25/2024 Edith Salter Tinea unguium B35.1 ; Other hammer toe(s) (acquired), right foot M20.41 ; Other hammer toe(s) (acquired), left foot M20.42 and Type 1 diabetes mellitus with diabetic polyneuropathy E10.[address] [address] 05/28/2024 Edith Salter Assessments Encounter Date Diagnosis [...] fasciitis of left foot (ICD-10 - M72.2) 12/25/2024 Tinea unguium (ICD-10 - B35.1) 12/25/2024 Other hammer toe(s) (acquired), right foot (ICD-10 - M20.41) 12/25/2024 Other hammer toe(s) (acquired), left foot (ICD-10 - M20.42) 10/03/2024 Tinea unguium (ICD-10 - B35.1) 07/24/2024 Tinea unguium (ICD-10 - B35.1) 03/13/2024 Xerosis of skin (ICD-10 - L85.3) 07/24/2024 Calcaneal spur, left foot (ICD-10 - M77.32) 10/03/2024 Calcaneal spur, left foot (ICD-10 - M77.32) 12/25/2024 Type 1 diabetes mellitus with diabetic polyneuropathy (ICD-10 - E10.42) 07/24/2024 Interstitial myositis of left foot (ICD-10 [...] X ray : Foot, right 3V 08/14/2012 95352-VJYARXX NAIL, 6 OR MORE 03/08/2013 10147-LWARMLG NAIL, 6 OR MORE 10/19/2012 39720-KVCGXDV NAIL, 6 OR MORE 01/04/2013 27497-RMYZQTB NAIL, 6 OR MORE 08/14/2012 88579-XOIGRXT NAIL, 6 OR MORE 06/01/2012 68083-XLBCQAB NAIL, 6 OR MORE 01/07/2011 34591-BULGNGW NAIL, 6 OR MORE 03/11/2011 92319-PAXPPAG NAIL, 6 OR MORE 05/20/2011 03467-SXDZFFW NAIL, 6 OR MORE 07/29/2011 80725-FMEDPVN NAIL, 6 OR MORE 10/07/2011 79067-BXNIBYW NAIL, 6 OR MORE 12/16/2011 53747-EFLLNNT NAIL, 6 OR MORE 03/02/2012 79619-KEYUKGO NAIL, 6 OR MORE 09/24/2015 42673-OGVATSG NAIL, 6 OR MORE 07/09/2015 44792-QAZDAYN NAIL, 6 OR MORE 02/06/2015 19524-XLCFSSX NAIL, 6 OR MORE 04/16/2015 99504-SOURMBC NAIL, 6 OR MORE 12/04/2015 33497-UEZYKUB NAIL, 6 OR MORE 02/12/2016 54414-HWHLAAY NAIL, 6 OR MORE 04/15/2016 71017-PGMRLYY NAIL, 6 OR MORE 05/17/2013 32118-OLWKMQC NAIL, 6 OR MORE 07/30/2013 19275-LSDWIIG NAIL, 6 OR MORE 11/01/2013 02683-LSMTQSL NAIL, 6 OR MORE 01/03/2014 72667-MCULNQH NAIL, 6 OR MORE 04/17/2014 03973-YCTHXNF NAIL, 6 OR MORE 06/27/2014 64787-PZCBBFH NAIL, 6 OR MORE 09/12/2014 40287-SUVAROA NAIL, 6 OR MORE 11/28/2014 73037-RXDGTUO NAIL, 6 OR MORE 10/31/2017 60940-BZZJTUB NAIL, 6 OR MORE 01/11/2018 05585-IOYWRJV NAIL, 6 OR MORE 06/10/2016 13854-LJFQEAW NAIL, 6 OR MORE 11/03/2016 62047-NGNNRQZ NAIL, 6 OR MORE 01/12/2017 96439-ONAZOLX NAIL, 6 OR MORE 03/21/2017 34933-XPHAHPE NAIL, 6 OR MORE 06/13/2017 80557-ZYXFGVH NAIL, 6 OR MORE 08/22/2017 47420-Chdjvtpa Plate 01/11/2018 84070-Txhvknpv Plate 06/27/2023 65379-Pzevxmpl Plate 11/28/2014 28452-Qxuhrqfo Plate 09/12/2014 06135-Ubzpxflx Plate 06/27/2014 12205-Hvzrvzug Plate 04/17/2014 69802-Lhwryhxo Plate 01/03/2014 17854-Jqyrwpdg Plate 09/24/2015 72111-Qemvypxx Plate 02/06/2015 84562-Blogiivt Plate 12/16/2011 43122-Izkfnbmm Plate 10/07/2011 04479-Pepzwzez Plate 07/29/2011 05019-Qusshjhq Plate 05/20/2011 16181-Wvcdfbzy Plate 01/07/2011 90652-Czfpofdp Plate 03/11/2011 79180-Qhdflqqg Plate 06/01/2012 31064-Pgfqczdx Plate 08/14/2012 70488-Yoiqbujl Plate 03/08/2013 22244-Mzbendqu Plate 01/04/2013 34131, J0702- INJECT TENDON ORIGIN/INSER T 01/09/2016 33019-LWJA SKIN LESIONS, OVER 4 06/14/19 18 72531-HKUJ SKIN LESIONS, OVER 4 11/01/19 18 82087-JULP SKIN LESIONS, OVER 4 03/21/20 17 70692-GIOG SKIN LESIONS, OVER 4 01/13/20 17 03607-XQOI SKIN LESIONS, OVER 4 06/11/19 17 80527-EQRO SKIN LESIONS, OVER 4 08/13/19 17 51161-QEDT SKIN LESIONS, OVER 4 11/04/19 17 54567-TMIL SKIN LESIONS, OVER 4 08/23/19 18 18496-XXUF SKIN LESIONS, OVER 4 06/18/19 22 94624-LSKW SKIN LESIONS, OVER 4 04/12/19 19 31186-FGLQ SKIN LESIONS, OVER 4 07/13/19 19 25844-KRPU SKIN LESIONS, OVER 4 10/19/19 19 30145-MRFW SKIN LESIONS, OVER 4 01/11/20 19 82684-MZJX SKIN LESIONS, OVER 4 04/18/19 20 85038-GFFJ SKIN LESIONS, OVER 4 08/01/19 20 45051-YGMF SKIN LESIONS, OVER 4 10/10/19 20 63738-MOQN SKIN LESIONS, OVER 4 12/26/19 20 45459-TNTB SKIN LESIONS, OVER 4 03/12/20 20 07057-DUYE SKIN LESIONS, OVER 4 06/05/19 21 10926-BOJU SKIN LESIONS, OVER 4 09/30/19 21 09917-JGNE SKIN LESIONS, OVER 4 01/08/20 21 18229-YDHH SKIN LESIONS, OVER 4 03/30/20 21 49486-YKHO SKIN LESIONS, OVER 4 03/08/20 13 28699-HXVT SKIN LESIONS, OVER 4 01/05/20 13 38080-XQMD SKIN LESIONS, OVER 4 10/20/19 13 15510-ZMKP SKIN LESIONS, OVER 4 08/15/19 13 35859-QEDI SKIN LESIONS, OVER 4 06/01/19 13 10186-LOLO SKIN LESIONS, OVER 4 01/08/20 11 02970-TGSP SKIN LESIONS, OVER 4 05/20/19 12 55838-LDPM SKIN LESIONS, OVER 4 03/11/20 11 47758-DZWA SKIN LESIONS, OVER 4 07/29/19 12 77917-BWWB SKIN LESIONS, OVER 4 10/07/19 12 96304-YSEV SKIN LESIONS, OVER 4 12/16/19 12 75660-QYSF SKIN LESIONS, OVER 4 03/02/20 12 67098-GULM SKIN LESIONS, OVER 4 02/07/20 15 38762-ZWSN SKIN LESIONS, OVER 4 04/16/19 16 86458-ZZXP SKIN LESIONS, OVER 4 07/09/19 16 33194-VZZF SKIN LESIONS, OVER 4 09/24/19 16 28863-HDDO SKIN LESIONS, OVER 4 12/04/19 16 19832-PSJQ SKIN LESIONS, OVER 4 04/15/19 17 14796-KAAI SKIN LESIONS, OVER 4 02/12/20 16 49571-PLLF SKIN LESIONS, OVER 4 04/17/19 15 58133-YTHF SKIN LESIONS, OVER 4 06/28/19 15 09744-GQEO SKIN LESIONS, OVER 4 09/13/19 15 99159-QOUH SKIN LESIONS, OVER 4 11/29/19 15 99947-HUQX SKIN LESIONS, OVER 4 01/04/20 14 93395-YUGO SKIN LESIONS, OVER 4 11/02/19 14 38026-FVRH SKIN LESIONS, OVER 4 07/31/19 14 05792-OWTY SKIN LESIONS, OVER 4 05/17/19 14 87577-KCEN SKIN LESIONS, 2 TO 4 01/12/20 18 83880, Y5366-NTZFU/INJECT, JOINT/BURSA 1 05/31/2020 13279-DDOCHQOL OF HEMATOMA/FLUID 023 62286-GQFQWYNW OF HEMATOMA/FLUID 018 32343-HVUNSNUB OF HEMATOMA/FLUID 017 Next Appt Details Provider Name:Edith patel, 03/05/2025 01:45:00 PM, [address] [place], [address], Insurance Providers Payer Name Payer Address Payer Phone Subscriber Number Group Number Insured Name Patient Relationship to Insured Coverage Start Date Coverage End Date [facility] [address] [place] [address] [id number] Spouse - patient is [...]
--- OUTSIDE RECORDS SUMMARY | 2025-01-28 11:55 | XMS_ITS | Encounter Summary ---
Author Organization [facility] Address [address] [place] [address] Phone Care Team Providers Care Mixer Lever Operator Name Role Phone Cam Pickett MD Primary Care Provider [phone] Encounter Details Date Type Department Care Team (Late st Contact Info) Description 01/14/2025 Documentation Only [facility] [place] [facility], [address] [place] [address] Jaqui Amanda [address] [place] [address] Social History Tobacco Use Types [...] on filedocumented in this encounter Care Teams Mixer Lever Operator Relationship Specialty Start Date End Date Cam Pickett [facility] [place] P[facility] - General Internal Medicine 05/21/21 documented as of this encounter
[2025-01-28 13:43] LABS: Hematocrit 40.1 % (42.0-52.0); Hemoglobin 13.2 g/dl (14.0-18.0); Mean Corpuscular HGB Conc 32.9 g/dl (31.0-36.0); Mean Corpuscular Hemoglobin 33.5 pg (27.0-33.0); Mean Corpuscular Volume 101.8 fL (80.0-98.0); NRBC Abs Auto 0.000 X10*3/uL (0.0-0.012); NRBC Pct Auto 0.0 /100WBC (0.0-0.2); Platelet Count 386 X10*3/uL (160-400); Red Blood Count 3.94 X10*6/uL (4.60-5.80); White Blood Count 8.3 X10*3/uL (4.8-10.8)
[2025-01-28 13:51] LABS: Alanine Aminotransferase 20 U/L (0-40); Aspartate Amino Transferase 25 U/L (5-37); Cholesterol 208 mg/dL (<200); Estimated Glomerular Filt Rate > 60; HDL Cholesterol 79 mg/dL (>40); Triglycerides 180 mg/dL (<150)
[2025-01-28 14:08] LABS: Microalbum/Creatinine Ratio Ur 646.0 ug/mg cr (<30)
== END 2025-01-28 10:04 | disposition home or self-care (01) ==
LOC: HO.HMGCLDS 10:03
PROVIDERS: PCP Internal Medicine; Visit Provider Student in an Organized Health Care Education/Training Program
DX: E10.9 Type 1 diabetes mellitus without complications (principal)
CPT/HCPCS: 36415; 80061; 82043; 82565; 82570; 84450; 84460; 85027

== ENCOUNTER 2025-03-19 10:40 | Outpatient (AMB) | payer OTHER, SELFPAY ==
--- OUTSIDE RECORDS SUMMARY | 2024-05-29 04:00 | XMS_ITS ---
Author Organization [facility] Address [address] [place] [address] Care Team Providers Care Director Of Restaurant Name Role Phone Cam Pickett Primary Care Provider Edith Armijo [phone] Encounters Encounter Location Date Provider Diagnosis [address] [address] 05/29/2024 Edith Salter Plan Of Treatment Next Appt Details Provider Name:Edith patel, 05/03/2025 11:00:00 AM, [address] [place], [address], Progress Notes * Mickey WARDDOB: 3 (64 yo M)Acc No.[id number]:05/29/2024 Progress Note Patient: Mickey PADILLA Provider: Henny Salter DPM :1960 A ge:63 Y S ex:Male Date:05/29/2024 Address:[address] [place] [address] Dolly chapo [id number] Pcp:Cam Pickett Subjective: * Chief Complaints: * * Medical History: Objective: * Vitals: Assessment: Plan: * Treatment: * Images: * The named appointment provid er may or may not be the originator of this progress note, and it is not deemed complete until electronically signed by the appointment provider. Sign off status: Pending * Provider: Henny Salter DPM Date: 0 05/29/2024 Generated for Christos more/Daly/Jeannie on: 1 05/20/2024 01:35 PM EST
--- OUTSIDE RECORDS SUMMARY | 2025-03-05 08:45 | XMS_ITS ---
[facility] Address [address] [facility] [place] [address] Care Team Providers Care Ecmo Specialist Name Role Phone Nieves Cam Primary Care Provider Edith Armijo Unavailable [phone] Medications Medication SIG (Take, Route, Frequency, Duration) Notes Start Date End Date Status Levoxyl Not-Taking Simvastatin Not-Taki ng Felodipine Not-Takin g AFO-fixed . 1 . Wear daily; Duration: . Not-Taking Protonix Not-Taking Lisinopril Not-Takin g Vicodin ES PRN Not-Takin g Insulin Not-Taking Furosemide 1 tab Oral 01/03/2014 Not-Chivo ing Lipitor 10 MG 1 tablet Orally Once a day; Duration: 30 day(s) Not-Taking Metoprolol & Diet Manage Prod Active Meloxicam Active Extra Depth Diabetic Shoes with 3 Pair Custom heat-molded multi-density innersoles for 1 year Dx: 04/15/2021 Active Pantoprazole Sodium 40 MG as directed Orally Active Extra Depth Orthopedic Shoes (1 Pair) with Customized Heat Molded Multidensity Innersoles (3 Pair) as directed Dx: IDDM/Polyneuropathy (E10.42), Hammertoe Foot Deformity (M20.41,M20.42), Preulcerative Skin Lesion(s) (L85.1) Active Fluoxetine Active Lantus Active HumaLOG Active Lisinopril-hydroCHLOROthi azide 20-12.5 MG 1 tablet Orally Once a day Active Levothyroxine Sodium .300mcg 1 a day, .250 2 a day Active Extra Depth Diabetic Shoes with 3 Pair Custom heat-molded multi-density innersoles for 1 year Dx: Active Enalapril Maleate No t-Taking AFO-fixed . 1 . Wear daily; Duration: . Active hydroCHLOROthiazide Not-Taking Motrin IB Not-Taking Extra Depth Diabetic Shoes with 3 Pair Custom heat-molded multi-density innersoles for 1 year Dx: 01/10/2019 Not-Taking Encounters Encounter Location Date Provider Diagnosis [facility] [address] [address] 03/05/2025 Edith Salter Plan Of Treatment Next Appt Details Provider Name:Edith patel, 05/03/2025 11:00:00 AM, [address] [place] [address], [id number], Progress Notes * SYLVIAMickeyDOB: 3 (64 yo M)Acc No.[id number]:03/05/2025 Progress Note Patient: Mickey PADILLA Provider: Henny Salter DPM :1960 A ge:64 Y S ex:Male Date:03/05/2025 Address:[address] [place] [address], [place], [id number] Pcp:Cam Pickett Subjective: * Chief Complaints: * * HPI: A t Risk footcare: Pt States Last PCP Visit: D ate: 0 11/02/2024 * Medical History: * Medications: T aking AFO-fixed . Ankle-Foot Orthotic 1 . Wear daily , Taking Extra Depth Diabetic Shoes with 3 Pair Custom heat-molded multi-density innersoles for 1 year Dx: , Taking Fluoxetine , Taking HumaLOG , Taking Lantus , Taking Levothyroxine Sodium , Notes to Pharmacist: .300mcg 1 a day, .250 2 a day, Taking Lisinopril-hydroCHLOROthiazide 20-12.5 MG Tablet 1 tablet Orally Once a day , Taking Meloxicam , Taking Metoprolol & Diet Manage Prod , Taking Pantoprazole Sodium 40 MG Tablet Delayed Release as directed Orally , Taking Extra Depth Diabetic Shoes with 3 Pair Custom heat- molded multi-density innersoles for 1 year Dx: , Taking Extra Depth Orthopedic Shoes (1 Pair) with Customized Heat Molded Multidensity Innersoles (3 Pair) as directed Dx: IDDM/Polyneuropathy (E10.42), Hammertoe Foot Deformity (M20.41,M20.42), Preulcerative Skin Lesion(s) (L85.1) , Not-Taking/PRN Vicodin ES , Notes to Pharmacist: PRN, Not-Taking/PRN Lisinopril , Not-Taking/PRN Furosemide 1 tab Oral , Not- Taking/PRN Insulin , Not-Taking/PRN Lipitor 10 MG Tablet 1 tablet Orally Once a day , Not-Taking/PRN Protonix , Not-Taking/PRN Simvastatin , Not-Taking/PRN Levoxyl , Not-Taking/PRN AFO-fixed . Ankle-Foot Orthotic 1 . Wear daily , Not-Taking/PRN Felodipine , Not-Taking/PRN Extra Depth Diabetic Shoes with 3 Pair Custom heat- molded multi-density innersoles for 1 year Dx: , Not-Taking/PRN Enalapril Maleate , Not-Taking/PRN Motrin IB , Not-Taking/PRN hydroCHLOROthiazide Objective: * Vitals: Assessment: Plan: * Treatment: * Images: * The named appointment provid er may or may not be the originator of this progress note, and it is not deemed complete until electronically signed by the appointment provider. Sign off status: Pending * Provider: Henny Salter DPM Date: 05/06/2024 Generated for Christos more/Daly/Jeannie on: 05/20/2024 01:35 PM EST History and Physical Notes * HPI (History of Present Illness) Category Sub-Category Detail Notes Category Not es At Risk footcare Pt States Last PCP Visit: Date:: 11/03/19 25
--- NOTE | 2025-03-19 10:41 | A.OFFVIS_ITS ---
Vital Signs 3 03/19/25 10:46 Height 5 ft 10 in BMI Reason not done Patient refused/unable BP 138/80 Blood Pressure Location Rt brachial Position Sitting Pulse 88 Pulse Source Pulse Oximeter Pulse Oximetry (%) 96 Oxygen Delivery Method Room Air Intake Visit Reasons: T1DM Intake Note: Patient presents here today for a follow-up on Type 1 Diabetes Mellitus: Patient last seen by Dr Kina Gutiérrez MD. Glucose data available (sensor/reader/meter): Yes / No Last Diabetic eye exam was on: 12/2023, [facility]. Patient needs to call to make an appt. Last Podiatry exam was on: 12/25/2024 Most recent HbA1c: 5.2%, 03/19/2025 Random Glucose- 122 mg/dL, Today L Clinical Research Management Associate Required: No Accompanied by: Self / Same As Patient Allergies No Known Allergies Allergy (Verified 03/19/25 10:42) HPI Comments Details: 64 YO M seen in f/u for T1DM. Last seen by Dr. Gutiérrez on 12/25/2024. This is my 1st time seeing this patient. Hemoglobin A1c 12/25/24: 5 .4% POC 09/21/24 5.8% 06/21/2024 5.3%, 04/03/2024 6.6%. Initially diagnosed with T1DM approx 2010 when he presented with polyuria. He had a 2 week stay for rehab at [facility] for detox in May 2024. He has had one relapse since then when he drank several pints of liquor over two day and was readmitted to [facility]. He has been alcohol free since then. He is using meditation. Has attended some groups. Was initially started on treatment with insulin. Current regimen: Lantus 45 units at bedtime Humalog 10 to 20 units tid with meals depending on what he eats Hypoglycemia: awareness in 80s. He is not interested in pump Treats lows with sugar candies/jelly beans. Family history of autoimmunity in aunts and uncles Type 1 DM Has retinopathy: Has eyes checked yearly, last eye exam 12/2023 eyes have been stable Has neuropathy, sees podiatry regularly. Has symptoms of numbness and tingling does walk barefooted in the house Has nephropathy, on SENAIT/ARB. 08/22/2023 microalbumin 172 03/01/24 EGFR 32 He has orders to have blood work through his PCP whom he will be seeing next week. Has HLD, on statin. . No recent lipid panel in the chart Denies history of CAD. Denies symptoms of chest pain, dyspnea or claudication. Had diabetes education but not recently . Diet/Carb counting: Tries to balanced food Denies prior episodes of DKA. Denies any recent severe episodes of hypoglycemia requiring help or hospitalization. CGM data: Interpretation: Overall well controlled, with slightly hypoglycemia overnight and episodes of hypoglycemia scattered throughout the day without specific pattern. Interval history: We corrected the data time as it was setup for Nov. Taking Lantus 50 units after he found that his BG were in the 200s Not using insulin for breakfast, Lunch/Dinner usually 8-12 He does not snack during the day He is not concerned about the sporadic hypoglycemia He is more concerned about his weight, asking to try Wegovy if covered Physical exam General: Well appearing. NAD. CV: RRR, no murmur. No edema. Resp:Lungs clear to auscultation bilaterally Abdomen: Soft, nontender. nondistended Extremities/Neuro: No weakness or tremor of outstretched hands Laboratory Tests 12/05/18 08/22/23 03/01/24 08:36 08:29 02:41 Creatinine 2.11 H Estim Creat Clear Calc 55.5 Estimated GFR 32 Glucose (Clinic) Hgb A1c (Clinic) AST 337 H ALT 472 H LDL Cholesterol, Calc 94 Urine Creatinine 89.31 Urine Microalbumin 172.0 Microalb/Creat Ratio 192.5 H 09/21/24 12/25/24 12/25/24 11:03 10:29 10:31 Creatinine Estim Creat Clear Calc Estimated GFR Glucose (Clinic) 71 Hgb A1c (Clinic) 5.8 5.4 AST ALT LDL Cholesterol, Calc Urine Creatinine Urine Microalbumin Microalb/Creat Ratio Laboratory Tests 01/28/25 10:06 Creatinine 1.18 Estimated GFR > 60 AST 25 ALT 20 Triglycerides 180 H Cholesterol 208 H LDL Cholesterol, Calc 93 HDL Cholesterol 79 PFSH Medical History Type 1 diabetes mellitus maturity onset Neuropathy Retinopathy Chronic kidney disease (CKD) stage G3b/A2, moderately decreased glomerular filtration rate (GFR) between 30-44 mL/min/1.73 square meter and albuminuria creatinine ratio between 30-299 mg/g Fatty liver Hypoglycemia On beta abhishek at home Personal history of COVID-19 GERD (gastroesophageal reflux disease) Hypothyroidism Hyperlipidemia MI on CPAP HTN (hypertension) Insulin dependent type 2 diabetes mellitus Surgical History History of arthroscopy of left knee Hx of sinus surgery Hx of eye surgery History of surgery History of total left knee replacement History of bilateral carpal tunnel release History of esophagogastroduodenoscopy (EGD) Hx of colonoscopy Family History Father Congestive heart failure Diabetes Mother Lung cancer Social History Household Members: Spouse Household Members Other:: , daughter Housing: House Do you presently have visiting nurse or other home services: No Alcohol intake: current Alcohol intake frequency: 3 or more drinks per day Comment: patient refuses all alarms Patient Tobacco Use Status: Former Tobacco user Tobacco use type: Cigarette Second Hand Smoke Exposure: No Advance Directives Date on File: 05/24/23 service: No Physical Exam Vital Signs: Oxygen Delivery Method Room Air 03/19/25 10:46 Office Procedures Glucose Monitoring Details Details: See [facility] [address] - Glucose Monitoring, continuous Procedure code (CPT) selection complete Results AMB Hemoglobin A1c 2 AMB Hemoglobin A1c 5.2 % Last Edit by SHREYA Melchor on 03/19/25 11:01 Assessment & Plan Assessment & Plan (1) Type 1 diabetes mellitus maturity onset: Code(s): E10.9 - Type 1 diabetes mellitus without complications Category: Medical Plan: 64-year-old with type 1 diabetes mellitus with nephropathy, retinopathy and neuropathy with well-controlled diabetes. A1c 5.4% POC 12/25/2024 which is down from 6.2%. September 2024 We will continue MDI but he was asked to be less aggressive with his dosing of Humalog. He does not follow on exact scale so it is hard for me to adjust exact doses. We will at this time I will titrate down both his basal and bolus insulin. In terms in BG, patient reports that he is using Lantus 50 units, and Lispro 8- 12 units with L/D. He is not concerned about hyopglycemia, he seems to have tolerance to low BG but no tolerance for BG > 200s. Given the LDL is not at goal less than 70, and atorvastatin is use the 40 mg for ASCVD risk reduction, in this case it seems reasonable to increase atorvastatin to 80 mg to further decrease LDL cholesterol and cardiovascular risk. In case this patient fails to reduce his LDL to less than 70, then we will consider adding ezetimibe in the next visit. I will advised to repeat lipid panel in 2-3 months. I will also advise monitoring LFTs, but so far there is no evidence of liver damage from statins. I discussed with the patient that the most common side effects of Ozempic (semaglutide) are gastrointestinal, including nausea, vomiting, diarrhea, constipation, and abdominal pain. These symptoms are usually mild to moderate, tend to occur during dose escalation, and often improve over time. Other possible side effects include headache, dizziness, and fatigue. Hypoglycemia is uncommon unless Ozempic is used with insulin or sulfonylureas. Rare but serious risks include pancreatitis, gallbladder disease, and, in patients with significant vomiting or diarrhea, dehydration and possible kidney injury. Injection site reactions are rare and typically mild. I emphasized the importance of gradual dose escalation to minimize GI side effects and advised the patient to report any severe or persistent symptoms. Plan Continue Lantus to continue units at bedtime Continue humalog to 8-12 units premeals Advised that if Wegovy is started he might need edgar insulin/have increased risk of lows He is aware of hypoglycemia treatment We discussed benefits of weight loss not only for glycemic control but also for MI, OA, Liver health Prescribed Ozempic 0.25mg/wk, increased after 4 weeks if tolerated Prescribed Baqsimi for low bg Increased Atorvastatin to 80mg Plan I spent 30 minutes in reviewing the record, seeing the patient and documenting in the medical record. Orders: Orders 2 AMB Hemoglobin A1c Today E10.9 - Type 1 diabetes mellitus without complications AMB Glucose Monitoring Today E10.9 - Type 1 diabetes mellitus without complications Medications: New 2 atorvastatin (Lipitor) 80 mg PO DAILY 90 tabs 3RF glucagon 3 mg/actuation (Baqsimi) 3 mg intranasal ONCE 1 ea 1RF semaglutide (Ozempic) for 4 weeks 0.25 mg (0.368 mL) subcut QWEEK 3 mL 3RF Patient Instructions: Start Ozempic 0.25 mg weekly for 4 weeks, this is a starting dose to help your body adjust and minimize stomach side effects. After 4 weeks, increase to 0.5 mg once weekly. If additional blood sugar control is needed after at least 4 weeks on 0.5 mg, your provider may increase the dose to 1 mg once weekly. Most common side effects of Ozempic (semaglutide) are gastrointestinal, including nausea, vomiting, diarrhea, constipation, and abdominal pain. These symptoms are usually mild to moderate, tend to occur during dose escalation, and often improve over time. Other possible side effects include headache, dizziness, and fatigue. Hypoglycemia is uncommon unless Ozempic is used with insulin or sulfonylureas. Rare but serious risks include pancreatitis, gallbladder disease, and, in patients with significant vomiting or diarrhea, dehydration and possible kidney injury. Injection site reactions are rare and typically mild. Coding Level of Care Code Est Pt Level 4 (32160) Add On Problem Visit Only Diagnoses Type 1 diabetes mellitus maturity onset E10.9 CPT Codes Details - CPT: 29591 - Glucose Monitoring, continuous ([id number])
[2025-03-19 10:46] VITALS: BP 138/80; PULSE 88; O2SAT 96
[2025-03-19 10:56] LABS: Glucose, Whole Blood 122 mg/dL (60-115)
--- OUTSIDE RECORDS SUMMARY | 2025-03-19 13:35 | XMS_ITS | Patient Health Record ---
Author Organization [facility] Address [address] [place] [address] Care Team Providers Care Technician Support Engineer Name Role Phone Cam Pickett MD Primary Care Provider UnavailDean Walker Unavailable [phone] Allergies No Known Allergies Reason For Referral No Information Medications Medication SIG (Take, Route, Frequency, Duration) Notes Start Date End Date Status Felodipine Active HumaLOG Active FLUoxetine HCl 10 MG Capsule 1 capsule O rally Once a day; Duration: 30 day(s) Active Metoprolol Succinate 25 MG Capsule ER 24 Hour Sprinkle 1 capsule Orally Once a day; Duration: 30 day(s) Active Meloxicam Active Pantoprazole Sodium 40 MG Tablet Delayed Release 1 tablet Orally Once a day Active Aspir-81 Active Simvastatin Active Levothyroxine Sodium Active Furosemide Active Immunizations Vaccine Route Administration Date Status Comme nts Flu vaccine no Preserv 3 and > Unknown 11/02/2014 Admin istered Influenza Unknown 01/08/2020 Administered Social History Social History Additional Details Category Social Info Options Details Miscellaneous: Marital status: 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--[employer] Section Notes: Nonsmoker; 6 ounces of alcoh ol per day Nonsmoker; 6 ounces of alcoh ol per day--Vodka Problems Problem Type SNOMED Code ICD Code Onset Dates Problem Status W/U Status Risk Notes Problem Screening for malignant neoplasm of colon (066254547) Encounter for screening for malignant neoplasm of colon (Z12.11) Active confirmed Problem History of adenomatous polyp of colon (690064881) History of adenomatous polyp of colon (Z86.010) Active confirmed Problem Screening for malignant neoplasm of rectum (082408804) Encounter for screening for malignant neoplasm of rectum (Z12.12) Active confirmed Problem Gastroesophageal reflux disease without esophagitis (861068236) Gastroesophageal reflux disease without esophagitis (K21.9) Active confirmed Problem Preprocedural examination (463188112721994) Preprocedural examination (Z01.818) Active confirmed Problem Long-term current use of antiplatelet drug (627159507432536) Long-term use of aspirin therapy (Z79.82) Active confirmed Problem Diverticulosis of colon (297877503) Diverticulosis of colon (K57.30) Active confirmed Plan Of Treatment Pending Test Test Name Order Date Pathology 02/18/2021 Future Test Test Name Order Date UPPER GI ENDOSCOPY 02/13/2015 COLONOSCOPY 02/13/2015 COLONOSCOPY 01/07/2021 Insurance Providers Payer Name Payer Address Payer Phone Subscriber Number Group Number Insured Name Patient Relationship to Insured Coverage Start Date Coverage End Date [facility] [address] [place] [phone] [id number] HORACIO WARD Self - patient is the [...]
--- OUTSIDE RECORDS SUMMARY | 2025-03-19 13:35 | XMS_ITS | Clinical Summary ---
Author Organization [facility] Address [address] [place] [address] Phone Care Team Providers Care Energy Attorney Name Role Phone Cam Pickett MD Primary [...] file Medical Devices Not on file Insurance [facility] [place] [address] [place] [address] [place] [address] [place] [address] [place] [address] [facility] Address: [address] [address] Care Teams Energy Attorney Relationship Specialty Start Date End Date Cam Pickett MD PCP - General Internal Medicine 10/01/23 Additional Source Comments The information contained in this document represents components of the legal health record. It is not the complete legal health record.[facility]
--- OUTSIDE RECORDS SUMMARY | 2025-03-19 13:36 | XMS_ITS | Patient Health Record ---
Author Organization [facility] Address [address] [place] [address] Care Team Providers Care Piper Installer Name Role Phone Cam Pickett Primary Care Provider Edith Armijo Unavailable [phone] Allergies No Known Allergies Results Component Value Reference Range Notes HEMOGLOBIN A1C (GLYCOHEMOGLO BIN) Reviewed date:07/24/2024 01:18:04 PM Interpretation: Performing Lab: Notes/Report: HEMOGLOBIN A1C % (HH) 5.8 HEMOGLOBIN A1C (GLYCOHEMOGLO BIN) Reviewed date:12/25/2024 03:14:49 PM Interpretation: Performing Lab: Notes/Report: HEMOGLOBIN A1C % (HH) 5.5 Reason For Referral No Information Medications Medication SIG (Take, Route, Frequency, Duration) Notes Start Date End Date Status Fluoxetine Active Lantus Active HumaLOG Active Lisinopril-hydroCHLOROthi azide 20-12.5 MG 1 tablet Orally Once a day Active Levothyroxine Sodium .300mcg 1 a day, .250 2 a day Active Metoprolol & Diet Manage Prod Active Meloxicam Active Extra Depth Diabetic Shoes with 3 Pair Custom heat-molded multi-density innersoles for 1 year Dx: 04/15/2021 Active Pantoprazole Sodium 40 MG as directed Orally Active Enalapril Maleate No t-Taking Extra Depth Orthopedic Shoes (1 Pair) with Customized Heat Molded Multidensity Innersoles (3 Pair) as directed Dx: IDDM/Polyneuropathy (E10.42), Hammertoe Foot Deformity (M20.41,M20.42), Preulcerative Skin Lesion(s) (L85.1) Active Extra Depth Diabetic Shoes with 3 Pair Custom heat-molded multi-density innersoles for 1 year Dx: 01/10/2019 Not-Taking hydroCHLOROthiazide Not-Taking Motrin IB Not-Taking Lisinopril Not-Takin g Vicodin ES PRN Not-Takin g Insulin Not-Taking Furosemide 1 tab Oral 01/03/2014 Not-Chivo ing Protonix Not-Taking Lipitor 10 MG 1 tablet Orally Once a day; Duration: 30 day(s) Not-Taking Levoxyl Not-Taking Simvastatin Not-Taki ng Felodipine Not-Takin g AFO-fixed . 1 . Wear daily; Duration: . Not-Taking Extra Depth Diabetic Shoes with 3 Pair Custom heat-molded multi-density innersoles for 1 year Dx: Active AFO-fixed . 1 . Wear daily; Duration: . Active Immunizations Vaccine Route Administration Date Status [...] Polyneuropathy due to diabetes mellitus type I (559003797) Type 1 diabetes mellitus with diabetic polyneuropathy (E10.42) Active confirmed Vital Signs Blood pressure diastolic 68 mm Hg 12/25/2024 Height 5ft 10in in 12/25/2024 Blood pressure systolic 153 mm Hg 12/25/2024 Weight 360 lbs 12/25/2024 BMI 51.65 kg/m2 12/25/2024 Encounters Encounter Location Date Provider Diagnosis [facility] [address] [place] [address] 07/24/2024 Edith Salter Type 2 diabetes mellitus [...] Primary osteoarthritis, left ankle and foot M19.[address] [address] 10/03/2024 Edith Salter Plantar fasciitis of left foot M72.2 ; Other hammer toe(s) (acquired), right foot M20.41 ; Tinea unguium B35.1 ; Calcaneal spur, left foot M77.32 ; Interstitial myositis of left foot M60.172 ; Bursitis of left foot M77.52 ; Other hammer toe(s) (acquired), left foot M20.42 and Type 1 diabetes mellitus with diabetic polyneuropathy E10.[address] [address] 12/25/2024 Edith Salter Tinea unguium B35.1 ; Other hammer toe(s) (acquired), right foot M20.41 ; Other hammer toe(s) (acquired), left foot M20.42 and Type 1 diabetes mellitus with diabetic polyneuropathy E10.[address] [address] 05/28/2024 Edith Salter [address] [address] 03/05/2025 Edith Salter Assessments Encounter Date Diagnosis (ICD Code) Assessment Notes Treatment Notes Treatment Clinical Notes Section Notes 07/24/2024 Type 2 diabetes mellitus with diabetic [...] B35.1) 07/24/2024 Tinea unguium (ICD-10 - B35.1) 07/24/2024 Calcaneal spur, left foot (ICD-10 - [...] X ray : Foot, right 3V 08/14/2012 58315-OUBNJZN NAIL, 6 OR MORE 03/08/2013 51646-KMXIUNY NAIL, 6 OR MORE 10/19/2012 56020-HERHEXN NAIL, 6 OR MORE 01/04/2013 81262-EXKVDSV NAIL, 6 OR MORE 08/14/2012 08055-MLYWCIV NAIL, 6 OR MORE 06/01/2012 06850-YCSYXLR NAIL, 6 OR MORE 01/07/2011 44568-LKXTKXI NAIL, 6 OR MORE 03/11/2011 34787-FQFYSQW NAIL, 6 OR MORE 05/20/2011 96825-ZIRNLYW NAIL, 6 OR MORE 07/29/2011 67593-HASWFEL NAIL, 6 OR MORE 10/07/2011 12822-YTXBMQN NAIL, 6 OR MORE 12/16/2011 76729-ZXLDBOC NAIL, 6 OR MORE 03/02/2012 26533-JXUZIES NAIL, 6 OR MORE 09/24/2015 47898-NPUSEQX NAIL, 6 OR MORE 07/09/2015 39615-PJWRJOS NAIL, 6 OR MORE 02/06/2015 78312-MFJWZOO NAIL, 6 OR MORE 04/16/2015 05414-SKPKZVQ NAIL, 6 OR MORE 12/04/2015 98014-LSXBBXH NAIL, 6 OR MORE 02/12/2016 05561-WWQOZKW NAIL, 6 OR MORE 04/15/2016 07423-POWZXYQ NAIL, 6 OR MORE 05/17/2013 97802-KUVQVYU NAIL, 6 OR MORE 07/30/2013 25991-YJEVKNZ NAIL, 6 OR MORE 11/01/2013 20558-ZJBCKLG NAIL, 6 OR MORE 01/03/2014 11747-QAFTNZK NAIL, 6 OR MORE 04/17/2014 85647-ROSPERP NAIL, 6 OR MORE 06/27/2014 57669-DJFSJHH NAIL, 6 OR MORE 09/12/2014 89368-LBZPKOA NAIL, 6 OR MORE 11/28/2014 02809-PSOYYBW NAIL, 6 OR MORE 10/31/2017 62030-DRFMLXM NAIL, 6 OR MORE 01/11/2018 23523-GQDNWEC NAIL, 6 OR MORE 06/10/2016 42507-RILSWHS NAIL, 6 OR MORE 11/03/2016 30037-ERVHUQG NAIL, 6 OR MORE 01/12/2017 95933-QVWJFDL NAIL, 6 OR MORE 03/21/2017 81872-NWTCNYG NAIL, 6 OR MORE 06/13/2017 75410-ATOLMWL NAIL, 6 OR MORE 08/22/2017 72836-Wfierhit Plate 01/11/2018 63839-Xrosmdam Plate 06/27/2023 57331-Ibbqmdwo Plate 11/28/2014 74400-Tgikpzgu Plate 09/12/2014 81654-Omedmhnp Plate 06/27/2014 59423-Vapblhlv Plate 04/17/2014 89735-Mzksbysg Plate 01/03/2014 00944-Hyvdyyil Plate 09/24/2015 89557-Tsbvgtbl Plate 02/06/2015 21821-Xocgrvik Plate 12/16/2011 36491-Pwdteilr Plate 10/07/2011 20931-Kacvfsty Plate 07/29/2011 45919-Xjetzlnp Plate 05/20/2011 00795-Wrzpbtzp Plate 01/07/2011 70173-Axrzuefe Plate 03/11/2011 67416-Hegofuiu Plate 06/01/2012 49502-Amoummqz Plate 08/14/2012 59387-Pvdburvs Plate 03/08/2013 76001-Xzoyszjm Plate 01/04/2013 59006, J0702- INJECT TENDON ORIGIN/INSER T 01/09/2016 10470-TMFH SKIN LESIONS, OVER 4 06/14/19 18 35935-AWYV SKIN LESIONS, OVER 4 11/01/19 18 63501-FCLA SKIN LESIONS, OVER 4 03/21/20 17 01440-PKNQ SKIN LESIONS, OVER 4 01/13/20 17 27100-SWRS SKIN LESIONS, OVER 4 06/11/19 17 74678-LEKB SKIN LESIONS, OVER 4 08/13/19 17 91773-OHRZ SKIN LESIONS, OVER 4 11/04/19 17 31711-BCWQ SKIN LESIONS, OVER 4 08/23/19 18 22071-SWEX SKIN LESIONS, OVER 4 06/18/19 22 83946-HEDX SKIN LESIONS, OVER 4 04/12/19 19 13044-WTPK SKIN LESIONS, OVER 4 07/13/19 19 62203-PBMV SKIN LESIONS, OVER 4 10/19/19 19 67634-BUOH SKIN LESIONS, OVER 4 01/11/20 19 25798-MWFI SKIN LESIONS, OVER 4 04/18/19 20 60654-KUAF SKIN LESIONS, OVER 4 08/01/19 20 10700-YYGT SKIN LESIONS, OVER 4 10/10/19 20 72656-KEIV SKIN LESIONS, OVER 4 12/26/19 20 93480-FYGQ SKIN LESIONS, OVER 4 03/12/20 20 39377-HQXP SKIN LESIONS, OVER 4 06/05/19 21 78110-PSOL SKIN LESIONS, OVER 4 09/30/19 21 43746-BXYD SKIN LESIONS, OVER 4 01/08/20 21 97052-CUXB SKIN LESIONS, OVER 4 03/30/20 21 57576-PSOG SKIN LESIONS, OVER 4 03/08/20 13 41460-EJNM SKIN LESIONS, OVER 4 01/05/20 13 35209-RAHU SKIN LESIONS, OVER 4 10/20/19 13 89116-YGLJ SKIN LESIONS, OVER 4 08/15/19 13 75974-BMCP SKIN LESIONS, OVER 4 06/01/19 13 39716-WDMF SKIN LESIONS, OVER 4 01/08/20 11 50361-ZAAM SKIN LESIONS, OVER 4 05/20/19 12 22826-IFRB SKIN LESIONS, OVER 4 03/11/20 11 93880-YDHH SKIN LESIONS, OVER 4 07/29/19 12 57698-QFEJ SKIN LESIONS, OVER 4 10/07/19 12 26166-KMIM SKIN LESIONS, OVER 4 12/16/19 12 92533-KEMV SKIN LESIONS, OVER 4 03/02/20 12 07106-APHM SKIN LESIONS, OVER 4 02/07/20 15 67238-BIFP SKIN LESIONS, OVER 4 04/16/19 16 79579-XXWL SKIN LESIONS, OVER 4 07/09/19 16 99316-IYCC SKIN LESIONS, OVER 4 09/24/19 16 04199-KBXU SKIN LESIONS, OVER 4 12/04/19 16 62428-UXLU SKIN LESIONS, OVER 4 04/15/19 17 49195-DDEU SKIN LESIONS, OVER 4 02/12/20 16 12299-QJGI SKIN LESIONS, OVER 4 04/17/19 15 53653-UKYV SKIN LESIONS, OVER 4 06/28/19 15 28271-MSTN SKIN LESIONS, OVER 4 09/13/19 15 87132-MSIX SKIN LESIONS, OVER 4 11/29/19 15 88153-BSGM SKIN LESIONS, OVER 4 01/04/20 14 45116-UYPB SKIN LESIONS, OVER 4 11/02/19 14 73014-VENH SKIN LESIONS, OVER 4 07/31/19 14 67542-EAEG SKIN LESIONS, OVER 4 05/17/19 14 41632-PLHZ SKIN LESIONS, 2 TO 4 01/12/20 18 86809, B3732-WZSGU/INJECT, JOINT/BURSA 1 05/31/2020 23228-JEZCJSMC OF HEMATOMA/FLUID 023 65727-WUGDDQRG OF HEMATOMA/FLUID 018 14692-JGBJDMFY OF HEMATOMA/FLUID 017 Next Appt Details Provider Name:Edith patel, 05/03/2025 11:00:00 AM, [address] [place], [address], Insurance Providers Payer Name Payer Address Payer Phone Subscriber Number Group Number Insured Name Patient Relationship to Insured Coverage Start Date Coverage End Date [facility] [address] [place] [address] [id number] Leni Ward Spouse - patient is [...]
== END 2025-03-19 11:20 | disposition home or self-care (01) ==
LOC: HO.ENCR 10:41
PROVIDERS: PCP Internal Medicine; Visit Provider Student in an Organized Health Care Education/Training Program
DX: E10.9 Type 1 diabetes mellitus without complications (principal)
CPT/HCPCS: 99214; G2211

== ENCOUNTER → 2025-03-19 10:40 | Outpatient (BNVA) | payer OTHER, SELFPAY | PROVIDERS: PCP Internal Medicine; Visit Provider Student in an Organized Health Care Education/Training Program | DX: E10.9 Type 1 diabetes mellitus without complications (principal); E78.5 Hyperlipidemia, unspecified; Z79.84 Long term (current) use of oral hypoglycemic drugs; Z79.4 Long term (current) use of insulin; Z79.899 Other long term (current) drug therapy | CPT/HCPCS: 82947; 83036; 95250 ==